=== PATIENT | male | born 1970 | race Caucasian/White ===

== ENCOUNTER 2016-12-09 23:16 | Inpatient (IN) | payer BC ==
[2016-12-09] MEDS ORDERED: nitroGLYCERIN DRIP* 250 ML IV SCH (23:45)
[2016-12-09] MEDS ORDERED: Heparin DRIP 25,000 UNITS(*) 25,000 UNITS/500 ML BAG IVPB SCH (23:45)
[2016-12-09] MEDS ORDERED: Morphine INJ* 2 MG/ML 1 ML SYRINGE IV PRN (23:51)
[2016-12-09] MEDS ORDERED: Acetaminophen TAB* 325 MG PO PRN (23:51)
[2016-12-09] MEDS ORDERED: Ondansetron INJ* 2 MG/ML VIAL IV PRN (23:51)
[2016-12-09] MEDS ORDERED: Melatonin (NF) 3 MG TAB PO PRN (23:51)
[2016-12-09 23:58] LABS: Hematocrit 43 % (42-52); Mean Corpuscular HGB Conc 35 g/dl (31-36); Mean Corpuscular Hemoglobin 33 pg (27-31); Mean Corpuscular Volume 94 fL (80-94); Mean Platelet Volume 8 um3 (7.4-10.4); Red Blood Count 4.55 10^6/ul (4.0-5.4); Red Cell Distribution Width 13 % (10.5-15); White Blood Count 9.3 10^3/ul (3.5-10.8)
--- NOTE | 2016-12-10 00:07 | HP ---
H&P (Free Text) History and Physical: Mr Longoria is a 46YO male presenting to ED w/ atypical chest pain who was admitted by Kristal Nogueira NP with an initial troponin of 0.11 who then decided to sign out AMA. He allowed a 2nd troponin to be drawn, but refused to wait for the result which returned at 0.19. Kristal Nogueira called and left a message for him to return to the ED immediately. He called his former ED nurse stating he got the message and would "think about it for an hour" and refused to remain on the phone to allow me to discuss his situation. He returns reporting no chest pain, N/V, diaphoresis, SOB, palpitations, or light-headedness. When informed that at this time we are proceeding as if this is a heart attack, he rather dismissively states, "I don't feel like I'm having one." ED re-evaluation is in progress. He will be admitted to ICU for ACS. He received aspirin & metoprolol already. He will be started on heparin GTT and low dose nitro GTT as his pressure is quite soft at 96/61. For complete H&P see Kristal Nogueira's dictation.
[2016-12-10 00:15] LABS: Albumin 3.9 g/dL (3.2-5.2); BUN/Creatinine Ratio 16.5 (8-20); Calcium 9.3 mg/dL (8.6-10.3); EGFR African American 114.8 (>60); EGFR Non-African American 89.3 (>60); Magnesium 1.7 mg/dL (1.9-2.7); Potassium 3.8 mmol/L (3.5-5.0); Total Bilirubin 0.4 mg/dL (0.2-1.0); Total Protein 6.9 g/dL (6.4-8.9)
[2016-12-10 00:19] LABS: Troponin I 0.61 ng/mL (<0.04)
[2016-12-10 00:50] LABS: TSH (Thyroid Stimulating Horm) 3.29 mcIU/mL (0.34-5.60)
[2016-12-10] MEDS ORDERED: Heparin VIAL(*) 5000 UNITS/ML VIAL (FIVE THOUSAND) IV SCH (01:00)
[2016-12-10] MEDS: NS 0.9% 1000 ML* 1,000 ML IV SCH ×2 (01:14→09:48)
--- NOTE | 2016-12-10 03:45 | HP ---
HOSPITAL MEDICINE HISTORY AND PHYSICAL: DATE OF ADMISSION: 12/09/16 PRIMARY CARE PHYSICIAN: Dr. Ash Uribe. ATTENDING PHYSICIAN: Dr. Seven Pagan *(dictation provided by Lala Nogueira NP) CHIEF COMPLAINT: Chest pain. HISTORY OF PRESENT ILLNESS: Mr. Longoria is a 46-year-old male with a past medical history of coronary artery disease with stent placement to the RCA in 2010, paroxysmal atrial fibrillation, and obstruction sleep apnea, on CPAP, who presents today to the hospital with concern for chest pain. Mr. Longoria states that he "broke his record" on the treadmill on Sunday. He was feeling a bit more short of breath than usual he thought afterwards. However, he went home, felt fine, has been feeling fine on and Sunday. On Sunday morning, in the a.m., at approximately 3:15, while sleeping, he was awoken with sharp pain in the left side of his chest radiating into his left arm. He took extra Xanax and a dose of carvedilol and was able to go back to sleep. He said he did well the day today and was able to go exercise on the treadmill with no problem and then today at 5 p.m., while sitting watching TV, he developed pain again in the left side of his chest radiating into the left arm. He has had no associated shortness of breath or nausea with this, but was quite concerned about the chest pain especially in the setting of his history of coronary artery disease and therefore came to the emergency room for evaluation. Mr. Longoria states that he has been taking sertraline and Wellbutrin for anxiety and depression symptoms. He just went off those on Sunday. He reports that he has had some increased ankle swelling over the past 2 weeks. He takes multiple supplements and felt perhaps this was related to the supplements and therefore quit taking his folate, vitamin E, CO-Q10, and vitamin D supplements. He felt like the swelling was better until this morning when he felt like his feet were slightly more swollen than usual. He thinks he has gained weight this week with the initial weight of 224, now at 231. In the emergency room, Mr. Longoria had a troponin, which was 0.11. His EKG shows an atrial fibrillation with heart rate of about 90. PAST MEDICAL HISTORY: 1. Paroxysmal atrial fibrillation. 2. Obstructive sleep apnea, on CPAP. 3. Coronary artery disease with stent to the right coronary artery, 2010. 4. Asthma, which is mild and intermittent. 5. History of perirectal abscesses, last intervention on those, May 2016. MEDICATIONS: 1. Tylenol p.r.n. 2. Aspirin 325 mg p.o. daily. 3. Carvedilol 25 mg p.o. b.i.d. 4. Hydrochlorothiazide 25 mg p.o. daily. 5. Nifedipine 30 mg p.o. daily. ALLERGIES: To AZITHROMYCIN, ERYTHROMYCIN, and LISINOPRIL. FAMILY HISTORY: The patient reports his father had a valvular disorder and had 8 stents, he is still alive. Mother has hepatitis C and she is also still alive. SOCIAL HISTORY: No report of tobacco or drug use. The patient states he drinks 3 to 4 alcoholic beverages every other day. His female friend, Mabel Heard, would be his health care proxy. REVIEW OF SYSTEMS: A 14-point review of systems was completed with Mr. Longoria and all those not mentioned above were negative. PHYSICAL EXAMINATION GENERAL: Mr. Longoria is sitting in the bed. He is in no acute distress. He is calm and cooperative with my examination. VITAL SIGNS: Temperature 97.8, heart rate 100, respiratory rate 16, O2 saturation 98% on room air, and blood pressure 145/103. LUNGS: Clear to auscultation bilaterally with no accessory muscle use and good aeration. HEART: S1, S2. No murmur, rub, or gallop, and regular. ABDOMEN: Soft and nontender with bowel sounds positive x4. EXTREMITIES: No cyanosis or edema. NEURO: He is alert, he is oriented x3. He moves all extremities equally. There is no facial asymmetry or focal weakness. Extraocular movements are intact. SKIN: Intact. DIAGNOSTIC STUDIES/LAB DATA: Sodium 135, potassium 3.7, chloride 97, serum bicarbonate 26, BUN 16, creatinine 0.83, glucose 198, and magnesium 1.7. Troponin 0.11. BNP 120. Lactic acid 1.9. WBC 10.4, hemoglobin 15.6, hematocrit 45, and platelet count 257. INR 0.99. Chest x-ray shows no acute process. ASSESSMENT AND PLAN: Mr. Longoria is a 46-year-old male with past medical history of coronary artery disease with stent placement, 2010, as well as obstructive sleep apnea, on CPAP, and paroxysmal atrial fibrillation, who presents today to the hospital with concern for chest pain at rest. Plans are for observation in the hospital for the followin. Chest pain: The patient has been able to exercise without any chest pain both on Sunday and today and in fact states that he has been able to "beat his own record." Despite this, he did have chest pain in the middle of the night and today at 5 p.m. while resting and his troponin is 0.11. Our plans will be to place him on observation for repeat troponins x2, telemetry monitoring, and further EKGs and treatment for chest pain as indicated. I wonder perhaps if his pain is related to anxiety as he did recently go off both his sertraline and Wellbutrin. The patient does endorse a significant history of anxiety. 2. Atrial fibrillation: This is paroxysmal. The patient is in atrial fibrillation, now he is rate controlled. He has a CHADS2-VASc score of 0 and no anticoagulation is indicated. We will continue his home carvedilol. 3. History of asthma: The patient is asymptomatic, but can continue albuterol p.r.n. as needed. 4. History of coronary artery disease, with stent placement: Continue carvedilol and nifedipine. 5. DVT prophylaxis: Heparin subcu. 6. Code status: Full code. TIME SPENT: Approximately 60 minutes was spent in the admission of this patient , more than half of the time was spent with the patient at the bedside reviewing the events leading up to this hospitalization, performing the physical examination, and reviewing the plan of care. LALA NOGUEIRA NP CC: Dr. Ash Uribe* [id number]/[facility] #: [id number] JEANCARLOS
[2016-12-10] MEDS ORDERED: Nitroglycerin TAB 0.4 MG* 0.4 MG TAB ONE (08:05)
[2016-12-10] MEDS: Docusate CAP* 100 MG PO SCH ×2 (09:00→21:01)
[2016-12-10] MEDS ORDERED: Aspirin TAB* 325 MG PO SCH (09:00)
[2016-12-10] MEDS: Pantoprazole IV* 40 MG IV SCH ×2 (09:00→12:07)
[2016-12-10] MEDS ORDERED: Midazolam* 1 MG/ML 5 ML VIAL (5 MG) ONE (10:02)
[2016-12-10] MEDS ORDERED: Heparin 2 UNITS/ML IVPREMIX* 2,000 ML IV ONE (10:02)
[2016-12-10] MEDS ORDERED: fentaNYL* 50 MCG/ML 2 ML VIAL (100 MCG VIAL) ONE ×2 (10:02→13:52)
[2016-12-10] MEDS ORDERED: Heparin(*) 1000 UNIT/ML 10 ML VIAL CATH LAB IV ONE (10:02)
[2016-12-10] MEDS ORDERED: VERAPAMIL 2.5 MG/ML 4 ML VIAL ONE (10:02)
[2016-12-10] MEDS ORDERED: Iohexol 350 (CONTRAST) 200 ML MDV IV ONE ×3 (10:03→14:30)
[2016-12-10] MEDS ORDERED: Lidocaine 1% INJ* 10 MG/ML 30 ML SDV ONE ×2 (10:03→12:38)
[2016-12-10] MEDS ORDERED: nitroGLYCERIN DRIP* 250 ML ONE ×2 (10:03→12:37)
[2016-12-10] MEDS ORDERED: Heparin 2 UNITS/ML IVPREMIX* 1,000 ML IV ONE (12:37)
[2016-12-10] MEDS ORDERED: Ticagrelor* 90 MG TAB PO ONE (13:51)
--- NOTE | 2016-12-10 14:12 | ED ---
HPI Chest Pain - HPI Summary HPI Summary: Patient had signed out AMA a few hours ago after a troponin resulted in .11 - patient made aware of result. Second troponin was drawn, and patient left AMA soon after. Dr Madera called patient to notify of results and he needed to come back to ED [facility]. And patient stated he would "think about it." Patient returned to ED 2 hours later, troponin was drawn and was at .6. Upon return, patient was willing to be admitted. For full note: see previous note by Kerrie Pugh PA-C - History of Current Complaint Chief Complaint: EDChestPainROMI Time Seen by Provider: 12/09/16 23:24 Hx Obtained From: Patient Onset/Duration: Started Days Ago - 2 Timing: Intermittent Initial Severity: Moderate Current Severity: Moderate Pain Intensity: 2 Pain Scale Used: 0-10 Numeric Chest Pain Location: Discrete at:, Mid Sternal Chest Pain Radiates: Yes Chest Pain Radiates To:: Shoulder, Arm Character: Burning, Dyspnea at Exertion, Dyspnea at Rest, Pressure/Squeezing, Tightness Aggravating Factor(s): Exertion Alleviating Factor(s): Nothing Associated Signs and Symptoms: Positive: Anxiety, Palpitations - Risk Factors Pulmonary Embolism Risk Factors: Negative TAD Risk Factors: Hypertension, Family Hx AMI/ACS Risk Factors: Nitroglycerine Use, Hypertension, Dyslipidemia - Additional Pertinent History Primary Care Physician: [id number] - Allergy/Home Medications Allergies/Adverse Reactions: Allergies Allergy/AdvReac Type Severity Reaction Status Date / Time Azithromycin Allergy Unknown Unknown Verified 12/10/16 00:03 Reaction Details Erythromycin Allergy Unknown Unknown Verified 12/10/16 00:03 Reaction Details Lisinopril Allergy Unknown Unknown Verified 12/10/16 00:03 Reaction Details Amlodipine [From Norvasc] Allergy Unknown Verified 12/10/16 00:03 Reaction Details Home Medications: Home Medications ALPRAZolam TAB* [Xanax TAB*] 0.5 mg PO BEDTIME PRN 12/10/16 [History Confirmed 12/10/16] Albuterol HFA INHALER* [Ventolin HFA Inhaler*] PRN 12/10/16 [History] Alprazolam [Xanax Xr] 1 mg PO DAILY 12/10/16 [History Confirmed 12/10/16] Bupropion XL* [Wellbutrin XL *] 150 mg PO DAILY 12/10/16 [History Confirmed 09/16] Nitroglycerin TAB 0.4 MG* 0.4 mg SL . NEEDED PRN 12/10/16 [History Confirmed 12/10/16] Sertraline* [Zoloft*] 150 mg PO DAILY 12/10/16 [History Confirmed 12/10/16] Sucralfate TAB* [Carafate*] 1 gm PO QID PRN 12/10/16 [History Confirmed 12/10/16 ] PMH/Surg Hx/FS Hx/Imm Hx Previously Healthy: Yes Cardiovascular History: Reports: Hx Angina, Hx Coronary Artery Disease, Hx Hypertension, Other Cardiovascular Problems/Disorders - STENT PLACED TO RCA Respiratory History: Reports: Hx Asthma History: Reports: Other Problems/Disorders - STAGE III CKD Sensory History: Reports: Hx Contacts or Glasses Opthamlomology History: Reports: Hx Contacts or Glasses Psychiatric History: Reports: Hx Anxiety - Surgical History Surgery Procedure, Year, and Place: CARDIAC STENT PLACEMENT 2010 - Immunization History Date of Tetanus Vaccine: utd Date of Influenza Vaccine: none Infectious Disease History: No Infectious Disease History: Denies: Hx of Known/Suspected MRSA, Traveled Outside the [place] in Last 30 Days - Family History Known Family History: Positive: Hypertension - Social History Occupation: Employed Full-time Lives: With Family Alcohol Use: Weekly Alcohol Amount: 2-3 glasses wine Hx Substance Use: No Substance Use Type: Reports: None Hx Tobacco Use: No Smoking Status (MU): Never Smoked Tobacco Review of Systems Positive: Fatigue, Skin Diaphoresis Eyes: Negative Positive: Palpitations, Chest Pain Positive: Shortness Of Breath Gastrointestinal: Negative Positive: no symptoms reported, see HPI Skin: Negative Neurological: Negative Positive: Anxious All Other Systems Reviewed And Are Negative: Yes Physical Exam Triage Information Reviewed: Yes Vital Signs On Initial Exam: Initial Vitals Temp Pulse Resp BP Pulse Ox 97.9 F 69 20 96/61 95 12/09/16 23:19 12/09/16 23:19 12/09/16 23:19 12/09/16 23:19 12/09/16 23:19 Vital Signs Reviewed: Yes Appearance: Positive: Well-Nourished, Ill-Appearing Skin: Positive: Warm, Diaphoretic Head/Face: Positive: Normal Head/Face Inspection Neck: Positive: Supple, No Lymphadenopathy Respiratory/Lung Sounds: Positive: Clear to Auscultation Cardiovascular: Positive: RRR - upon second arrival - patient back into RRR Musculoskeletal: Positive: Normal, Strength/ROM Intact Neurological: Positive: Alert, Oriented to Person Place, Time, Speech Normal Psychiatric: Positive: Anxious AVPU Assessment: Alert - [place] Coma Scale Best Eye Response: 4 - Spontaneous Best Motor Response: 6 - Obeys Commands Best Verbal Response: 5 - Oriented Coma Scale Total: 15 Diagnostics - Vital Signs Vital Signs Temp Pulse Resp BP Pulse Ox 12/10/16 00:02 19 12/10/16 00:00 20 12/09/16 23:38 67 20 92 12/09/16 23:36 112/85 12/09/16 23:19 97.9 F 69 20 96/61 95 - Laboratory Lab Results: Lab Results 12/09/16 12/09/16 12/09/16 Range/Units 23:46 23:46 23:46 WBC 9.3 (3.5-10.8) 10^3/ul RBC 4.55 (4.0-5.4) 10^6/ul Hgb 15.0 (14.0-18.0) g/dl Hct 43 (42-52) % MCV 94 (80-94) fL MCH 33 H (27-31) pg MCHC 35 (31-36) g/dl RDW 13 (10.5-15) % Plt Count 247 (150-450) 10^3/ul MPV 8 (7.4-10.4) um3 Neut % (Auto) 67.3 (38-83) % Lymph % (Auto) 22.2 L (25-47) % [place] % (Auto) 5.5 (1-9) % Eos % (Auto) 3.9 (0-6) % Baso % (Auto) 1.1 (0-2) % Absolute Neuts (auto) 6.3 (1.5-7.7) 10^3/ul Absolute Lymphs (auto) 2.1 (1.0-4.8) 10^3/ul Absolute Monos (auto) 0.5 (0-0.8) 10^3/ul Absolute Eos (auto) 0.4 (0-0.6) 10^3/ul Absolute Basos (auto) 0.1 (0-0.2) 10^3/ul Absolute Nucleated RBC 0.01 10^3/ul Nucleated RBC % 0.1 INR (Anticoag Therapy) 0.99 (0.89-1.11) APTT 33.3 (26.0-36.3) seconds Sodium 133 (133-145) mmol/L Potassium 3.8 (3.5-5.0) mmol/L Chloride 98 L (101-111) mmol/L Carbon Dioxide 25 (22-32) mmol/L Anion Gap 10 (2-11) mmol/L BUN 15 (6-24) mg/dL Creatinine 0.91 (0.67-1.17) mg/dL Est GFR ( Amer) 114.8 (>60) Est GFR (Non-Af Amer) 89.3 (>60) BUN/Creatinine Ratio 16.5 (8-20) Glucose 184 H (70-100) mg/dL Calcium 9.3 (8.6-10.3) mg/dL Magnesium 1.7 L (1.9-2.7) mg/dL Total Bilirubin 0.40 (0.2-1.0) mg/dL AST 25 (13-39) U/L ALT 24 (7-52) U/L Alkaline Phosphatase 69 (34-104) U/L Total Creatine Kinase 185 (10-223) U/L CK-MB (CK-2) 10.1 H (0.6-6.3) ng/mL Myoglobin 60.1 (17.4-105.7) ng/mL Troponin I 0.61 H* (<0.04) ng/mL B-Natriuretic Peptide ( - 100) pg/mL Total Protein 6.9 (6.4-8.9) g/dL Albumin 3.9 (3.2-5.2) g/dL Globulin 3.0 (2-4) g/dL Albumin/Globulin Ratio 1.3 (1-3) TSH 3.29 (0.34-5.60) mcIU/mL 12/09/16 Range/Units 23:46 WBC (3.5-10.8) 10^3/ul RBC (4.0-5.4) 10^6/ul Hgb (14.0-18.0) g/dl Hct (42-52) % MCV (80-94) fL MCH (27-31) pg MCHC (31-36) g/dl RDW (10.5-15) % Plt Count (150-450) 10^3/ul MPV (7.4-10.4) um3 Neut % (Auto) (38-83) % Lymph % (Auto) (25-47) % [place] % (Auto) (1-9) % Eos % (Auto) (0-6) % Baso % (Auto) (0-2) % Absolute Neuts (auto) (1.5-7.7) 10^3/ul Absolute Lymphs (auto) (1.0-4.8) 10^3/ul Absolute Monos (auto) (0-0.8) 10^3/ul Absolute Eos (auto) (0-0.6) 10^3/ul Absolute Basos (auto) (0-0.2) 10^3/ul Absolute Nucleated RBC 10^3/ul Nucleated RBC % INR (Anticoag Therapy) (0.89-1.11) APTT (26.0-36.3) seconds Sodium (133-145) mmol/L Potassium (3.5-5.0) mmol/L Chloride (101-111) mmol/L Carbon Dioxide (22-32) mmol/L Anion Gap (2-11) mmol/L BUN (6-24) mg/dL Creatinine (0.67-1.17) mg/dL Est GFR ( Amer) (>60) Est GFR (Non-Af Amer) (>60) BUN/Creatinine Ratio (8-20) Glucose (70-100) mg/dL Calcium (8.6-10.3) mg/dL Magnesium (1.9-2.7) mg/dL Total Bilirubin (0.2-1.0) mg/dL AST (13-39) U/L ALT (7-52) U/L Alkaline Phosphatase (34-104) U/L Total Creatine Kinase (10-223) U/L CK-MB (CK-2) (0.6-6.3) ng/mL Myoglobin (17.4-105.7) ng/mL Troponin I (<0.04) ng/mL B-Natriuretic Peptide 138 H ( - 100) pg/mL Total Protein (6.4-8.9) g/dL Albumin (3.2-5.2) g/dL Globulin (2-4) g/dL Albumin/Globulin Ratio (1-3) TSH (0.34-5.60) mcIU/mL Result Diagrams: 12/09/16 23:46 12/09/16 23:46 Lab Statement: Any lab studies that have been ordered have been reviewed, and results considered in the medical decision making process. Chest Pain Course/Dx - Course Course Of Treatment: Patient re-evlauted. Re-ordered labs. Discussed findings with Dr. Madera who was willing to accept patient to admit. no meds were given in ED d/t recent medication dispense prior to leaving. Currently pressures are soft. - Chest Pain Differential Diagnosis/HQI/PQRI: Acute AK, ACS, Angina, Chest Wall - Diagnoses Provider Diagnoses: ACS (acute coronary syndrome) Discharge - Discharge Plan Condition: Critical Disposition: ADMITTED TO [facility]
[2016-12-10] MEDS ORDERED: Nitroglycerin TAB 0.4 MG* 0.4 MG TAB SL PRN (14:58)
[2016-12-10] MEDS ORDERED: NS 0.9% 1000 ML* 1,000 ML IV SCH (15:00)
[2016-12-10 16:12] LABS: Troponin I 1.81 ng/mL (<0.04)
[2016-12-10] MEDS ORDERED: ALPRAZolam TAB* 0.5 MG PO PRN (16:33)
[2016-12-10] MEDS ORDERED: NIFEdipine ER TAB* 30 MG PO SCH (17:00)
--- NOTE | 2016-12-10 18:17 | CONS ---
INTERVENTIONAL CARDIOLOGY CONSULT: DATE OF CONSULT: 12/10/16 PRIMARY CARE PHYSICIAN: Dr. Karine Uribe in [place]. HAND POLISHER: Dr. Davidson at [facility]. HISTORY OF PRESENT ILLNESS: A 46-year-old male with remote coronary artery stenting, presenting to the hospital with non-ST elevation infarct. He had a distal right coronary artery 2.5 x 16 drug-eluting stent [place] [address] Reeder for angina and a positive stress test. He subsequently has had no angina , his blood pressure has been difficult to control and overtime he has arrived at his current regimen with higher than recommended doses of carvedilol as well as Procardia long acting even though he has coronary artery disease because it is effective. By history, he has intolerance of Lipitor with leg muscle aching , but he is willing to try it again. He has never been on Crestor. He has paroxysmal atrial fibrillation, treated with aspirin. He follows with Dr. Davidson, Cardiology at the [facility]. He presented with rest angina, which was somewhat atypical. Yesterday, he had resting left-sided somewhat atypical chest pain, he had no further problems. Then, yesterday in the evening at rest he again had the left-sided chest pain radiating into the left arm, he came to our ER, his first troponin was 0.11, a second troponin was drawn but he left AMA because he thought he was having an anxiety attack. When his second troponin came back higher, he was called and he returned. This morning he again had recurrence of his resting angina, responded fairly quickly to IV nitroglycerin at 10 mcg per minute. He has not had embolic symptoms, denies heart failure symptoms. PAST MEDICAL HISTORY: Obstructive sleep apnea, paroxysmal atrial fibrillation. His CHADS-VASc score is 2, he has been on aspirin only. Hypertension, obesity, diabetes type 2 with by history A1c of 6.3. PRE-HOSPITAL MEDICATIONS: 1. Carafate 1 g q.i.d. p.r.n. 2. Zoloft 150 p.o. daily. 3. Nitro 0.4 p.r.n. 4. Procardia XL 30 mg daily. 5. Hydrochlorothiazide 25 mg daily. 6. Carvedilol 50 mg b.i.d. 7. Wellbutrin 150 mg daily. 8. Aspirin 325 daily. 9. Xanax 1 mg daily p.r.n. 10. P.r.n. inhaler. 11. Xanax 0.5 at h.s. p.r.n. ALLERGIES: NORVASC because it caused atrial fibrillation 3 times per history, and ERYTHROMYCIN. FAMILY HISTORY: Positive for premature coronary artery disease. SOCIAL HISTORY: He is a nonsmoker. REVIEW OF SYSTEMS: General: No weight loss, he is active, he exercises. ASSEMBLER FINGER BUFFS: No history of TIA or CVA. There is a strong family history of intracranial aneurysm, but he has had a negative MRA. GI: No peptic ulcer disease or bleeding on aspirin. Circulatory: No claudication. : Negative. Remainder were all negative. PHYSICAL EXAM: General: When seen in the ICU on IV nitro, he was pain free. Vital Signs: His BP 104/80, heart rate in the 80s. Respiratory: His lungs were clear to percussion and auscultation. JVP was normal. Carotid upstrokes normal, no bruits. HEENT: Unremarkable. Cardiac Exam: Unremarkable, apex and RV not palpable, normal S1 and S2, he has irregularly irregular rhythm with variable S1, no gallop, no murmur, no rub. Abdomen: Soft, nontender, no bruit , I cannot feel the aorta or liver edge. Femoral pulses are 2+ as per radials and pedals. He has no cyanosis, clubbing, or edema. Skin: Warm and perfused. Psych: He is oriented and appropriate. LABORATORY DATA/DIAGNOSTIC STUDIES: Admission CBC unremarkable, BUN 15, creatinine 0.91, random blood sugar 184. His troponin initially was 0.19, then 0.61, 1.51, 1.81, as not yet peaked. BNP was 120 and 138. Lipids are pending. Chest x-ray by report no acute change. EKG on admission shows atrial fibrillation with ventricular rate of 96, somewhat poor R-wave progression with inferior T-wave inversion without any evolution of ST changes. IMPRESSION: 1. Non-ST elevation infarct. He has had previous right coronary artery stenting, he had a history of statin intolerance, but he is willing to try Lipitor again, potentially he could be discharged to home on Crestor as he has never had it. He takes Coenzyme Q and other supplements. He also believes some of his medication intolerance may be related to vitamin D deficiency, which is now treated. 2. Hypertension. By history, fairly well controlled on his current regimen, he tells me TIM inhibitors were ineffective in the past. 3. Paroxysmal atrial fibrillations with CHADS-VASc score of 2, he follows with Dr. Davidson who apparently has elected to treat him with aspirin alone. 4. Diabetes type 2, treated with diet. We will follow Accu-Cheks. 5. Obstructive sleep apnea, treated with CPAP. CC: Dr. Karine Uribe; Dr. Davidson* [id number]/[facility] #: [id number] [facility]ITALD[facility]ley
--- NOTE | 2016-12-10 18:29 | PN ---
Subjective Date of Service: 12/10/16 Interval History: Patient complained of chest pain this am. 4/10 in severity and feels like someone punching his chest. Radiates to his left arm. No SOB. No N/V or palps. Objective Active Medications: Acetaminophen (Tylenol Tab*) 650 mg PO Q6H PRN PRN Reason: FEVER/PAIN Alprazolam (Xanax Tab*) 0.5 mg PO BEDTIME PRN PRN Reason: ANXIETY Aspirin (Aspirin Low Dose Tab*) 81 mg PO DAILY [facility] Atorvastatin Calcium (Lipitor*) 80 mg PO 2100 ONE Stop: 12/10/16 21:01 Bupropion HCl (Wellbutrin Xl *) 150 mg PO DAILY [facility] PRN Reason: Protocol Docusate Sodium (Colace Cap*) 200 mg PO BID [facility] Last Admin: 12/10/16 09:00 Dose: Not Given Hydrochlorothiazide (Hydrodiuril Tab*) 25 mg PO DAILY [facility] Nitroglycerin/Dextrose (Nitroglycerin Drip*) 250 mls @ 1.2 mls/hr IV .(Initial Rate) [facility] PRN Reason: 2 MCG/MIN Stop: 12/10/16 21:00 Last Admin: 12/10/16 08:33 Dose: 1.2 mls/hr Sodium Chloride (Ns 0.9% 1000 Ml*) 1,000 mls @ 100 mls/hr IV .per rate [facility] Stop: 12/10/16 21:00 Last Admin: 12/10/16 16:59 Dose: 100 mls/hr Morphine Sulfate (Morphine Inj (Syringe)*) 2 mg IV Q4H PRN PRN Reason: PAIN - MILD Nifedipine (Procardia Xl Tab*) 30 mg PO DAILY [facility] Last Admin: 12/10/16 17:24 Dose: 30 mg Nitroglycerin (Nitroglycerin Tab 0.4 Mg*) 0.4 mg SL Q5M PRN PRN Reason: ANGINA Ondansetron HCl (Zofran Inj*) 4 mg IV Q6H PRN PRN Reason: NAUSEA Pantoprazole Sodium (Protonix Iv*) 40 mg IV DAILY [facility] Last Admin: 12/10/16 09:00 Dose: Not Given Sertraline HCl (Zoloft*) 150 mg PO DAILY [facility] Ticagrelor (Brilinta*) 90 mg PO BID [facility] Vital Signs 12/10/16 12/10/16 12/10/16 00:30 00:31 00:51 Temperature 98.7 F Pulse Rate 67 67 Respiratory 20 15 18 Rate Blood Pressure 109/64 86/71 (mmHg) O2 Sat by Pulse 94 96 Oximetry 12/10/16 12/10/16 12/10/16 00:55 01:00 01:30 Temperature Pulse Rate 66 66 Respiratory 15 18 Rate Blood Pressure 94/67 86/71 100/67 (mmHg) O2 Sat by Pulse 91 94 Oximetry 12/10/16 12/10/16 12/10/16 01:36 03:00 03:20 Temperature Pulse Rate 70 Respiratory 15 21 Rate Blood Pressure 110/57 (mmHg) O2 Sat by Pulse 94 93 Oximetry 12/10/16 12/10/16 12/10/16 03:30 04:00 04:31 Temperature 98.8 F Pulse Rate 72 68 128 Respiratory 16 18 21 Rate Blood Pressure 116/73 108/61 140/90 (mmHg) O2 Sat by Pulse 96 94 96 Oximetry 12/10/16 12/10/16 12/10/16 04:49 05:00 05:30 Temperature Pulse Rate 89 86 Respiratory 16 17 19 Rate Blood Pressure 118/77 106/69 (mmHg) O2 Sat by Pulse 96 93 Oximetry 12/10/16 12/10/16 12/10/16 06:00 06:01 06:30 Temperature Pulse Rate 111 115 Respiratory 18 20 Rate Blood Pressure 129/87 118/80 (mmHg) O2 Sat by Pulse 97 95 Oximetry 12/10/16 12/10/16 12/10/16 07:00 07:30 08:00 Temperature 98.1 F Pulse Rate 88 72 86 Respiratory 17 18 14 Rate Blood Pressure 123/85 128/83 (mmHg) O2 Sat by Pulse 91 93 93 Oximetry 12/10/16 12/10/16 12/10/16 08:07 08:10 08:12 Temperature Pulse Rate 46 65 76 Respiratory 14 16 15 Rate Blood Pressure 123/91 119/82 100/49 (mmHg) O2 Sat by Pulse 94 95 93 Oximetry 12/10/16 12/10/16 12/10/16 08:15 08:17 08:22 Temperature Pulse Rate 96 93 Respiratory 17 13 Rate Blood Pressure 102/71 92/65 109/68 (mmHg) O2 Sat by Pulse 92 93 Oximetry 12/10/16 12/10/16 12/10/16 08:25 08:27 08:30 Temperature Pulse Rate 51 79 85 Respiratory 13 15 18 Rate Blood Pressure 111/68 107/67 103/74 (mmHg) O2 Sat by Pulse 96 96 96 Oximetry 12/10/16 12/10/16 12/10/16 08:32 08:35 08:45 Temperature Pulse Rate 80 150 Respiratory 14 19 Rate Blood Pressure 106/80 109/79 118/52 (mmHg) O2 Sat by Pulse 94 97 Oximetry 12/10/16 12/10/16 12/10/16 09:00 09:15 09:20 Temperature Pulse Rate 77 89 83 Respiratory 16 18 16 Rate Blood Pressure 118/88 113/63 103/71 (mmHg) O2 Sat by Pulse 97 95 96 Oximetry 12/10/16 12/10/16 12/10/16 09:25 09:40 09:45 Temperature Pulse Rate 92 50 Respiratory 18 18 Rate Blood Pressure 106/71 118/72 110/65 (mmHg) O2 Sat by Pulse 95 92 Oximetry 12/10/16 12/10/16 12/10/16 09:55 10:00 10:17 Temperature Pulse Rate 89 85 89 Respiratory 18 19 18 Rate Blood Pressure 95/54 102/77 104/80 (mmHg) O2 Sat by Pulse 95 97 98 Oximetry 12/10/16 12/10/16 12/10/16 10:30 10:45 11:00 Temperature Pulse Rate 86 87 Respiratory 16 15 20 Rate Blood Pressure 105/70 122/83 (mmHg) O2 Sat by Pulse 97 98 Oximetry 12/10/16 12/10/16 12/10/16 11:18 11:26 12:00 Temperature 98.4 F Pulse Rate Respiratory 15 18 15 Rate Blood Pressure (mmHg) O2 Sat by Pulse Oximetry 12/10/16 12/10/16 12/10/16 12:05 12:15 12:30 Temperature Pulse Rate Respiratory 15 16 Rate Blood Pressure 115/75 105/71 103/71 (mmHg) O2 Sat by Pulse Oximetry 12/10/16 12/10/16 12/10/16 14:57 14:58 15:00 Temperature 98.2 F Pulse Rate Respiratory 14 14 Rate Blood Pressure (mmHg) O2 Sat by Pulse Oximetry 12/10/16 12/10/16 12/10/16 15:02 15:15 15:30 Temperature Pulse Rate 62 59 Respiratory 19 15 15 Rate Blood Pressure 117/73 119/87 111/80 (mmHg) O2 Sat by Pulse 95 98 Oximetry 12/10/16 12/10/16 12/10/16 15:45 16:00 16:15 Temperature Pulse Rate 51 55 Respiratory 12 15 Rate Blood Pressure 117/75 102/69 115/81 (mmHg) O2 Sat by Pulse 97 96 Oximetry 12/10/16 12/10/16 12/10/16 16:56 17:00 17:15 Temperature Pulse Rate 66 61 Respiratory 22 20 16 Rate Blood Pressure 171/90 134/73 144/77 (mmHg) O2 Sat by Pulse 97 97 Oximetry 12/10/16 12/10/16 12/10/16 17:30 17:55 18:00 Temperature Pulse Rate 64 64 Respiratory 17 19 Rate Blood Pressure 121/80 113/77 (mmHg) O2 Sat by Pulse 98 96 Oximetry Oxygen Devices in Use Now: None Appearance: Overweight gentleman lying in bed in NAD Eyes: No Scleral Icterus Ears/Nose/Mouth/Throat: Mucous Membranes Moist Neck: NL Appearance and Movements; NL JVP, No Thyroid Enlargement, Masses Respiratory: Clear to Auscultation Cardiovascular: - - S1S2 malathi irreg irreg rhythm Abdominal: NL Sounds; No Tenderness; No Distention, No Hepatosplenomegaly, - - Obese Lymphatic: No Cervical Adenopathy Extremities: No Edema Skin: No Rash or Ulcers Neurological: Alert and Oriented x 3 Result Diagrams: 12/09/16 23:46 12/09/16 23:46 Additional Lab and Data: Lab Results 12/09/16 12/09/16 12/09/16 Range/Units 23:46 23:46 23:46 WBC 9.3 (3.5-10.8) 10^3/ul RBC 4.55 (4.0-5.4) 10^6/ul Hgb 15.0 (14.0-18.0) g/dl Hct 43 (42-52) % MCV 94 (80-94) fL MCH 33 H (27-31) pg MCHC 35 (31-36) g/dl RDW 13 (10.5-15) % Plt Count 247 (150-450) 10^3/ul MPV 8 (7.4-10.4) um3 Neut % (Auto) 67.3 (38-83) % Lymph % (Auto) 22.2 L (25-47) % Gaston % (Auto) 5.5 (1-9) % Eos % (Auto) 3.9 (0-6) % Baso % (Auto) 1.1 (0-2) % Absolute Neuts (auto) 6.3 (1.5-7.7) 10^3/ul Absolute Lymphs (auto) 2.1 (1.0-4.8) 10^3/ul Absolute Monos (auto) 0.5 (0-0.8) 10^3/ul Absolute Eos (auto) 0.4 (0-0.6) 10^3/ul Absolute Basos (auto) 0.1 (0-0.2) 10^3/ul Absolute Nucleated RBC 0.01 10^3/ul Nucleated RBC % 0.1 INR (Anticoag Therapy) 0.99 (0.89-1.11) APTT 33.3 (26.0-36.3) seconds Sodium 133 (133-145) mmol/L Potassium 3.8 (3.5-5.0) mmol/L Chloride 98 L (101-111) mmol/L Carbon Dioxide 25 (22-32) mmol/L Anion Gap 10 (2-11) mmol/L BUN 15 (6-24) mg/dL Creatinine 0.91 (0.67-1.17) mg/dL Est GFR ( Amer) 114.8 (>60) Est GFR (Non-Af Amer) 89.3 (>60) BUN/Creatinine Ratio 16.5 (8-20) Glucose 184 H (70-100) mg/dL Calcium 9.3 (8.6-10.3) mg/dL Magnesium 1.7 L (1.9-2.7) mg/dL Total Bilirubin 0.40 (0.2-1.0) mg/dL AST 25 (13-39) U/L ALT 24 (7-52) U/L Alkaline Phosphatase 69 (34-104) U/L Total Creatine Kinase 185 (10-223) U/L CK-MB (CK-2) 10.1 H (0.6-6.3) ng/mL Myoglobin 60.1 (17.4-105.7) ng/mL Troponin I 0.61 H* (<0.04) ng/mL B-Natriuretic Peptide ( - 100) pg/mL Total Protein 6.9 (6.4-8.9) g/dL Albumin 3.9 (3.2-5.2) g/dL Globulin 3.0 (2-4) g/dL Albumin/Globulin Ratio 1.3 (1-3) TSH 3.29 (0.34-5.60) mcIU/mL 12/09/16 Range/Units 23:46 WBC (3.5-10.8) 10^3/ul RBC (4.0-5.4) 10^6/ul Hgb (14.0-18.0) g/dl Hct (42-52) % MCV (80-94) fL MCH (27-31) pg MCHC (31-36) g/dl RDW (10.5-15) % Plt Count (150-450) 10^3/ul MPV (7.4-10.4) um3 Neut % (Auto) (38-83) % Lymph % (Auto) (25-47) % Gaston % (Auto) (1-9) % Eos % (Auto) (0-6) % Baso % (Auto) (0-2) % Absolute Neuts (auto) (1.5-7.7) 10^3/ul Absolute Lymphs (auto) (1.0-4.8) 10^3/ul Absolute Monos (auto) (0-0.8) 10^3/ul Absolute Eos (auto) (0-0.6) 10^3/ul Absolute Basos (auto) (0-0.2) 10^3/ul Absolute Nucleated RBC 10^3/ul Nucleated RBC % INR (Anticoag Therapy) (0.89-1.11) APTT (26.0-36.3) seconds Sodium (133-145) mmol/L Potassium (3.5-5.0) mmol/L Chloride (101-111) mmol/L Carbon Dioxide (22-32) mmol/L Anion Gap (2-11) mmol/L BUN (6-24) mg/dL Creatinine (0.67-1.17) mg/dL Est GFR ( Amer) (>60) Est GFR (Non-Af Amer) (>60) BUN/Creatinine Ratio (8-20) Glucose (70-100) mg/dL Calcium (8.6-10.3) mg/dL Magnesium (1.9-2.7) mg/dL Total Bilirubin (0.2-1.0) mg/dL AST (13-39) U/L ALT (7-52) U/L Alkaline Phosphatase (34-104) U/L Total Creatine Kinase (10-223) U/L CK-MB (CK-2) (0.6-6.3) ng/mL Myoglobin (17.4-105.7) ng/mL Troponin I (<0.04) ng/mL B-Natriuretic Peptide 138 H ( - 100) pg/mL Total Protein (6.4-8.9) g/dL Albumin (3.2-5.2) g/dL Globulin (2-4) g/dL Albumin/Globulin Ratio (1-3) TSH (0.34-5.60) mcIU/mL Microbiology and Other Data: Microbiology 12/10/16 01:00 Nasal Screen MRSA (PCR)(FABRICE) - Final Nasal Mrsa Negative Assess/Plan/Problems-Billing Assessment: 46 year old gentleman who presented to [facility] [place] with CP and found to have elevated trops and likely NSTEMI. - Patient Problems (1) NSTEMI (non-ST elevated myocardial infarction) Current Visit: Yes Status: Acute Code(s): I21.4 - NON-ST ELEVATION (NSTEMI) MYOCARDIAL INFARCTION SNOMED Code(s): 947555687 Comment: Patient with elevated trops, chest pain and history of CAD. EKG unimpressive. On heparin drip, ntg drip, beta martin, ASA. Will contact interventional cardiology as patient likely needs cath. (2) Atrial fibrillation Current Visit: Yes Status: Acute Code(s): I48.91 - UNSPECIFIED ATRIAL FIBRILLATION SNOMED Code(s): 60120553 Comment: Chronic. Not on anticoagulation except ASA. CHADS2 score is 1. Rate is controlled. (3) Alcohol abuse Current Visit: Yes Status: Acute Code(s): F10.10 - ALCOHOL ABUSE, UNCOMPLICATED SNOMED Code(s): 10604529 Comment: Apparently we are not supposed to be aware of this as we were notified by close friend of their concern. Patient does not acknowledge this is an issue and does not want to discuss it with us. Will monitor for any evidence of withdrawal and place on WA protocol if necessary. (4) KEE (obstructive sleep apnea) Current Visit: Yes Status: Acute Code(s): G47.33 - OBSTRUCTIVE SLEEP APNEA ( ADULT) (PEDIATRIC) SNOMED Code(s): 56282593 Comment: On CPAP. He has brought in his own machine. (5) Depression Current Visit: Yes Status: Acute Code(s): F32.9 - MAJOR DEPRESSIVE DISORDER , SINGLE EPISODE, UNSPECIFIED SNOMED Code(s): 95242340 Comment: Stable. Continue current meds. (6) DVT prophylaxis Current Visit: Yes Status: Acute Code(s): XOG9386 - SNOMED Code(s): 215434397 Comment: Heparin sub q (7) Full code status Current Visit: Yes Status: Acute Code(s): Z78.9 - OTHER SPECIFIED HEALTH STATUS SNOMED Code(s): 132655240
[2016-12-10] MEDS ORDERED: Atorvastatin* 80 MG TAB PO ONE (21:00)
[2016-12-10] MEDS: Ticagrelor* 90 MG TAB PO SCH (21:01)
[2016-12-10 21:07] LABS: Hematocrit 40 % (42-52); Hemoglobin 13.8 g/dl (14.0-18.0); Mean Corpuscular HGB Conc 35 g/dl (31-36); Mean Corpuscular Hemoglobin 33 pg (27-31); Mean Corpuscular Volume 95 fL (80-94); Mean Platelet Volume 8 um3 (7.4-10.4); Red Blood Count 4.22 10^6/ul (4.0-5.4); Red Cell Distribution Width 13 % (10.5-15)
[2016-12-10 21:21] LABS: EGFR African American 116.3 (>60); EGFR Non-African American 90.4 (>60)
[2016-12-10 21:28] LABS: Troponin I 2.1 ng/mL (<0.04)
[2016-12-10] MEDS: Heparin VIAL(*) 5000 UNITS/ML VIAL (FIVE THOUSAND) SUBCUT SCH ×2 (21:48→21:50)
[2016-12-11 03:24] LABS: Hematocrit 41 % (42-52); Hemoglobin 14.1 g/dl (14.0-18.0); Mean Corpuscular HGB Conc 35 g/dl (31-36); Mean Corpuscular Hemoglobin 32 pg (27-31); Mean Corpuscular Volume 94 fL (80-94); Mean Platelet Volume 8 um3 (7.4-10.4); Red Blood Count 4.34 10^6/ul (4.0-5.4); Red Cell Distribution Width 13 % (10.5-15)
[2016-12-11 03:41] LABS: Calcium 9.2 mg/dL (8.6-10.3); EGFR African American 133.3 (>60); EGFR Non-African American 103.6 (>60); Potassium 3.7 mmol/L (3.5-5.0)
[2016-12-11 03:52] LABS: Troponin I 2.09 ng/mL (<0.04)
[2016-12-11] MEDS ORDERED: BuPROPion XL* 150 MG TAB.XL PO SCH (09:00)
[2016-12-11] MEDS ORDERED: Hydrochlorothiazide TAB* 25 MG PO SCH (09:00)
[2016-12-11] MEDS ORDERED: Sertraline* 50 MG TAB PO SCH (09:00)
[2016-12-11] MEDS ORDERED: Aspirin Low Dose CHEW TAB* 81 MG PO SCH (09:00)
--- NOTE | 2016-12-11 09:54 | ECHO ---
Patient: LEXUS THOMAS [facility] Rec#: [id number] : 1970 Date: 12/11/2016 Age: 46y Height: 172.72 cm / 68.0 in Weight: 107.5 kg / 236.9 lbs Sex: M BSA: 2.2 Room#: ICU-1 Admit Date#: 12/10/2016 Type: Inpatient Referring: Aniya Rao MD Reading: Sulaiman Feliciano MD Director Business Development: Hali Gant [facility] Director Business Development: Stefany Jeffers Transthoracic Echocardiogram Indication: S/P PCI BP: 125/82 HR: 117 Rhythm: Tachycardia Findings History: PCI 12/10/16, NSTEMI in 2010, PAF, CPAP for KEE, HTN, obesity, DM, cardiac family history. Technical Comments: The study is technically limited due to patient body habitus. Completed at 0920. Left Ventricle: The left ventricular chamber size is mildly dilated. Mild concentric left ventricular hypertrophy is observed. There is a focal wall motion abnormality present. There is mildly decreased left ventricular systolic function. The estimated ejection fraction is 40-45%. There is no consistent Doppler evidence of clinically significant diastolic dysfunction. The mid anterolateral, and apical lateral wall segments are hypokinetic (score 2). The mid anterior, and apical anterior wall segments are akinetic (score 3). Overall wallmotion score index is 2.50 Left Atrium: The left atrial chamber size is normal. Right Ventricle: The right ventricular cavity size is normal. The right ventricular global systolic function is mildly reduced. Right Atrium: The right atrial cavity size is normal. Aortic Valve: The aortic valve is trileaflet. There is trace to mild aortic regurgitation. There is no evidence of aortic stenosis. Mitral Valve: The mitral valve leaflets are mildly thickened. There is trace to mild mitral regurgitation. There is no evidence of mitral stenosis. Tricuspid Valve: The tricuspid valve leaflets are normal. There is trace tricuspid regurgitation. No pulmonary hypertension is noted. There is no tricuspid stenosis. Pulmonic Valve: The pulmonic valve appears normal. There is a trace pulmonic regurgitation. There is no pulmonic stenosis. Pericardium: There is no significant pericardial effusion. Aorta: There is moderate dilatation of the ascending aorta. There is no dilatation of the aortic arch. There is moderate dilatation of the aortic root. Pulmonary Artery: The main pulmonary artery appears normal. Venous: The inferior vena cava appears normal in size. There is a greater than 50% respiratory change in the inferior vena cava dimension. Conclusions There is mildly decreased left ventricular systolic function. The estimated ejection fraction is 40-45%. The mid anterolateral, and apical lateral wall segments are hypokinetic (score 2). The mid anterior, and apical anterior wall segments are akinetic (score 3). Mild concentric left ventricular hypertrophy is observed. There is trace to mild aortic regurgitation. There is trace to mild mitral regurgitation. There is trace tricuspid regurgitation. No pulmonary hypertension is noted. There is no significant pericardial effusion. Compared to study of 06/27/11, the LV dysfunction and wall motion abnormalites are new Measurements Name Value Normal Range RVIDd (AP) 2D 3 cm (0.9 - 2.6) RVDdMajor (2D) 3.5 cm (2.2 - 4.4) RAd ISD 4CH 5.8 cm (3.4 - 4.9) RA (A4C)W 3.7 cm (2.9 - 4.6) IVSd (2D) 1.2 cm (0.6 - 1) LVPWd (2D) 1.2 cm (0.6 - 1) LVIDd (2D) 5.6 cm (3.6 - 5.4) LVIDs (2D) 4.9 cm - LV FS (2D) 13 % (25 - 45) Aortic Annulus 3 cm (1.4 - 2.6) Ao root diameter (2D) 4.4 cm (2.1 - 3.5) Ascending Ao 4 cm (2.1 - 3.4) Aortic arch 2.8 cm (1.8 - 3.4) LA dimension (AP) 2D 4.1 cm (2.3 - 3.8) LAd ISD 4CH 5.1 cm (2.9 - 5.3) LA ISD 4CH W 3.9 cm (2.5 - 4.5) Name Value Normal Range LA ESV SP 4CH (A/L) 50 ml - LA ESV SP 2CH (A/L) 67 ml - LA ESV BP (A/L) 61 ml - LA ESV BP (A/L) index 27.79 ml/m2 - LA ESV SP 4CH (MOD) 49 ml - LA ESV SP 2CH (MOD) 65 ml - Name Value Normal Range MV E-wave Vmax 0.8 m/sec - MV deceleration time 227 msec - MV A-wave Vmax 0.7 m/sec - MV E:A ratio 1.1 ratio - LV septal e' Vmax 0.09 m/sec - LV lateral e' Vmax 0.07 m/sec - LV E:e' septal ratio 8.89 ratio - LV E:e' lateral ratio 11.43 ratio - Name Value Normal Range AV Vmax 1.2 m/sec - AV VTI 26 cm - AV peak gradient 5.7 mmHg - AV mean gradient 3.31 mmHg - LVOT Vmax 0.8 m/sec - LVOT VTI 17.3 cm - LVOT peak gradient 2.4 mmHg - LVOT mean gradient 1.34 mmHg - SILVIANO Vmax 0.43 m/sec - Name Value Normal Range TR Vmax 1.6 m/sec - TR peak gradient 10 mmHg - RAP 3 mmHg - RVSP 13 mmHg - IVC diameter 1.6 cm - Name Value Normal Range PV Vmax 0.7 m/sec - PV peak gradient 1.85 mmHg - Wallmotion BAS Not Seen BA Not Seen BAL Not Seen TODD Not Seen BI Not Seen BIS Not Seen MAS Not Seen MA Akinetic MAL Hypokinetic MIL Not Seen NV Not Seen MIS Not Seen Not Seen AA Akinetic AL Hypokinetic AI Not Seen APEX Hypokinetic
[2016-12-11] MEDS: Ticagrelor* 90 MG TAB PO SCH (09:57)
[2016-12-11] MEDS: Docusate CAP* 100 MG PO SCH (09:57)
[2016-12-11] MEDS: Pantoprazole IV* 40 MG IV SCH (09:58)
[2016-12-11] MEDS ORDERED: Carvedilol TAB* 25 MG PO SCH (12:00)
[2016-12-11 14:10] VITALS: BP 121/77
[2016-12-11] MEDS ORDERED: NIFEdipine ER TAB* 30 MG PO SCH (18:00)
[2016-12-11] MEDS: Heparin VIAL(*) 5000 UNITS/ML VIAL (FIVE THOUSAND) SUBCUT SCH (18:13)
--- NOTE | 2016-12-11 18:18 | PN ---
Subjective Date of Service: 12/11/16 Interval History: Seen and examined this AM Has no complaints No chest pain, slept well on CPAP. Has not been up and ambulating Objective Active Medications: Acetaminophen (Tylenol Tab*) 650 mg PO Q6H PRN PRN Reason: FEVER/PAIN Alprazolam (Xanax Tab*) 0.5 mg PO BEDTIME PRN PRN Reason: ANXIETY Aspirin (Aspirin Low Dose Tab*) 81 mg PO DAILY [facility] Last Admin: 12/11/16 09:57 Dose: 81 mg Bupropion HCl (Wellbutrin Xl *) 150 mg PO DAILY [facility] PRN Reason: Protocol Last Admin: 12/11/16 09:57 Dose: Not Given Carvedilol (Coreg Tab*) 50 mg PO BID [facility] Last Admin: 12/11/16 13:07 Dose: 50 mg Docusate Sodium (Colace Cap*) 200 mg PO BID [facility] Last Admin: 12/11/16 09:57 Dose: Not Given Heparin Sodium (Porcine) (Heparin Vial(*)) 5,000 units SUBCUT Q8HR [facility] Last Admin: 12/11/16 18:13 Dose: Not Given Hydrochlorothiazide (Hydrodiuril Tab*) 25 mg PO DAILY [facility] Last Admin: 12/11/16 09:57 Dose: 25 mg Morphine Sulfate (Morphine Inj (Syringe)*) 2 mg IV Q4H PRN PRN Reason: PAIN - MILD Nifedipine (Procardia Xl Tab*) 30 mg PO 1800 [facility] Nitroglycerin (Nitroglycerin Tab 0.4 Mg*) 0.4 mg SL Q5M PRN PRN Reason: ANGINA Ondansetron HCl (Zofran Inj*) 4 mg IV Q6H PRN PRN Reason: NAUSEA Pantoprazole Sodium (Protonix Iv*) 40 mg IV DAILY [facility] Last Admin: 12/11/16 09:58 Dose: 40 mg Sertraline HCl (Zoloft*) 150 mg PO DAILY [facility] Last Admin: 12/11/16 09:58 Dose: Not Given Ticagrelor (Brilinta*) 90 mg PO BID [facility] Last Admin: 12/11/16 09:57 Dose: 90 mg Vital Signs 12/10/16 12/10/16 12/10/16 18:15 18:30 18:45 Temperature Pulse Rate 71 72 Respiratory 16 17 Rate Blood Pressure 112/74 106/75 112/47 (mmHg) O2 Sat by Pulse 97 93 Oximetry 12/10/16 12/10/16 12/10/16 19:00 19:15 19:30 Temperature Pulse Rate 115 75 70 Respiratory 21 17 18 Rate Blood Pressure 108/71 114/72 (mmHg) O2 Sat by Pulse 97 96 96 Oximetry 12/10/16 12/10/16 12/10/16 19:45 20:00 20:15 Temperature 98.7 F Pulse Rate 62 69 68 Respiratory 17 19 21 Rate Blood Pressure 108/54 106/58 109/55 (mmHg) O2 Sat by Pulse 99 95 97 Oximetry 12/10/16 12/10/16 12/10/16 20:30 20:45 21:00 Temperature Pulse Rate 68 69 Respiratory 19 15 Rate Blood Pressure 105/57 114/80 131/82 (mmHg) O2 Sat by Pulse 97 97 Oximetry 12/10/16 12/10/16 12/10/16 22:00 23:00 23:56 Temperature Pulse Rate 70 Respiratory 15 15 Rate Blood Pressure (mmHg) O2 Sat by Pulse 99 Oximetry 12/11/16 12/11/16 12/11/16 00:00 01:00 01:11 Temperature 98.3 F Pulse Rate 69 72 70 Respiratory 15 15 Rate Blood Pressure 123/75 (mmHg) O2 Sat by Pulse 99 93 94 Oximetry 12/11/16 12/11/16 12/11/16 02:00 03:00 04:00 Temperature 98.2 F Pulse Rate 68 67 67 Respiratory 15 15 Rate Blood Pressure 131/80 131/81 125/75 (mmHg) O2 Sat by Pulse 94 93 94 Oximetry 12/11/16 12/11/16 12/11/16 04:34 05:00 06:00 Temperature Pulse Rate 65 67 Respiratory 18 20 18 Rate Blood Pressure 107/67 125/82 (mmHg) O2 Sat by Pulse 94 92 Oximetry 12/11/16 12/11/16 12/11/16 07:00 07:34 08:01 Temperature 99.4 F Pulse Rate 62 Respiratory 18 Rate Blood Pressure 120/81 (mmHg) O2 Sat by Pulse 95 Oximetry 12/11/16 12/11/16 12/11/16 08:54 09:00 11:13 Temperature Pulse Rate Respiratory 18 Rate Blood Pressure 116/79 124/73 (mmHg) O2 Sat by Pulse Oximetry 12/11/16 12/11/16 12/11/16 11:43 11:48 11:53 Temperature 98.6 F Pulse Rate Respiratory Rate Blood Pressure 141/101 (mmHg) O2 Sat by Pulse 95 Oximetry 12/11/16 12/11/16 12/11/16 11:57 12:35 13:40 Temperature Pulse Rate Respiratory 16 Rate Blood Pressure 139/85 128/83 (mmHg) O2 Sat by Pulse Oximetry 12/11/16 12/11/16 12/11/16 14:00 14:09 15:29 Temperature 98.8 F Pulse Rate Respiratory 16 Rate Blood Pressure 121/77 (mmHg) O2 Sat by Pulse Oximetry Oxygen Devices in Use Now: None Appearance: NAD Eyes: No Scleral Icterus, PERRLA Ears/Nose/Mouth/Throat: NL Teeth, Lips, Gums, Mucous Membranes Moist Neck: NL Appearance and Movements; NL JVP, Trachea Midline Respiratory: Symmetrical Chest Expansion and Respiratory Effort, Clear to Auscultation Cardiovascular: NL Sounds; No Murmurs; No JVD, RRR Abdominal: NL Sounds; No Tenderness; No Distention Lymphatic: No Cervical Adenopathy Extremities: No Edema, - - right radial artery under pressure, no hematoma Skin: No Rash or Ulcers Neurological: Alert and Oriented x 3 Result Diagrams: 12/11/16 03:00 12/11/16 03:00 Additional Lab and Data: Lab Results 12/09/16 12/09/16 12/09/16 Range/Units 23:46 23:46 23:46 WBC 9.3 (3.5-10.8) 10^3/ul RBC 4.55 (4.0-5.4) 10^6/ul Hgb 15.0 (14.0-18.0) g/dl Hct 43 (42-52) % MCV 94 (80-94) fL MCH 33 H (27-31) pg MCHC 35 (31-36) g/dl RDW 13 (10.5-15) % Plt Count 247 (150-450) 10^3/ul MPV 8 (7.4-10.4) um3 Neut % (Auto) 67.3 (38-83) % Lymph % (Auto) 22.2 L (25-47) % [place] % (Auto) 5.5 (1-9) % Eos % (Auto) 3.9 (0-6) % Baso % (Auto) 1.1 (0-2) % Absolute Neuts (auto) 6.3 (1.5-7.7) 10^3/ul Absolute Lymphs (auto) 2.1 (1.0-4.8) 10^3/ul Absolute Monos (auto) 0.5 (0-0.8) 10^3/ul Absolute Eos (auto) 0.4 (0-0.6) 10^3/ul Absolute Basos (auto) 0.1 (0-0.2) 10^3/ul Absolute Nucleated RBC 0.01 10^3/ul Nucleated RBC % 0.1 INR (Anticoag Therapy) 0.99 (0.89-1.11) APTT 33.3 (26.0-36.3) seconds Sodium 133 (133-145) mmol/L Potassium 3.8 (3.5-5.0) mmol/L Chloride 98 L (101-111) mmol/L Carbon Dioxide 25 (22-32) mmol/L Anion Gap 10 (2-11) mmol/L BUN 15 (6-24) mg/dL Creatinine 0.91 (0.67-1.17) mg/dL Est GFR ( Amer) 114.8 (>60) Est GFR (Non-Af Amer) 89.3 (>60) BUN/Creatinine Ratio 16.5 (8-20) Glucose 184 H (70-100) mg/dL Calcium 9.3 (8.6-10.3) mg/dL Magnesium 1.7 L (1.9-2.7) mg/dL Total Bilirubin 0.40 (0.2-1.0) mg/dL AST 25 (13-39) U/L ALT 24 (7-52) U/L Alkaline Phosphatase 69 (34-104) U/L Total Creatine Kinase 185 (10-223) U/L CK-MB (CK-2) 10.1 H (0.6-6.3) ng/mL Myoglobin 60.1 (17.4-105.7) ng/mL Troponin I 0.61 H* (<0.04) ng/mL B-Natriuretic Peptide ( - 100) pg/mL Total Protein 6.9 (6.4-8.9) g/dL Albumin 3.9 (3.2-5.2) g/dL Globulin 3.0 (2-4) g/dL Albumin/Globulin Ratio 1.3 (1-3) TSH 3.29 (0.34-5.60) mcIU/mL 12/09/16 Range/Units 23:46 WBC (3.5-10.8) 10^3/ul RBC (4.0-5.4) 10^6/ul Hgb (14.0-18.0) g/dl Hct (42-52) % MCV (80-94) fL MCH (27-31) pg MCHC (31-36) g/dl RDW (10.5-15) % Plt Count (150-450) 10^3/ul MPV (7.4-10.4) um3 Neut % (Auto) (38-83) % Lymph % (Auto) (25-47) % [place] % (Auto) (1-9) % Eos % (Auto) (0-6) % Baso % (Auto) (0-2) % Absolute Neuts (auto) (1.5-7.7) 10^3/ul Absolute Lymphs (auto) (1.0-4.8) 10^3/ul Absolute Monos (auto) (0-0.8) 10^3/ul Absolute Eos (auto) (0-0.6) 10^3/ul Absolute Basos (auto) (0-0.2) 10^3/ul Absolute Nucleated RBC 10^3/ul Nucleated RBC % INR (Anticoag Therapy) (0.89-1.11) APTT (26.0-36.3) seconds Sodium (133-145) mmol/L Potassium (3.5-5.0) mmol/L Chloride (101-111) mmol/L Carbon Dioxide (22-32) mmol/L Anion Gap (2-11) mmol/L BUN (6-24) mg/dL Creatinine (0.67-1.17) mg/dL Est GFR ( Amer) (>60) Est GFR (Non-Af Amer) (>60) BUN/Creatinine Ratio (8-20) Glucose (70-100) mg/dL Calcium (8.6-10.3) mg/dL Magnesium (1.9-2.7) mg/dL Total Bilirubin (0.2-1.0) mg/dL AST (13-39) U/L ALT (7-52) U/L Alkaline Phosphatase (34-104) U/L Total Creatine Kinase (10-223) U/L CK-MB (CK-2) (0.6-6.3) ng/mL Myoglobin (17.4-105.7) ng/mL Troponin I (<0.04) ng/mL B-Natriuretic Peptide 138 H ( - 100) pg/mL Total Protein (6.4-8.9) g/dL Albumin (3.2-5.2) g/dL Globulin (2-4) g/dL Albumin/Globulin Ratio (1-3) TSH (0.34-5.60) mcIU/mL Microbiology and Other Data: Microbiology 12/10/16 01:00 Nasal Screen MRSA (PCR)(FABRICE) - Final Nasal Mrsa Negative Assess/Plan/Problems-Billing Assessment: 46 year old gentleman who [place] [facility] [place] and found to have NSTEMI s/ p LHC with angio/stent with Dr. Rao 12/10/16 - Patient Problems (1) NSTEMI (non-ST elevated myocardial infarction) Comment: s/p LHC and stent placement c/w beta martin, ASA. ACEi ellergy start crestor (2) Atrial fibrillation Comment: Not on anticoagulation except ASA. CHADS2 score is 2. Discussed starting eliquis with pt which he would not be against however this would place him on triple AC with potential etoh abuse currently. I will not start AC at this time. Pt has been arranged to transfer care to Cardiology in [place] were his continued abstinence and safety for triple AC can be evaluated (3) Alcohol abuse Comment: Pt denies current etoh abuse. Reports he was drinking 5 glasses of wine and vodka nightly up until 3 weeks prior when he went to rehab and stopped. There are some conflicting reports from staff whether he has continued to drink. Has not exhibited any e/o withdrawal (4) Depression Current Visit: Yes Status: Acute Code(s): F32.9 - MAJOR DEPRESSIVE DISORDER , SINGLE EPISODE, UNSPECIFIED SNOMED Code(s): 10551956 Comment: Stable. Continue current meds. (5) KEE (obstructive sleep apnea) Comment: On CPAP. (6) DVT prophylaxis Comment: Heparin sub q
[2016-12-11] MEDS ORDERED: CMCS: Rosuvastatin (NF) 10 MG TAB PO SCH (21:00)
--- NOTE | 2016-12-12 12:22 | DS ---
LEAVING AGAINST MEDICAL ADVICE NOTE: DATE OF ADMISSION: 12/09/16 DATE OF LEAVING AGAINST MEDICAL ADVICE: 12/11/16 PRIMARY CARE PHYSICIAN: Dr. Ash Uribe. HISTORY OF PRESENT ILLNESS: This is a 46-year-old man presented to the hospital , had to be convinced to be admitted after presenting with chest pain and shortness of breath. He underwent radial catheterization with placement of stent. He was restarted on his home medication as well as started on Brilinta and aspirin. Of note, the patient was in atrial fibrillation, discussions were ongoing about starting Eliquis, which he was off. Decision had not been yet determined. Of note, there was suspicion of underlying alcoholism, which the patient denied. However, the evening of the , the patient became irate, demanded that he leave the hospital. This author responded to his room to discuss the risks of leaving; however, found him already dressed. When I began to discuss the risks of leaving, the patient was cursing, said he would not sign an against medical advice form. Without further notice, he stood up and left the unit. His capacity had been previously established by this author earlier in the day and had full capacity to make decisions. I strongly suspect the desire to continue drinking underlying the patient's desire to leave the hospital. He was in receipt of a Brilinta prescription; however, a formal medication reconciliation and other medications were not given to the patient as he departed prior to the completion of our discussion. Conversation was had in the presence of nursing, who also witnessed him leaving without the receipt of risks and also witnessed him leaving with his refusal to sign AMA form. CC: Dr. Ash Uribe* [id number]/[facility] #: [id number] [facility]
== END 2016-12-11 19:15 | disposition left against medical advice (07) | DRG 174 ==
LOC: ED 23:16 → ICU 23:49 → EEVIPCON 23:49 → UNDOADMIN 12-10 00:15 → ICU 12-10 00:15 → UNDODISIN 12-11 19:15
PROVIDERS: ADMIT Hospitalist; ATTEND Internal Medicine
PROC: 4A023N7 Measurement of Cardiac Sampling and Pressure, Left Heart, Percutaneous Approach (ICD-10-PCS; 2016-12-10)
PROC: B2111ZZ Fluoroscopy of Multiple Coronary Arteries using Low Osmolar Contrast (ICD-10-PCS; 2016-12-10)
PROC: 027034Z Dilation of Coronary Artery, One Artery with Drug-eluting Intraluminal Device, Percutaneous Approach (ICD-10-PCS; principal; 2016-12-10 10:30)
DX: I21.4 Non-ST elevation (NSTEMI) myocardial infarction (principal); N18.3 Chronic kidney disease, stage 3 (moderate); I12.9 Hypertensive chronic kidney disease with stage 1 through stage 4 chronic kidney disease, or unspecified chronic kidney disease; E11.9 Type 2 diabetes mellitus without complications; F10.20 Alcohol dependence, uncomplicated; Y90.9 Presence of alcohol in blood, level not specified; F41.9 Anxiety disorder, unspecified; I48.0 Paroxysmal atrial fibrillation; G47.33 Obstructive sleep apnea (adult) (pediatric); F32.9 Major depressive disorder, single episode, unspecified; J45.20 Mild intermittent asthma, uncomplicated; I25.119 Atherosclerotic heart disease of native coronary artery with unspecified angina pectoris; I48.2 Chronic atrial fibrillation; E66.9 Obesity, unspecified; Z68.36 Body mass index [BMI] 36.0-36.9, adult; Z88.8 Allergy status to other drugs, medicaments and biological substances; Z88.1 Allergy status to other antibiotic agents; Z95.5 Presence of coronary angioplasty implant and graft; Z82.49 Family history of ischemic heart disease and other diseases of the circulatory system; Z53.21 Procedure and treatment not carried out due to patient leaving prior to being seen by health care provider
CPT/HCPCS: 36415; 71010; 80048; 80053; 82550; 82553; 82565; 83605; 83735; 83874; 83880; 84443; 84484; 84520; 85025; 85610; 85730; 87641; 93005; 93306; 93458; 94760; 96374; 96375; 99284; A9270-GY; C1725; C1769; C1876; C1887; C9600-LD; J1644; J1650; J2001; J2250; J2270; J3010

== ENCOUNTER → 2016-12-09 | Emergency (ER) | payer BC ==
[~2016-12-09] MED LIST: Acetaminophen TAB* 325 MG PO ONE; Aspirin Low Dose CHEW TAB* 81 MG PO ONE; Aspirin TAB* 325 MG PO SCH; Carvedilol TAB* 25 MG PO SCH; Diltiazem DRIP* 100 ML IVPB ONE; Enoxaparin(*) 30 MG/0.3 ML SYR SUBCUT ONE; Heparin DRIP 25,000 UNITS(*) 25,000 UNITS/500 ML BAG IVPB SCH; Heparin VIAL(*) 5000 UNITS/ML VIAL (FIVE THOUSAND) IV SCH; Heparin VIAL(*) 5000 UNITS/ML VIAL (FIVE THOUSAND) SUBCUT SCH; Hydrochlorothiazide TAB* 25 MG PO SCH; Magnesium Sulfate 2 GM IV* 2 GM/50 ML BAG IVPB ONE; Metoprolol Tartrate TAB* 25 MG PO ONE; Morphine INJ* 2 MG/ML 1 ML CARPUJECT IV PRN; NIFEdipine ER TAB* 30 MG PO SCH; NS 0.9% 1000 ML* 1,000 ML IV ONE; Nitroglycerin 2% OINT* 1 GM PAK TOPICAL ONE; Nitroglycerin TAB 0.4 MG* 0.4 MG TAB SL PRN
[2016-12-09 19:10] LABS: Hematocrit 45 % (42-52); Hemoglobin 15.6 g/dl (14.0-18.0); Mean Corpuscular HGB Conc 35 g/dl (31-36); Mean Corpuscular Hemoglobin 32 pg (27-31); Mean Corpuscular Volume 94 fL (80-94); Mean Platelet Volume 8 um3 (7.4-10.4); Red Blood Count 4.83 10^6/ul (4.0-5.4); Red Cell Distribution Width 13 % (10.5-15); White Blood Count 10.4 10^3/ul (3.5-10.8)
[2016-12-09 19:23] LABS: Albumin 4.3 g/dL (3.2-5.2); BUN/Creatinine Ratio 19.3 (8-20); Calcium 9.7 mg/dL (8.6-10.3); EGFR African American 127.7 (>60); EGFR Non-African American 99.3 (>60); Globulin 3.3 g/dL (2-4); Magnesium 1.7 mg/dL (1.9-2.7); Potassium 3.7 mmol/L (3.5-5.0); Total Bilirubin 0.4 mg/dL (0.2-1.0); Total Protein 7.6 g/dL (6.4-8.9)
--- NOTE | 2016-12-09 19:30 | RAD ---
Indication: Chest pain, shortness of breath. Coronary artery disease with stent. History of asthma. Comparison: May 31, 2012 Technique: Upright AP 1854 hours Report: Accounting for superimposed soft tissues with obese body habitus and normal bronchovascular markings the lungs and pleural spaces are clear. Negative for pneumothorax. The heart, pulmonary vasculature, and mediastinal contours are unremarkable. IMPRESSION: No evidence for acute intrathoracic disease.
[2016-12-09 19:31] LABS: Troponin I 0.11 ng/mL (<0.04)
--- NOTE | 2016-12-09 20:33 | ED ---
Progress - Progress Note Progress Note: 46M, hx CAD with stents, presenting for exercise intolerance over the past week , 7 lbs weight gain and ankle edema this week, and chest pain that he had this afternoon and early this morning. Currently chest pain free, EKG nonactionable , mildly elev trop. On heparin. Admit to hospitalist, r/o CO Course/Dx - Diagnoses Provider Diagnoses: NSTEMI (non-ST elevated myocardial infarction)
[2016-12-09 21:22] VITALS: BP 155/78
--- NOTE | 2016-12-09 21:53 | ED ---
HPI Chest Pain - HPI Summary HPI Summary: Patient presents to ED with CC of chest pain and dyspnea on exertion. Patient notes to chest pain 2 days ago 1 hour after exertion on a treadmill. Then again today 1 hour after exertion on the elliptical. He notes to about 7lb weight gain this week as well, but denies past history of CHF. He states the pain is like a tightness in the chest which radiates to the back of the arm, but denies radiation to the face or jaw. He also notes to feeling "palpitations " and feels like his heart is skipping beats. PMHx includes past RCA stent placement and a-fib with at least 2 cardioversions at [facility] [place]. Patient has a history of anxiety and states this may be d/t his anxiety or his recent DC of zoloft and wellbutrin. Up until 2 days ago, by the direction of his psychiatrist, his 100mg zoloft and 100mg wellbutrin were both DC'd to be replaced with a new drug to which he has not started yet. This is the only medication change he has had in the past 6 months. Last stress test and echo both were over 2 years ago per patient. SOB has subsided since arrival, but pain in chest continues yet is intermittent lasting 15-20 minutes at a time. - History of Current Complaint Chief Complaint: EDChestPainROMI Time Seen by Provider: 12/09/16 18:44 Hx Obtained From: Patient Onset/Duration: Started Days Ago - 2 Timing: Intermittent Initial Severity: Moderate Current Severity: Moderate Pain Intensity: 8 Pain Scale Used: 0-10 Numeric Chest Pain Location: Mid Sternal Chest Pain Radiates To:: Arm Character: Skipped Beats, Tightness Aggravating Factor(s): Exertion Alleviating Factor(s): Nothing Associated Signs and Symptoms: Positive: Chest Pain, Anxiety, Shortness of Breath Related History: Obesity - Risk Factors Pulmonary Embolism Risk Factors: Negative TAD Risk Factors: Hypertension, Family Hx AMI/ACS Risk Factors: Family History, Hypertension, Dyslipidemia - Allergy/Home Medications Allergies/Adverse Reactions: Allergies Allergy/AdvReac Type Severity Reaction Status Date / Time Azithromycin Allergy Unknown Unknown Verified 12/10/16 00:03 Reaction Details Erythromycin Allergy Unknown Unknown Verified 12/10/16 00:03 Reaction Details Lisinopril Allergy Unknown Unknown Verified 12/10/16 00:03 Reaction Details Amlodipine [From [facility]] Allergy Unknown Verified 12/10/16 00:03 Reaction Details Home Medications: Home Medications Aspirin TAB* [Aspirin 325 MG TAB*] 325 mg PO DAILY 12/09/16 [History Confirmed 12/10/16] Hydrochlorothiazide [Microzide-] 25 mg PO DAILY 12/09/16 [History Confirmed 09/16] PMH/Surg Hx/FS Hx/Imm Hx Previously Healthy: Yes Cardiovascular History: Reports: Hx Angina, Hx Hypertension Respiratory History: Reports: Hx Asthma - Surgical History Surgery Procedure, Year, and Place: CARDIAC STENT PLACEMENT 2010 Infectious Disease History: No Infectious Disease History: Denies: Traveled Outside the [place] in Last 30 Days - Family History Known Family History: Positive: Hypertension - Social History Occupation: Employed Full-time Lives: With Family Alcohol Use: Weekly Substance Use Type: Reports: None Hx Tobacco Use: No Smoking Status (MU): Never Smoked Tobacco Do You Chew or Dip Tobacco: No Review of Systems Constitutional: Negative Eyes: Negative Positive: Palpitations, Chest Pain Positive: Shortness Of Breath - only with exertion Gastrointestinal: Negative Positive: no symptoms reported, see HPI Skin: Negative Neurological: Negative Positive: Anxious All Other Systems Reviewed And Are Negative: Yes Physical Exam Triage Information Reviewed: Yes Vital Signs On Initial Exam: Initial Vitals Temp Pulse Resp BP Pulse Ox 97.8 F 92 16 140/94 97 12/09/16 18:38 12/09/16 18:38 12/09/16 18:38 12/09/16 18:38 12/09/16 18:38 Vital Signs Reviewed: Yes Appearance: Positive: Well-Appearing, No Pain Distress, Well-Nourished Skin: Positive: Warm, Diaphoretic Head/Face: Positive: Normal Head/Face Inspection Eyes: Positive: EOMI, FATUMA, Conjunctiva Clear Neck: Positive: Supple, No Lymphadenopathy Respiratory/Lung Sounds: Positive: Clear to Auscultation, Breath Sounds Present Cardiovascular: Positive: Pulses are Symmetrical in both Upper and Lower Extremities, Other - a-fib, irregular rate and rhythym Musculoskeletal: Positive: Normal, Strength/ROM Intact Neurological: Positive: Normal, Sensory/Motor Intact Psychiatric: Positive: Normal, Anxious AVPU Assessment: Alert Diagnostics - Vital Signs Vital Signs Temp Pulse Resp BP Pulse Ox 12/09/16 21:00 61 21 155/78 96 12/09/16 20:45 18 12/09/16 20:30 96 119/89 98 12/09/16 20:08 96 16 135/95 98 12/09/16 20:00 86 18 98 12/09/16 19:30 87 15 145/103 99 12/09/16 19:00 96 18 127/100 97 12/09/16 18:50 96 97 12/09/16 18:48 135/93 12/09/16 18:38 97.8 F 92 16 140/94 97 - Laboratory Lab Results: Lab Results 12/09/16 12/09/16 12/09/16 Range/Units 18:55 18:55 18:55 WBC 10.4 (3.5-10.8) 10^3/ul RBC 4.83 (4.0-5.4) 10^6/ul Hgb 15.6 (14.0-18.0) g/dl Hct 45 (42-52) % MCV 94 (80-94) fL MCH 32 H (27-31) pg MCHC 35 (31-36) g/dl RDW 13 (10.5-15) % Plt Count 257 (150-450) 10^3/ul MPV 8 (7.4-10.4) um3 Neut % (Auto) 69.0 (38-83) % Lymph % (Auto) 19.9 L (25-47) % [place] % (Auto) 5.9 (1-9) % Eos % (Auto) 4.0 (0-6) % Baso % (Auto) 1.2 (0-2) % Absolute Neuts (auto) 7.2 (1.5-7.7) 10^3/ul Absolute Lymphs (auto) 2.1 (1.0-4.8) 10^3/ul Absolute Monos (auto) 0.6 (0-0.8) 10^3/ul Absolute Eos (auto) 0.4 (0-0.6) 10^3/ul Absolute Basos (auto) 0.1 (0-0.2) 10^3/ul Absolute Nucleated RBC 0.01 10^3/ul Nucleated RBC % 0 INR (Anticoag Therapy) 0.99 (0.89-1.11) APTT 31.7 (26.0-36.3) seconds Sodium 135 (133-145) mmol/L Potassium 3.7 (3.5-5.0) mmol/L Chloride 97 L (101-111) mmol/L Carbon Dioxide 26 (22-32) mmol/L Anion Gap 12 H (2-11) mmol/L BUN 16 (6-24) mg/dL Creatinine 0.83 (0.67-1.17) mg/dL Est GFR ( Amer) 127.7 (>60) Est GFR (Non-Af Amer) 99.3 (>60) BUN/Creatinine Ratio 19.3 (8-20) Glucose 198 H (70-100) mg/dL Lactic Acid (0.5-2.0) mmol/L Calcium 9.7 (8.6-10.3) mg/dL Magnesium 1.7 L (1.9-2.7) mg/dL Total Bilirubin 0.40 (0.2-1.0) mg/dL AST 21 (13-39) U/L ALT 26 (7-52) U/L Alkaline Phosphatase 75 (34-104) U/L Total Creatine Kinase 162 (10-223) U/L CK-MB (CK-2) 5.3 (0.6-6.3) ng/mL Myoglobin 41.6 (17.4-105.7) ng/mL Troponin I 0.11 H* (<0.04) ng/mL B-Natriuretic Peptide ( - 100) pg/mL Total Protein 7.6 (6.4-8.9) g/dL Albumin 4.3 (3.2-5.2) g/dL Globulin 3.3 (2-4) g/dL Albumin/Globulin Ratio 1.3 (1-3) 12/09/16 12/09/16 Range/Units 18:55 18:55 WBC (3.5-10.8) 10^3/ul RBC (4.0-5.4) 10^6/ul Hgb (14.0-18.0) g/dl Hct (42-52) % MCV (80-94) fL MCH (27-31) pg MCHC (31-36) g/dl RDW (10.5-15) % Plt Count (150-450) 10^3/ul MPV (7.4-10.4) um3 Neut % (Auto) (38-83) % Lymph % (Auto) (25-47) % [place] % (Auto) (1-9) % Eos % (Auto) (0-6) % Baso % (Auto) (0-2) % Absolute Neuts (auto) (1.5-7.7) 10^3/ul Absolute Lymphs (auto) (1.0-4.8) 10^3/ul Absolute Monos (auto) (0-0.8) 10^3/ul Absolute Eos (auto) (0-0.6) 10^3/ul Absolute Basos (auto) (0-0.2) 10^3/ul Absolute Nucleated RBC 10^3/ul Nucleated RBC % INR (Anticoag Therapy) (0.89-1.11) APTT (26.0-36.3) seconds Sodium (133-145) mmol/L Potassium (3.5-5.0) mmol/L Chloride (101-111) mmol/L Carbon Dioxide (22-32) mmol/L Anion Gap (2-11) mmol/L BUN (6-24) mg/dL Creatinine (0.67-1.17) mg/dL Est GFR ( Amer) (>60) Est GFR (Non-Af Amer) (>60) BUN/Creatinine Ratio (8-20) Glucose (70-100) mg/dL Lactic Acid 1.9 (0.5-2.0) mmol/L Calcium (8.6-10.3) mg/dL Magnesium (1.9-2.7) mg/dL Total Bilirubin (0.2-1.0) mg/dL AST (13-39) U/L ALT (7-52) U/L Alkaline Phosphatase (34-104) U/L Total Creatine Kinase (10-223) U/L CK-MB (CK-2) (0.6-6.3) ng/mL Myoglobin (17.4-105.7) ng/mL Troponin I (<0.04) ng/mL B-Natriuretic Peptide 120 H ( - 100) pg/mL Total Protein (6.4-8.9) g/dL Albumin (3.2-5.2) g/dL Globulin (2-4) g/dL Albumin/Globulin Ratio (1-3) Result Diagrams: 12/09/16 18:55 12/09/16 18:55 Lab Statement: Any lab studies that have been ordered have been reviewed, and results considered in the medical decision making process. Chest Pain Course/Dx - Course Course Of Treatment: Trop obtained at .11 - hospitalist made aware. EKG shows atrial fib which is not patients baseline. Patient denies aspirin or anticoagulant use at home. Aspirin 324mg given. Started on heparin drip per hospitalist with 25mg metoprolol. Hospitalist dr. douglas admitted patient. - Chest Pain Differential Diagnosis/HQI/PQRI: Acute PR, ACS, Angina - Diagnoses Provider Diagnoses: NSTEMI (non-ST elevated myocardial infarction) Discharge - Discharge Plan Condition: Critical Disposition: ADMITTED TO [facility]
--- NOTE | 2016-12-10 12:07 | DS ---
DISCHARGE SUMMARY: DATE OF ADMISSION: 12/09/16 DATE OF DISCHARGE AGAINST MEDICAL ADVICE: 12/09/16 SUPERVISING PHYSICIAN: Seven Pagan MD* (dictated by Lala Nogueira NP) HOSPITAL COURSE: Mr. Longoria was admitted to the hospital with plans for repeat troponins, EKGs and observation, was concerned for chest pain and elevated troponin of 0.11. The patient had not left the ED before he determined that he would like to leave AMA. I discussed with him at length that he should wait at least for a second troponin to be read. The second troponin had already been drawn, but the patient refused to even stay for the lab to give the report on that. I have counseled him at length that he should stay in the hospital for that, but he refuses and is leaving AMA today. Paperwork was filled out with him. He does understand the risk of leaving against medical advice. DISPOSITION: [place] [id number]/[facility] #: [id number] JEANCARLOS
== END | disposition short-term general hospital (02) ==
LOC: ED 18:33 → UNDOADMOB 20:29 → MEDTELE 20:29
DX: I21.4 Non-ST elevation (NSTEMI) myocardial infarction (principal); R07.9 Chest pain, unspecified; F41.9 Anxiety disorder, unspecified; R06.02 Shortness of breath; R00.2 Palpitations
CPT/HCPCS: 36415; 71010; 80053; 82550; 82553; 83605; 83735; 83874; 83880; 84484; 85025; 85610; 85730; 93005; 96374; 96375; 99284; A9270-GY; J1644; J1650; J2270; J3475

== ENCOUNTER 2016-12-13 09:31 | Inpatient (IN) | payer BC ==
[2016-12-13 10:04] LABS: Hematocrit 44 % (42-52); Hemoglobin 15.2 g/dl (14.0-18.0); Mean Corpuscular HGB Conc 34 g/dl (31-36); Mean Corpuscular Hemoglobin 32 pg (27-31); Mean Corpuscular Volume 94 fL (80-94); Mean Platelet Volume 8 um3 (7.4-10.4); Red Blood Count 4.73 10^6/ul (4.0-5.4); Red Cell Distribution Width 13 % (10.5-15); White Blood Count 8.9 10^3/ul (3.5-10.8)
[2016-12-13 10:19] LABS: ALT 35 U/L (7-52); AST 29 U/L (13-39); Albumin 4.1 g/dL (3.2-5.2); Alkaline Phosphatase 79 U/L (34-104); Anion Gap 11 mmol/L (2-11); Blood Urea Nitrogen 20 mg/dL (6-24); CO2 Carbon Dioxide 25 mmol/L (22-32); Calcium 9.8 mg/dL (8.6-10.3); Chloride 99 mmol/L (101-111); Creatine Kinase 205 U/L (10-223); EGFR African American 114.8 (>60); EGFR Non-African American 89.3 (>60); Globulin 3.2 g/dL (2-4); Glucose 169 mg/dL (70-100); Magnesium 1.7 mg/dL (1.9-2.7); Potassium 4.1 mmol/L (3.5-5.0); Sodium 135 mmol/L (133-145); Total Protein 7.3 g/dL (6.4-8.9)
[2016-12-13 10:36] LABS: Troponin I 0.66 ng/mL (<0.04)
[2016-12-13] MEDS ORDERED: Nitroglycerin TAB 0.3 MG* 0.3 MG TAB SL ONE (10:36)
--- NOTE | 2016-12-13 10:37 | ED ---
HPI Chest Pain - HPI Summary HPI Summary: Pt is a 46 yo WM with PMH HTN, paroxysmal a fib who presents to the ED through amb triage. Pt was evaluated in the ED on Sat after episode of CP. Pt was admitted for NSTEMI, had a stent to LAD and angioplasty to same. Pt states was discharged on Sunday on Berlinta. Pt states at 5:30am today he woke and felt " a fib back" and chest discomfort. Pt states felt squeezing to left shoulder. Pt reports felt SOB. Took ntg x 1 with improvement, not resolution. Pt denies diaphoresis. Pt states sx increased again so returned to ED. Pt did not take Berlinta. Pt did take his other medications - History of Current Complaint Chief Complaint: EDShortnessOfBreath Time Seen by Provider: 12/13/16 09:48 Hx Obtained From: Patient, Medical Records Onset/Duration: Started Hours Ago Timing: Intermittent Initial Severity: Moderate Current Severity: Moderate Pain Intensity: 3 Chest Pain Location: Discrete at: - left substernal Chest Pain Radiates: No Character: Pressure/Squeezing Aggravating Factor(s): Nothing Alleviating Factor(s): Nothing Associated Signs and Symptoms: Positive: Chest Pain. Negative: Diaphoresis, Nausea, Cough - Additional Pertinent History Primary Care Physician: [id number] - Allergy/Home Medications Allergies/Adverse Reactions: Allergies Allergy/AdvReac Type Severity Reaction Status Date / Time Azithromycin Allergy Unknown Unknown Verified 12/10/16 00:03 Reaction Details Erythromycin Allergy Unknown Unknown Verified 12/10/16 00:03 Reaction Details Lisinopril Allergy Unknown Unknown Verified 12/10/16 00:03 Reaction Details [facility] Allergy Unknown Verified 12/10/16 00:03 Reaction Details Home Medications: Home Medications Ticagrelor* [Brilinta*] 90 mg PO BID 12/13/16 [History Confirmed 12/13/16] PMH/Surg Hx/FS Hx/Imm Hx Previously Healthy: Yes Endocrine/Hematology History: Reports: Hx Anticoagulant Therapy Cardiovascular History: Reports: Hx Angina, Hx Coronary Artery Disease, Hx Hypertension, Other Cardiovascular Problems/Disorders - STENT PLACED TO RCA Respiratory History: Reports: Hx Asthma History: Reports: Other Problems/Disorders - STAGE III CKD Sensory History: Reports: Hx Contacts or Glasses Opthamlomology History: Reports: Hx Contacts or Glasses Psychiatric History: Reports: Hx Anxiety - Surgical History Surgery Procedure, Year, and Place: CARDIAC STENT PLACEMENT 2011 - Immunization History Date of Tetanus Vaccine: utd Date of Influenza Vaccine: none Infectious Disease History: No Infectious Disease History: Denies: Hx of Known/Suspected MRSA, Traveled Outside the [place] in Last 30 Days - Family History Known Family History: Positive: Hypertension - Social History Alcohol Use: Weekly Alcohol Amount: 2-3 glasses wine Hx Substance Use: No Substance Use Type: Reports: None Hx Tobacco Use: No Smoking Status (MU): Never Smoked Tobacco Review of Systems Constitutional: Negative Negative: Fever Eyes: Negative ENT: Negative Cardiovascular: Negative Positive: Chest Pain Positive: Shortness Of Breath Gastrointestinal: Negative Negative: Vomiting, Nausea Genitourinary: Negative Musculoskeletal: Negative Skin: Negative Neurological: Negative Negative: Weakness Psychological: Normal All Other Systems Reviewed And Are Negative: Yes Physical Exam Triage Information Reviewed: Yes Vital Signs On Initial Exam: Initial Vitals Temp Pulse Resp BP Pulse Ox 98.2 F 104 22 128/87 96 12/13/16 09:32 12/13/16 09:32 12/13/16 09:32 12/13/16 09:32 12/13/16 09:32 Vital Signs Reviewed: Yes Appearance: Positive: Well-Appearing, No Pain Distress, Well-Nourished Skin: Positive: Warm, Skin Color Reflects Adequate Perfusion, Dry Head/Face: Positive: Normal Head/Face Inspection Eyes: Positive: Normal ENT: Positive: Normal ENT inspection, TMs normal Neck: Positive: Supple, Nontender, No Lymphadenopathy Respiratory/Lung Sounds: Positive: Clear to Auscultation, Breath Sounds Present Cardiovascular: Positive: RRR, IRR. Negative: Murmur, Leg Edema Left, Leg Edema Right Abdomen Description: Positive: Nontender, No Organomegaly, Soft Bowel Sounds: Positive: Present Musculoskeletal: Positive: Normal, Strength/ROM Intact Neurological: Positive: Normal, Sensory/Motor Intact, Alert, Oriented to Person Place, Time Psychiatric: Positive: Normal AVPU Assessment: Alert - [place] Coma Scale Best Eye Response: 4 - Spontaneous Best Motor Response: 6 - Obeys Commands Best Verbal Response: 5 - Oriented Coma Scale Total: 15 Diagnostics - Vital Signs Vital Signs Temp Pulse Resp BP Pulse Ox 12/13/16 10:00 102 18 121/71 98 12/13/16 09:48 111 17 120/72 96 12/13/16 09:47 16 03/15/17 09:32 98.2 F 104 22 128/87 96 - Laboratory Lab Results: Lab Results 12/13/16 12/13/16 12/13/16 Range/Units 09:50 09:50 09:50 WBC 8.9 (3.5-10.8) 10^3/ul RBC 4.73 (4.0-5.4) 10^6/ul Hgb 15.2 (14.0-18.0) g/dl Hct 44 (42-52) % MCV 94 (80-94) fL MCH 32 H (27-31) pg MCHC 34 (31-36) g/dl RDW 13 (10.5-15) % Plt Count 217 (150-450) 10^3/ul MPV 8 (7.4-10.4) um3 Neut % (Auto) 69.3 (38-83) % Lymph % (Auto) 18.5 L (25-47) % [place] % (Auto) 7.2 (1-9) % Eos % (Auto) 4.2 (0-6) % Baso % (Auto) 0.8 (0-2) % Absolute Neuts (auto) 6.2 (1.5-7.7) 10^3/ul Absolute Lymphs (auto) 1.6 (1.0-4.8) 10^3/ul Absolute Monos (auto) 0.6 (0-0.8) 10^3/ul Absolute Eos (auto) 0.4 (0-0.6) 10^3/ul Absolute Basos (auto) 0.1 (0-0.2) 10^3/ul Absolute Nucleated RBC 0 10^3/ul Nucleated RBC % 0 Sodium 135 (133-145) mmol/L Potassium 4.1 (3.5-5.0) mmol/L Chloride 99 L (101-111) mmol/L Carbon Dioxide 25 (22-32) mmol/L Anion Gap 11 (2-11) mmol/L BUN 20 (6-24) mg/dL Creatinine 0.91 (0.67-1.17) mg/dL Est GFR ( Amer) 114.8 (>60) Est GFR (Non-Af Amer) 89.3 (>60) BUN/Creatinine Ratio 22.0 H (8-20) Glucose 169 H (70-100) mg/dL Calcium 9.8 (8.6-10.3) mg/dL Magnesium 1.7 L (1.9-2.7) mg/dL Total Bilirubin 0.70 (0.2-1.0) mg/dL AST 29 (13-39) U/L ALT 35 (7-52) U/L Alkaline Phosphatase 79 (34-104) U/L Total Creatine Kinase 205 (10-223) U/L CK-MB (CK-2) 4.9 (0.6-6.3) ng/mL Troponin I 0.66 H* (<0.04) ng/mL B-Natriuretic Peptide 78 ( - 100) pg/mL Total Protein 7.3 (6.4-8.9) g/dL Albumin 4.1 (3.2-5.2) g/dL Globulin 3.2 (2-4) g/dL Albumin/Globulin Ratio 1.3 (1-3) TSH Pending Result Diagrams: 12/13/16 09:50 12/13/16 09:50 Lab Statement: Any lab studies that have been ordered have been reviewed, and results considered in the medical decision making process. - Radiology No standard instances Xray Interpretation: No Acute Changes Radiology Interpretation Completed By: Radiologist - IMPRESSION: NO ACTIVE DISEASE. < Electronically signed by Prakash Barker MD in [place]> 12/13/16 1042 Dictated By : Prakash Barker MD Dictated Date/Time: 12/13/16 1042 Transcribed Date/Time: 12/13/16 1041 - EKG No standard instances Cardiac Rate: Other Rate - 96 EKG Rhythm: Atrial Fibrillation ST Segment: Normal Ectopy: None Re-Evaluation - Re-Evaluation First Eval Change: Improved - Pt states pain improved following ntg paste - will place paste trop elevated but lower than time of discharge - unclear if trending Will place paste Chest Pain Course/Dx - Course Assessment/Plan: Pt with recurrent episode of chest pain with SOB this am - pain improved following nitro at home, not resolved. EKG reveals a fib without acute changes. Will check labs,, CXR, EKG. Will give nitro sl, paste. anticipate will require admissioin - Diagnoses Provider Diagnoses: Chest pain, Elevated troponin - Provider Notifications Discussed Care Of Patient With: Dr. Stevens - accepting pt to hospitalist service- 1015 Instructed by Provider To: Admit As Inpatient Discharge - Discharge Plan Condition: Stable Disposition: ADMITTED TO [facility]
--- NOTE | 2016-12-13 10:45 | RAD ---
INDICATION: Short of breath COMPARISON: December 09, 2016 TECHNIQUE: An AP portable view obtained at 0955 hours is submitted. FINDINGS: Bones/Soft Tissues: There are no acute bony findings. Cardiomediastinal: The cardiomediastinal silhouette is normal. Lungs: There are no infiltrates. Pleura: There are no pleural effusions. Other: None IMPRESSION: NO ACTIVE DISEASE.
[2016-12-13] MEDS ORDERED: Nitroglycerin TAB 0.4 MG* 0.4 MG TAB ONE (10:47)
[2016-12-13 10:50] LABS: TSH (Thyroid Stimulating Horm) 6.33 mcIU/mL (0.34-5.60)
[2016-12-13] MEDS: Nitroglycerin TAB 0.4 MG* 0.4 MG TAB SL ONE ×2 (10:56→11:15)
[2016-12-13] MEDS ORDERED: Metoprolol Tartrate IV* 1 MG/ML 5 ML VIAL IV ONE (11:37)
[2016-12-13] MEDS ORDERED: Metoprolol Tartrate IV* 1 MG/ML 5 ML VIAL IV PRN (11:37)
[2016-12-13] MEDS ORDERED: Ondansetron INJ* 2 MG/ML VIAL IV PRN (11:37)
[2016-12-13] MEDS ORDERED: Acetaminophen TAB* 325 MG PO PRN (11:37)
[2016-12-13] MEDS ORDERED: Ticagrelor* 90 MG TAB PO ONE ×2 (11:37→11:46)
[2016-12-13] MEDS ORDERED: Dextrose 50% Syringe 50 ML* 25 GM/50 ML SYRINGE IV PUSH PRN (11:37)
[2016-12-13] MEDS ORDERED: Heparin DRIP 25,000 UNITS(*) 25,000 UNITS/500 ML BAG IVPB SCH (11:45)
[2016-12-13] MEDS ORDERED: Sucralfate TAB* 1 GM PO PRN (11:48)
[2016-12-13] MEDS ORDERED: ALPRAZolam TAB* 0.5 MG PO PRN (11:48)
[2016-12-13] MEDS ORDERED: Nitroglycerin 2% OINT* 1 GM PAK TOPICAL ONE (11:48)
[2016-12-13] MEDS ORDERED: Albuterol 2.5 MG/3 ML NEB.SOL* (0.083%) INH PRN (11:55)
[2016-12-13] MEDS ORDERED: Nitroglycerin 2% OINT* 1 GM PAK TOPICAL SCH (12:00)
[2016-12-13] MEDS ORDERED: Heparin VIAL(*) 5000 UNITS/ML VIAL (FIVE THOUSAND) IV SCH (12:00)
[2016-12-13] MEDS ORDERED: Aspirin Low Dose CHEW TAB* 81 MG PO ONE (12:01)
[2016-12-13] MEDS ORDERED: Aspirin Low Dose CHEW TAB* 81 MG ONE (12:03)
[2016-12-13] MEDS ORDERED: Magnesium Sulfate 2 GM IV* 2 GM/50 ML BAG IVPB ONE (12:03)
[2016-12-13 12:19] LABS: Alcohol < 10 mg/dL (<10)
--- NOTE | 2016-12-13 13:18 | HP ---
CC: Dr. Rao HISTORY AND PHYSICAL: DATE OF ADMISSION: 12/13/16 ADDENDUM: An addendum to history and physical dictated by Delvin Lara. PRIMARY CARE PHYSICIAN: Dr. Uribe in [place]. Mr. Longoria is a 46-year-old male with a history of remote coronary artery disease as well as most recently on 12/10/16 receiving a coronary stent during cardiac catheterization at [facility] for non-ST elevation PR. The patient left against medical advice on 12/11/16. He had not been taking his medications. He presents today complaining of chest pain and he was found in paroxysmal atrial fibrillation which is known to him. His troponin is mildly elevated. He is going to be placed on observation. Cardiology is going to be consulted. So far, he does not meet criteria for ST elevation PR. For further details of the patient's presentation and plan, please see history and physical dictated by Dlevin Lara on 12/13/16, with which I agree. [id number]/[facility] #: [id number] [facility]TD[facility]
[2016-12-13] MEDS: Insulin LISPRO* 1 UNITS UNIT SUBCUT SCH ×2 (13:46→17:58)
--- NOTE | 2016-12-13 13:51 | HP ---
ATTENDING PHYSICIAN ADDENDUM INCLUDED ON THIS REPORT HISTORY AND PHYSICAL: DATE OF ADMISSION: 12/13/16 PRIMARY CARE PROVIDER: Dr. Velez. ATTENDING PHYSICIAN WHILE IN THE HOSPITAL: Mary Stevens MD* (report dictated by Delvin Lara NP) CONSULTING GRANULATOR MACHINE OPERATOR: Dr. Johnson. HISTORY OF PRESENT ILLNESS: Mr. Longoria is a 46-year-old male patient who originally presented to our service on 12/09/16 with chest discomfort, signed out on the and came back later on the when he was called at home and was told that his troponin was going up. He ultimately stayed, underwent a cardiac catheterization with Dr. Rao. A stent was placed in the LAD. The patient signed out again AMA on the , received Brilinta prior to leaving around 1900 and unfortunately did not pickup driver his Brilinta until today and still has not taken it for about 36 hours. He has a history of coronary artery disease, paroxysmal atrial fibrillation, KEE, history of asthma, also PR, diabetes, hypertension, and hyperlipidemia, although he is not taking any diabetic medications. He comes back today. He says he has not had his Brilinta in 36 hours. He woke up about 5 o'clock this morning, had a similar discomfort as he had an on the when he initially presented and he also started having palpitations and fluttering in his chest. He felt short of breath, so he decided to come in, he was nonexertional. When he came into the ER it was noted that he was in atrial fibrillation with a rate of 120 beats a minute. He felt short of breath and was having some chest discomfort and his troponin was 0.66, albeit it was coming down from his previous heart catheterization. We were asked to evaluate for admission. He denies any vomiting, fevers, or chills. No abdominal discomfort. PAST MEDICAL HISTORY: Significant for: 1. Paroxysmal atrial fibrillation. 2. KEE. 3. CAD. 4. Asthma. 5. Perirectal abscesses. 6. PR. 7. Diabetes. 8. Hypertension. 9. Hyperlipidemia. PAST SURGICAL HISTORY: He has had cardiac catheterizations twice now, most recently on the with a stent to the LAD, waiting for the official report. HOME MEDICATIONS: According to the list that he provided us includes: 1. Brilinta 90 p.o. b.i.d., which he has not taken since being discharged. 2. Carafate 1 g p.o. 4 times a day as needed. 3. Nitro 0.4 mg sublingual q.5 minutes x3 p.r.n. chest pain. 4. Nifedipine 30 mg daily. 5. Hydrochlorothiazide 25 mg daily. 6. Carvedilol 50 mg p.o. b.i.d. 7. Aspirin 325 mg p.o. daily. 8. Xanax 1 mg p.o. daily. 9. Tylenol 1000 mg p.o. daily as needed. 10. Xanax 0.5 mg at bedtime as needed. ALLERGIES TO MEDICATIONS: Include AZITHROMYCIN, ERYTHROMYCIN, LIPITOR, and NORVASC. FAMILY HISTORY: His mother had history of liver disease and hepatitis C. His father had a CAD and valvular heart disease. SOCIAL HISTORY: He does not smoke. He does state that he has a history of drinking. He says he drinks to excess sometimes on a nightly basis and other times none. He says he has been clean though for the last month. He says he has never had DT's. It is unclear if he is still actively drinking. Surrogate decision maker is his brother, Jefry. REVIEW OF SYSTEMS: There is no documented fever. He denied having any significant weight change. There was no double vision, there is no ear discharge, there is no rhinorrhea, there is no sore throat, no thyroid enlargement. There was chest pain, there was shortness of breath with the chest pain. There was no nausea, no vomiting, no dysuria, no frequency, no loss of consciousness, no pruritus, and no skin ulcerations. Review of 14 systems completed, all others negative. PHYSICAL EXAMINATION GENERAL: At this time, Mr. Longoria is a 46-year-old male patient. He is morbidly obese, he is sitting in the ER stretcher. He does not appear to be in any acute distress. VITAL SIGNS: Blood pressure 112/77, pulse 107, respirations 14, O2 sat 95%, and temperature 98.2. HEENT: Head atraumatic and normocephalic. Eyes: EOMs intact. Sclerae anicteric. NECK: Supple. Throat: Oral mucosa appears to be moist. No oropharyngeal erythema. LUNGS: Clear to auscultation bilaterally. No wheezes, rales, or rhonchi. HEART: Sounds S1 and S2. Irregularly irregular rate and rhythm. No murmurs, rubs, or gallops. ABDOMEN: Soft, flat, and nontender. Bowel sounds are present. EXTREMITIES: Pulses are 2+ throughout. He is able to move all 4 extremities with 5/5 strength. NEUROLOGIC: The patient is awake, alert, and oriented x3. Tongue midline, devulcanizer tender are equal, no gross focal deficits. SKIN: Grossly intact. LABORATORY DATA: Today revealed WBC of 8.6, RBC of 4.73, hemoglobin of 15.2, hematocrit of 44, platelet count 217. Sodium is 135, potassium 4.1, chloride of 99, bicarb 25, BUN 20, creatinine 0.91, glucose 159, calcium 9.8, mag 1.7. Total bili 0.7, AST 29, ALT 35, alk phos 79. CK 205, CK-MB 4.9. Troponin was 0.66, the previous troponin 2 days ago was 2.09. His albumin was 4.1. TSH was 6.33. IMAGING: He had a chest x-ray obtained today, which showed no active disease. He had EKG's obtained today. Initially the EKG that we got showed atrial fibrillation with a rate of 106. He had no ST elevations or T-wave inversions. Repeat EKG because he did convert showed a normal sinus rhythm, rate of 62, no ST elevations or T-wave inversions were noted. Old medical records were reviewed. ASSESSMENT AND PLAN: Mr. Longoria is a 46-year-old male patient coming into the ER today with complaints of chest discomfort and shortness of breath, on evaluation found to be in atrial fibrillation with rapid ventricular response. Hospitalist service was asked to evaluate for admission. He will be admitted under inpatient status for: 1. Atrial fibrillation with rapid ventricular response. He is now converted. He was having chest discomfort with this. I think we will go ahead and continue the beta-martin. He is probably going to need something like Eliquis , but for the time being I am going to put him on heparin because his troponins are a little elevated. I want to make sure they are trending down still before I start Eliquis or something like that, it will continue with rate control and try to keep him on the rhythm. Dr. Johnson has been consulted. 2. Coronary artery disease with elevated troponins, possible non-ST elevation myocardial infarction. Again, his troponin now is 0.66. It is trending down, but he did have chest discomfort and there is concern as he was not taking his Brilinta for the last 36 hours. His EKG did not show a ST elevation myocardial infarction, which makes a thrombosed stent less likely, but I think at this point it is important to trend the troponins, make sure they do not continue to elevate and if they do, again Cardiology will be following to help us out with this. I am going to repeat his echo to make sure there has not been any changes. In addition to this, we will go ahead and put him on a heparin drip. I got him on statin, nitro, beta martin, aspirin, and I restarted his Brilinta for the time being and we will continue to follow. 3. Obstructive sleep apnea. I have ordered CPAP. 4. Asthma, p.r.n. albuterol. 5. History of diabetes. Again, I am checking an A1c. He is not on any meds for this, but I will order a sliding scale just in case. 6. Hypertension. Continue meds as prescribed. 7. Hyperlipidemia. I have added statin. 8. DVT prophylaxis. He will be placed on a heparin drip. 9. Code status, full code. 10. Fluids, electrolytes, and nutrition. He is n.p.o. TIME SPENT: On the admission 60 minutes, greater than half the time spent face- to- face with the patient obtaining my history and physical, other half of the time spent going over the plan of care with the patient and implementing the plan of care. I discussed the plan of care with my attending, Dr. Stevens, who is in agreement. DELVIN LARA NP DATE OF ADMISSION: 12/13/16 ADDENDUM: An addendum to history and physical dictated by Delvin Lara. PRIMARY CARE PHYSICIAN: Dr. Uribe in [place]. Mr. Longoria is a 46-year-old male with a history of remote coronary artery disease as well as most recently on 12/10/16 receiving a coronary stent during cardiac catheterization at [facility] for non-ST elevation PR. The patient left against medical advice on 12/11/16. He had not been taking his medications. He presents today complaining of chest pain and he was found in paroxysmal atrial fibrillation which is known to him. His troponin is mildly elevated. He is going to be placed on observation. Cardiology is going to be consulted. So far, he does not meet criteria for ST elevation PR. For further details of the patient's presentation and plan, please see history and physical dictated by Delvin Lara on 12/13/16, with which I agree. MARY STEVENS MD CC: CC: Dr. Velez; Dr. Johnson; Dr. Rao* [id number]/CPS #: [id number] #: [id number] MTDD
[2016-12-13 14:06] LABS: Troponin I 0.59 ng/mL (<0.04)
--- NOTE | 2016-12-13 15:29 | ECHO ---
Patient: LEXUS THOMAS [facility] Rec#: [id number] : 1970 Date: 12/13/2016 Age: 46y Height: 172 cm / 67.7 in Weight: 104 kg / 229.2 lbs Sex: M BSA: 2.16 Room#: [facility] Admit Date#: 12/13/2016 Type: Inpatient Referring: Delvin Lara NP Reading: Tracey Johnson MD Dispatcher Motor Vehicle: Moe Rosas RDCS Transthoracic Echocardiogram Indication: A.FIB CAD BP: 112/77 HR: 66 Rhythm: NSR Findings History: HTN,PAF,S/P PCI SOB Technical Comments: The study quality is fair. Left Ventricle: The left ventricular chamber size is normal. Mild concentric left ventricular hypertrophy is observed. There is a focal wall motion abnormality present.Base of the inferior wall appears akinetic on short axis and 2 chamber views. [place] suboptimally seen. Septum dyskinetic on short axis views. The estimated ejection fraction is 45-50%. Abnormal left ventricular diastolic filling is observed, consistent with impaired relaxation. Left Atrium: The left atrial chamber size is normal. Right Ventricle: The right ventricular cavity size is normal. The right ventricular global systolic function is low normal. Right Atrium: The right atrial cavity size is normal. Aortic Valve: The aortic valve is trileaflet. There is a trace of aortic regurgitation. There is no evidence of aortic stenosis. Mitral Valve: The mitral valve leaflets are mildly thickened. There is no evidence of mitral regurgitation. There is no evidence of mitral stenosis. Tricuspid Valve: The tricuspid valve appears normal in structure and function. There is trace tricuspid regurgitation. Pulmonic Valve: The pulmonic valve appears normal. There is no evidence of pulmonic regurgitation. There is no pulmonic stenosis. Pericardium: There is no pericardial effusion. Aorta: There is mild dilatation of the ascending aorta. There is no dilatation of the aortic arch. There is moderate dilatation of the aortic root. Pulmonary Artery: The main pulmonary artery appears normal. Venous: The inferior vena cava appears normal in size. There is a greater than 50% respiratory change in the inferior vena cava dimension. Conclusions Mild concentric left ventricular hypertrophy is observed. Global wall motion is normal although apex suboptimally seen. Base of the inferior wall appears akinetic and septum dysynchronous. The estimated ejection fraction is 45-50%. Abnormal left ventricular diastolic filling is observed, consistent with impaired relaxation. The right ventricular global systolic function is low normal. There is a trace of aortic regurgitation. There is mild dilatation of the ascending aorta: 3.6 cm. Compared with prior echo of 12/11/16, improvement in the lateral wall and anterior wall, inferior wall motion abnormality newly described. EF has improved mildly. Measurements Name Value Normal Range RVIDd (AP) 2D 2.6 cm (0.9 - 2.6) RVDdMajor (2D) 3.3 cm (2.2 - 4.4) RAd ISD 4CH 5.1 cm (3.4 - 4.9) RA (A4C)W 3.8 cm (2.9 - 4.6) IVSd (2D) 1.4 cm (0.6 - 1) LVPWd (2D) 0.9 cm (0.6 - 1) LVIDd (2D) 5.3 cm (3.6 - 5.4) LVIDs (2D) 3.9 cm - LV FS (2D) 27 % (25 - 45) Aortic Annulus 2.3 cm (1.4 - 2.6) Ao root diameter (2D) 4.4 cm (2.1 - 3.5) Ascending Ao 3.6 cm (2.1 - 3.4) Aortic arch 2.7 cm (1.8 - 3.4) LA dimension (AP) 2D 3.9 cm (2.3 - 3.8) LAd ISD 4CH 6.4 cm (2.9 - 5.3) LA ISD 4CH W 3.3 cm (2.5 - 4.5) Name Value Normal Range LA ESV SP 4CH (A/L) 37 ml - LA ESV SP 2CH (A/L) 48 ml - LA ESV BP (A/L) 46 ml - LA ESV BP (A/L) index 21.04 ml/m2 - LA ESV SP 4CH (MOD) 35 ml - LA ESV SP 2CH (MOD) 47 ml - Name Value Normal Range MV E-wave Vmax 0.46 m/sec - MV deceleration time 146 msec - MV A-wave Vmax 0.68 m/sec - MV E:A ratio 0.68 ratio - LV septal e' Vmax 0.04 m/sec - LV lateral e' Vmax 0.04 m/sec - LV E:e' septal ratio 11.5 ratio - LV E:e' lateral ratio 11.5 ratio - Name Value Normal Range LVOT diameter 2.3 cm - LVOT Vmax 0.7 m/sec - Name Value Normal Range IVC diameter 2.1 cm - Name Value Normal Range PV Vmax 0.8 m/sec -
--- NOTE | 2016-12-13 15:29 | CONS ---
CARDIOLOGY CONSULTATION: DATE OF CONSULT: 12/13/16 HOSPITALIST: Dr. Ash Uribe. [employer] CRM DEVELOPER: Dr. Stuart bangura [place]. REASON FOR CONSULT: Chest pain, elevated troponins, and atrial fibrillation. CHIEF COMPLAINT: Awakening with AFib and chest pain. HISTORY OF PRESENT ILLNESS: Mr. Longoria is a 46-year-old gentleman with a known atherosclerotic heart disease with stenting to the right coronary artery in 2010 and more recently on 12/10/16, he presented with a non Q-wave myocardial infarction with subsequent placement on 12/10/[address] Aniya Rao , full report not yet available, images viewed and stents placed to LAD and diagonal occlusions. (2.5 x 12 Synergy stent.) The patient was discharged on 12/11/16 against medical advice. He was given samples of Brilinta and then presented today because he states he awoke at 5 in the morning feeling like he was in atrial fibrillation and could not breathe. He tried to roll over, but things did not improve. He then developed mild left-sided chest pain that was different than the pain he had had over the weekend, much less severe and different in quality. The nurses found that the patient's Brilinta bottle was unopened with the protective tamper proof seal still in place and the patient in fact did not take the Brilinta after discharge. He denies any associated alcohol intake and states he was taking his other medications as prescribed to me. The nurses relate to me that when the patient left AMA earlier this week, he had been observed buying alcohol and it is their perception that alcoholism is the likely factor with his AMA history and medical compliance. The patient presented here with a rapid rate and spontaneously converted and by the time I saw him, he was completely free of pain or palpitations and feeling back to normal. PAST MEDICAL HISTORY: The patient has a past medical history of: 1. Coronary artery disease, status post stent to the right coronary artery in 2010 and stenting on 12/10/16. 2. He has obstructive sleep apnea with CPAP that he states he uses. 3. Hypertension. 4. Asthma. 5. Paroxysmal atrial fibrillation since at least 2011, possibly longer. 6. Perirectal abscess. 7. Morbid obesity. 8. Hyperglycemia. 9. Transient renal insufficiency. 10. Anxiety and depression, discontinued antianxiety medications just a few days prior to his presentation for his non Q-wave myocardial infarction. MEDICATIONS: Current inpatient medications include: 1. Tylenol p.r.n. 2. Albuterol inhaler. 3. Xanax p.r.n. 4. Aspirin 81 mg a day. 5. Lipitor 20 mg a day. 6. Coreg 25 mg b.i.d. and 50 mg b.i.d. 7. Unfractionated heparin initiated this admission. 8. Hydrochlorothiazide 25 mg a day. 9. Intravenous magnesium sulfate. 10. Morphine p.r.n. 11. Procardia XL 30 mg a day. 12. Nitroglycerin p.r.n. 13. Zofran p.r.n. 14. Carafate p.r.n. 15. Brilinta 90 mg b.i.d. ALLERGIES: Medication allergies and intolerance include: AZITHROMYCIN, LISINOPRIL, (renal insufficiency), ERYTHROMYCIN. NORVASC was associated with atrial fibrillation, but I do not believe there is any actual allergy. FAMILY HISTORY: Significant in that his father has a history of coronary artery disease and AFib, aortic stenosis. His mother has a history of hepatitis C. 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 No recent tobacco or recreational drug use. REVIEW OF SYSTEMS: See history of present illness regarding noncompliance with Brilinta, but he denies recent fevers, chills, sweats, change in bowel or bladder habits, orthopnea or PND. He states he has been using his CPAP. No recent coughing. No recent alcohol per patient. PHYSICAL EXAM: The patient is a middle-aged obese gentleman lying at 25 degrees in no acute distress. On arrival to the ED, blood pressure was 140/94, heart rate 106 beats a minute. Height and weight are not available at this time. Psychologically pleasant, cooperative. Neurologically awake, alert, and oriented to person, place, and time. Cranial nerves II through XII are grossly intact. Grossly normal sensory and motor function in the upper and lower extremities in bed, ambulation not locked, and formal neurological exam not done. Skin: Warm and dry. No evidence of cyanosis, oxygen on. HEENT: Pupils are equal and round. Mucous membranes are moist. Neck: Thick from obesity with no appreciable increased JVP, thyromegaly, or lymphadenopathy. Breath sounds distant throughout from obesity but equal in all lung ba and clear. No rales, rhonchi, or wheezing heard. Coronary: Also distant S1 and S2 , regular without murmurs or rubs. Abdomen: Overweight, active bowel sounds, soft. No epigastric discomfort and no hepatosplenomegaly appreciated. Lower extremities were free of any pitting edema. IMAGING: A 12-lead ECG on admission: Atrial fibrillation with a rapid ventricular rate of 106 beats per minute, QRS axis +30. Normal interventricular conduction times and normal ST's. ECG #2 done at 11:49 a.m. shows normal sinus rhythm 62 beats per minute, QRS axis +30 with normal AV and IV conduction times. Corrected QT interval of [address] segment. DIAGNOSTIC STUDIES/LAB DATA: White count 8.9, hemoglobin 15.2, hematocrit 44, platelets 217. No INR today. PTT 31.4. Sodium 135, potassium 4.1, chloride 99 , bicarb 25, BUN 20, creatinine 0.91, glucose 169. Magnesium 1.9. Troponin #1 today is 0.66 (decreased from 2.09 on 12/11/16). TSH of 6.33, BNP is 78, serum alcohol less than 10. Chest x-ray done today showed no active disease. IMPRESSION: In summary, Mr. Longoria is a 46-year-old gentleman with known atherosclerotic heart disease, postprocedure day #3 of stenting, has not been on Brilinta since he left the hospital 48 hours ago, presenting with atrial fibrillation he perceives he woke up of uncertain duration, possibly up to 48 hours and chest discomfort different from his chest discomfort he had prior to stenting. For the paroxysmal atrial fibrillation, he has been on sotalol in the past but it was discontinued by one of my colleagues for bradycardia and concern about bradycardic-induced dysrhythmias. The patient is at high risk for recurrent atrial fibrillation due to his obstructive sleep apnea and this does seem to be happening recurrently in the middle of the night. I agree with the magnesium replacement initiated. The fact that he is waking up with AFib using CPAP raises the possibility that he needs CPAP titration. It sounds like this has not been done for about 6 months. This will be an outpatient followup. I am recommending that we start Multaq 400 mg b.i.d. as it is safe and we need to consider his alcohol use, underlying atherosclerotic heart disease, and compliance issues in picking an antiarrhythmic even though it is weak. Apparently, in the past it has been decided not to use anticoagulants and I do not know if this is related to compliance, alcoholism, fall risk, bleeding risks , but if there are no contraindications I would consider initiation of a once a day NOAC if he will be compliant, perhaps Xarelto if covered by his insurance. For the patient's underlying atherosclerotic heart disease and chest pain, his EKG and troponins are reassuring. EKG showed no evidence of acute changes and the mild elevation in troponin is likely from his initial presentation over the weekend with an expected residual. I think I talked to him personally about the risk of stopping his antiplatelet agents and he assures me that he will continue the Brilinta. I specifically talked to him about discussing any issues he has regarding taking medications, their compliance and the importance of communication with us and he says he understands. The lipids in our system appear to be from 2013 and I would recommend updating a fasting lipid panel for full risk factor stratification. 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 CC: Dr. Ash rUibe; Dr. Davidson; Aniya Rao MD* [id number] #: [id number] MTDD
[2016-12-13] MEDS: Nitroglycerin 2% OINT* 1 GM PAK TOPICAL SCH ×2 (16:42→22:04)
[2016-12-13] MEDS ORDERED: Atorvastatin* 20 MG TAB PO SCH (17:00)
[2016-12-13] MEDS: Ticagrelor* 90 MG TAB PO SCH (20:37)
[2016-12-13] MEDS: Carvedilol TAB* 25 MG PO SCH (20:37)
[2016-12-13] MEDS: Dronedarone TAB* 400 MG PO SCH (20:38)
[2016-12-13] MEDS ORDERED: Carvedilol TAB* 25 MG PO SCH (21:00)
[2016-12-13] MEDS ORDERED: Apixaban* 5 MG TAB PO SCH (22:00)
[2016-12-13] MEDS ORDERED: Nitroglycerin TAB 0.4 MG* 0.4 MG TAB SL ONE (22:38)
[2016-12-14] MEDS: Insulin LISPRO* 1 UNITS UNIT SUBCUT SCH ×4 (00:36→17:18)
[2016-12-14] MEDS: Nitroglycerin 2% OINT* 1 GM PAK TOPICAL SCH (05:11)
[2016-12-14 05:24] LABS: Hematocrit 41 % (42-52); Hemoglobin 14.2 g/dl (14.0-18.0); Mean Corpuscular HGB Conc 34 g/dl (31-36); Mean Corpuscular Hemoglobin 32 pg (27-31); Mean Corpuscular Volume 94 fL (80-94); Mean Platelet Volume 8 um3 (7.4-10.4); Red Blood Count 4.41 10^6/ul (4.0-5.4); Red Cell Distribution Width 13 % (10.5-15); White Blood Count 9.2 10^3/ul (3.5-10.8)
[2016-12-14 05:35] LABS: BUN/Creatinine Ratio 22.1 (8-20); Calcium 9.3 mg/dL (8.6-10.3); EGFR African American 122.6 (>60); EGFR Non-African American 95.3 (>60); HDL Cholesterol 31.4 mg/dL; Potassium 3.8 mmol/L (3.5-5.0)
[2016-12-14] MEDS ORDERED: Atorvastatin* 20 MG TAB PO SCH ×2 (08:54→09:12)
[2016-12-14] MEDS ORDERED: NIFEdipine ER TAB* 30 MG PO SCH ×2 (09:00)
[2016-12-14] MEDS ORDERED: Aspirin TAB* 325 MG PO SCH (09:00)
[2016-12-14] MEDS ORDERED: Rivaroxaban TAB(*) 10 MG PO SCH (09:00)
[2016-12-14] MEDS ORDERED: Clopidogrel TAB* 300 MG PO ONE (09:17)
--- NOTE | 2016-12-14 09:19 | PN ---
Subjective Date of Service: 12/14/16 Interval History: Patient had 10 minutes of atrial fib last night with chest pain. Slept well after that. No other c/o. Objective Active Medications: Acetaminophen (Tylenol Tab*) 650 mg PO Q4H PRN PRN Reason: FEVER/PAIN Albuterol (Ventolin 2.5 Mg/3 Ml Neb.Sabi*) 2.5 mg INH Q2H PRN PRN Reason: SOB/WHEEZING Alprazolam (Xanax Tab*) 0.5 mg PO BEDTIME PRN PRN Reason: ANXIETY Aspirin (Aspirin Low Dose Tab*) 81 mg PO DAILY [facility] Carvedilol (Coreg Tab*) 50 mg PO BID [facility] Last Admin: 12/13/16 20:37 Dose: 50 mg Dextrose (D50w Syringe 50 Ml*) 12.5 gm IV PUSH .FOR FS < 60 - SS PRN PRN Reason: FS < 60 Dronedarone (Multaq Tab*) 400 mg PO BID [facility] Last Admin: 12/13/16 20:38 Dose: 400 mg Insulin Human Lispro (Humalog*) 0 units SUBCUT Q6HR [facility] PRN Reason: Protocol Last Admin: 12/14/16 06:47 Dose: 2 units Nitroglycerin (Nitroglycerin 2% Oint*) 0.5 inch TOPICAL 0500,1100,1700,2300 [facility] Last Admin: 12/14/16 05:11 Dose: 0.5 inch Ondansetron HCl (Zofran Inj*) 4 mg IV Q6H PRN PRN Reason: NAUSEA Rivaroxaban (Xarelto(*)) 20 mg PO DAILY [facility] Sucralfate (Carafate*) 1 gm PO QID PRN PRN Reason: gas Ticagrelor (Brilinta*) 90 mg PO BID [facility] Last Admin: 12/13/16 20:37 Dose: 90 mg Vital Signs 12/13/16 12/13/16 12/13/16 11:15 11:30 11:45 Temperature Pulse Rate 107 101 59 Respiratory 15 14 14 Rate Blood Pressure 122/77 112/77 109/78 (mmHg) O2 Sat by Pulse 98 95 98 Oximetry 12/13/16 12/13/16 12/13/16 11:48 12:00 12:03 Temperature 97.8 F 98.5 F Pulse Rate 60 61 64 Respiratory 16 14 17 Rate Blood Pressure 115/70 130/73 148/91 (mmHg) O2 Sat by Pulse 96 96 96 Oximetry 12/13/16 12/13/16 12/13/16 12:20 12:21 12:30 Temperature Pulse Rate 66 64 Respiratory 22 13 Rate Blood Pressure 102/73 148/91 (mmHg) O2 Sat by Pulse 94 96 Oximetry 12/13/16 12/13/16 12/13/16 12:45 13:00 13:03 Temperature 98.0 F Pulse Rate 65 68 68 Respiratory 18 17 13 Rate Blood Pressure 133/76 122/97 (mmHg) O2 Sat by Pulse 96 96 98 Oximetry 12/13/16 12/13/16 12/13/16 13:15 13:30 13:45 Temperature Pulse Rate 67 69 65 Respiratory 15 16 18 Rate Blood Pressure 121/102 120/68 113/70 (mmHg) O2 Sat by Pulse 97 94 97 Oximetry 12/13/16 12/13/16 12/13/16 14:00 14:15 14:30 Temperature Pulse Rate 65 68 67 Respiratory 16 19 14 Rate Blood Pressure 126/77 126/110 117/70 (mmHg) O2 Sat by Pulse 95 96 96 Oximetry 12/13/16 12/13/16 12/13/16 14:45 15:00 15:15 Temperature Pulse Rate 65 63 59 Respiratory 17 12 20 Rate Blood Pressure 123/82 112/90 128/77 (mmHg) O2 Sat by Pulse 97 98 98 Oximetry 12/13/16 12/13/16 12/13/16 15:30 15:45 16:00 Temperature 98.9 F Pulse Rate 64 74 62 Respiratory 13 18 15 Rate Blood Pressure 113/77 120/75 121/74 (mmHg) O2 Sat by Pulse 99 98 98 Oximetry 12/13/16 12/13/16 12/13/16 16:15 16:30 16:45 Temperature Pulse Rate 61 60 65 Respiratory 17 19 15 Rate Blood Pressure 116/76 128/77 122/80 (mmHg) O2 Sat by Pulse 98 99 98 Oximetry 12/13/16 12/13/16 12/13/16 17:00 17:15 17:30 Temperature Pulse Rate 67 64 61 Respiratory 17 14 17 Rate Blood Pressure 119/64 109/68 104/63 (mmHg) O2 Sat by Pulse 98 98 96 Oximetry 12/13/16 12/13/16 12/13/16 17:45 18:00 18:15 Temperature Pulse Rate 64 62 67 Respiratory 15 12 15 Rate Blood Pressure 114/64 102/78 114/60 (mmHg) O2 Sat by Pulse 96 98 98 Oximetry 12/13/16 12/13/16 12/13/16 18:30 18:45 19:00 Temperature Pulse Rate 69 80 79 Respiratory 16 24 17 Rate Blood Pressure 122/81 121/77 (mmHg) O2 Sat by Pulse 93 95 95 Oximetry 12/13/16 12/13/16 12/13/16 20:00 21:00 22:00 Temperature 98.8 F Pulse Rate 67 73 89 Respiratory 16 20 13 Rate Blood Pressure 110/58 120/72 118/71 (mmHg) O2 Sat by Pulse 98 98 98 Oximetry 12/13/16 12/13/16 12/14/16 23:00 23:55 00:00 Temperature 99.1 F Pulse Rate 90 Respiratory 20 17 Rate Blood Pressure 112/60 (mmHg) O2 Sat by Pulse 96 Oximetry 12/14/16 12/14/16 12/14/16 00:04 00:21 01:00 Temperature Pulse Rate 115 87 91 Respiratory 19 15 18 Rate Blood Pressure 119/79 133/56 (mmHg) O2 Sat by Pulse 96 97 95 Oximetry 12/14/16 12/14/16 12/14/16 02:00 03:00 04:00 Temperature 97.7 F Pulse Rate 83 82 59 Respiratory 18 16 16 Rate Blood Pressure 102/65 115/41 94/39 (mmHg) O2 Sat by Pulse 91 92 95 Oximetry 12/14/16 12/14/16 12/14/16 05:00 05:15 06:00 Temperature Pulse Rate 58 56 55 Respiratory 16 14 17 Rate Blood Pressure 94/47 117/70 113/71 (mmHg) O2 Sat by Pulse 94 95 91 Oximetry 12/14/16 12/14/16 12/14/16 07:00 07:47 07:57 Temperature 98.9 F Pulse Rate 58 Respiratory 16 10 Rate Blood Pressure 115/63 (mmHg) O2 Sat by Pulse 92 Oximetry 12/14/16 08:00 Temperature Pulse Rate 59 Respiratory 13 Rate Blood Pressure 108/69 (mmHg) O2 Sat by Pulse 95 Oximetry Oxygen Devices in Use Now: Nasal Cannula Appearance: Alert, partly up in ICU bed. In good spirits. Looks comfortable. Eyes: No Scleral Icterus Neck: NL Appearance and Movements; NL JVP, No Thyroid Enlargement, Masses Respiratory: Symmetrical Chest Expansion and Respiratory Effort, Clear to Auscultation, Clear to Percussion Cardiovascular: NL Sounds; No Murmurs; No JVD, RRR, No Edema, - Extremities: No Edema, No Clubbing, Cyanosis, - Skin: No Rash or Ulcers, No Nodules or Sclerosis, - - bran complexion Neurological: Alert and Oriented x 3, NL Sensation - No tremor. Result Diagrams: 12/14/16 05:10 12/14/16 05:10 Additional Lab and Data: Lab Results 12/13/16 12/13/16 12/13/16 Range/Units 09:50 09:50 09:50 WBC 8.9 (3.5-10.8) 10^3/ul RBC 4.73 (4.0-5.4) 10^6/ul Hgb 15.2 (14.0-18.0) g/dl Hct 44 (42-52) % MCV 94 (80-94) fL MCH 32 H (27-31) pg MCHC 34 (31-36) g/dl RDW 13 (10.5-15) % Plt Count 217 (150-450) 10^3/ul MPV 8 (7.4-10.4) um3 Neut % (Auto) 69.3 (38-83) % Lymph % (Auto) 18.5 L (25-47) % [place] % (Auto) 7.2 (1-9) % Eos % (Auto) 4.2 (0-6) % Baso % (Auto) 0.8 (0-2) % Absolute Neuts (auto) 6.2 (1.5-7.7) 10^3/ul Absolute Lymphs (auto) 1.6 (1.0-4.8) 10^3/ul Absolute Monos (auto) 0.6 (0-0.8) 10^3/ul Absolute Eos (auto) 0.4 (0-0.6) 10^3/ul Absolute Basos (auto) 0.1 (0-0.2) 10^3/ul Absolute Nucleated RBC 0 10^3/ul Nucleated RBC % 0 Sodium 135 (133-145) mmol/L Potassium 4.1 (3.5-5.0) mmol/L Chloride 99 L (101-111) mmol/L Carbon Dioxide 25 (22-32) mmol/L Anion Gap 11 (2-11) mmol/L BUN 20 (6-24) mg/dL Creatinine 0.91 (0.67-1.17) mg/dL Est GFR ( Amer) 114.8 (>60) Est GFR (Non-Af Amer) 89.3 (>60) BUN/Creatinine Ratio 22.0 H (8-20) Glucose 169 H (70-100) mg/dL Calcium 9.8 (8.6-10.3) mg/dL Magnesium 1.7 L (1.9-2.7) mg/dL Total Bilirubin 0.70 (0.2-1.0) mg/dL AST 29 (13-39) U/L ALT 35 (7-52) U/L Alkaline Phosphatase 79 (34-104) U/L Total Creatine Kinase 205 (10-223) U/L CK-MB (CK-2) 4.9 (0.6-6.3) ng/mL Troponin I 0.66 H* (<0.04) ng/mL B-Natriuretic Peptide 78 ( - 100) pg/mL Total Protein 7.3 (6.4-8.9) g/dL Albumin 4.1 (3.2-5.2) g/dL Globulin 3.2 (2-4) g/dL Albumin/Globulin Ratio 1.3 (1-3) TSH Pending Assess/Plan/Problems-Billing Assessment: - Patient Problems (1) Atrial fibrillation Current Visit: No Status: Acute Code(s): I48.91 - UNSPECIFIED ATRIAL FIBRILLATION SNOMED Code(s): 60733808 Comment: Continue dronedarone, carvedilol, start rivaroxaban. I told patient he needs a fup sleep lab eval due to nocturnal atrial fib. I told him he needs to moderate his drinking (down to 6-10 drinks a day). He has an appt with a therapist about this. (2) CAD (coronary artery disease) Current Visit: No Status: Acute Code(s): I25.10 - ATHSCL HEART DISEASE OF [place] CORONARY ARTERY W/O ANG PCTRS SNOMED Code(s): 73927337 Comment: Reccent stent LAD. He has had problems with statins in the past ( muscle cramping) but thinks they got better when he started taking large doses of vitamin D (4000 U per day). Vit D 25 level ordered. Contnue atorvastatin 20 mg daily, carvedilol, ASA, ticagrelor. (3) KEE (obstructive sleep apnea) Current Visit: No Status: Acute Code(s): G47.33 - OBSTRUCTIVE SLEEP APNEA ( ADULT) (PEDIATRIC) SNOMED Code(s): 99835646 Comment: Has his CPAP here, states he always uses it. Pt told he needs a p sleep lab eval soon after discharge. (4) Alcohol abuse Current Visit: No Status: Acute Code(s): F10.10 - ALCOHOL ABUSE, UNCOMPLICATED SNOMED Code(s): 39837522 Comment: Has not exhibited any e/o withdrawal. Patient states he is getting outpt tx, has an upcoming appt. (5) DVT prophylaxis Current Visit: No Status: Acute Code(s): UYU7947 - SNOMED Code(s): 877562587 Comment: Heparin sub q (6) NSTEMI (non-ST elevated myocardial infarction) Current Visit: No Status: Acute Code(s): I21.4 - NON-ST ELEVATION (NSTEMI) MYOCARDIAL INFARCTION SNOMED Code(s): 060548412 Comment: s/p LHC and stent placement c/w beta martin, ASA, statin, dual anti-plaete.t. Discussed with Dr. Garcia.
[2016-12-14] MEDS: Aspirin Low Dose CHEW TAB* 81 MG PO SCH (10:03)
[2016-12-14] MEDS: Carvedilol TAB* 25 MG PO SCH ×2 (10:04→20:24)
[2016-12-14] MEDS: CMC:Pantoprazole TAB (NF) 40 MG TAB PO SCH (10:04)
[2016-12-14] MEDS: Dronedarone TAB* 400 MG PO SCH ×2 (10:04→20:24)
[2016-12-14] MEDS: Ticagrelor* 90 MG TAB PO SCH (10:10)
--- NOTE | 2016-12-14 10:17 | PN ---
Subjective Date of Service: 12/14/16 Interval History: f/u Afib, recent CA/PCI Had short episode of rapid afib overnight No current CP, dyspnea or palpitations Medications Active Medications: Acetaminophen (Tylenol Tab*) 650 mg PO Q4H PRN PRN Reason: FEVER/PAIN Albuterol (Ventolin 2.5 Mg/3 Ml Neb.Sabi*) 2.5 mg INH Q2H PRN PRN Reason: SOB/WHEEZING Alprazolam (Xanax Tab*) 0.5 mg PO BEDTIME PRN PRN Reason: ANXIETY Aspirin (Aspirin Low Dose Tab*) 81 mg PO DAILY [facility] Last Admin: 12/14/16 10:03 Dose: 81 mg Atorvastatin Calcium (Lipitor*) 20 mg PO 1700 [facility] Carvedilol (Coreg Tab*) 50 mg PO BID [facility] Last Admin: 12/14/16 10:04 Dose: 50 mg Clopidogrel Bisulfate (Plavix Tab*) 75 mg PO DAILY [facility] Dextrose (D50w Syringe 50 Ml*) 12.5 gm IV PUSH .FOR FS < 60 - SS PRN PRN Reason: FS < 60 Dronedarone (Multaq Tab*) 400 mg PO BID [facility] Last Admin: 12/14/16 10:04 Dose: 400 mg Insulin Human Lispro (Humalog*) 0 units SUBCUT Q6HR [facility] PRN Reason: Protocol Last Admin: 12/14/16 06:47 Dose: 2 units Ondansetron HCl (Zofran Inj*) 4 mg IV Q6H PRN PRN Reason: NAUSEA Pantoprazole Sodium (Protonix Tab (Nf)) 40 mg PO DAILY [facility] Last Admin: 12/14/16 10:04 Dose: 40 mg Rivaroxaban (Xarelto(*)) 15 mg PO DAILY [facility] Sucralfate (Carafate*) 1 gm PO QID PRN PRN Reason: gas Objective Vital Signs: Temp Pulse Resp BP Pulse Ox 98.9 F 59 13 108/69 95 12/14/16 07:47 12/14/16 08:00 12/14/16 08:00 12/14/16 08:00 12/14/16 08:00 Oxygen Devices in Use Now: Nasal Cannula Appearance: nad Neck: NL Appearance and Movements; NL JVP Respiratory: Symmetrical Chest Expansion and Respiratory Effort, Clear to Auscultation Cardiovascular: NL Sounds; No Murmurs; No JVD, RRR, No Edema Abdominal: NL Sounds; No Tenderness; No Distention Extremities: No Edema Skin: No Rash or Ulcers Neurological: Alert and Oriented x 3 Laboratory Results: 12/14/16 05:10 12/14/16 05:10 APTT 31.4 seconds (26.0-36.3) 12/13/16 09:57 Total Bilirubin 0.70 mg/dL (0.2-1.0) 12/13/16 09:50 AST 29 U/L (13-39) 12/13/16 09:50 ALT 35 U/L (7-52) 12/13/16 09:50 Alkaline Phosphatase 79 U/L (34-104) 12/13/16 09:50 CK-MB (CK-2) 4.9 ng/mL (0.6-6.3) 12/13/16 09:50 B-Natriuretic Peptide 78 pg/mL (-100) 12/13/16 09:50 Total Protein 7.3 g/dL (6.4-8.9) 12/13/16 09:50 Albumin 4.1 g/dL (3.2-5.2) 12/13/16 09:50 Globulin 3.2 g/dL (2-4) 12/13/16 09:50 Albumin/Globulin Ratio 1.3 (1-3) 12/13/16 09:50 Triglycerides 163 mg/dL 12/14/16 05:10 Cholesterol 160 mg/dL 12/14/16 05:10 LDL Cholesterol 96 mg/dL 12/14/16 05:10 HDL Cholesterol 31.4 mg/dL 12/14/16 05:10 TSH 6.33 mcIU/mL (0.34-5.60) H 12/13/16 09:50 lab 12/13/2016 mg 1.8 12/13/16 12/13/16 12:50 15:55 Troponin I 0.59 H* 0.60 H* Assessment/Plan Mr. Longoria is a 46-year-old man with a history of alcoholism, obesity, KEE on CPAP, HTN, DM (Hgba1c 6.5) paroxysmal AFib, atherosclerotic heart disease with stenting to the right coronary artery in 2010 and more recently on 12/10/16, he presented with a NTEMI PCI/RYNE to LAD/diagonal 12/10/[address] Aniya Rao. Patient left AMA 12/11/2016. Presented yesterday with symptomatic rapid atrial fibrillation CHADs2-vasc score at least 3 which spontaneously converted to SR. Started on multaq and electrolytes being replaced. Had another episode of shorter duration atrial fibrillation overnight. - We discussed for sometime the issue of having both atrial fibrillation and recent CA/PCI and the relative higher risk of CVA/recurrent CA and bleeding risk in this situation with various anti-coagulant/anti-platelet regimens. - Based on [place] AF-PCI study, I think an optimal risk/benefit ratio would be 15 mg of xarelto, 75 mg of plavix (majority used this anti-platelet in the study ) and for the time being aspirin 81 mg PO daily duration to be determined. At patients request I discussed this regimen with Dr. Johnson who is in agreement. I also discussed this with Dr. Reeder from interventional cardiology who recommended with next dose of brillinta instead give 300 mg of PO plavix and then 75 mg daily. Furthermore, bleeding risk can be minimized with alcohol cessation and also adding a intermodal dispatcher PPI while on triple therapy which he is agreeable to. He has a follow up with Dr. Rao on 12/18/2016 and the duration of aspirin use can be addressed at that time. - Continue multaq 400 mg PO BID - Continue statin - Continue home coreg dosing - Ok to transfer to telemetry - Check AM BMP and Mg (ordered) - Discussed with Dr. Martin Thank you for allowing me to participate in the cardiovascular care of this patient. Please do not hesitate to contact me with questions or concerns
[2016-12-15] MEDS: Insulin LISPRO* 1 UNITS UNIT SUBCUT SCH ×2 (00:06→07:25)
--- NOTE | 2016-12-15 02:50 | CATH ---
STENT REPORT: DATE OF PROCEDURE: 12/10/16 - ROOM #[id number] PRIMARY CARE PHYSICIAN: Yas Sauer. ZIPPER IRONER: Dr. Garcia. PROCEDURES: Right radial artery access, bilateral selective coronary cineangiography, stent placement LAD 2.5 x 12, Synergy drug-eluting stent, scoring balloon angioplasty, side branch of diagonal, 2.5 x 6 mm. HISTORY: A 46-year-old male with prior distal right coronary artery stenting, 2.5 x 16 mm in 2010, now with non-ST elevation infarct. Comorbidities include paroxysmal atrial fibrillation, morbid obesity, and diabetes. PROCEDURE ACCESS: Right radial artery sheath 6F Slender. MEDICATIONS: 1. Subcu lidocaine. 2. IV Versed. 3. IV fentanyl. 4. IV nitroglycerin infusion continued. 5. Nitroglycerin 300 mcg. 6. Verapamil 3 mg IA. 7. Heparin 6000 units IV, 3000 units IV. 8. Brilinta 180 mg p.o. loading dose. 9. IC nitroglycerin 150, 200 mcg. DIAGNOSTIC CATHETERS: 5F TIG4, guiding catheter 6F VL3.5 upsized to 6F VL4. HEMODYNAMICS: Initial BP 116/76, LV 99/21-14, no aortic valve gradient on pullback. After diagnostic angiography, the LAD intervention was performed using dual BMW wires. The LAD was stented jailing the diagonal wire with placement of a 2.5 x 12 Synergy drug-eluting stent, deployed 14 atmospheres at 30 seconds. The diagonal wire was then withdrawn, and reintroduced into the diagonal through the side of the stent. There was initially KELTON 2 flow. The 2.5 x 8 mm balloon would not advance through the stent struts, the guiding system prolapsed. After the reengagement flow in the diagonal was KELTON 3 and repeat intervention on the diagonal ostium was not performed. The more distal diagonal was then accessed with a BMW wire, and a 2.5 x 6 mm AngioSculpt balloon was inserted, gradually inflated up to 8 atmospheres for 180 seconds. After intracoronary nitro, repeat images were obtained. ANGIOGRAPHY: RCA: The RCA is large, dominant, with scattered luminal irregularity without significant stenosis, the PDA is large followed by several posterolaterals. Proximal to the previously placed distal right coronary stent, the RCA continuation has a fairly short 50% to 60% stenosis, which was not treated. It is located proximal to two fairly significant distribution posterolateral branches. Left Main: The left main is relatively short, there is no stenosis. LAD: The LAD is moderate, has a large first diagonal which is bifurcated, the more superior branch has an ostial 90% stenosis. The LAD then continues, after the second septal, it has a 90% stenosis, the LAD reconstitutes at the origin of the second diagonal which does not appear to be involved by the stenosis. Circumflex: The circumflex is moderate, nondominant, with a small first marginal, into the small posterolateral, the circumflex has no significant stenosis. After stent placement LAD with dual wires, flow is KELTON 3 in the LAD and diagonal, there is no residual stenosis. After scoring balloon atherectomy at the origin of the side branch of the first diagonal, there was approximately 20% residual stenosis. CONCLUSION: 1. Two-vessel disease with likely insignificant distal right coronary artery, moderate stenosis, and culprit mid LAD stenosis as well as diagonal one side branch stenosis. Excellent angiographic result with drug-eluting placement, mid LAD, jailing the second diagonal, and scoring balloon atherectomy of the side branch of the first diagonal. 2. Elevated LVEDP, otherwise normal left-sided hemodynamics. CC: Dr. Karine Uribe; Dr. Garcia* [id number]/[facility] #: [id number] [facility]
[2016-12-15 06:29] LABS: Hematocrit 39 % (42-52); Hemoglobin 13.6 g/dl (14.0-18.0); Mean Corpuscular HGB Conc 35 g/dl (31-36); Mean Corpuscular Hemoglobin 33 pg (27-31); Mean Corpuscular Volume 94 fL (80-94); Mean Platelet Volume 8 um3 (7.4-10.4); Red Blood Count 4.17 10^6/ul (4.0-5.4); Red Cell Distribution Width 14 % (10.5-15); White Blood Count 8.3 10^3/ul (3.5-10.8)
[2016-12-15 06:39] LABS: BUN/Creatinine Ratio 19.3 (8-20); Calcium 8.8 mg/dL (8.6-10.3); EGFR African American 119.4 (>60); EGFR Non-African American 92.8 (>60); Potassium 3.9 mmol/L (3.5-5.0)
[2016-12-15 07:51] VITALS: BP 123/71
[2016-12-15] MEDS ORDERED: Clopidogrel TAB* 75 MG PO SCH (09:00)
[2016-12-15] MEDS ORDERED: Rivaroxaban TAB(*) 15 MG PO SCH (09:00)
[2016-12-15] MEDS: Carvedilol TAB* 25 MG PO SCH (09:13)
[2016-12-15] MEDS: CMC:Pantoprazole TAB (NF) 40 MG TAB PO SCH (09:13)
[2016-12-15] MEDS: Dronedarone TAB* 400 MG PO SCH (09:13)
[2016-12-15] MEDS: Aspirin Low Dose CHEW TAB* 81 MG PO SCH (09:13)
--- NOTE | 2016-12-15 09:49 | DCNOTE ---
Subjective Date of Service: 12/15/16 Interval History: No c/o, anxious to go home, states he has a family emergency. Objective Active Medications: Acetaminophen (Tylenol Tab*) 650 mg PO Q4H PRN PRN Reason: FEVER/PAIN Albuterol (Ventolin 2.5 Mg/3 Ml Neb.Sabi*) 2.5 mg INH Q2H PRN PRN Reason: SOB/WHEEZING Alprazolam (Xanax Tab*) 0.5 mg PO BEDTIME PRN PRN Reason: ANXIETY Aspirin (Aspirin Low Dose Tab*) 81 mg PO DAILY [facility] Last Admin: 12/15/16 09:13 Dose: 81 mg Atorvastatin Calcium (Lipitor*) 20 mg PO 1700 [facility] Last Admin: 12/14/16 16:25 Dose: 20 mg Carvedilol (Coreg Tab*) 50 mg PO BID [facility] Last Admin: 12/15/16 09:13 Dose: 50 mg Clopidogrel Bisulfate (Plavix Tab*) 75 mg PO DAILY [facility] Last Admin: 12/15/16 09:13 Dose: 75 mg Dextrose (D50w Syringe 50 Ml*) 12.5 gm IV PUSH .FOR FS < 60 - SS PRN PRN Reason: FS < 60 Dronedarone (Multaq Tab*) 400 mg PO BID [facility] Last Admin: 12/15/16 09:13 Dose: 400 mg Insulin Human Lispro (Humalog*) 0 units SUBCUT Q6HR [facility] PRN Reason: Protocol Last Admin: 12/15/16 07:25 Dose: 3 units Ondansetron HCl (Zofran Inj*) 4 mg IV Q6H PRN PRN Reason: NAUSEA Pantoprazole Sodium (Protonix Tab (Nf)) 40 mg PO DAILY [facility] Last Admin: 12/15/16 09:13 Dose: 40 mg Rivaroxaban (Xarelto(*)) 15 mg PO DAILY [facility] Last Admin: 12/15/16 09:13 Dose: 15 mg Sucralfate (Carafate*) 1 gm PO QID PRN PRN Reason: gas Vital Signs 12/14/16 12/14/16 12/14/16 10:00 11:00 11:15 Temperature Pulse Rate 71 69 71 Respiratory 14 18 14 Rate Blood Pressure 116/67 116/66 (mmHg) O2 Sat by Pulse 94 95 97 Oximetry 12/14/16 12/14/16 12/14/16 11:42 12:11 12:17 Temperature 97.7 F 97.7 F Pulse Rate 70 70 Respiratory 19 16 16 Rate Blood Pressure 127/75 127/57 (mmHg) O2 Sat by Pulse 97 97 Oximetry 12/14/16 12/14/16 12/14/16 12:18 15:25 17:21 Temperature 98.2 F 98.3 F Pulse Rate 67 71 Respiratory 16 14 Rate Blood Pressure 115/70 133/78 (mmHg) O2 Sat by Pulse 95 98 Oximetry 12/14/16 12/14/16 12/14/16 19:22 20:00 21:32 Temperature 98.1 F Pulse Rate 73 73 Respiratory 16 14 Rate Blood Pressure 127/76 (mmHg) O2 Sat by Pulse 96 96 Oximetry 12/14/16 12/15/16 12/15/16 23:18 04:32 07:47 Temperature 99.0 F 97.4 F 97.7 F Pulse Rate 66 56 61 Respiratory 16 16 Rate Blood Pressure 116/68 113/66 123/71 (mmHg) O2 Sat by Pulse 97 95 98 Oximetry 12/15/16 08:00 Temperature Pulse Rate Respiratory 18 Rate Blood Pressure (mmHg) O2 Sat by Pulse Oximetry Oxygen Devices in Use Now: None Appearance: Alert, standing by his bed in street clothes with a winter coat on, his bags all packed. Looks comfortable. Eyes: No Scleral Icterus Extremities: No Edema, No Clubbing, Cyanosis, - Skin: No Rash or Ulcers, No Nodules or Sclerosis, - Neurological: Alert and Oriented x 3, NL Sensation, NL Gait Result Diagrams: 12/15/16 05:23 12/15/16 05:23 Additional Lab and Data: Lab Results 12/13/16 12/13/16 12/13/16 Range/Units 09:50 09:50 09:50 WBC 8.9 (3.5-10.8) 10^3/ul RBC 4.73 (4.0-5.4) 10^6/ul Hgb 15.2 (14.0-18.0) g/dl Hct 44 (42-52) % MCV 94 (80-94) fL MCH 32 H (27-31) pg MCHC 34 (31-36) g/dl RDW 13 (10.5-15) % Plt Count 217 (150-450) 10^3/ul MPV 8 (7.4-10.4) um3 Neut % (Auto) 69.3 (38-83) % Lymph % (Auto) 18.5 L (25-47) % [place] % (Auto) 7.2 (1-9) % Eos % (Auto) 4.2 (0-6) % Baso % (Auto) 0.8 (0-2) % Absolute Neuts (auto) 6.2 (1.5-7.7) 10^3/ul Absolute Lymphs (auto) 1.6 (1.0-4.8) 10^3/ul Absolute Monos (auto) 0.6 (0-0.8) 10^3/ul Absolute Eos (auto) 0.4 (0-0.6) 10^3/ul Absolute Basos (auto) 0.1 (0-0.2) 10^3/ul Absolute Nucleated RBC 0 10^3/ul Nucleated RBC % 0 Sodium 135 (133-145) mmol/L Potassium 4.1 (3.5-5.0) mmol/L Chloride 99 L (101-111) mmol/L Carbon Dioxide 25 (22-32) mmol/L Anion Gap 11 (2-11) mmol/L BUN 20 (6-24) mg/dL Creatinine 0.91 (0.67-1.17) mg/dL Est GFR ( Amer) 114.8 (>60) Est GFR (Non-Af Amer) 89.3 (>60) BUN/Creatinine Ratio 22.0 H (8-20) Glucose 169 H (70-100) mg/dL Calcium 9.8 (8.6-10.3) mg/dL Magnesium 1.7 L (1.9-2.7) mg/dL Total Bilirubin 0.70 (0.2-1.0) mg/dL AST 29 (13-39) U/L ALT 35 (7-52) U/L Alkaline Phosphatase 79 (34-104) U/L Total Creatine Kinase 205 (10-223) U/L CK-MB (CK-2) 4.9 (0.6-6.3) ng/mL Troponin I 0.66 H* (<0.04) ng/mL B-Natriuretic Peptide 78 ( - 100) pg/mL Total Protein 7.3 (6.4-8.9) g/dL Albumin 4.1 (3.2-5.2) g/dL Globulin 3.2 (2-4) g/dL Albumin/Globulin Ratio 1.3 (1-3) TSH Pending Assess/Plan/Problems-Billing Assessment: - Patient Problems (1) Atrial fibrillation Current Visit: No Status: Acute Code(s): I48.91 - UNSPECIFIED ATRIAL FIBRILLATION SNOMED Code(s): 32887711 Comment: Continue dronedarone, clopidogrel, carvedilol, rivaroxaban (15 mg dose recommended by Dr. Garcia). I told patient he needs a fup sleep lab eval due to nocturnal atrial fib. I told him he needs to moderate his drinking ( down to 6-10 drinks a day). He has an appt with a therapist about this. (2) CAD (coronary artery disease) Current Visit: No Status: Acute Code(s): I25.10 - ATHSCL HEART DISEASE OF [place] CORONARY ARTERY W/O ANG PCTRS SNOMED Code(s): 56909486 Comment: Reccent stent LAD. He has had problems with statins in the past ( muscle cramping) but thinks they got better when he started taking large doses of vitamin D (4000 U per day). Vit D 25 level 62.3 on 12/13/16. Contnue atorvastatin 20 mg daily, carvedilol, ASA, ticagrelor. Pt instructed to take no more than 1000 U vitamin D daily. (3) KEE (obstructive sleep apnea) Current Visit: No Status: Acute Code(s): G47.33 - OBSTRUCTIVE SLEEP APNEA ( ADULT) (PEDIATRIC) SNOMED Code(s): 40123159 Comment: Has his CPAP here, states he always uses it. Pt told he needs a fup sleep lab eval soon after discharge. (4) Alcohol abuse Current Visit: No Status: Acute Code(s): F10.10 - ALCOHOL ABUSE, UNCOMPLICATED SNOMED Code(s): 51058230 Comment: Has not exhibited any e/o withdrawal. Patient states he is getting outpt tx, has an upcoming appt. (5) DVT prophylaxis Current Visit: No Status: Acute Code(s): XOU8198 - SNOMED Code(s): 781749687 Comment: Heparin sub q (6) NSTEMI (non-ST elevated myocardial infarction) Current Visit: No Status: Acute Code(s): I21.4 - NON-ST ELEVATION (NSTEMI) MYOCARDIAL INFARCTION SNOMED Code(s): 196223408 Comment: s/p LHC and stent placement c/w beta martin, ASA, statin, dual anti-plaete.t. Discussed with Dr. Garcia. Status and Disposition: Discharge now. Fup Dr. Rao 12/18/16.
--- NOTE | 2016-12-15 09:49 | PN ---
Subjective Date of Service: 12/15/16 Interval History: f/u Afib, recent [place]/PCI Had short episodes of rate controlled Afib overnight and sinus bradycardia while sleeping to high 30's asymptomatic, was wearing cpap No CP, dyspnea or palpitations Medications Active Medications: Acetaminophen (Tylenol Tab*) 650 mg PO Q4H PRN PRN Reason: FEVER/PAIN Albuterol (Ventolin 2.5 Mg/3 Ml Neb.Sabi*) 2.5 mg INH Q2H PRN PRN Reason: SOB/WHEEZING Alprazolam (Xanax Tab*) 0.5 mg PO BEDTIME PRN PRN Reason: ANXIETY Aspirin (Aspirin Low Dose Tab*) 81 mg PO DAILY [facility] Last Admin: 12/15/16 09:13 Dose: 81 mg Atorvastatin Calcium (Lipitor*) 20 mg PO 1700 [facility] Last Admin: 12/14/16 16:25 Dose: 20 mg Carvedilol (Coreg Tab*) 50 mg PO BID [facility] Last Admin: 12/15/16 09:13 Dose: 50 mg Clopidogrel Bisulfate (Plavix Tab*) 75 mg PO DAILY [facility] Last Admin: 12/15/16 09:13 Dose: 75 mg Dextrose (D50w Syringe 50 Ml*) 12.5 gm IV PUSH .FOR FS < 60 - SS PRN PRN Reason: FS < 60 Dronedarone (Multaq Tab*) 400 mg PO BID [facility] Last Admin: 12/15/16 09:13 Dose: 400 mg Insulin Human Lispro (Humalog*) 0 units SUBCUT Q6HR [facility] PRN Reason: Protocol Last Admin: 12/15/16 07:25 Dose: 3 units Ondansetron HCl (Zofran Inj*) 4 mg IV Q6H PRN PRN Reason: NAUSEA Pantoprazole Sodium (Protonix Tab (Nf)) 40 mg PO DAILY [facility] Last Admin: 12/15/16 09:13 Dose: 40 mg Rivaroxaban (Xarelto(*)) 15 mg PO DAILY [facility] Last Admin: 12/15/16 09:13 Dose: 15 mg Sucralfate (Carafate*) 1 gm PO QID PRN PRN Reason: gas Objective Vital Signs: Temp Pulse Resp BP Pulse Ox 97.7 F 61 18 123/71 98 12/15/16 07:47 12/15/16 07:47 12/15/16 08:00 12/15/16 07:47 12/15/16 07:47 Oxygen Devices in Use Now: Nasal Cannula Appearance: nad Neck: NL Appearance and Movements; NL JVP Respiratory: Symmetrical Chest Expansion and Respiratory Effort, Clear to Auscultation Cardiovascular: NL Sounds; No Murmurs; No JVD, RRR, No Edema Abdominal: NL Sounds; No Tenderness; No Distention Extremities: No Edema Skin: No Rash or Ulcers Neurological: Alert and Oriented x 3 Laboratory Results: 12/15/16 05:23 12/15/16 05:23 APTT 31.4 seconds (26.0-36.3) 12/13/16 09:57 Total Bilirubin 0.70 mg/dL (0.2-1.0) 12/13/16 09:50 AST 29 U/L (13-39) 12/13/16 09:50 ALT 35 U/L (7-52) 12/13/16 09:50 Alkaline Phosphatase 79 U/L (34-104) 12/13/16 09:50 CK-MB (CK-2) 4.9 ng/mL (0.6-6.3) 12/13/16 09:50 B-Natriuretic Peptide 78 pg/mL (-100) 12/13/16 09:50 Total Protein 7.3 g/dL (6.4-8.9) 12/13/16 09:50 Albumin 4.1 g/dL (3.2-5.2) 12/13/16 09:50 Globulin 3.2 g/dL (2-4) 12/13/16 09:50 Albumin/Globulin Ratio 1.3 (1-3) 12/13/16 09:50 Triglycerides 163 mg/dL 12/14/16 05:10 Cholesterol 160 mg/dL 12/14/16 05:10 LDL Cholesterol 96 mg/dL 12/14/16 05:10 HDL Cholesterol 31.4 mg/dL 12/14/16 05:10 TSH 6.33 mcIU/mL (0.34-5.60) H 12/13/16 09:50 12/13/16 12/13/16 12:50 15:55 Troponin I 0.59 H* 0.60 H* EKG Data: 12/14/2016: sinus bradycardia, rate 58 bpm, poor r wave progression otherwise normal ekg Assessment/Plan Mr. Longoria is a 46-year-old man with a history of alcoholism, obesity, KEE on CPAP, HTN, DM (Hgba1c 6.5) paroxysmal AFib, atherosclerotic heart disease with stenting to the right coronary artery in 2010 and more recently on 12/10/16, he presented with a NTEMI PCI/RYNE to LAD/diagonal 12/10/[address] Rao. Patient left AMA 12/11/2016. Presented with symptomatic rapid atrial fibrillation CHADs2 -vasc score at least 3 which spontaneously converted to SR has been rate controlled and minimal burden while home coreg restarted and multaq started . - Continue aspirin 81 mg PO daily, plavix 75 mg PO daily and xarelto 15 mg PO daily, and protonix 40 mg PO daily (see yesterdays progress note) - Advised strict alcohol cessation - Continue multaq 400 mg PO BID - Continue statin - Continue home coreg dosing - Keep K 4 or > and Mg 2 or > Thank you for allowing me to participate in the cardiovascular care of this patient. Please do not hesitate to contact me with questions or concerns
--- NOTE | 2016-12-16 00:26 | DS ---
CC: Dr. Rao; Dr. Ash Uribe DISCHARGE SUMMARY: DATE OF ADMISSION: 12/13/16 DATE OF DISCHARGE: 12/15/16 HOSPITAL COURSE: This 46-year-old man presented after waking up at 5 o'clock in the morning with ch est discomfort, palpitations, and shortness of breath. In the emergency room, he was found to have atrial fibrillation with a rate of 120 per minute. His troponin was 0.66 probably from his recent m yocardial infarction. The patient was admitted to intensive care unit. He was felt not to have reinfarction as his tropon in levels were pretty flat and he did undergo a cardiac catheterization on 12/14/16. He had a drug- eluting stent in the LAD. He had a balloon atherectomy of a side branch of the first diagonal. He converted to sinus rhythm. He had a number of medication injections including starting a statin, starting dronedarone, and change in some of his other medications. FINAL DIAGNOSES: 1. Atrial fibrillation. 2. Coronary artery disease. 3. Obstructive sleep apnea. 4. Alcohol abuse. 5. Recent non-STEMI. DISCHARGE MEDICATIONS: 1. Aspirin 81 mg daily. 2. Atorvastatin 20 mg daily at 5 p.m. 3. Clopidogrel 75 mg daily. 4. Dronedarone 400 mg twice a day. 5. Pantoprazole 40 mg daily. 6. Rivaroxaban 15 mg daily. Reduced dose due to dual-antiplatelet therapy. 7. Carvedilol 50 mg b.i .d. 8. Sucralfate 1 g q.i.d. p.r.n. 9. Nitroglycerin 0.4 mg sublingual p.r.n. FOLLOWUP: The patient is to see Dr. Rao on 12/18/16. [id number]/[facility] #: [id number]
== END 2016-12-15 10:07 | disposition home or self-care (01) | DRG 190 ==
LOC: ED 09:31 → ICU 11:04 → MEDTELE 12-14 09:21
PROVIDERS: ADMIT Internal Medicine; ATTEND Internal Medicine
DX: I21.4 Non-ST elevation (NSTEMI) myocardial infarction (principal); N18.3 Chronic kidney disease, stage 3 (moderate); E66.01 Morbid (severe) obesity due to excess calories; E11.9 Type 2 diabetes mellitus without complications; I48.0 Paroxysmal atrial fibrillation; I25.10 Atherosclerotic heart disease of native coronary artery without angina pectoris; G47.33 Obstructive sleep apnea (adult) (pediatric); F10.10 Alcohol abuse, uncomplicated; J45.909 Unspecified asthma, uncomplicated; E78.5 Hyperlipidemia, unspecified; Z79.82 Long term (current) use of aspirin; Z88.1 Allergy status to other antibiotic agents; Z99.89 Dependence on other enabling machines and devices; Z98.61 Coronary angioplasty status; Z68.36 Body mass index [BMI] 36.0-36.9, adult
CPT/HCPCS: 36415; 71010; 80048; 80053; 80061; 80320; 82306; 82550; 82553; 82947; 83036; 83735; 83880; 84443; 84484; 85025; 85730; 93005; 93306; 94760; A9270-GY; G0480

== ENCOUNTER 2016-12-26 12:38 | Observation (INO) | payer BC ==
[2016-12-26] MEDS ORDERED: Nitroglycerin TAB 0.4 MG* 0.4 MG TAB SL ONE (13:35)
[2016-12-26] MEDS: NS 0.9% 1000 ML* 1,000 ML IV SCH ×2 (13:43→20:51)
[2016-12-26 13:52] LABS: Hematocrit 44 % (42-52); Hemoglobin 15.2 g/dl (14.0-18.0); Mean Corpuscular HGB Conc 34 g/dl (31-36); Mean Corpuscular Hemoglobin 32 pg (27-31); Mean Corpuscular Volume 93 fL (80-94); Mean Platelet Volume 8 um3 (7.4-10.4); Red Blood Count 4.77 10^6/ul (4.0-5.4); Red Cell Distribution Width 13 % (10.5-15); White Blood Count 7.9 10^3/ul (3.5-10.8)
--- NOTE | 2016-12-26 13:58 | RAD ---
Indication: Chest pain. Stent placed in RCA December 17, 2016. Bilateral hand numbness. Comparison: December 13, 2016 Technique: Upright AP 1335 hours Report: Clear lungs and pleural spaces. Negative for pneumothorax. Upper normal heart size. Unremarkable central pulmonary vasculature and mediastinal contours. IMPRESSION: No evidence for acute intrathoracic disease.
[2016-12-26] MEDS ORDERED: Aspirin Low Dose CHEW TAB* 81 MG PO ONE (14:05)
[2016-12-26] MEDS ORDERED: Aspirin EC Low Dose* 81 MG TAB.EC ONE (14:06)
[2016-12-26 14:09] LABS: Albumin 4.2 g/dL (3.2-5.2); BUN/Creatinine Ratio 15.7 (8-20); C Reactive Protein 10.58 mg/L (< 5.00); Calcium 9.5 mg/dL (8.6-10.3); EGFR African American 117.8 (>60); EGFR Non-African American 91.6 (>60); Magnesium 1.4 mg/dL (1.9-2.7); Potassium 3.3 mmol/L (3.5-5.0); Total Bilirubin 0.7 mg/dL (0.2-1.0); Total Protein 7.2 g/dL (6.4-8.9)
[2016-12-26 14:11] LABS: Troponin I 0.01 ng/mL (<0.04)
[2016-12-26 14:15] LABS: TSH (Thyroid Stimulating Horm) 1.61 mcIU/mL (0.34-5.60)
[2016-12-26] MEDS ORDERED: Magnesium Sulfate 2 GM IV* 2 GM/50 ML BAG IVPB ONE (14:48)
--- NOTE | 2016-12-26 15:23 | ED ---
Prosper Mendoza Adam, scribed for Prakash Pillai MD on 12/26/16 at 1323 . HPI Chest Pain - HPI Summary HPI Summary: Pt is a 46 year old male presenting with CP. He states that the pain set on at 10:30 this morning. Compared to the [place] pain 2 weeks ago this was a 5/10 but the character of the pain was very similar to that of the [place]. The pain has been constant since then although it has lessened to a 3-4/10. It radiates to the back of both shoulders. Exertion aggravates the pain. He denies taking any NTG. Pt felt well-rested and normal when he woke up at 08:30. mid sternal, still present same thing last couple days intermittently has A Fib, this morning HR was 130 then 70 then 105 He also c/o numbness in both hands associated with the CP. some SOB at rest in recent weeks. ankle swelling chronic, pain in left knee chronic no nausea or diaphoresis or abd pain Pt had a stent placed on 12/17/16 (9 days ago). - History of Current Complaint Chief Complaint: EDChestPainROMI Time Seen by Provider: 12/26/16 13:08 Hx Obtained From: Patient Onset/Duration: Started Hours Ago, Atraumatic, Still Present Timing: Constant Initial Severity: Moderate Current Severity: Mild Pain Intensity: 5 Pain Scale Used: 0-10 Numeric Chest Pain Location: Mid Sternal Chest Pain Radiates: Yes Chest Pain Radiates To:: Shoulder - Back of shoulders Aggravating Factor(s): Exertion Alleviating Factor(s): Nothing - No NTG taken Associated Signs and Symptoms: Positive: Numbness - Both hands, Shortness of Breath, Edema - Additional Pertinent History Primary Care Physician: [id number] - Allergy/Home Medications Allergies/Adverse Reactions: Allergies Allergy/AdvReac Type Severity Reaction Status Date / Time Azithromycin Allergy Unknown Unknown Verified 12/10/16 00:03 Reaction Details Erythromycin Allergy Unknown Unknown Verified 12/10/16 00:03 Reaction Details Lisinopril Allergy Unknown Unknown Verified 12/10/16 00:03 Reaction Details Amlodipine [From [facility]] Allergy Unknown Verified 12/10/16 00:03 Reaction Details Home Medications: Home Medications ALPRAZolam TAB* [Xanax TAB*] 0.5 mg PO BEDTIME PRN 12/26/16 [History Confirmed 12/26/16] Alprazolam XR (NF) [Xanax XR (NF)] 1 mg PO DAILY MDD 1 mg 12/26/16 [History Confirmed 12/26/16] Hydrochlorothiazide TAB* [Hydrodiuril TAB*] 25 mg PO DAILY 12/26/16 [History Confirmed 12/26/16] Magnesium [Essential Magnesium] 250 mg PO DAILY 12/26/16 [History Confirmed ] Nifedipine [Nifedical Xl] 30 mg PO DAILY 12/26/16 [History Confirmed 12/26/16] Nitroglycerin TAB 0.4 MG* 0.4 mg SL Q5M PRN 12/26/16 [History Confirmed 12/26/16 ] Vortioxetine (NF) [Trintellix (NF)] 20 mg PO DAILY 12/26/16 [History Confirmed 12/26/16] PMH/Surg Hx/FS Hx/Imm Hx Endocrine/Hematology History: Reports: Hx Anticoagulant Therapy Cardiovascular History: Reports: Hx Angina, Hx Coronary Artery Disease, Hx Hypertension, Other Cardiovascular Problems/Disorders - STENT PLACED TO RCA Respiratory History: Reports: Hx Asthma History: Reports: Other Problems/Disorders - STAGE III CKD Sensory History: Reports: Hx Contacts or Glasses Opthamlomology History: Reports: Hx Contacts or Glasses Psychiatric History: Reports: Hx Anxiety - Surgical History Surgery Procedure, Year, and Place: CARDIAC STENT PLACEMENT 2010 and November 2016 - Immunization History Date of Tetanus Vaccine: utd Date of Influenza Vaccine: none Infectious Disease History: No Infectious Disease History: Denies: Hx Clostridium Difficile, Hx of Known/Suspected MRSA, Traveled Outside the [place] in Last 30 Days - Family History Known Family History: Positive: Hypertension - Social History Occupation: Employed Full-time Lives: With Family - Father Alcohol Use: Occasionally Alcohol Amount: 2-3 glasses wine Hx Substance Use: No Substance Use Type: Reports: None Hx Tobacco Use: No Smoking Status (MU): Never Smoked Tobacco Review of Systems Negative: Fever, Skin Diaphoresis Positive: Chest Pain Positive: Shortness Of Breath Negative: Abdominal Pain, Nausea Positive: Arthralgia - Left knee, Edema Positive: Numbness - Both hands All Other Systems Reviewed And Are Negative: Yes Physical Exam Triage Information Reviewed: Yes Vital Signs On Initial Exam: Initial Vitals Temp Pulse Resp BP Pulse Ox 98.6 F 82 16 135/86 100 12/26/16 12:43 12/26/16 12:43 12/26/16 12:43 12/26/16 12:43 12/26/16 12:43 Vital Signs Reviewed: Yes Appearance: Positive: Well-Appearing, No Pain Distress Skin: Positive: Other - Bruising in the epigastrium Head/Face: Positive: Normal Head/Face Inspection Eyes: Positive: EOMI, FATUMA ENT: Positive: Normal ENT inspection Neck: Positive: Supple, Nontender Respiratory/Lung Sounds: Positive: Clear to Auscultation, Breath Sounds Present Cardiovascular: Positive: RRR Abdomen Description: Positive: Nontender, Soft Bowel Sounds: Positive: Present Musculoskeletal: Positive: Normal, Strength/ROM Intact Neurological: Positive: Normal, Sensory/Motor Intact, Alert, Oriented to Person Place, Time Psychiatric: Positive: Affect/Mood Appropriate Diagnostics - Vital Signs Vital Signs Temp Pulse Resp BP Pulse Ox 12/26/16 13:00 147/86 12/26/16 12:55 17 12/26/16 12:54 134/74 12/26/16 12:43 98.6 F 82 16 135/86 100 - Laboratory Lab Results: Lab Results 12/26/16 12/26/16 12/26/16 Range/Units 13:15 13:15 13:15 WBC 7.9 (3.5-10.8) 10^3/ul RBC 4.77 (4.0-5.4) 10^6/ul Hgb 15.2 (14.0-18.0) g/dl Hct 44 (42-52) % MCV 93 (80-94) fL MCH 32 H (27-31) pg MCHC 34 (31-36) g/dl RDW 13 (10.5-15) % Plt Count 237 (150-450) 10^3/ul MPV 8 (7.4-10.4) um3 Neut % (Auto) 74.5 (38-83) % Lymph % (Auto) 18.3 L (25-47) % Chilton % (Auto) 4.0 (1-9) % Eos % (Auto) 2.6 (0-6) % Baso % (Auto) 0.6 (0-2) % Absolute Neuts (auto) 5.9 (1.5-7.7) 10^3/ul Absolute Lymphs (auto) 1.4 (1.0-4.8) 10^3/ul Absolute Monos (auto) 0.3 (0-0.8) 10^3/ul Absolute Eos (auto) 0.2 (0-0.6) 10^3/ul Absolute Basos (auto) 0 (0-0.2) 10^3/ul Absolute Nucleated RBC 0 10^3/ul Nucleated RBC % 0.1 INR (Anticoag Therapy) 1.29 H (0.89-1.11) APTT 33.7 (26.0-36.3) seconds D-Dimer, Quantitative < 200 (Less Than 230) ng/mL Sodium 136 (133-145) mmol/L Potassium 3.3 L (3.5-5.0) mmol/L Chloride 97 L (101-111) mmol/L Carbon Dioxide 28 (22-32) mmol/L Anion Gap 11 (2-11) mmol/L BUN 14 (6-24) mg/dL Creatinine 0.89 (0.67-1.17) mg/dL Est GFR ( Amer) 117.8 (>60) Est GFR (Non-Af Amer) 91.6 (>60) BUN/Creatinine Ratio 15.7 (8-20) Glucose 185 H (70-100) mg/dL Lactic Acid (0.5-2.0) mmol/L Calcium 9.5 (8.6-10.3) mg/dL Magnesium 1.4 L (1.9-2.7) mg/dL Total Bilirubin 0.70 (0.2-1.0) mg/dL AST 32 (13-39) U/L ALT 37 (7-52) U/L Alkaline Phosphatase 77 (34-104) U/L Total Creatine Kinase 234 H (10-223) U/L CK-MB (CK-2) 5.4 (0.6-6.3) ng/mL Troponin I 0.01 (<0.04) ng/mL C-Reactive Protein 10.58 H (< 5.00) mg/L B-Natriuretic Peptide ( - 100) pg/mL Total Protein 7.2 (6.4-8.9) g/dL Albumin 4.2 (3.2-5.2) g/dL Globulin 3.0 (2-4) g/dL Albumin/Globulin Ratio 1.4 (1-3) Lipase 29 (11.0-82.0) U/L TSH 1.61 (0.34-5.60) mcIU/mL 12/26/16 12/26/16 Range/Units 13:15 13:15 WBC (3.5-10.8) 10^3/ul RBC (4.0-5.4) 10^6/ul Hgb (14.0-18.0) g/dl Hct (42-52) % MCV (80-94) fL MCH (27-31) pg MCHC (31-36) g/dl RDW (10.5-15) % Plt Count (150-450) 10^3/ul MPV (7.4-10.4) um3 Neut % (Auto) (38-83) % Lymph % (Auto) (25-47) % Chilton % (Auto) (1-9) % Eos % (Auto) (0-6) % Baso % (Auto) (0-2) % Absolute Neuts (auto) (1.5-7.7) 10^3/ul Absolute Lymphs (auto) (1.0-4.8) 10^3/ul Absolute Monos (auto) (0-0.8) 10^3/ul Absolute Eos (auto) (0-0.6) 10^3/ul Absolute Basos (auto) (0-0.2) 10^3/ul Absolute Nucleated RBC 10^3/ul Nucleated RBC % INR (Anticoag Therapy) (0.89-1.11) APTT (26.0-36.3) seconds D-Dimer, Quantitative (Less Than 230) ng/mL Sodium (133-145) mmol/L Potassium (3.5-5.0) mmol/L Chloride (101-111) mmol/L Carbon Dioxide (22-32) mmol/L Anion Gap (2-11) mmol/L BUN (6-24) mg/dL Creatinine (0.67-1.17) mg/dL Est GFR ( Amer) (>60) Est GFR (Non-Af Amer) (>60) BUN/Creatinine Ratio (8-20) Glucose (70-100) mg/dL Lactic Acid 2.8 H* (0.5-2.0) mmol/L Calcium (8.6-10.3) mg/dL Magnesium (1.9-2.7) mg/dL Total Bilirubin (0.2-1.0) mg/dL AST (13-39) U/L ALT (7-52) U/L Alkaline Phosphatase (34-104) U/L Total Creatine Kinase (10-223) U/L CK-MB (CK-2) (0.6-6.3) ng/mL Troponin I (<0.04) ng/mL C-Reactive Protein (< 5.00) mg/L B-Natriuretic Peptide 78 ( - 100) pg/mL Total Protein (6.4-8.9) g/dL Albumin (3.2-5.2) g/dL Globulin (2-4) g/dL Albumin/Globulin Ratio (1-3) Lipase (11.0-82.0) U/L TSH (0.34-5.60) mcIU/mL Result Diagrams: 12/26/16 13:15 12/26/16 13:15 Lab Statement: Any lab studies that have been ordered have been reviewed, and results considered in the medical decision making process. - Radiology CXR Radiology Interpretation Completed By: Radiologist - IMPRESSION: NO EVIDENCE FOR ACUTE INTRATHORACIC DISEASE. - EKG 12:50 Cardiac Rate: NL - 82 BPM - Additional Comments Diagnostic Additional Comments: Lactic Acid - 2.8 Troponin I - 0.01 Chest Pain Course/Dx - Course Assessment/Plan: DISCUSSED WITH DR PRICE. ADMIT HOSPITALIST STABLE. - Diagnoses Provider Diagnoses: Chest pain Discharge - Discharge Plan Condition: Stable Disposition: ADMITTED TO [facility] Referrals: Ash Uribe MD [Primary Care Provider] - The documentation as recorded by the Prosper painter Adam accurately reflects the service I personally performed and the decisions made by me, Prakash Pillai MD.
[2016-12-26] MEDS ORDERED: Nitroglycerin TAB 0.4 MG* 0.4 MG TAB SL PRN (15:34)
[2016-12-26] MEDS ORDERED: Morphine INJ* 2 MG/ML 1 ML SYRINGE IV PRN (15:43)
[2016-12-26] MEDS ORDERED: Acetaminophen TAB* 325 MG PO PRN (15:58)
[2016-12-26] MEDS ORDERED: LORazepam TAB(*) 1 MG PO SCH (16:00)
[2016-12-26 16:21] LABS: Urine Bilirubin Negative (Negative); Urine Glucose Negative (Negative); Urine Nitrite Negative (Negative)
[2016-12-26] MEDS: Atorvastatin* 20 MG TAB PO SCH (16:40)
[2016-12-26] MEDS: NIFEdipine ER TAB* 30 MG PO SCH (17:15)
[2016-12-26] MEDS: PTO: Vortioxetine (NF) 20 MG TAB (FORMERLY Brintellix) PO SCH (17:15)
[2016-12-26] MEDS: Clopidogrel TAB* 75 MG PO SCH (17:15)
[2016-12-26] MEDS: ALPRAZOLAM 1 MG PO SCH (17:15)
[2016-12-26] MEDS: Thiamine TAB* 100 MG TAB PO SCH (17:16)
[2016-12-26] MEDS: Hydrochlorothiazide TAB* 25 MG PO SCH (17:16)
[2016-12-26] MEDS: Multivitamins/Minerals TAB PO SCH (17:16)
[2016-12-26] MEDS: Aspirin Low Dose CHEW TAB* 81 MG PO SCH (17:16)
[2016-12-26] MEDS: Folic Acid TAB* 1 MG PO SCH (17:16)
--- NOTE | 2016-12-26 17:16 | HP ---
HISTORY AND PHYSICAL: DATE OF ADMISSION: 12/26/16 TIME OF EVALUATION: 3:15 p.m. PRIMARY CARE PROVIDER: Dr. Ash Uribe. LASER/ELECTRO OPTICS TECHNICIAN: Dr. Rao. CHIEF COMPLAINT: Chest pain. HISTORY OF PRESENT ILLNESS: Mr. Longoria is a 46-year-old male with a past medical history of coronary artery disease, status post stent, most recent one 2 weeks ago; paroxysmal atrial fibrillation; obstructive sleep apnea, on CPAP; asthma; alcohol abuse that presents to the emergency room with complaints of chest pain. His history goes back to December 09 when he presented to the emergency room with complaints of chest pain. At that time, the patient was found to have an elevated troponin of 0.11 and he left against medical advice. He returned to the emergency room on December 10 and he had a cardiac cath that showed 2-vessel disease with likely a significant distal right coronary artery moderate stenosis and the culprit lesion was in the mid LAD as well as diagonal one side branch stenosis. A drug- eluting stent was placed to the LAD with jailing the second diagonal and scoring balloon atherectomy of the side branch of the first diagonal. The patient once again left against medical advice on December 11. He returned to the emergency room on December 13 with complaints of chest discomfort. At that time, he was found to be in atrial fibrillation with rapid ventricular response. He was discharged home on December 15 on double antiplatelet therapy plus low-dose rivaroxaban to follow up with Dr. Rao as an outpatient. The patient states that since discharge he has had frequent episodes of chest pain. On the day he left the hospital, he had to use the snowblower to clean his driveway and then another day he had to fix his furnace, go to the roof to remove snow and he has had episodes of chest pain since then. He states that the pain is similar to the pain he had when he had his PR and it is relieved by nitroglycerin. Sometimes it is associated with some diaphoresis and shortness of breath. Today, he experienced another episode of retrosternal chest pain 5/10 in intensity, no radiation, associated with mild shortness of breath what prompted his visit to the emergency room. PAST MEDICAL HISTORY: 1. Coronary artery disease, status post stent to the RCA in 2010 and to the LAD as described above. 2. Paroxysmal atrial fibrillation. 3. Obstructive sleep apnea, on CPAP. 4. Asthma. 5. History of perirectal abscesses. 6. Alcohol abuse. FAMILY HISTORY: His father has coronary disease and reportedly 8 stents. His mother has hepatitis C. SOCIAL HISTORY: The patient states that he drinks 375 mL of vodka 5 days a week , last drink was yesterday. He states that he has been to alcohol rehab in the past. He denies tobacco or drug use. Surrogate decision maker is his significant other, Mabel Heard. REVIEW OF SYSTEMS: A 14-point review of systems was performed and all the pertinent negative and positive findings are in the HPI. PHYSICAL EXAMINATION GENERAL: The patient is a pleasant male sitting up in the ED stretcher in no acute distress. VITAL SIGNS: Temperature 98.6, heart rate is 81, respiratory rate is 20, oxygen saturation 100% on room air, blood pressure is 136/87. CHEST: Breath sounds present bilaterally and no added sounds. CVS: Normal S1, S2. Regular rate and rhythm. ABDOMEN: Obese. Soft. Bowel sounds are present. EXTREMITIES: No edema. NEUROLOGIC: He is awake, alert, and oriented x3. Able to move all 4 extremities. LABORATORY AND IMAGING DATA: The patient had a CBC that showed a WBC of 7.9, hemoglobin 15.2, hematocrit of 44, platelets of 237, 74% neutrophils. INR is 1.2. D-dimer less than 200. Chemistry showed a sodium of 136, potassium of 3.3 , chloride of 97, bicarb of 28, BUN of 14, creatinine of 0.89, glucose of 185, lactic acid of 2.8, calcium 9.5, magnesium 1.4. LFTs are normal. CPK is 234, but CK-MB is 5.4 and troponin is 0.01. EKG done on December 26 at 12:50, showed sinus rhythm at 82 beats per minute with no significant ST-T changes and this actually looks improved from his prior EKG from December 14 where he had flat T waves in lead 3. Chest x-ray showed no evidence for acute intrathoracic disease. ASSESSMENT AND PLAN: Mr. Longoria is a 46-year-old male with a past medical history of coronary artery disease; paroxysmal atrial fibrillation; obstructive sleep apnea, on CPAP; asthma; status post recent stent who presented to the emergency room with complaints of chest pain. 1. Chest pain, rule out acute coronary syndrome: Although his pattern of exertion- related chest pain is concerning, he describes at least 2 weeks of intermittent chest pain with no new EKG changes and negative troponin. The patient will be admitted to telemetry floor as observation and we are going to check serial troponins. If acute coronary syndrome is ruled out, we may pursue an exercise stress test in the morning, but if he has enzyme elevation, we will consult Dr. Rao. At this point, we are going to continue medical management with aspirin, atorvastatin, Coreg, clopidogrel. 2. Paroxysmal atrial fibrillation: The patient is in sinus rhythm at this point and we are going to continue Coreg and rivaroxaban. 3. Alcohol abuse: The patient states that he continues to drink. He states that he does not experience withdrawal when he stops drinking. He will be placed on a WAM protocol. 4. Depression/anxiety: Continue vortioxetine and alprazolam. 5. DVT prophylaxis: The patient has a score of 2 on a DVT Prophylaxis Risk Assessment Guide and he is already anticoagulated with rivaroxaban. TIME SPENT: Approximately 45 minutes were spent in patient interview, medical records review, physical examination to complete the admission, more than half this time was spent [id number] with the patient and coordination of care. CC: Dr. Ash Uribe; Dr. Rao* [id number]/[facility] #: [id number] [facility]
[2016-12-26] MEDS: CMCS Pantoprazole TAB (NF) 40 MG TAB PO SCH (17:25)
[2016-12-26] MEDS: Rivaroxaban TAB(*) 15 MG PO SCH (17:25)
[2016-12-26] MEDS: Carvedilol TAB* 25 MG PO SCH (17:52)
[2016-12-26] MEDS ORDERED: Carvedilol TAB* 25 MG PO SCH (18:00)
[2016-12-26] MEDS: ALPRAZolam TAB* 0.5 MG PO PRN (23:17)
[2016-12-27] MEDS: NS 0.9% 1000 ML* 1,000 ML IV SCH (03:52)
[2016-12-27] MEDS: Thiamine TAB* 100 MG TAB PO SCH (09:43)
[2016-12-27] MEDS: PTO: Vortioxetine (NF) 20 MG TAB (FORMERLY Brintellix) PO SCH (09:43)
[2016-12-27] MEDS: CMCS Pantoprazole TAB (NF) 40 MG TAB PO SCH (09:44)
[2016-12-27] MEDS: Rivaroxaban TAB(*) 15 MG PO SCH (09:44)
[2016-12-27] MEDS: Aspirin Low Dose CHEW TAB* 81 MG PO SCH (09:45)
[2016-12-27] MEDS: NIFEdipine ER TAB* 30 MG PO SCH (09:45)
[2016-12-27] MEDS: Hydrochlorothiazide TAB* 25 MG PO SCH (09:45)
[2016-12-27] MEDS: Multivitamins/Minerals TAB PO SCH (09:45)
[2016-12-27] MEDS: Folic Acid TAB* 1 MG PO SCH (09:45)
[2016-12-27] MEDS: Clopidogrel TAB* 75 MG PO SCH (09:46)
[2016-12-27] MEDS: Carvedilol TAB* 25 MG PO SCH ×2 (09:46→21:58)
[2016-12-27] MEDS: ALPRAZOLAM 1 MG PO SCH (09:53)
[2016-12-27 11:15] LABS: BUN/Creatinine Ratio 17.8 (8-20); Calcium 8.3 mg/dL (8.6-10.3); EGFR African American 148.1 (>60); EGFR Non-African American 115.2 (>60); Magnesium 1.8 mg/dL (1.9-2.7); Potassium 3.6 mmol/L (3.5-5.0)
[2016-12-27] MEDS ORDERED: Regadenoson* 0.4 MG/5 ML SYRINGE ONE (12:21)
[2016-12-27] MEDS ORDERED: Magnesium Sulfate 2 GM IV* 2 GM/50 ML BAG IVPB ONE (12:46)
[2016-12-27] MEDS ORDERED: Potassium Chlor TAB* 20 MEQ TAB.ER PO ONE (12:47)
--- NOTE | 2016-12-27 13:31 | PN ---
Subjective Date of Service: 12/27/16 Interval History: Patient reports he had two episodes of CP in the middle of the night that woke him up out of his sleep but states he didn't tell the nurses because "I was on oxygen and thought I was ok". Reports both lasted about 15 minute, mid-sternum, slightly to the right radiating to his back. Describes a squeezing sensation. Denies accompanied SOB, Nausea or diaphoresis. He reports he has been having CP frequently at home and usually at 1030 am then sporadically frequently when he is exerting himself. No further CP since. Denies palpitations Denies reflux symptoms. No abdominal pain. No recent illness, cough, fever or chills. Objective Active Medications: Acetaminophen (Tylenol Tab*) 650 mg PO Q4H PRN PRN Reason: PAIN Alprazolam (Xanax Tab*) 0.5 mg PO BEDTIME PRN PRN Reason: SLEEP Last Admin: 12/26/16 23:17 Dose: 0.5 mg Alprazolam (Xanax Xr (Nf)) 1 mg PO DAILY [facility] Last Admin: 12/27/16 09:53 Dose: Not Given Aspirin (Aspirin Low Dose Tab*) 81 mg PO DAILY [facility] Last Admin: 12/27/16 09:45 Dose: 81 mg Atorvastatin Calcium (Lipitor*) 20 mg PO 1700 [facility] Last Admin: 12/26/16 16:40 Dose: 20 mg Carvedilol (Coreg Tab*) 50 mg PO BID [facility] Last Admin: 12/27/16 09:46 Dose: 50 mg Clopidogrel Bisulfate (Plavix Tab*) 75 mg PO DAILY [facility] Last Admin: 12/27/16 09:46 Dose: 75 mg Folic Acid (Folvite Tab*) 1 mg PO DAILY [facility] Last Admin: 12/27/16 09:45 Dose: 1 mg Hydrochlorothiazide (Hydrodiuril Tab*) 25 mg PO DAILY [facility] Last Admin: 12/27/16 09:45 Dose: 25 mg Magnesium Sulfate (Magnesium Sulfate 2 Gm Iv*) 2 gm in 50 mls @ 50 mls/hr IVPB ONCE ONE Stop: 12/27/16 13:45 Lorazepam (Ativan Tab(*)) 0 mg PO .PER WAM SCORE [facility] PRN Reason: Protocol Morphine Sulfate (Morphine Inj (Syringe)*) 2 mg IV Q4H PRN PRN Reason: SEVERE PAIN Multivitamins/Minerals (Theragran/Minerals Tab*) 1 tab PO DAILY [facility] Last Admin: 12/27/16 09:45 Dose: 1 tab Nifedipine (Procardia Xl Tab*) 30 mg PO DAILY [facility] Last Admin: 12/27/16 09:45 Dose: 30 mg Nitroglycerin (Nitroglycerin Tab 0.4 Mg*) 0.4 mg SL Q5M PRN PRN Reason: PAIN - CHEST Pantoprazole Sodium (Protonix Tab (Nf)) 40 mg PO DAILY [facility] Last Admin: 12/27/16 09:44 Dose: 40 mg Rivaroxaban (Xarelto(*)) 15 mg PO DAILY [facility] Last Admin: 12/27/16 09:44 Dose: 15 mg Thiamine HCl (Vitamin B-1 Tab*) 100 mg PO DAILY [facility] Last Admin: 12/27/16 09:43 Dose: 100 mg Vortioxetine (Trintellix (Nf)) 20 mg PO DAILY [facility] Last Admin: 12/27/16 09:43 Dose: 20 mg Vital Signs 12/26/16 12/26/16 12/26/16 15:00 15:30 15:36 Temperature 97.7 F Pulse Rate 84 Respiratory 20 11 20 Rate Blood Pressure 136/87 143/81 136/91 (mmHg) O2 Sat by Pulse 96 Oximetry 12/26/16 12/26/16 12/26/16 17:58 18:16 19:00 Temperature 98.7 F Pulse Rate 81 77 Respiratory 18 18 Rate Blood Pressure 128/71 131/80 (mmHg) O2 Sat by Pulse 96 Oximetry 12/26/16 12/26/16 12/26/16 19:54 20:00 21:00 Temperature 98.3 F Pulse Rate 78 Respiratory 18 18 16 Rate Blood Pressure 122/79 (mmHg) O2 Sat by Pulse 99 Oximetry 12/26/16 12/26/16 12/26/16 23:00 23:11 23:17 Temperature 97.7 F Pulse Rate 77 Respiratory 16 20 16 Rate Blood Pressure 124/83 (mmHg) O2 Sat by Pulse 97 Oximetry 12/27/16 12/27/16 12/27/16 01:10 03:09 05:05 Temperature 97.6 F 97.2 F 97.6 F Pulse Rate 67 64 62 Respiratory 16 20 16 Rate Blood Pressure 121/61 117/67 109/68 (mmHg) O2 Sat by Pulse 94 93 95 Oximetry 12/27/16 12/27/16 07:45 09:46 Temperature 97.7 F 97.8 F Pulse Rate 63 70 Respiratory 16 14 Rate Blood Pressure 122/78 124/82 (mmHg) O2 Sat by Pulse 100 99 Oximetry Oxygen Devices in Use Now: None Appearance: Obese male sitting up in bed in NAD. A+O x3 Eyes: No Scleral Icterus, PERRLA Ears/Nose/Mouth/Throat: NL Teeth, Lips, Gums, Mucous Membranes Moist Neck: NL Appearance and Movements; NL JVP Respiratory: Symmetrical Chest Expansion and Respiratory Effort, Clear to Auscultation Cardiovascular: NL Sounds; No Murmurs; No JVD, RRR, No Edema Abdominal: NL Sounds; No Tenderness; No Distention, - - obese Extremities: No Edema, No Clubbing, Cyanosis Skin: No Rash or Ulcers, No Nodules or Sclerosis Neurological: Alert and Oriented x 3, NL Sensation, NL Gait, NL Muscle Strength and Tone Lines/Tubes/Other Access: Clean, Dry and Intact Peripheral IV Nutrition: Taking PO's Result Diagrams: 12/26/16 13:15 12/27/16 10:36 Additional Lab and Data: Lab Results 12/26/16 12/26/16 12/26/16 Range/Units 13:15 13:15 13:15 WBC 7.9 (3.5-10.8) 10^3/ul RBC 4.77 (4.0-5.4) 10^6/ul Hgb 15.2 (14.0-18.0) g/dl Hct 44 (42-52) % MCV 93 (80-94) fL MCH 32 H (27-31) pg MCHC 34 (31-36) g/dl RDW 13 (10.5-15) % Plt Count 237 (150-450) 10^3/ul MPV 8 (7.4-10.4) um3 Neut % (Auto) 74.5 (38-83) % Lymph % (Auto) 18.3 L (25-47) % Nobles % (Auto) 4.0 (1-9) % Eos % (Auto) 2.6 (0-6) % Baso % (Auto) 0.6 (0-2) % Absolute Neuts (auto) 5.9 (1.5-7.7) 10^3/ul Absolute Lymphs (auto) 1.4 (1.0-4.8) 10^3/ul Absolute Monos (auto) 0.3 (0-0.8) 10^3/ul Absolute Eos (auto) 0.2 (0-0.6) 10^3/ul Absolute Basos (auto) 0 (0-0.2) 10^3/ul Absolute Nucleated RBC 0 10^3/ul Nucleated RBC % 0.1 INR (Anticoag Therapy) 1.29 H (0.89-1.11) APTT 33.7 (26.0-36.3) seconds D-Dimer, Quantitative < 200 (Less Than 230) ng/mL Sodium 136 (133-145) mmol/L Potassium 3.3 L (3.5-5.0) mmol/L Chloride 97 L (101-111) mmol/L Carbon Dioxide 28 (22-32) mmol/L Anion Gap 11 (2-11) mmol/L BUN 14 (6-24) mg/dL Creatinine 0.89 (0.67-1.17) mg/dL Est GFR ( Amer) 117.8 (>60) Est GFR (Non-Af Amer) 91.6 (>60) BUN/Creatinine Ratio 15.7 (8-20) Glucose 185 H (70-100) mg/dL Lactic Acid (0.5-2.0) mmol/L Calcium 9.5 (8.6-10.3) mg/dL Magnesium 1.4 L (1.9-2.7) mg/dL Total Bilirubin 0.70 (0.2-1.0) mg/dL AST 32 (13-39) U/L ALT 37 (7-52) U/L Alkaline Phosphatase 77 (34-104) U/L Total Creatine Kinase 234 H (10-223) U/L CK-MB (CK-2) 5.4 (0.6-6.3) ng/mL Troponin I 0.01 (<0.04) ng/mL C-Reactive Protein 10.58 H (< 5.00) mg/L B-Natriuretic Peptide ( - 100) pg/mL Total Protein 7.2 (6.4-8.9) g/dL Albumin 4.2 (3.2-5.2) g/dL Globulin 3.0 (2-4) g/dL Albumin/Globulin Ratio 1.4 (1-3) Lipase 29 (11.0-82.0) U/L TSH 1.61 (0.34-5.60) mcIU/mL 12/26/16 12/26/16 Range/Units 13:15 13:15 WBC (3.5-10.8) 10^3/ul RBC (4.0-5.4) 10^6/ul Hgb (14.0-18.0) g/dl Hct (42-52) % MCV (80-94) fL MCH (27-31) pg MCHC (31-36) g/dl RDW (10.5-15) % Plt Count (150-450) 10^3/ul MPV (7.4-10.4) um3 Neut % (Auto) (38-83) % Lymph % (Auto) (25-47) % Nobles % (Auto) (1-9) % Eos % (Auto) (0-6) % Baso % (Auto) (0-2) % Absolute Neuts (auto) (1.5-7.7) 10^3/ul Absolute Lymphs (auto) (1.0-4.8) 10^3/ul Absolute Monos (auto) (0-0.8) 10^3/ul Absolute Eos (auto) (0-0.6) 10^3/ul Absolute Basos (auto) (0-0.2) 10^3/ul Absolute Nucleated RBC 10^3/ul Nucleated RBC % INR (Anticoag Therapy) (0.89-1.11) APTT (26.0-36.3) seconds D-Dimer, Quantitative (Less Than 230) ng/mL Sodium (133-145) mmol/L Potassium (3.5-5.0) mmol/L Chloride (101-111) mmol/L Carbon Dioxide (22-32) mmol/L Anion Gap (2-11) mmol/L BUN (6-24) mg/dL Creatinine (0.67-1.17) mg/dL Est GFR ( Amer) (>60) Est GFR (Non-Af Amer) (>60) BUN/Creatinine Ratio (8-20) Glucose (70-100) mg/dL Lactic Acid 2.8 H* (0.5-2.0) mmol/L Calcium (8.6-10.3) mg/dL Magnesium (1.9-2.7) mg/dL Total Bilirubin (0.2-1.0) mg/dL AST (13-39) U/L ALT (7-52) U/L Alkaline Phosphatase (34-104) U/L Total Creatine Kinase (10-223) U/L CK-MB (CK-2) (0.6-6.3) ng/mL Troponin I (<0.04) ng/mL C-Reactive Protein (< 5.00) mg/L B-Natriuretic Peptide 78 ( - 100) pg/mL Total Protein (6.4-8.9) g/dL Albumin (3.2-5.2) g/dL Globulin (2-4) g/dL Albumin/Globulin Ratio (1-3) Lipase (11.0-82.0) U/L TSH (0.34-5.60) mcIU/mL Assess/Plan/Problems-Billing Assessment: 46 yo male with a PMH of CAD with hx of stent to RCA and recent stent placement after NTEMI 2 weeks ago, paroxysmal afib non-compliant with prescribed medication, KEE on cpap, asthma, ETOH abuse who presented on 12/26 with c/o Chest Pain - Patient Problems (1) Chest pain Comment: - Flat troponins, no EKG changes. Exercise stress was nondiagnostic, Dr. Reeder recommended nuclear - will have second resting portion tomorrow. - NPO after midnight (2) CAD (coronary artery disease) Comment: Hx of stent to RCA and recent stent to the LAD 12/10 with NSTEMI. Reports problems with statins in the past (muscle cramping) but thinks they got better when he started taking large doses of vitamin D (4000 U per day). Vit D 25 level 62.3 on 12/13/16. Continue atorvastatin 20 mg daily, carvedilol, ASA, plavix. Pt instructed to take no more than 1000 U vitamin D daily. (3) Atrial fibrillation Comment: I suspect he has paroxsymal afib as his 2nd EKG shows afib, has not been taking multaq due to cost Continue clopidogrel, carvedilol, rivaroxaban (15 mg dose recommended by Dr. Garcia as he is on dual anti-platlet). Patient is supposed to be on Multaq but has not been taking it due to cost - will ask for a social work consult to see if there are any services for the pt to afford this medication. (4) Alcohol abuse Comment: Has not exhibited any e/o withdrawal. Patient states he is getting outpt tx continue WAM protocol continue thiamine, folic, MV (5) Electrolyte abnormality Comment: - replace magnesium and potassium - recheck in am (6) HTN (hypertension) Comment: - controlled. continue home medications (7) Depression Comment: Stable. Continue current meds. (8) KEE (obstructive sleep apnea) Comment: Has his own CPAP here, reports compliance. Pt told he needs a fup sleep lab eval soon after discharge. (9) DVT prophylaxis Comment: butch (10) Full code status Status and Disposition: OBV. Plan for cardiac resting stress test tomorrow. Home at discharge
[2016-12-27] MEDS: Atorvastatin* 20 MG TAB PO SCH (16:39)
[2016-12-27] MEDS: ALPRAZolam TAB* 0.5 MG PO PRN (21:58)
[2016-12-28 05:23] LABS: Hematocrit 39 % (42-52); Hemoglobin 13.3 g/dl (14.0-18.0); Mean Corpuscular HGB Conc 34 g/dl (31-36); Mean Corpuscular Hemoglobin 32 pg (27-31); Mean Corpuscular Volume 93 fL (80-94); Mean Platelet Volume 8 um3 (7.4-10.4); Red Blood Count 4.16 10^6/ul (4.0-5.4); Red Cell Distribution Width 13 % (10.5-15); White Blood Count 7.2 10^3/ul (3.5-10.8)
[2016-12-28 05:35] LABS: BUN/Creatinine Ratio 16.5 (8-20); Calcium 8.4 mg/dL (8.6-10.3); EGFR African American 135.2 (>60); EGFR Non-African American 105.1 (>60); Magnesium 2.1 mg/dL (1.9-2.7); Potassium 3.5 mmol/L (3.5-5.0)
--- NOTE | 2016-12-28 08:16 | RAD ---
Edited for charges. INDICATION: Chest pain COMPARISON: None TECHNIQUE: Pharmacologic stress images were acquired following the intravenous injection of 25.8 millicuries of technetium 99m tetrofosmin. Rest images were acquired following the intravenous administration of 25.9 millicuries of technetium 99m tetrofosmin. FINDINGS: There are no shows defects of the stress-induced or fixed nature. The cardiac chamber size is mildly enlarged. There is mild diffuse hypokinesis.. The ejection fraction borderline depressed measuring 53% with stress and 50% with rest. IMPRESSION: ENLARGED CHAMBER SIZE WITH MILD DIFFUSE HYPOKINESIS AND BORDERLINE DEPRESSED EJECTION FRACTION. ASSESSMENT: LOW-RISK Based on imaging criteria from ACC/AHA 2002 Guideline Update for the Management of Patients With Chronic Stable Angina Table 23. Noninvasive Risk Stratification. MTDD
[2016-12-28] MEDS: ALPRAZOLAM 1 MG PO SCH (08:49)
[2016-12-28] MEDS: Folic Acid TAB* 1 MG PO SCH (08:59)
[2016-12-28] MEDS: Aspirin Low Dose CHEW TAB* 81 MG PO SCH (08:59)
[2016-12-28] MEDS: Multivitamins/Minerals TAB PO SCH (08:59)
[2016-12-28] MEDS: CMCS Pantoprazole TAB (NF) 40 MG TAB PO SCH (08:59)
[2016-12-28] MEDS: Thiamine TAB* 100 MG TAB PO SCH (08:59)
[2016-12-28] MEDS: Hydrochlorothiazide TAB* 25 MG PO SCH (09:00)
[2016-12-28] MEDS: NIFEdipine ER TAB* 30 MG PO SCH (09:00)
[2016-12-28] MEDS: Carvedilol TAB* 25 MG PO SCH (09:00)
[2016-12-28] MEDS: Clopidogrel TAB* 75 MG PO SCH (09:01)
[2016-12-28] MEDS: Rivaroxaban TAB(*) 15 MG PO SCH (09:01)
[2016-12-28] MEDS: PTO: Vortioxetine (NF) 20 MG TAB (FORMERLY Brintellix) PO SCH (09:02)
[2016-12-28 11:11] VITALS: BP 147/92
--- NOTE | 2016-12-28 11:33 | PN ---
Subjective Date of Service: 12/28/16 Interval History: Patient seen and examined at bedside. He is sitting up in bed, in NAD. He denies chest pain, SOB, abd pain, n/v. He reports that he has not been taking his Multaq due to cost constraints. We discussed that his PAF may be contributing to his chest discomfort and that the dronedarone may be helpful. Patient met with SW and has applied for reduced co-pay in order to afford this medication. He would like to try the Multaq first before starting an additional medication, such as Imdur. Family History: Unchanged from Admission Social History: Unchanged from Admission Past Medical History: Unchanged from Admission Objective Active Medications: Acetaminophen (Tylenol Tab*) 650 mg PO Q4H PRN PRN Reason: PAIN Alprazolam (Xanax Tab*) 0.5 mg PO BEDTIME PRN PRN Reason: SLEEP Last Admin: 12/27/16 21:58 Dose: 0.5 mg Alprazolam (Xanax Xr (Nf)) 1 mg PO DAILY [facility] Last Admin: 12/28/16 08:49 Dose: Not Given Aspirin (Aspirin Low Dose Tab*) 81 mg PO DAILY [facility] Last Admin: 12/28/16 08:59 Dose: 81 mg Atorvastatin Calcium (Lipitor*) 20 mg PO 1700 [facility] Last Admin: 12/27/16 16:39 Dose: 20 mg Carvedilol (Coreg Tab*) 50 mg PO BID [facility] Last Admin: 12/28/16 09:00 Dose: 50 mg Clopidogrel Bisulfate (Plavix Tab*) 75 mg PO DAILY [facility] Last Admin: 12/28/16 09:01 Dose: 75 mg Folic Acid (Folvite Tab*) 1 mg PO DAILY [facility] Last Admin: 12/28/16 08:59 Dose: 1 mg Hydrochlorothiazide (Hydrodiuril Tab*) 25 mg PO DAILY [facility] Last Admin: 12/28/16 09:00 Dose: 25 mg Lorazepam (Ativan Tab(*)) 0 mg PO .PER WAM SCORE [facility] PRN Reason: Protocol Last Admin: 12/27/16 17:52 Dose: 2 mg Morphine Sulfate (Morphine Inj (Syringe)*) 2 mg IV Q4H PRN PRN Reason: SEVERE PAIN Multivitamins/Minerals (Theragran/Minerals Tab*) 1 tab PO DAILY [facility] Last Admin: 12/28/16 08:59 Dose: 1 tab Nifedipine (Procardia Xl Tab*) 30 mg PO DAILY [facility] Last Admin: 12/28/16 09:00 Dose: 30 mg Nitroglycerin (Nitroglycerin Tab 0.4 Mg*) 0.4 mg SL Q5M PRN PRN Reason: PAIN - CHEST Pantoprazole Sodium (Protonix Tab (Nf)) 40 mg PO DAILY [facility] Last Admin: 12/28/16 08:59 Dose: 40 mg Rivaroxaban (Xarelto(*)) 15 mg PO DAILY [facility] Last Admin: 12/28/16 09:01 Dose: 15 mg Thiamine HCl (Vitamin B-1 Tab*) 100 mg PO DAILY [facility] Last Admin: 12/28/16 08:59 Dose: 100 mg Vortioxetine (Trintellix (Nf)) 20 mg PO DAILY [facility] Last Admin: 12/28/16 09:02 Dose: 20 mg Vital Signs 12/27/16 12/27/16 12/27/16 14:27 15:30 16:53 Temperature 98.1 F 97.8 F 97.9 F Pulse Rate 72 71 78 Respiratory 16 20 18 Rate Blood Pressure 136/85 153/89 154/89 (mmHg) O2 Sat by Pulse 100 97 97 Oximetry 12/27/16 12/27/16 12/27/16 17:52 19:15 19:52 Temperature 97.4 F Pulse Rate 77 Respiratory 16 16 16 Rate Blood Pressure 112/72 (mmHg) O2 Sat by Pulse 94 Oximetry 12/27/16 12/27/16 12/27/16 21:03 21:58 23:09 Temperature 98.1 F 98.0 F Pulse Rate 82 72 Respiratory 18 18 16 Rate Blood Pressure 139/87 115/69 (mmHg) O2 Sat by Pulse 99 99 Oximetry 12/27/16 12/28/16 12/28/16 23:58 01:20 03:15 Temperature 97.5 F 97.5 F Pulse Rate 64 Respiratory 16 16 16 Rate Blood Pressure 126/70 116/81 (mmHg) O2 Sat by Pulse 97 96 Oximetry 12/28/16 12/28/16 12/28/16 05:10 06:40 07:34 Temperature 97.7 F 97.5 F Pulse Rate 57 57 Respiratory 16 15 16 Rate Blood Pressure 114/81 124/71 (mmHg) O2 Sat by Pulse 97 98 Oximetry 12/28/16 12/28/16 09:10 11:00 Temperature 97.7 F 97.9 F Pulse Rate 65 68 Respiratory 18 18 Rate Blood Pressure 137/85 147/92 (mmHg) O2 Sat by Pulse 97 99 Oximetry Oxygen Devices in Use Now: None Appearance: Male patient, sitting up in bed, in NAD Eyes: PERRLA Ears/Nose/Mouth/Throat: Clear Oropharnyx, Mucous Membranes Moist Neck: NL Appearance and Movements; NL JVP Respiratory: Symmetrical Chest Expansion and Respiratory Effort, Clear to Auscultation Cardiovascular: NL Sounds; No Murmurs; No JVD, RRR Abdominal: NL Sounds; No Tenderness; No Distention Extremities: No Edema Skin: No Rash or Ulcers Neurological: Alert and Oriented x 3, NL Gait, NL Muscle Strength and Tone Lines/Tubes/Other Access: Clean, Dry and Intact Peripheral IV Nutrition: Taking PO's Result Diagrams: 12/28/16 05:14 12/28/16 05:14 Additional Lab and Data: Lab Results 12/26/16 12/26/16 12/26/16 Range/Units 13:15 13:15 13:15 WBC 7.9 (3.5-10.8) 10^3/ul RBC 4.77 (4.0-5.4) 10^6/ul Hgb 15.2 (14.0-18.0) g/dl Hct 44 (42-52) % MCV 93 (80-94) fL MCH 32 H (27-31) pg MCHC 34 (31-36) g/dl RDW 13 (10.5-15) % Plt Count 237 (150-450) 10^3/ul MPV 8 (7.4-10.4) um3 Neut % (Auto) 74.5 (38-83) % Lymph % (Auto) 18.3 L (25-47) % Real % (Auto) 4.0 (1-9) % Eos % (Auto) 2.6 (0-6) % Baso % (Auto) 0.6 (0-2) % Absolute Neuts (auto) 5.9 (1.5-7.7) 10^3/ul Absolute Lymphs (auto) 1.4 (1.0-4.8) 10^3/ul Absolute Monos (auto) 0.3 (0-0.8) 10^3/ul Absolute Eos (auto) 0.2 (0-0.6) 10^3/ul Absolute Basos (auto) 0 (0-0.2) 10^3/ul Absolute Nucleated RBC 0 10^3/ul Nucleated RBC % 0.1 INR (Anticoag Therapy) 1.29 H (0.89-1.11) APTT 33.7 (26.0-36.3) seconds D-Dimer, Quantitative < 200 (Less Than 230) ng/mL Sodium 136 (133-145) mmol/L Potassium 3.3 L (3.5-5.0) mmol/L Chloride 97 L (101-111) mmol/L Carbon Dioxide 28 (22-32) mmol/L Anion Gap 11 (2-11) mmol/L BUN 14 (6-24) mg/dL Creatinine 0.89 (0.67-1.17) mg/dL Est GFR ( Amer) 117.8 (>60) Est GFR (Non-Af Amer) 91.6 (>60) BUN/Creatinine Ratio 15.7 (8-20) Glucose 185 H (70-100) mg/dL Lactic Acid (0.5-2.0) mmol/L Calcium 9.5 (8.6-10.3) mg/dL Magnesium 1.4 L (1.9-2.7) mg/dL Total Bilirubin 0.70 (0.2-1.0) mg/dL AST 32 (13-39) U/L ALT 37 (7-52) U/L Alkaline Phosphatase 77 (34-104) U/L Total Creatine Kinase 234 H (10-223) U/L CK-MB (CK-2) 5.4 (0.6-6.3) ng/mL Troponin I 0.01 (<0.04) ng/mL C-Reactive Protein 10.58 H (< 5.00) mg/L B-Natriuretic Peptide ( - 100) pg/mL Total Protein 7.2 (6.4-8.9) g/dL Albumin 4.2 (3.2-5.2) g/dL Globulin 3.0 (2-4) g/dL Albumin/Globulin Ratio 1.4 (1-3) Lipase 29 (11.0-82.0) U/L TSH 1.61 (0.34-5.60) mcIU/mL 12/26/16 12/26/16 Range/Units 13:15 13:15 WBC (3.5-10.8) 10^3/ul RBC (4.0-5.4) 10^6/ul Hgb (14.0-18.0) g/dl Hct (42-52) % MCV (80-94) fL MCH (27-31) pg MCHC (31-36) g/dl RDW (10.5-15) % Plt Count (150-450) 10^3/ul MPV (7.4-10.4) um3 Neut % (Auto) (38-83) % Lymph % (Auto) (25-47) % Real % (Auto) (1-9) % Eos % (Auto) (0-6) % Baso % (Auto) (0-2) % Absolute Neuts (auto) (1.5-7.7) 10^3/ul Absolute Lymphs (auto) (1.0-4.8) 10^3/ul Absolute Monos (auto) (0-0.8) 10^3/ul Absolute Eos (auto) (0-0.6) 10^3/ul Absolute Basos (auto) (0-0.2) 10^3/ul Absolute Nucleated RBC 10^3/ul Nucleated RBC % INR (Anticoag Therapy) (0.89-1.11) APTT (26.0-36.3) seconds D-Dimer, Quantitative (Less Than 230) ng/mL Sodium (133-145) mmol/L Potassium (3.5-5.0) mmol/L Chloride (101-111) mmol/L Carbon Dioxide (22-32) mmol/L Anion Gap (2-11) mmol/L BUN (6-24) mg/dL Creatinine (0.67-1.17) mg/dL Est GFR ( Amer) (>60) Est GFR (Non-Af Amer) (>60) BUN/Creatinine Ratio (8-20) Glucose (70-100) mg/dL Lactic Acid 2.8 H* (0.5-2.0) mmol/L Calcium (8.6-10.3) mg/dL Magnesium (1.9-2.7) mg/dL Total Bilirubin (0.2-1.0) mg/dL AST (13-39) U/L ALT (7-52) U/L Alkaline Phosphatase (34-104) U/L Total Creatine Kinase (10-223) U/L CK-MB (CK-2) (0.6-6.3) ng/mL Troponin I (<0.04) ng/mL C-Reactive Protein (< 5.00) mg/L B-Natriuretic Peptide 78 ( - 100) pg/mL Total Protein (6.4-8.9) g/dL Albumin (3.2-5.2) g/dL Globulin (2-4) g/dL Albumin/Globulin Ratio (1-3) Lipase (11.0-82.0) U/L TSH (0.34-5.60) mcIU/mL Assess/Plan/Problems-Billing Assessment: 46 yo male with a PMH of CAD with hx of stent to RCA and recent stent placement after NTEMI 2 weeks ago, paroxysmal afib non-compliant with prescribed medication, KEE on cpap, asthma, ETOH abuse who presented on 12/26 with c/o Chest Pain - Patient Problems (1) Chest pain Code(s): R07.9 - CHEST PAIN, UNSPECIFIED Comment: Flat troponins, no EKG changes. Exercise stress was nondiagnostic, nuclear portion shows no defects of the stress induced or fixed nature, mild diffuse hypokinesis, and enlarged chamber size with EF 53% with stress and 50% at rest. Discussed medication adherence and control of afib. Outpatient f/u with PCP and cardiology scheduled. (2) CAD (coronary artery disease) Code(s): I25.10 - ATHSCL HEART DISEASE OF [place] CORONARY ARTERY W/O ANG PCTRS Comment: Hx of stent to RCA and recent stent to the LAD 12/10 with NSTEMI. Reports problems with statins in the past (muscle cramping) but thinks they got better when he started taking large doses of vitamin D (4000 U per day). Vit D 25 level 62.3 on 12/13/16. Continue atorvastatin 20 mg daily, carvedilol, ASA, clopidogrel. Pt instructed to take no more than 1000 U vitamin D daily. (3) Atrial fibrillation Code(s): I48.91 - UNSPECIFIED ATRIAL FIBRILLATION Comment: Suspect paroxsymal afib as his 2nd EKG shows afib, has not been taking dronedarone due to cost. New Rx sent for drondedarone, appreciate SW assistance. Continue clopidogrel, carvedilol, rivaroxaban (15 mg dose recommended by Dr. Garcia as he is on dual anti-platelet). (4) Alcohol abuse Code(s): F10.10 - ALCOHOL ABUSE, UNCOMPLICATED Comment: Has not exhibited any evidence of withdrawal. Patient has plan for [facility] admission within the next week. (5) Electrolyte abnormality Code(s): E87.8 - OTH DISORDERS OF ELECTROLYTE AND FLUID BALANCE, NEC Comment: Improved. Continue daily Mg+ and K+ replacements. (6) HTN (hypertension) Code(s): I10 - ESSENTIAL (PRIMARY) HYPERTENSION Comment: Controlled. Continue home medications. (7) Depression Code(s): F32.9 - MAJOR DEPRESSIVE DISORDER, SINGLE EPISODE, UNSPECIFIED Comment: Stable. Continue vortioxetine. (8) KEE (obstructive sleep apnea) Code(s): G47.33 - OBSTRUCTIVE SLEEP APNEA (ADULT) (PEDIATRIC) Comment: Has his own CPAP here, reports compliance. Will need follow-up sleep lab evaluation after discharge; patient made aware. (9) DVT prophylaxis Code(s): [id number] - Comment: [place]in (10) Full code status Code(s): Z78.9 - OTHER SPECIFIED HEALTH STATUS Status and Disposition: OBV. D/c to home.
--- NOTE | 2016-12-29 02:34 | DS ---
MEDICINE DISCHARGE SUMMARY: DATE OF ADMISSION: 12/26/16 DATE OF DISCHARGE: 12/28/16 PRIMARY CARE PHYSICIAN: Yaquelin Tuttle NP; Dr. Ash Uribe. CARDIOLOGY: Dr. Braydon Garcia. PROVIDER: René Oakley NP ATTENDING PHYSICIAN: Dr. Mary Stevens *(as dictated by René Oakley NP). PRIMARY DISCHARGE DIAGNOSES: 1. Chest pain. 2. Paroxysmal atrial fibrillation. 3. Coronary artery disease. SECONDARY DISCHARGE DIAGNOSES: 1. Obstructive sleep apnea, on CPAP. 2. Asthma. 3. History of perirectal abscesses. 4. History of alcohol abuse. MEDICATIONS AT DISCHARGE: 1. Magnesium 250 mg daily. 2. Hydrochlorothiazide 25 mg daily. 3. Aspirin 81 mg daily. 4. Brintellix 20 mg daily. 5. Xanax XR 1 mg daily. 6. Alprazolam 0.5 mg at bedtime p.r.n. 7. Nifedipine 30 mg daily. 8. Nitroglycerin 0.4 mg sublingual q.5 minutes p.r.n. 9. Coreg 50 mg b.i.d. 10. Xarelto 15 mg daily. 11. Plavix 75 mg daily. 12. Pantoprazole 40 mg daily. 13. Atorvastatin 20 mg daily. 14. Potassium chloride 20 mEq daily. This is a new medication. 15. Dronedarone 400 mg b.i.d. This was previously prescribed, but the patient never picked up the prescription. It has been resent to the pharmacy. HOSPITAL COURSE OF STAY: For full details, please refer to the H and P provided by Dr. Mancini. In summary, Mr. Longoria is a 46-year-old gentleman with a past medical history as previously stated who presented to the emergency room with complaints of chest pain. Of note, he was recently here on 12/09/16 with complaints of chest pain, was found to have elevated trop of 0.11. He then left against medical advice. He returned to the emergency room on the following day on 12/10/16, had a cardiac catheterization that showed 2-vessel disease, most likely a significant distal right coronary artery, moderate stenosis and the culprit lesion was in the mid LAD as well as diagonal one side branch stenosis. He did have a drug-eluting stent placed to the LAD and scoring balloon atherectomy of the side branch of the first diagonal. He then again left against medical advice on 12/11/16. He returned to the emergency room on 12/13/16 with complaints of chest discomfort. At that time, he was found to be in AFib with RVR and was discharged home on 12/15/16 with double antiplatelet therapy plus low dose Xarelto with the plan to follow up with Dr. Rao. Since then, the patient has had intermittent chest pain with activity which is relieved by nitroglycerin. The patient was admitted with concern for acute coronary syndrome, although it has been over the past 2 weeks. No new EKG changes were noted and his troponins were negative. The patient did undergo stress testing. An exercise stress test was inconclusive, but did not show any ischemic changes. It was recommended by the it security architect that he undergo nuclear stress testing, which he did in a 2-day study. His nuclear stress test showed no defects of the stress induced or fixed nature, mildly enlarged cardiac chamber size and mild diffuse hypokinesis, is estimated as low risk. The patient has notably been in and out of atrial fibrillation while admitted. He is being managed with Coreg and Xarelto. He was also started on dronedarone , but he states that he has not had this filled due to cost concerns. We did have our social service manager speak with the patient. The patient did go online and found a web site to help reduce his co-pay cost. He did request a second prescription for the dronedarone (stating the first was never received), which I did send to the pharmacy. Given the patient's negative stress test and negative troponins here in the hospital, I did discuss the possibility of starting him on Imdur. However, since the patient is in and out of AFib, I am not sure if this is possibly contributing to his chest pain presentation of symptoms, and the patient does state that he does sometimes feel himself going in and out of AFib. He would like to try the dronedarone and see if that makes a difference. If not, we discussed following up with his PCP and Dr. Garcia and the possibility of starting something like isosorbide in the future. Additionally, the patient was advised to continue using his CPAP which he does state he is compliant with. He is due for an outpatient sleep followup. In regards to his history of alcohol abuse, the patient states that he is seeking help for this. He did not score significantly on the WAM protocol or need breakthrough lorazepam while here in the hospital. He does state that he has a plan to be admitted to [facility] within the next week or so. At the time of discharge, the patient is alerted and oriented in a stable condition. He denies any chest pain, shortness of breath, nausea, vomiting, diaphoresis. He is in sinus rhythm. He should start the Multaq and should follow up with Cardiology and PCP. I have also started him on potassium replacement as his potassium is on the lower side and ideally should be kept above 4 given his history of paroxysmal atrial fibrillation. CONCERNS AT DISCHARGE: Mr. Longoria is going to be discharged to home on with a plan to follow up with his PCP and Dr. Garcia. DIET: Heart healthy diet. ACTIVITY: As tolerated. CONDITION: Stable. DISPOSITION: To home. TIME SPENT: Time spent on this discharge was approximately 40 minutes. Again, this is only a brief summary of the patient's hospital course of stay. For full details, please refer to the full medical record. If you have any further questions or need further assistance, please feel free to contact to me at [phone]. RENÉ OAKLEY NP CC: Yaquelin Tuttle NP; Dr. Braydon Garcia* [id number]/[facility] #: [id number] MTDD
== END 2016-12-28 12:55 | disposition home or self-care (01) ==
LOC: ED 12:38 → MEDTELE 14:51
PROVIDERS: ADMIT Internal Medicine; ATTEND Internal Medicine
DX: R07.9 Chest pain, unspecified (principal); I48.0 Paroxysmal atrial fibrillation; Z79.01 Long term (current) use of anticoagulants; F10.10 Alcohol abuse, uncomplicated; F32.9 Major depressive disorder, single episode, unspecified; F41.9 Anxiety disorder, unspecified; I25.119 Atherosclerotic heart disease of native coronary artery with unspecified angina pectoris; I10 Essential (primary) hypertension; E87.8 Other disorders of electrolyte and fluid balance, not elsewhere classified; R06.02 Shortness of breath; G47.33 Obstructive sleep apnea (adult) (pediatric); J45.909 Unspecified asthma, uncomplicated; Z79.82 Long term (current) use of aspirin; Z79.899 Other long term (current) drug therapy; Z88.1 Allergy status to other antibiotic agents; Z88.8 Allergy status to other drugs, medicaments and biological substances; Z95.5 Presence of coronary angioplasty implant and graft
CPT/HCPCS: 36415; 71010; 78452; 80048; 80053; 81003; 82550; 82553; 83605; 83690; 83735; 83880; 84443; 84484; 85025; 85379; 85610; 85730; 86140; 93005; 93017; 96361; 96365; 96366; 99283; A9270-GY; A9502; G0378; J2785

== ENCOUNTER 2017-05-25 12:03 | Emergency (ER) | payer BC, OTHER ==
[2017-05-25 13:08] VITALS: BP 138/87
--- NOTE | 2017-05-25 13:51 | UC ---
Lower Extremity/Ankle HPI - HPI Summary HPI Summary: This is a 47 yo male with h/o afib, HTN, DM, asthma who presented with c/o L knee pain and swelling that started acutely last night. Patient was kneeling on the hard floor when he heard a "pop" and had immediate anterior pain. No instability. He notes swelling in the anterior region. He has had some pain walking on it. No fevers or other acute illness. <Lewis Diaz - Last Filed: 05/25/17 13:52> <Nanette Montes De Oca - Last Filed: 05/25/17 20:42> - History of Current Complaint Chief Complaint: UCLowerExtremity Stated Complaint: KNEE INJURY - Allergies/Home Medications Allergies/Adverse Reactions: Allergies Allergy/AdvReac Type Severity Reaction Status Date / Time Azithromycin Allergy Unknown Unknown Verified 05/25/17 13:08 Reaction Details Erythromycin Allergy Unknown Unknown Verified 05/25/17 13:08 Reaction Details Lisinopril Allergy Unknown Unknown Verified 05/25/17 13:08 Reaction Details Amlodipine [From [facility]] Allergy Unknown Verified 05/25/17 13:08 Reaction Details PMH/Surg Hx/FS Hx/Imm Hx Endocrine History: Diabetes Cardiovascular History: Hypertension, Atrial Fibrillation Respiratory History: Asthma Other History Of: Anticoagulant Therapy - Surgical History Surgical History: Yes Surgery Procedure, Year, and Place: CARDIAC STENT PLACEMENT 2010 and November 2016 - Family History Known Family History: Positive: Hypertension - Social History Alcohol Use: Occasionally Alcohol Amount: 375ml vodka per night Substance Use Type: None Smoking Status (MU): Never Smoked Tobacco - Immunization History Most Recent Influenza Vaccination: NEVER Most Recent Tetanus Shot: 2013 Most Recent Pneumonia Vaccination: NEVER <Lewis Diaz - Last Filed: 05/25/17 13:52> Review of Systems Constitutional: Negative Skin: Negative Eyes: Negative ENT: Negative Respiratory: Negative Cardiovascular: Negative Gastrointestinal: Negative Genitourinary: Negative Motor: Negative Neurovascular: Negative Musculoskeletal: Arthralgia, Decreased ROM Neurological: Negative Psychological: Negative All Other Systems Reviewed And Are Negative: Yes <Lewis Diaz - Last Filed: 05/25/17 13:52> Physical Exam Triage Information Reviewed: Yes Appearance: Well-Appearing Vital Signs: Initial Vital Signs Temp 98.3 F 05/25/17 13:04 Pulse 68 05/25/17 13:04 Resp 16 05/25/17 13:04 BP 138/87 05/25/17 13:04 Pulse Ox 98 05/25/17 13:04 Vital Signs Reviewed: Yes ENT Exam: Normal Neck exam: Normal Respiratory: Positive: Chest non-tender. Negative: Crackles, Rhonchi, Wheezing Cardiovascular: Positive: RRR, No Murmur Abdominal Exam: Normal Musculoskeletal: Positive: Strength Intact, ROM Intact, Other: - TTP with mild edema over the anterior knee, remainder of knee is non-TTP Neurological: Positive: Alert Psychological: Positive: Normal Response To Family Skin Exam: Normal <Lewis Diaz - Last Filed: 05/25/17 13:52> Vital Signs: Initial Vital Signs Temp 98.3 F 05/25/17 13:04 Pulse 68 05/25/17 13:04 Resp 16 05/25/17 13:04 BP 138/87 05/25/17 13:04 Pulse Ox 98 05/25/17 13:04 <Nanette Montes De Oca - Last Filed: 05/25/17 20:42> Lower Extremity Course/Dx - Course Course Of Treatment: This is a 47 yo male that sustained an acute L knee injury last night. Exam and history consistent with prepatellar bursitis. Recommend compression, ice and elevation. NSAIDs avoided due to use of Xarelto and Plavix - Differential Dx/Diagnosis Differential Diagnosis/HQI/PQRI: Arthritis, Contusion, Dislocation, Fracture ( Closed), Sprain, Strain Provider Diagnoses: 1. Prepatellar bursitis <Lewis Diaz - Last Filed: 05/25/17 13:52> Discharge <Lewis Diaz - Last Filed: 05/25/17 13:52> <Nanette Montes De Oca - Last Filed: 05/25/17 20:42> - Discharge Plan Condition: Stable Disposition: HOME Prescriptions: Hydrocodone-Acetaminophen [Lorcet 5-325 mg] 1 tab PO Q6H PRN #20 tab MDD 4 tabs PRN Reason: Pain Patient Education Materials: Knee Bursitis (ED) Forms: *Work Release Referrals: Isa Shaikh MD [Primary Care Provider] - Additional Instructions: Activity: As tolerated Instructions: 1. Please use TIM wrap to provide compression to the area 2. Use vicodin as needed for severe pain 3. Apply ice frequently 4. Elevate frequently Attestation Statement User Type: Provider - I was available for consult. This patient was seen by the JACQUIE. The patient was not presented to, seen by, or examined by me. -Alexandre <Nanette Montes De Oca - Last Filed: 05/25/17 20:42>
== END 2017-05-25 13:56 | disposition home or self-care (01) ==
LOC: UCEAST 12:03
DX: M70.42 Prepatellar bursitis, left knee (principal); Y93.9 Activity, unspecified; I48.91 Unspecified atrial fibrillation; I10 Essential (primary) hypertension; E11.9 Type 2 diabetes mellitus without complications; J45.909 Unspecified asthma, uncomplicated; Z88.1 Allergy status to other antibiotic agents; Z88.8 Allergy status to other drugs, medicaments and biological substances
CPT/HCPCS: 99212; G0463

== ENCOUNTER 2017-08-30 22:24 | Emergency (ER) | payer OTHER ==
--- NOTE | 2017-08-31 01:16 | ED ---
Mari Mendoza Edward, scribed for Gustavo Charles MD on 08/30/17 at 2348 . Psychiatric Complaint - HPI Summary HPI Summary: 47yo M with hx of alcoholism transported by PD on after an incident in a cab just prior to arrival. He states he was in rehab for the last 3 days in [place] and that he got out yesterday and immediately began drinking vodka again. 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 PD transported him here stating he threatened to throw himself out of the car. He states he is not suicidal or homicidal and has a plan with [facility] and 5 in 1s for detox/rehab. He has been to several rehab stays. He recently had cardiac stents but denies CP, SOB, etc. He was brought in on in lieu of being violated in his probation for drunk/disorderly conduct. - History Of Current Complaint Chief Complaint: EDMentalHealth Hx Obtained From: Patient, Other: - PD Aggravating Factor(s): Alcohol Use - Allergies/Home Medications Allergies/Adverse Reactions: Allergies Allergy/AdvReac Type Severity Reaction Status Date / Time Azithromycin Allergy Unknown Unknown Verified 08/30/17 22:33 Reaction Details Erythromycin Allergy Unknown Unknown Verified 08/30/17 22:33 Reaction Details Lisinopril Allergy Unknown Unknown Verified 08/30/17 22:33 Reaction Details Amlodipine [From [facility]] Allergy Unknown Verified 08/30/17 22:33 Reaction Details PMH/Surg Hx/FS Hx/Imm Hx Previously Healthy: No Endocrine/Hematology History: Reports: Hx Anticoagulant Therapy, Hx Diabetes - diet controlled Cardiovascular History: Reports: Hx Angina, Hx Coronary Artery Disease, Hx Hypertension, Other Cardiovascular Problems/Disorders - STENT PLACED TO RCA Respiratory History: Reports: Hx Asthma History: Reports: Other Problems/Disorders - STAGE III CKD Sensory History: Reports: Hx Contacts or Glasses Denies: Hx Hearing Aid Opthamlomology History: Reports: Hx Contacts or Glasses Psychiatric History: Reports: Hx Anxiety, Hx Depression - Currently on Zoloft - Surgical History Surgery Procedure, Year, and Place: CARDIAC STENT PLACEMENT 2010 and November 2016 - Immunization History Date of Tetanus Vaccine: utd Date of Influenza Vaccine: none Infectious Disease History: No Infectious Disease History: Denies: Hx Clostridium Difficile, Hx of Known/Suspected MRSA, Traveled Outside the [place] in Last 30 Days - Family History Known Family History: Positive: Hypertension - Social History Alcohol Use: Daily Alcohol Amount: 1/2 L per day Hx Substance Use: Yes - alcohol only Substance Use Type: Reports: None Substance Use Comment - Amount & Last Used: 08/06/17 Hx Tobacco Use: No Smoking Status (MU): Never Smoked Tobacco Review of Systems Constitutional: Negative Eyes: Negative Negative: Chest Pain Negative: Shortness Of Breath Negative: Abdominal Pain Genitourinary: Negative Musculoskeletal: Negative Positive: Rash Neurological: Negative Positive: Other - intoxicated All Other Systems Reviewed And Are Negative: Yes Physical Exam Triage Information Reviewed: Yes Vital Signs On Initial Exam: Initial Vitals Temp Pulse Resp BP Pulse Ox 97.5 F 85 16 132/82 94 08/30/17 22:28 08/30/17 22:28 08/30/17 22:28 08/30/17 22:28 08/30/17 22:28 Vital Signs Reviewed: Yes Appearance: Positive: No Pain Distress. Negative: Signs of Trauma Skin: Positive: Warm, Skin Color Reflects Adequate Perfusion, Other - excoriated areas on both forearms. Redness to the face Head/Face: Positive: Normal Head/Face Inspection Eyes: Positive: EOMI, FATUMA ENT: Positive: Normal ENT inspection Neck: Positive: Supple, Nontender Respiratory/Lung Sounds: Positive: Clear to Auscultation, Breath Sounds Present Cardiovascular: Positive: RRR, Pulses are Symmetrical in both Upper and Lower Extremities Abdomen Description: Positive: Nontender, Soft Bowel Sounds: Positive: Present Musculoskeletal: Positive: Normal, Strength/ROM Intact Neurological: Positive: Normal, Sensory/Motor Intact, Alert, Oriented to Person Place, Time, Other - slurring of speech. Negative: Speech Normal - [place] Coma Scale Coma Scale Total: 15 Diagnostics - Vital Signs Vital Signs Temp Pulse Resp BP Pulse Ox 08/30/17 22:28 97.5 F 85 16 132/82 94 - Laboratory Lab Statement: Any lab studies that have been ordered have been reviewed, and results considered in the medical decision making process. Re-Evaluation - Re-Evaluation First Eval Change: Improved - pt demonstrates functional capacity as evidenced by clear speech and steady gait. He shows good logic and remorse. He has no SI/HI. He is checking in with [facility] in am for rehab/detox. Course/Dx - Course Course Of Treatment: Pt with ETOH related incident. No real SI/HI. Contracts for safety. Bottle of vodka confiscated. Sobered here with clear speech/steady gait. D/C with safe ride. released. - Differential Dx/Clinical Impression Differential Diagnosis/HQI/PQRI: Positive: Alcohol Intoxication Provider Diagnosis: Alcohol intoxication in active alcoholic, Substance induced mood disorder - Physician Notifications Discussed Care Of Patient With: Mental health conference concierge - states can be released from per physician discretion. Discharge - Discharge Plan Condition: Improved Disposition: HOME Patient Education Materials: Abuse of Alcohol (ED) Referrals: Isa Shaikh MD [Primary Care Provider] - Additional Instructions: Call [facility] in the morning and work with Sara regarding detox/rehab. DO NOT DRINK alcohol. Return with withdrawl symptoms, worse, new symptoms or other concerns. The documentation as recorded by the Mari painter Edward accurately reflects the service I personally performed and the decisions made by , Gustavo Charles MD.
[2017-08-31 01:36] VITALS: BP 111/76
== END 2017-08-31 01:36 | disposition home or self-care (01) ==
LOC: ED 22:24
DX: F10.129 Alcohol abuse with intoxication, unspecified (principal); F39 Unspecified mood [affective] disorder; R21 Rash and other nonspecific skin eruption
CPT/HCPCS: 93005; 99284

== ENCOUNTER 2017-09-04 16:46 | Inpatient (IN) | payer OTHER ==
[2017-09-04] MEDS ORDERED: LORazepam INJ* 2 MG/ML 1 ML VIAL IV PUSH ONE ×2 (17:04→18:29)
[2017-09-04 17:27] LABS: Hematocrit 38 % (42-52); Mean Corpuscular HGB Conc 34 g/dl (31-36); Mean Corpuscular Hemoglobin 31 pg (27-31); Mean Corpuscular Volume 91 fL (80-94); Mean Platelet Volume 7 um3 (7.4-10.4); Red Blood Count 4.19 10^6/ul (4.0-5.4); Red Cell Distribution Width 14 % (10.5-15); White Blood Count 7.1 10^3/ul (3.5-10.8)
[2017-09-04 17:47] LABS: ALT 36 U/L (7-52); AST 44 U/L (13-39); Albumin 3.8 g/dL (3.2-5.2); Alkaline Phosphatase 77 U/L (34-104); Anion Gap 11 mmol/L (2-11); BUN/Creatinine Ratio 13.6 (8-20); Blood Urea Nitrogen 11 mg/dL (6-24); CO2 Carbon Dioxide 26 mmol/L (22-32); Calcium 8.3 mg/dL (8.6-10.3); Chloride 103 mmol/L (101-111); EGFR African American 130.8 (>60); EGFR Non-African American 101.7 (>60); Globulin 2.9 g/dL (2-4); Glucose 171 mg/dL (70-100); Potassium 3.4 mmol/L (3.5-5.0); Sodium 140 mmol/L (133-145); Total Protein 6.7 g/dL (6.4-8.9)
[2017-09-04 18:11] LABS: Acetaminophen < 15 mcg/mL; Alcohol 187 mg/dL (<10); Salicylate < 2.50 mg/dL (<30)
[2017-09-04 18:26] LABS: TSH (Thyroid Stimulating Horm) 1.95 mcIU/mL (0.34-5.60)
[2017-09-04 20:40] LABS: Urine Bacteria Absent (Absent); Urine Bilirubin Negative (Negative); Urine Glucose Negative (Negative); Urine Nitrite Negative (Negative)
[2017-09-04] MEDS ORDERED: Melatonin (NF) 3 MG TAB PO PRN (20:42)
[2017-09-04] MEDS ORDERED: Acetaminophen TAB* 325 MG PO PRN ×2 (20:42→21:28)
[2017-09-04 20:53] LABS: Benzodiazepine Urine Screen Presumptive Positive (None Detect)
[2017-09-04] MEDS ORDERED: Ondansetron INJ* 2 MG/ML VIAL IV PRN (20:53)
[2017-09-04] MEDS ORDERED: Thiamine IV* 100 MG/ML 2 ML VIAL IM ONE (21:28)
[2017-09-04 22:10] LABS: Magnesium 1.6 mg/dL (1.9-2.7)
[2017-09-04] MEDS: NS 0.9% 1000 ML* 1,000 ML IV SCH (22:37)
[2017-09-04] MEDS: Docusate CAP* 100 MG PO SCH (22:41)
--- NOTE | 2017-09-04 22:48 | ED ---
Abi Mendoza Nilda, scribed for Mansoor Amador MD on 09/04/17 at 1741 . Substance Abuse/Use - HPI Summary HPI Summary: This patient is a 47 year old M presenting to [facility] with withdrawal symptoms requesting for alcohol detox. Pts last drink was today at noon. Pt states he usually drinks about 0.5L of vodka per day. The patient rates the pain 0/10 in severity. Patient reports that he feels like hes in A-fib. Patient denies SI. PMHx A-fib and CAD. - History Of Current Complaint Chief Complaint: EDDetoxRequest Stated Complaint: DETOX Time Seen by Provider: 09/04/17 16:56 Hx Obtained From: Patient Onset/Duration of Drug/ETOH Abuse: Weeks Timing Of Abuse: Daily Severity Currently: Moderate Associated Signs And Symptoms: Other: - a-fib; denies SI. Related Hx: Drug/Alcohol Last Used @ - noon today - Allergies/Home Medications Allergies/Adverse Reactions: Allergies Allergy/AdvReac Type Severity Reaction Status Date / Time Azithromycin Allergy Unknown Unknown Verified 09/04/17 20:37 Reaction Details Erythromycin Allergy Unknown Unknown Verified 09/04/17 20:37 Reaction Details Lisinopril Allergy Unknown Unknown Verified 09/04/17 20:37 Reaction Details Amlodipine [From [facility]] Allergy Unknown Verified 09/04/17 20:37 Reaction Details PMH/Surg Hx/FS Hx/Imm Hx Endocrine/Hematology History: Reports: Hx Anticoagulant Therapy, Hx Diabetes - diet controlled Cardiovascular History: Reports: Hx Angina, Hx Coronary Artery Disease, Hx Hypertension, Other Cardiovascular Problems/Disorders - STENT PLACED TO RCA Respiratory History: Reports: Hx Asthma History: Reports: Other Problems/Disorders - STAGE III CKD Sensory History: Reports: Hx Contacts or Glasses Denies: Hx Hearing Aid Opthamlomology History: Reports: Hx Contacts or Glasses Psychiatric History: Reports: Hx Anxiety, Hx Depression - Currently on Zoloft - Surgical History Surgery Procedure, Year, and Place: CARDIAC STENT PLACEMENT 2010 and November 2016 - Immunization History Date of Tetanus Vaccine: utd Date of Influenza Vaccine: none Infectious Disease History: No Infectious Disease History: Denies: Hx Clostridium Difficile, Hx of Known/Suspected MRSA, Traveled Outside the [place] in Last 30 Days - Family History Known Family History: Positive: Hypertension - Social History Alcohol Use: Daily Alcohol Amount: 1/2 L per day Hx Substance Use: Yes - alcohol only Substance Use Type: Reports: None Substance Use Comment - Amount & Last Used: 08/06/17 Hx Tobacco Use: No Smoking Status (MU): Never Smoked Tobacco Review of Systems Negative: Fever, Chills Negative: Erythema Negative: Sore Throat Positive: Other - "feels like in A-fib". Negative: Chest Pain Negative: Shortness Of Breath, Cough Negative: Abdominal Pain, Vomiting, Nausea Negative: dysuria, hematuria Negative: Myalgia, Edema Negative: Rash Neurological: Other - withdrawal symptoms from ETOH abuse; negative dizziness Psychological: Other - negative SI All Other Systems Reviewed And Are Negative: Yes Physical Exam - Summary Physical Exam Summary: Constitutional: Well-developed, Well-nourished, Alert. (-) Distressed Skin: Flushed, diaphoretic HENT: Normocephalic; Atraumatic Eyes: Conjunctiva normal Neck: Musculoskeletal ROM normal neck. (-) JVD, (-) Stridor, (-) Tracheal deviation Cardio: tachycardic, Heart sounds normal; Intact distal pulses; The pedal pulses are 2+ and symmetric. Radial pulses are 2+ and symmetric. (-) Murmur Pulmonary/Chest wall: Effort normal. (-) Respiratory distress, (-) Wheezes, (-) Rales Abd: Soft, (-) Tenderness, (-) Distension, (-) Guarding, (-) Rebound Musculoskeletal: (-) Edema, tremulous Lymph: (-) Cervical adenopathy Neuro: Alert, Oriented x3 Psych: Mood and affect Normal Triage Information Reviewed: Yes Vital Signs On Initial Exam: Initial Vitals Temp Pulse Resp BP Pulse Ox 96.7 F 149 18 149/131 97 09/04/17 16:47 09/04/17 16:47 09/04/17 16:47 09/04/17 16:47 09/04/17 16:47 Vital Signs Reviewed: Yes Diagnostics - Vital Signs Vital Signs Temp Pulse Resp BP Pulse Ox 09/04/17 16:47 96.7 F 149 18 149/131 97 - Laboratory Result Diagrams: 09/04/17 17:21 09/04/17 17:21 Lab Statement: Any lab studies that have been ordered have been reviewed, and results considered in the medical decision making process. - EKG 1834 Cardiac Rate: Tachycardia EKG Rhythm: Sinus Tachycardia - 146 bpm EKG Interpretation: no STEMI Course/Dx - Course Assessment/Plan: This patient is a 47 year old M presenting to [facility] requesting for alcohol detox. Pts last drink was today at noon. Pt states he usually drinks about 0.5L of vodka per day. The patient rates the pain 0/10 in severity. Patient reports that he feels like hes in A-fib. Patient denies SI. PMHx A-fib and CAD. Concerns for significant alcohol withdrawal. 45mins CCT. EKG reveals sinus tachy, 146 bpm, no STEMI. [1848] Dr. Guillaume agrees to admit pt. Pt is stable and will be admitted with Dx of acute alcohol withdrawal and alcohol dependence. Pt understands and is agreeable with this plan. - Diagnoses Provider Diagnoses: Alcohol dependence, Alcohol withdrawal - Critical Care Time Critical Care Time: 30-74 min - 45 mins Discharge - Discharge Plan Condition: Stable Disposition: ADMITTED TO [facility] Referrals: Isa Shaikh MD [Primary Care Provider] - The documentation as recorded by the Abi painter Nilda accurately reflects the service I personally performed and the decisions made by , Mansoor Amador MD.
[2017-09-04] MEDS ORDERED: Diltiazem DRIP* 100 MG/100 ML ADDV.BAG IVPB ONE (23:14)
[2017-09-04] MEDS: LORazepam INJ* 2 MG/ML 1 ML VIAL IM SCH (23:51)
[2017-09-05] MEDS: NS 0.9% 1000 ML* 1,000 ML IV SCH (00:02)
[2017-09-05] MEDS ORDERED: Diltiazem DRIP* 100 MG/100 ML ADDV.BAG IVPB SCH (01:00)
--- NOTE | 2017-09-05 01:58 | HP ---
H&P (Free Text) History and Physical: PCP: Francisca Shaikh MD Date/Time: 09/04/20172039 CC: alcohol detox HPI: Mr Longoria is a 47YO male HX alcoholism, AFIB/AFLUT presenting reporting he has decided to stop drinking and requests assistance with detox. He typically drinks 500cc vodka daily and last drank today around noon. Current blood alcohol level is ~180. He denies feeling tremulous, anxious, and hallucinations. While he is informed we do not do inpatient detox at [facility], during his ED evaluation he was found to be in AFLUT 2:1 block with a rate in the 140s. He denies any complaints including chest pain, SOB, palpitations, N/V , light-headedness, sweats, F/C, changes in bowel/bladder or other issues. He is informed that he needs to be observed overnight to achieve rate control and agrees. He has been in contact with [facility] and reports they will have a bed available when he is discharged. PMedHx CAD/STEMI x2/stent to RCA 2010, LAD 11/2016 pAFIB/AFLUT asthma KEE on CPAP alcoholism, active Ambulatory Orders Clopidogrel TAB* [Plavix TAB*] 75 mg PO DAILY #30 tab 12/15/16 Pantoprazole TAB (NF) [Protonix TAB (NF)] 40 mg PO DAILY #30 tab 12/15/16 Rivaroxaban TAB(*) [Xarelto 15 mg(*)] 15 mg PO DAILY #30 tab 12/15/16 ALPRAZolam TAB* [Xanax TAB*] 0.5 mg PO DAILY PRN 12/26/16 Dronedarone TAB* [Multaq TAB*] 400 mg PO BID #180 tab 12/28/16 Atorvastatin* [Lipitor 20 MG*] 20 mg PO BEDTIME 08/06/17 Disulfiram TAB* [Antabuse 250 MG TAB*] 250 mg PO DAILY 08/06/17 Sertraline* [Zoloft*] 200 mg PO DAILY 08/06/17 Triamterene/HCTZ 37.5-25 MG* [Dyazide CAP*] 1 cap PO DAILY 08/06/17 Thiamine TAB* [Vitamin B-1 TAB 100 MG*] 100 mg PO DAILY #100 tab 08/07/17 NIFEdipine ER TAB* [Procardia Xl TAB*] 60 mg PO DAILY #30 tab.xl 08/08/17 Allergies Azithromycin Allergy (Unknown, Verified 09/04/17 20:37) Unknown Reaction Details Erythromycin Allergy (Unknown, Verified 09/04/17 20:37) Unknown Reaction Details Lisinopril Allergy (Unknown, Verified 09/04/17 20:37) Unknown Reaction Details Amlodipine [From [facility]] Allergy (Verified 09/04/17 20:37) Unknown Reaction Details SocHx: no tobacco, 500cc vodka daily, denies recreational drugs; lives with his mother; 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; full code status FamHx: Father: CAD; Mother: hepatitis C ROS: as above, otherwise reviewed and all were negative vitals: Vital Signs Temp 35.9 C 09/04/17 16:47 Pulse 107 09/04/17 21:30 Resp 18 09/05/17 01:07 BP 96/60 09/04/17 21:30 Pulse Ox 92 09/04/17 21:30 Intake & Output 09/04/17 09/04/17 09/05/17 11:59 23:59 11:59 Intake Total 999 Balance 999 Weight 96.615 kg Intake: IV Fluids 999 Constitutional: NAD, normally developed, obese white male HEENM: atraumatic; sclera/conjunctiva: non-icteric/clear; hearing: clinically intact; oropharynx: clear, mucosa moist Neck: soft tissue: non-tender; thyroid: normal Pulmonary: clear to auscultation bilaterally, good aeration, no accessory muscle use CV: RR/RR, normal S1S2, no carotid bruit, no jugular venous distention, 2+ B DP/ PT, no edema Abdominal: soft, non-distended, non-tender, no rebound/guarding/rigidity, normoactive bowel sounds, no hepatosplenomegaly or masses, no costovertebral angle tenderness Musculoskeletal: general: grossly intact; gait: stable Integumental: bran complexion; otherwise normal appearance and texture of exposed skin Psychiatric orientation: AA&O to PPS affect: calm mood: cooperative eye contact: fair content: reliable responses: timely insight: good to fair Testing: Lab Results 09/04/17 09/04/17 09/04/17 Range/Units 17:21 17:21 20:30 WBC 7.1 (3.5-10.8) 10^3/ul RBC 4.19 (4.0-5.4) 10^6/ul Hgb 13.0 L (14.0-18.0) g/dl Hct 38 L (42-52) % MCV 91 (80-94) fL MCH 31 (27-31) pg MCHC 34 (31-36) g/dl RDW 14 (10.5-15) % Plt Count 167 (150-450) 10^3/ul MPV 7 L (7.4-10.4) um3 Neut % (Auto) 80.7 (38-83) % Lymph % (Auto) 12.8 L (25-47) % [place] % (Auto) 5.1 (1-9) % Eos % (Auto) 0.8 (0-6) % Baso % (Auto) 0.6 (0-2) % Absolute Neuts (auto) 5.7 (1.5-7.7) 10^3/ul Absolute Lymphs (auto) 0.9 L (1.0-4.8) 10^3/ul Absolute Monos (auto) 0.4 (0-0.8) 10^3/ul Absolute Eos (auto) 0.1 (0-0.6) 10^3/ul Absolute Basos (auto) 0 (0-0.2) 10^3/ul Absolute Nucleated RBC 0 10^3/ul Nucleated RBC % 0 Sodium 140 (133-145) mmol/L Potassium 3.4 L (3.5-5.0) mmol/L Chloride 103 (101-111) mmol/L Carbon Dioxide 26 (22-32) mmol/L Anion Gap 11 (2-11) mmol/L BUN 11 (6-24) mg/dL Creatinine 0.81 (0.67-1.17) mg/dL Est GFR ( Amer) 130.8 (>60) Est GFR (Non-Af Amer) 101.7 (>60) BUN/Creatinine Ratio 13.6 (8-20) Glucose 171 H (70-100) mg/dL Calcium 8.3 L (8.6-10.3) mg/dL Magnesium 1.6 L (1.9-2.7) mg/dL Total Bilirubin 0.50 (0.2-1.0) mg/dL AST 44 H (13-39) U/L ALT 36 (7-52) U/L Alkaline Phosphatase 77 (34-104) U/L Total Protein 6.7 (6.4-8.9) g/dL Albumin 3.8 (3.2-5.2) g/dL Globulin 2.9 (2-4) g/dL Albumin/Globulin Ratio 1.3 (1-3) TSH 1.95 (0.34-5.60) mcIU/mL Urine Color Urine Appearance Urine pH (5-9) Ur Specific [place] (1.010-1.030) Urine Protein (Negative) Urine Ketones (Negative) Urine Blood (Negative) Urine Nitrate (Negative) Urine Bilirubin (Negative) Urine Urobilinogen (Negative) Ur Leukocyte Esterase (Negative) Urine WBC (Auto) (Absent) Urine RBC (Auto) (Absent) Urine Bacteria (Absent) Hyaline Casts (Absent) Urine Glucose (Negative) Salicylates < 2.50 (<30) mg/dL Urine Opiates Screen None detected (None Detect) Acetaminophen < 15 mcg/mL Ur Barbiturates Screen None detected (None Detect) Ur Phencyclidine Scrn None detected (None Detect) Ur Amphetamines Screen None detected (None Detect) U Benzodiazepines Scrn Presumptive positive H (None Detect) Urine Cocaine Screen None detected (None Detect) U Cannabinoids Screen None detected (None Detect) Serum Alcohol 187 H (<10) mg/dL 09/04/17 Range/Units 20:30 WBC (3.5-10.8) 10^3/ul RBC (4.0-5.4) 10^6/ul Hgb (14.0-18.0) g/dl Hct (42-52) % MCV (80-94) fL MCH (27-31) pg MCHC (31-36) g/dl RDW (10.5-15) % Plt Count (150-450) 10^3/ul MPV (7.4-10.4) um3 Neut % (Auto) (38-83) % Lymph % (Auto) (25-47) % [place] % (Auto) (1-9) % Eos % (Auto) (0-6) % Baso % (Auto) (0-2) % Absolute Neuts (auto) (1.5-7.7) 10^3/ul Absolute Lymphs (auto) (1.0-4.8) 10^3/ul Absolute Monos (auto) (0-0.8) 10^3/ul Absolute Eos (auto) (0-0.6) 10^3/ul Absolute Basos (auto) (0-0.2) 10^3/ul Absolute Nucleated RBC 10^3/ul Nucleated RBC % Sodium (133-145) mmol/L Potassium (3.5-5.0) mmol/L Chloride (101-111) mmol/L Carbon Dioxide (22-32) mmol/L Anion Gap (2-11) mmol/L BUN (6-24) mg/dL Creatinine (0.67-1.17) mg/dL Est GFR ( Amer) (>60) Est GFR (Non-Af Amer) (>60) BUN/Creatinine Ratio (8-20) Glucose (70-100) mg/dL Calcium (8.6-10.3) mg/dL Magnesium (1.9-2.7) mg/dL Total Bilirubin (0.2-1.0) mg/dL AST (13-39) U/L ALT (7-52) U/L Alkaline Phosphatase (34-104) U/L Total Protein (6.4-8.9) g/dL Albumin (3.2-5.2) g/dL Globulin (2-4) g/dL Albumin/Globulin Ratio (1-3) TSH (0.34-5.60) mcIU/mL Urine Color Yellow Urine Appearance Clear Urine pH 6.0 (5-9) Ur Specific [place] 1.012 (1.010-1.030) Urine Protein Negative (Negative) Urine Ketones Negative (Negative) Urine Blood 1+ H (Negative) Urine Nitrate Negative (Negative) Urine Bilirubin Negative (Negative) Urine Urobilinogen Negative (Negative) Ur Leukocyte Esterase Negative (Negative) Urine WBC (Auto) Absent (Absent) Urine RBC (Auto) Trace(0-2/hpf) (Absent) Urine Bacteria Absent (Absent) Hyaline Casts Present H (Absent) Urine Glucose Negative (Negative) Salicylates (<30) mg/dL Urine Opiates Screen (None Detect) Acetaminophen mcg/mL Ur Barbiturates Screen (None Detect) Ur Phencyclidine Scrn (None Detect) Ur Amphetamines Screen (None Detect) U Benzodiazepines Scrn (None Detect) Urine Cocaine Screen (None Detect) U Cannabinoids Screen (None Detect) Serum Alcohol (<10) mg/dL ECG, personally reviewed: AFLUT 2:1 block, rate 146 Impression: 47M presenting with request for alcohol detox found to be in AFLUT/ RVR DIAGNOSIS & PLAN Primary AFLUT/RVR : continue rivaroxaban, dronedarone : diltiazem GTT for rate control : supplemental oxygen : supportive care alcoholism, active : WAM protocol Secondary CAD/STEMI x2/stent to RCA 2010, LAD 11/2016 : continue clopidogrel asthma : albuterol nebs PRN HTN : continue triamterene/HCTZ & nifedipine ER HLD : continue atorvastatin KEE : continue CPAP GERD : omeprazole depression : continue sertraline Admission Rational: observation for AFLUT/RVR DVTp: rivaroxaban Code Status: full HCP: mother
[2017-09-05] MEDS: LORazepam INJ* 2 MG/ML 1 ML VIAL IM SCH (06:04)
[2017-09-05] MEDS: CMCS: Pantoprazole TAB (NF) 40 MG TAB PO SCH (06:05)
[2017-09-05 06:15] LABS: EGFR African American 147.5 (>60); EGFR Non-African American 114.7 (>60)
[2017-09-05] MEDS ORDERED: Potassium Chlor TAB* 20 MEQ TAB.ER PO ONE (07:59)
[2017-09-05] MEDS ORDERED: Magnesium Sulfate IV* 3 GM in NS 0.9% 100 ML* 100 ML IVPB ONE (07:59)
[2017-09-05 08:05] LABS: Add on Test ED Complete
[2017-09-05 08:15] LABS: Magnesium 1.4 mg/dL (1.9-2.7)
[2017-09-05] MEDS: Docusate CAP* 100 MG PO SCH ×2 (08:35→21:34)
[2017-09-05] MEDS: Multivitamins/Minerals TAB PO SCH (08:35)
[2017-09-05] MEDS: Sertraline* 100 MG TAB PO SCH (08:35)
[2017-09-05] MEDS: Triamterene/HCTZ 37.5-25 MG* CAP PO SCH (08:35)
[2017-09-05] MEDS: Folic Acid TAB* 1 MG PO SCH (08:35)
[2017-09-05] MEDS: Dronedarone TAB* 400 MG PO SCH ×2 (08:35→21:34)
[2017-09-05] MEDS: Clopidogrel TAB* 75 MG PO SCH (08:35)
[2017-09-05] MEDS: Thiamine TAB* 100 MG TAB PO SCH (08:36)
[2017-09-05] MEDS: Rivaroxaban TAB(*) 15 MG PO SCH (08:52)
[2017-09-05] MEDS: NIFEdipine ER TAB* 60 MG PO SCH (08:52)
[2017-09-05] MEDS ORDERED: Magnesium Sulfate 1 GM IV* 1 GM/100 ML BAG IV ONE (09:00)
[2017-09-05] MEDS ORDERED: Magnesium Sulfate 2 GM IV* 2 GM/50 ML BAG IV ONE (09:00)
--- NOTE | 2017-09-05 11:30 | PN ---
Subjective Date of Service: 09/05/17 Interval History: Pt converted to NSR this AM. Overall asymptomatic. Stated that when he gets in A.flutter he dose carotid massage and that usually "gets him out of it". Denies CP Denies hallucinations, c/o feeling tremulous Objective Active Medications: Acetaminophen (Tylenol Tab*) 650 mg PO Q4H PRN PRN Reason: PAIN Atorvastatin Calcium (Lipitor*) 20 mg PO BEDTIME [facility] Clopidogrel Bisulfate (Plavix Tab*) 75 mg PO DAILY [facility] Last Admin: 09/05/17 08:35 Dose: 75 mg Diltiazem HCl (Cardizem Tab*) 60 mg PO Q6HR [facility] Docusate Sodium (Colace Cap*) 200 mg PO BID [facility] Last Admin: 09/05/17 08:35 Dose: 200 mg Dronedarone (Multaq Tab*) 400 mg PO BID [facility] Last Admin: 09/05/17 08:35 Dose: 400 mg Folic Acid (Folvite Tab*) 1 mg PO DAILY [facility] Last Admin: 09/05/17 08:35 Dose: 1 mg Sodium Chloride (Ns 0.9% 1000 Ml*) 1,000 mls @ 0 mls/hr IV WIDE OPEN [facility] PRN Reason: Wide Open Stop: 09/05/17 20:46 Last Admin: 09/05/17 00:02 Dose: 999 mls/hr Lorazepam (Ativan Tab(*)) 0 - 6 mg PO .PER [facility] PROTOCOL [facility] PRN Reason: Protocol Melatonin (Melatonin (Nf)) 3 mg PO BEDTIME PRN; Protocol PRN Reason: Sleep Multivitamins/Minerals (Theragran/Minerals Tab*) 1 tab PO DAILY [facility] Last Admin: 09/05/17 08:35 Dose: 1 tab Nifedipine (Procardia Xl Tab*) 60 mg PO DAILY [facility] Last Admin: 09/05/17 08:52 Dose: 60 mg Ondansetron HCl (Zofran Inj*) 4 mg IV Q6H PRN PRN Reason: NAUSEA Pantoprazole Sodium (Protonix Tab (Nf)) 40 mg PO DAILY@0600 [facility] Last Admin: 09/05/17 06:05 Dose: 40 mg Rivaroxaban (Xarelto(*)) 15 mg PO DAILY [facility] Last Admin: 09/05/17 08:52 Dose: 15 mg Sertraline HCl (Zoloft*) 200 mg PO DAILY [facility] Last Admin: 09/05/17 08:35 Dose: 200 mg Thiamine HCl (Vitamin B-1 Tab*) 100 mg PO DAILY [facility] Last Admin: 09/05/17 08:36 Dose: 100 mg Triamterene/HCTZ (Dyazide Cap*) 1 cap PO DAILY [facility] Last Admin: 09/05/17 08:35 Dose: 1 cap Vital Signs - 8 hr 09/05/17 09/05/17 09/05/17 04:14 06:04 07:19 Temperature 98.5 F Pulse Rate 60 Respiratory 18 16 Rate Blood Pressure (mmHg) O2 Sat by Pulse 96 98 Oximetry 09/05/17 09/05/17 08:15 09:15 Temperature 98.1 F Pulse Rate 195 Respiratory 18 20 Rate Blood Pressure 114/87 (mmHg) O2 Sat by Pulse 96 Oximetry Oxygen Devices in Use Now: None Appearance: 47 yo M in nAD, aAOx3 Eyes: No Scleral Icterus, PERRLA Ears/Nose/Mouth/Throat: NL Teeth, Lips, Gums, Mucous Membranes Moist Neck: NL Appearance and Movements; NL JVP, Trachea Midline Respiratory: Symmetrical Chest Expansion and Respiratory Effort, Clear to Auscultation Cardiovascular: NL Sounds; No Murmurs; No JVD, RRR Abdominal: NL Sounds; No Tenderness; No Distention, No Hepatosplenomegaly Lymphatic: No Cervical Adenopathy Extremities: No Edema, No Clubbing, Cyanosis Skin: No Nodules or Sclerosis, - - LE's excoriations covered with eschar Neurological: Alert and Oriented x 3, NL Muscle Strength and Tone, - - mild tremor noted in UE's Result Diagrams: 09/04/17 17:21 09/05/17 05:27 Assess/Plan/Problems-Billing Assessment: 47 yo M with h/o ETOH abuse, CAD(stent in LAD 11/2016), a. fib/ flutter presents requesting "detox" and was noted to be in A. fib with RVR - Patient Problems (1) Atrial flutter Comment: Transient, related to acute alcohol and hypomagnesemia. Continue rivaroxaban. Could have alcohol/tachycardia related cardiomyopathy , Echo pending cont cardizem with hold parametrs in addition to Multaq Fup Dr. Garcia as outpatient (2) Electrolyte abnormality Comment: IV Mg and KCl ordered Continue daily Mg+ and K+ replacements. (3) CAD (coronary artery disease) Comment: Hx of stent to RCA and recent stent to the LAD 12/15 with NSTEMI. cont lipitor and Plavix. Due to h/o ETOH use and need to be anitcoagulated with Xarelto , Dr. Garcia recommended in the past Xarelto 15 mg daily and Plavix 75 mg daily in consideration of risk vs benefit of tx of CAD and A. flutter vs bleeding risk. (4) Alcohol abuse Comment: cont WAM protocol, tremors still noted SW to discuss rehab. Pt wants inpatient [facility] (5) HTN (hypertension) Comment: cont nifedipine to 60 mg daily and Dyazide (6) Depression Comment: Stable. cont zoloft (7) DVT prophylaxis Comment: Xarelto Status and Disposition: still with significant hypomagnesemia requires inpatient tx.
[2017-09-05] MEDS: KCL 10 MEQ/50 ML IVPREMIX* 10 MEQ/50 ML BAG IV SCH ×2 (11:38→12:33)
[2017-09-05] MEDS: LORazepam TAB(*) 1 MG PO SCH ×5 (11:44→23:41)
[2017-09-05] MEDS: Diltiazem TAB* 60 MG PO SCH ×3 (12:33→23:41)
--- NOTE | 2017-09-05 14:19 | ECHO ---
Patient: LEXUS THOMAS [facility] [place] Rec#: [id number] : 1970 Date: 09/05/2017 Age: 47y Height: 172.72 cm / 68.0 in Weight: 95.25 kg / 209.9 lbs Sex: M BSA: 2.09 Room#: 442 Admit Date#: 09/04/2017 Type: Inpatient Referring: Mary Stevens MD Reading: Becca Briscoe MD Freelance Director: Hali Matamoros,RDCS,RDMS CC: Braydon Garcia DO CC: Isa Shaikh MD Transthoracic Echocardiogram Indication: Aflutter BP: 114/87 HR: 86 Rhythm: NSR with PVCs Findings History: ETOH, AFIB/FLUTTER, CAD, STEMI, PCI, asthma Technical Comments: The study quality is fair. Left Ventricle: The left ventricular chamber size is normal. Mild concentric left ventricular hypertrophy is observed. Basal interventricular septum shows moderate thickening. The estimated ejection fraction is 45-50%. paradoxical septal wall motion and severe hypokinesis-akinesis of the inferior wall. There is no consistent Doppler evidence of clinically significant diastolic dysfunction. Left Atrium: The left atrium is slightly dilated. Right Ventricle: The right ventricular chamber size and systolic function are within normal limits. Right Atrium: The right atrium is mildly dilated. Aortic Valve: The aortic valve is trileaflet. There is no evidence of aortic valve thickening. Systolic excursion of the aortic valve is normal. There is mild aortic regurgitation. There is no evidence of aortic stenosis. Mitral Valve: The mitral valve leaflets appear normal. There is a trace of mitral regurgitation. There is no evidence of mitral stenosis. Tricuspid Valve: The tricuspid valve leaflets are normal. There is trace tricuspid regurgitation. Unable to estimate the right ventricular systolic pressure. Pulmonic Valve: There is no evidence of pulmonic valve thickening. There is a trace pulmonic regurgitation. Pericardium: There is no significant pericardial effusion. Aorta: There is mild dilatation of the ascending aorta. There is no dilatation of the aortic arch. There is mild dilatation of the aortic root. Pulmonary Artery: The main pulmonary artery appears normal. Venous: The inferior vena cava is dilated. There is a greater than 50% respiratory change in the inferior vena cava dimension. Summary: There are no significant changes when compared to the previous study done on 12/13/2016, no overt sig changes. AI is now mild instead of trace then. Conclusions Mild concentric left ventricular hypertrophy is observed. Basal interventricular septum shows moderate thickening. The estimated ejection fraction is 45-50%. paradoxical septal wall motion and severe hypokinesis-akinesis of the inferior wall. The left atrium is slightly dilated. The right atrium is mildly dilated. There is mild aortic regurgitation. There is a trace of mitral regurgitation. There is trace tricuspid regurgitation. There is mild dilatation of the ascending aorta. There is mild dilatation of the aortic root. Measurements Name Value Normal Range RVIDd (AP) 2D 3.4 cm (0.9 - 2.6) RVDdMajor (2D) 3 cm (2.2 - 4.4) RAd ISD 4CH 6 cm (3.4 - 4.9) RA (A4C)W 4.3 cm (2.9 - 4.6) IVSd (2D) 1.4 cm (0.6 - 1) LVPWd (2D) 1.2 cm (0.6 - 1) LVIDd (2D) 5.2 cm (3.6 - 5.4) LVIDs (2D) 3.6 cm - LV FS (2D) 32 % (25 - 45) Aortic Annulus 2.5 cm (1.4 - 2.6) Ao root diameter (2D) 3.8 cm (2.1 - 3.5) Ascending Ao 3.9 cm (2.1 - 3.4) Aortic arch 3.1 cm (1.8 - 3.4) LA dimension (AP) 2D 4.8 cm (2.3 - 3.8) LAd ISD 4CH 6.5 cm (2.9 - 5.3) LA ISD 4CH W 4.9 cm (2.5 - 4.5) Name Value Normal Range LA ESV SP 4CH (A/L) 67.48 ml - LA ESV SP 2CH (A/L) 68.38 ml - LA ESV BP (A/L) 70.25 ml - LA ESV BP (A/L) index 34 ml/m2 - LA ESV SP 4CH (MOD) 63.29 ml - LA ESV SP 2CH (MOD) 61.83 ml - Name Value Normal Range MV E-wave Vmax 0.7 m/sec - MV deceleration time 151 msec - MV A-wave Vmax 0.5 m/sec - MV E:A ratio 1.4 ratio - P. vein S-wave Vmax 0.5 m/sec - P. vein D-wave Vmax 0.6 m/sec - P. vein S:D Vmax ratio 1 ratio - P. vein A-wave duration 148 msec - Name Value Normal Range AV Vmax 1.4 m/sec - AV VTI 27.3 cm - AV peak gradient 8 mmHg - AV mean gradient 4.1 mmHg - LVOT Vmax 0.8 m/sec - LVOT VTI 18.9 cm - LVOT peak gradient 2.8 mmHg - LVOT mean gradient 1.9 mmHg - SILVIANO Vmax 0.9 m/sec - Name Value Normal Range RAP 8 mmHg - IVC diameter 2.4 cm - Name Value Normal Range PV Vmax 0.6 m/sec - PV peak gradient 1.4 mmHg -
[2017-09-05] MEDS: Atorvastatin* 20 MG TAB PO SCH (21:33)
[2017-09-06] MEDS: LORazepam TAB(*) 1 MG PO SCH ×6 (01:49→11:46)
[2017-09-06] MEDS: CMCS: Pantoprazole TAB (NF) 40 MG TAB PO SCH (05:35)
[2017-09-06] MEDS: Diltiazem TAB* 60 MG PO SCH ×3 (05:36→17:10)
[2017-09-06 05:57] LABS: BUN/Creatinine Ratio 10.8 (8-20); Calcium 9.2 mg/dL (8.6-10.3); EGFR African American 145.2 (>60); EGFR Non-African American 112.9 (>60); Potassium 3.2 mmol/L (3.5-5.0)
[2017-09-06] MEDS ORDERED: Potassium Chlor TAB* 20 MEQ TAB.ER PO ONE (07:26)
[2017-09-06] MEDS: Clopidogrel TAB* 75 MG PO SCH (08:12)
[2017-09-06] MEDS: Folic Acid TAB* 1 MG PO SCH (08:13)
[2017-09-06] MEDS: LORazepam TAB(*) 0.5 MG PO SCH ×2 (08:13→16:26)
[2017-09-06] MEDS: Dronedarone TAB* 400 MG PO SCH ×2 (08:13→21:29)
[2017-09-06] MEDS: Triamterene/HCTZ 37.5-25 MG* CAP PO SCH (08:13)
[2017-09-06] MEDS: Sertraline* 100 MG TAB PO SCH (08:13)
[2017-09-06] MEDS: Multivitamins/Minerals TAB PO SCH (08:13)
[2017-09-06] MEDS: Docusate CAP* 100 MG PO SCH ×2 (08:13→21:29)
[2017-09-06] MEDS: Thiamine TAB* 100 MG TAB PO SCH (08:14)
[2017-09-06] MEDS: NIFEdipine ER TAB* 60 MG PO SCH (09:29)
[2017-09-06] MEDS: Rivaroxaban TAB(*) 15 MG PO SCH (09:29)
[2017-09-06] MEDS ORDERED: Haloperidol INJ IV/IM* 5 MG/ML AMP IM ONE (12:21)
--- NOTE | 2017-09-06 13:41 | PN ---
Subjective Date of Service: 09/06/17 Interval History: pt was mildly confused at night, this AM very tremulous and requested to go home. Had a long discussion with pt, explained that he is acutely withdrawing and that his symptoms may get worse if he goes home. Pt agreed to stay. He will likely be able to go inpatient rehab tomorrow. Objective Active Medications: Acetaminophen (Tylenol Tab*) 650 mg PO Q4H PRN PRN Reason: PAIN Atorvastatin Calcium (Lipitor*) 20 mg PO BEDTIME [facility] Last Admin: 09/05/17 21:33 Dose: 20 mg Clopidogrel Bisulfate (Plavix Tab*) 75 mg PO DAILY [facility] Last Admin: 09/06/17 08:12 Dose: 75 mg Diltiazem HCl (Cardizem Tab*) 60 mg PO Q6HR [facility] Last Admin: 09/06/17 11:46 Dose: 60 mg Docusate Sodium (Colace Cap*) 200 mg PO BID [facility] Last Admin: 09/06/17 08:13 Dose: 200 mg Dronedarone (Multaq Tab*) 400 mg PO BID [facility] Last Admin: 09/06/17 08:13 Dose: 400 mg Folic Acid (Folvite Tab*) 1 mg PO DAILY [facility] Last Admin: 09/06/17 08:13 Dose: 1 mg Lorazepam (Ativan Tab(*)) 0 - 6 mg PO .PER [facility] PROTOCOL [facility] PRN Reason: Protocol Last Admin: 09/06/17 11:46 Dose: 3 mg Lorazepam (Ativan Tab(*)) 0.5 mg PO Q8H [facility] Last Admin: 09/06/17 08:13 Dose: 0.5 mg Melatonin (Melatonin (Nf)) 3 mg PO BEDTIME PRN; Protocol PRN Reason: Sleep Multivitamins/Minerals (Theragran/Minerals Tab*) 1 tab PO DAILY [facility] Last Admin: 09/06/17 08:13 Dose: 1 tab Nifedipine (Procardia Xl Tab*) 60 mg PO DAILY [facility] Last Admin: 09/06/17 09:29 Dose: 60 mg Ondansetron HCl (Zofran Inj*) 4 mg IV Q6H PRN PRN Reason: NAUSEA Pantoprazole Sodium (Protonix Tab (Nf)) 40 mg PO DAILY@0600 [facility] Last Admin: 09/06/17 05:35 Dose: 40 mg Rivaroxaban (Xarelto(*)) 15 mg PO DAILY [facility] Last Admin: 09/06/17 09:29 Dose: 15 mg Sertraline HCl (Zoloft*) 200 mg PO DAILY [facility] Last Admin: 09/06/17 08:13 Dose: 200 mg Thiamine HCl (Vitamin B-1 Tab*) 100 mg PO DAILY [facility] Last Admin: 09/06/17 08:14 Dose: 100 mg Triamterene/HCTZ (Dyazide Cap*) 1 cap PO DAILY [facility] Last Admin: 09/06/17 08:13 Dose: 1 cap Vital Signs - 8 hr 09/06/17 09/06/17 09/06/17 08:03 08:13 10:07 Temperature 98.8 F 97.6 F Pulse Rate 72 94 Respiratory 18 18 16 Rate Blood Pressure 132/72 117/74 (mmHg) O2 Sat by Pulse 92 97 Oximetry 09/06/17 09/06/17 09/06/17 10:08 10:11 10:54 Temperature Pulse Rate Respiratory 16 16 16 Rate Blood Pressure (mmHg) O2 Sat by Pulse Oximetry 09/06/17 09/06/17 09/06/17 10:55 11:26 11:46 Temperature 98.4 F Pulse Rate 104 Respiratory 16 20 16 Rate Blood Pressure 137/86 (mmHg) O2 Sat by Pulse 99 Oximetry Oxygen Devices in Use Now: None Appearance: 47 yo M in NAD, fidgety and tremolous, AAOx3 Eyes: No Scleral Icterus, PERRLA Ears/Nose/Mouth/Throat: NL Teeth, Lips, Gums, Mucous Membranes Moist Neck: NL Appearance and Movements; NL JVP, Trachea Midline Respiratory: Symmetrical Chest Expansion and Respiratory Effort, Clear to Auscultation Cardiovascular: NL Sounds; No Murmurs; No JVD, RRR Abdominal: NL Sounds; No Tenderness; No Distention Lymphatic: No Cervical Adenopathy Extremities: No Edema, No Clubbing, Cyanosis Skin: No Rash or Ulcers, No Nodules or Sclerosis Neurological: Alert and Oriented x 3, NL Muscle Strength and Tone, - - b/l UE's tremors worse today Result Diagrams: 09/04/17 17:21 09/06/17 05:15 Assess/Plan/Problems-Billing Assessment: 47 yo M with h/o ETOH abuse, CAD(stent in LAD 11/2016), a. fib/ flutter presents requesting "detox" and was noted to be in A. fib with RVR - Patient Problems (1) Atrial flutter Comment: Transient, related to acute alcohol and hypomagnesemia. Resolved. Continue rivaroxaban. Echo shows EF 45% Cont cardizem with hold parametrs in addition to Multaq Fup Dr. Garcia as outpatient (2) Electrolyte abnormality Comment: KCl ordered Mg repleted Continue daily BMP's (3) CAD (coronary artery disease) Comment: Hx of stent to RCA and recent stent to the LAD 12/15 with NSTEMI. cont lipitor and Plavix. Due to h/o ETOH use and need to be anticoagulated with Xarelto , Dr. Garcia recommended in the past Xarelto 15 mg daily and Plavix 75 mg daily in consideration of risk vs benefit of tx of CAD and A. flutter vs bleeding risk. (4) Alcohol abuse Comment: cont WAM protocol, tremors still cont. Will start low dose OMAR order of Ativan in addition to WAM [facility] (5) HTN (hypertension) Comment: cont nifedipine to 60 mg daily and Dyazide (6) Depression Comment: Stable. cont zoloft (7) DVT prophylaxis Comment: Xarelto Status and Disposition: inpatient tx.of alcohol withdrawal
[2017-09-06] MEDS: Atorvastatin* 20 MG TAB PO SCH (21:29)
[2017-09-07] MEDS: LORazepam TAB(*) 0.5 MG PO SCH ×2 (00:29→07:44)
[2017-09-07] MEDS: CMCS: Pantoprazole TAB (NF) 40 MG TAB PO SCH (05:35)
[2017-09-07 07:04] LABS: BUN/Creatinine Ratio 13.5 (8-20); Calcium 9.9 mg/dL (8.6-10.3); EGFR African American 107.5 (>60); EGFR Non-African American 83.6 (>60); Potassium 3.8 mmol/L (3.5-5.0)
[2017-09-07 07:36] VITALS: BP 155/79
[2017-09-07] MEDS: Sertraline* 100 MG TAB PO SCH (07:44)
[2017-09-07] MEDS: Folic Acid TAB* 1 MG PO SCH (07:44)
[2017-09-07] MEDS: NIFEdipine ER TAB* 60 MG PO SCH (07:44)
[2017-09-07] MEDS: Dronedarone TAB* 400 MG PO SCH (07:44)
[2017-09-07] MEDS: Triamterene/HCTZ 37.5-25 MG* CAP PO SCH (07:44)
[2017-09-07] MEDS: Multivitamins/Minerals TAB PO SCH (07:44)
[2017-09-07] MEDS: Docusate CAP* 100 MG PO SCH (07:45)
[2017-09-07] MEDS: Rivaroxaban TAB(*) 15 MG PO SCH (07:45)
[2017-09-07] MEDS: Clopidogrel TAB* 75 MG PO SCH (07:45)
[2017-09-07] MEDS: Thiamine TAB* 100 MG TAB PO SCH (07:45)
[2017-09-07 07:57] LABS: Magnesium 2.2 mg/dL (1.9-2.7)
[2017-09-07] MEDS ORDERED: Diltiazem CD CAP* 240 MG PO SCH (09:00)
--- NOTE | 2017-09-07 13:30 | DS ---
CC: Dr. Shakih; Dr. Garcia * DISCHARGE SUMMARY: DATE OF ADMISSION: 09/05/17 DATE OF DISCHARGE: 09/07/17 PRIMARY CARE PROVIDER: Dr. Shaikh. DISCHARGE DIAGNOSES: 1. Atrial fibrillation with rapid ventricular response due to hypokalemia and hypomagnesemia in patient with history of atrial fibrillation. 2. History of possible ischemic cardiomyopathy with EF of 45% to 50%. 3. Alcohol withdrawal. SECONDARY DIAGNOSES: 1. History of coronary artery disease and two stents, most recent one into LAD in November 2016. 2. History of paroxysmal atrial flutter/fib. 3. History of asthma. 4. History of obstructive sleep apnea. 5. Alcoholism, ongoing. MEDICATIONS AT DISCHARGE: Include: 1. Lipitor 20 mg at bedtime. 2. Plavix 75 mg daily. 3. Cardizem CD 240 mg daily. 4. Antabuse 250 mg daily. 5. Multaq 400 mg b.i.d. 6. Lorazepam 0.5 mg p.o. every 12 hours for a total of 2 days, then stop. 7. Nifedipine ER 60 mg daily. 8. Protonix 40 mg daily. 9. Xarelto 15 mg daily. 10. Zoloft 200 mg daily. 11. Thiamine 100 mg daily. 12. Triamterene/hydrochlorothiazide 37.5/25 mg 1 tablet daily. Please note that the patient was placed on Cardizem during his hospital stay in addition to the nifedipine. During that time, the patient's heart rate was well controlled and he never became bradycardic and his systolic pressures had been in the 140s to 150s. It is likely that once the patient is past his withdrawal, he will be able to be tapered off the Cardizem and continue on the nifedipine and Multaq. HOSPITALIZATION COURSE: Rashaun Longoria is a 47-year-old male with history of alcoholism who presented to the hospital with request for "detox." The patient was noted to be in atrial flutter with rapid ventricular response and was admitted to the telemetry floor. The patient also was noted to be hypokalemic and hypomagnesemic, which was replaced during his hospital stay. Within 24 hours of his hospital stay on Cardizem drip, he converted to sinus rhythm. He continued to withdrawal through and during his hospital stay, he was evaluated by a social scientist, who noted for the patient to be agreeable to go to inpatient rehab at [facility]. By the time of discharge, the patient still had mild tremors and due to that he was placed on a finishing taper dose of Ativan 0.5 mg every 12 hours for a total of 2 days. To keep the patient in sinus rhythm, he was continued with Cardizem CD in addition to another calcium martin, nifedipine. It is likely that once the patient is through his withdrawal, he may be able to be taken off his Cardizem and continue on nifedipine and Multaq. His electrolytes were replaced. At the time of discharge, the patient appeared not to need any further replacement. I suspect that his electrolyte abnormality was due to alcoholism. Please also note that the patient's alcohol level at admission was 187. The patient has history of significant coronary artery disease and he complained of no chest pain during his hospital stay. A transthoracic echocardiogram showed known EF of 45% to 50% with inferior wall hypokinesis, which is comparable with prior. Please note that the patient is chronically on Xarelto 15 mg daily and Plavix 75 mg daily. That was chosen weighing the risk and benefit ratio in this patient with history of alcoholism to prevent cardioembolic stroke and treat this patient with history of coronary artery disease and recent stenting and also considering higher risk of bleeding in this patient with history of alcohol abuse. At discharge, the patient is recommended to follow up with Dr. Garcia from Cardiology as previously scheduled. The patient is also recommended to follow up with Dr. Shaikh in 4 to 7 days. The patient is being discharged to [facility] for alcohol rehab. PHYSICAL EXAMINATION AT THE TIME OF DISCHARGE: Vital Signs: Blood pressure of 155/79, heart rate of 73 and regular, respiratory rate 19, oxygen saturation 96 % on room air, temperature 98.4. General: This is a very pleasant 47-year-old male, who is in no acute distress. Alert, awake, and oriented x3. HEENT: Head atraumatic, normocephalic. Eyes: Pupils are equal, round, and reactive to light and accommodation. Oropharynx clear. Mucosa moist. Neck: Supple. No JVD. No bruits bilaterally. Cardiovascular: Regular rate and rhythm. No murmur. Respiratory: Clear to auscultation bilaterally. Abdomen: Soft, nontender. Bowel sounds are present in all 4 quadrants. Extremities: There is no edema. Pulses +2 bilaterally. There is no clubbing or cyanosis. Skin: Mildly flushed. The patient has an abrasion on his left cheek that is healing by the time of discharge. He also has scattered eschar covered excoriations in bilateral lower extremities. Neuro Evaluation: Speech clear. Cranial nerves II through XII grossly intact. Motor strength is 5/5 bilaterally. The patient has mild tremors in bilateral upper extremities. Please note that this is a short summary of the patient's hospital stay. Please refer to further medical records for details. TIME SPENT: Approximately 45 minutes was spent in preparation and patient's discharge. [id number]/[facility] #: [id number] JEANCARLOS
== END 2017-09-07 09:30 | DRG 201 ==
LOC: ED 16:46 → MEDTELE 20:40 → OBSVTOIN 09-05 09:00 → MEDTELE 09-06 07:12
PROVIDERS: ADMIT Hospitalist; ATTEND Internal Medicine
DX: I48.0 Paroxysmal atrial fibrillation (principal); F10.239 Alcohol dependence with withdrawal, unspecified; E83.42 Hypomagnesemia; I11.9 Hypertensive heart disease without heart failure; E87.6 Hypokalemia; I25.5 Ischemic cardiomyopathy; I25.10 Atherosclerotic heart disease of native coronary artery without angina pectoris; Y90.6 Blood alcohol level of 120-199 mg/100 ml; J45.909 Unspecified asthma, uncomplicated; E78.5 Hyperlipidemia, unspecified; G47.33 Obstructive sleep apnea (adult) (pediatric); K21.9 Gastro-esophageal reflux disease without esophagitis; F32.9 Major depressive disorder, single episode, unspecified; I25.2 Old myocardial infarction; Z95.5 Presence of coronary angioplasty implant and graft; Z79.899 Other long term (current) drug therapy; Z79.01 Long term (current) use of anticoagulants; Z82.49 Family history of ischemic heart disease and other diseases of the circulatory system; Z88.1 Allergy status to other antibiotic agents; Z88.8 Allergy status to other drugs, medicaments and biological substances
CPT/HCPCS: 36415; 80048; 80053; 80307; 80320; 80329; 81003; 81015; 83735; 84443; 84484; 85025; 93005; 93306; A9270-GY; G0480; J1630; J2060; J3411; J3475; J3480

== ENCOUNTER 2018-03-29 12:40 | Emergency (ER) | payer OTHER ==
[2018-03-29 12:52] VITALS: BP 121/85
--- NOTE | 2018-03-29 14:10 | UC ---
Heather Mendoza Gabriel, scribed for Prakash Pillai MD on 03/29/18 at 1317 . Skin Complaint HPI - HPI Summary HPI Summary: This patient is a 48 year old M presenting to [facility] with a chief complaint of an abrasion with purulent drainage on LUE. Pt was seen for this rash 10 days ago and was given 50mg prednisone that he just finished 3 days ago. The patient rates the pain 2/10 in severity. Patient reports rash on his bilateral UE and LE. Patient denies skin exposure to poison christie. - History of Current Complaint Chief Complaint: UCRash Time Seen by Provider: 03/29/18 13:10 Stated Complaint: RECHECK OF RASH Hx Obtained From: Patient Onset/Duration: Lasting Weeks, Still Present Skin Exposure Onset/Duration: Weeks Ago Timing: Constant Onset Severity: Mild Current Severity: Mild Pain Intensity: 2 Pain Scale Used: 0-10 Numeric Location: Diffuse Character: Redness Associated Signs & Symptoms: Positive: Negative - fever - Allergy/Home Medications Allergies/Adverse Reactions: Allergies Allergy/AdvReac Type Severity Reaction Status Date / Time amlodipine Allergy Mild Palpitation Verified 03/29/18 12:53 s azithromycin Allergy Mild Shakes Verified 03/29/18 12:53 erythromycin base Allergy Mild Shakes Verified 03/29/18 12:53 lisinopril Allergy Mild Palpitation Verified 03/29/18 12:53 s Review of Systems Constitutional: Negative - fever Skin: Rash All Other Systems Reviewed And Are Negative: Yes PMH/Surg Hx/FS Hx/Imm Hx Endocrine History: Diabetes Cardiovascular History: Cardiac Disease, Hypertension Other History Of: Anticoagulant Therapy - Surgical History Surgical History: Yes Surgery Procedure, Year, and Place: CARDIAC STENT PLACEMENT 2010 and November 2016 , and January 2017. - Family History Known Family History: Positive: Hypertension - Social History Alcohol Use: None Alcohol Amount: 1/2 L per day Substance Use Type: None Substance Use Comment - Amount & Last Used: 09/04/17 Smoking Status (MU): Never Smoked Tobacco - Immunization History Most Recent Influenza Vaccination: NEVER Most Recent Tetanus Shot: 2013 Most Recent Pneumonia Vaccination: NEVER Physical Exam - Summary Physical Exam Summary: General: well-appearing, no pain distress Skin: Erythema on the forearms with small areas with scabs where he has been scratching one area has minimal drainage Head: normal Eyes: EOMI, FATUMA ENT: normal Neck: supple, nontender Respiratory: CTA, breath sounds present Cardiovascular: RRR Abdomen: soft, nontender Bowel: present Musculoskeletal: normal, strength/ROM intact Neurological: sensory/motor intact, A&O x3 Psychological: affect/mood appropriate Triage Information Reviewed: Yes Vital Signs: Initial Vital Signs Temp 98 F 03/29/18 12:49 Pulse 67 03/29/18 12:49 Resp 16 03/29/18 12:49 BP 121/85 03/29/18 12:49 Pulse Ox 100 03/29/18 12:49 Vital Signs Reviewed: Yes Course/Dx - Course Course Of Treatment: PATIENT REPORTS IMPROVEMENT WITH STEROIDS THEREFORE, WILL RX PREDNISONE TAPER. HE ALSO REPORTS IN THE PAST THIS SAME RASH HAS IMPROVED WITH KEFLEX AND HE HAD SOME YELLOW DRAINAGE FROM HIS RIGHT FOREARM TODAY (NONE ON EXAM IN CLINIC). F/U SCHEDULED WITH DERM IN LATE MARCH. RETURN IF WORSE. - Diagnoses Provider Diagnoses: RASH Discharge - Sign-Out/Discharge Documenting (check all that apply): Discharge/Admit/Transfer - Discharge Plan Condition: Stable Disposition: HOME Prescriptions: Cephalexin CAP* [Keflex CAP*] 500 mg PO QID #40 cap predniSONE TAB* [Deltasone 10 MG TAB*] 10 mg PO SEE INSTRUCTIONS #30 tab Patient Education Materials: Acute Rash (ED) Referrals: Isa Shaikh MD [Primary Care Provider] - Additional Instructions: FOLLOW UP WITH YOUR PRIMARY CARE DOCTOR AND DERMATOLOGY SCHEDULED. GET RECHECKED FOR ANY WORSENING OF YOUR CONDITION OR QUESTIONS OR CONCERNS. - Billing Disposition and Condition Condition: STABLE Disposition: Home The documentation as recorded by the Heather painter Gabriel accurately reflects the service I personally performed and the decisions made by me, Prakash Pillai MD.
== END 2018-03-29 13:30 | disposition home or self-care (01) ==
LOC: UCEAST 12:40
DX: R21 Rash and other nonspecific skin eruption (principal); Z88.1 Allergy status to other antibiotic agents; Z88.8 Allergy status to other drugs, medicaments and biological substances; E11.9 Type 2 diabetes mellitus without complications; I10 Essential (primary) hypertension; Z98.61 Coronary angioplasty status
CPT/HCPCS: 99212; G0463

== ENCOUNTER 2018-05-09 12:43 | Emergency (ER) | payer OTHER ==
[2018-05-09 12:53] VITALS: BP 120/74
--- NOTE | 2018-05-09 13:03 | UC ---
Skin Complaint HPI - HPI Summary HPI Summary: 48 y/o male presents to the urgent care c/o bees sting to right hand - History of Current Complaint Chief Complaint: UCSkin Time Seen by Provider: 05/09/18 13:01 Stated Complaint: BEE STING Hx Obtained From: Patient Onset/Duration: Sudden Onset, Lasting Hours - 1 hrs ago Skin Exposure Onset/Duration: Hours Ago - 1 hr ago Timing: Constant Onset Severity: Mild Current Severity: Mild Pain Intensity: 6 Pain Scale Used: 0-10 Numeric Location: Hand (Right) - RT 4th finger bee sting Character: Pruritus, Hives, Redness, Painful Aggravating Factor(s): Touch Alleviating Factor(s): Nothing Associated Signs & Symptoms: Positive: Numbness, Rash, Tenderness. Negative: Negative, Fever, Chills, Drainage Related History: Possible Reaction to: Insect - bee sting - Allergy/Home Medications Allergies/Adverse Reactions: Allergies Allergy/AdvReac Type Severity Reaction Status Date / Time amlodipine Allergy Mild Palpitation Verified 03/29/18 12:53 s azithromycin Allergy Mild Shakes Verified 03/29/18 12:53 erythromycin base Allergy Mild Shakes Verified 03/29/18 12:53 lisinopril Allergy Mild Palpitation Verified 03/29/18 12:53 s Review of Systems Constitutional: Negative Skin: Rash - swelling and redness over the base of Rt 4th finger s/p bee sting Eyes: Negative ENT: Negative Respiratory: Negative Cardiovascular: Negative Gastrointestinal: Negative Genitourinary: Negative Motor: Negative Neurovascular: Negative Musculoskeletal: Decreased ROM - RT 4th finger, Other: - RT 4th finger pain s/p bee sting Neurological: Negative Psychological: Negative Is Patient Immunocompromised?: No All Other Systems Reviewed And Are Negative: Yes PMH/Surg Hx/FS Hx/Imm Hx Previously Healthy: Yes Endocrine History: Diabetes Other Endocrine History: Bursitis Cardiovascular History: Hypertension, Myocardial Infarction Other History Of: Anticoagulant Therapy - Surgical History Surgical History: Yes Surgery Procedure, Year, and Place: CARDIAC STENT PLACEMENT 2010 and November 2016 , and January 2017. - Family History Known Family History: Positive: Cardiac Disease, Hypertension, Diabetes - Social History Occupation: Employed Full-time Lives: With Family Alcohol Use: None Alcohol Amount: 1/2 L per day Substance Use Type: None Substance Use Comment - Amount & Last Used: 09/04/17 Smoking Status (MU): Never Smoked Tobacco - Immunization History Most Recent Influenza Vaccination: NEVER Most Recent Tetanus Shot: 2013 Most Recent Pneumonia Vaccination: NEVER Physical Exam - Summary Physical Exam Summary: Vital Signs Reviewed: Yes General: well developed, well nourished obese male sitting in the examining table w/o any apparent distress. Eyes: Positive: Conjunctiva Clear - PERRLA, EOMI ENT: Positive: Normal ENT inspection, Hearing grossly normal, Pharynx normal, TMs normal Neck: Positive: Supple, Nontender, No Lymphadenopathy Respiratory: Positive: Chest nontender, Lungs clear, Normal breath sounds Cardiovascular: Positive: RRR, No Murmur, Pulses Normal Abdomen Description: Positive: Nontender, No Organomegaly, Soft. Negative: CVA Tenderness (R), CVA Tenderness (L) Bowel Sounds: Positive: Present Musculoskeletal: Positive: Strength Intact, ROM Intact, No Edema Neurological Exam: Normal Psychological Exam: Normal Skin: Positive: rashes - dorsal side of proximal RT 4th phalanx w/ erythematous patch , swelling warm to touch, swelling and tender to palpation w / a bee sting in the medial aspect of phalanx. Triage Information Reviewed: Yes Vital Signs: Initial Vital Signs Temp 98 F 05/09/18 12:50 Pulse 57 05/09/18 12:50 Resp 17 05/09/18 12:50 BP 120/74 05/09/18 12:50 Pulse Ox 100 05/09/18 12:50 Course/Dx - Differential Diagnoses - Skin Complaint Differential Diagnoses: Anaphylaxis, Contact Dermatitis, Electrolyte Abnormality , Local Allergic Reaction, MRSA, Tick Born Illness, Urticaria, Other - insect bite, bee sting - Diagnoses Provider Diagnoses: 1- RT 4th phalanx bee sting Discharge - Discharge Plan Condition: Stable Disposition: HOME Prescriptions: predniSONE TAB* [Deltasone 20 MG TAB*] 20 mg PO DAILY #8 tab Patient Education Materials: Insect Bite or Sting (ED) Referrals: Isa Shaikh MD [Primary Care Provider] - 3 Days Additional Instructions: 1-Please Start taking Prednisone PO taper dose starting tomorrow. first loading dose given today at the clinic. 2- Please take hydroxyzine PO you have at home to alleviate itchiness. Apply cold compresses. Avoid exposure to the sun. 3- Continue taking Doxycycline PO as directed by your Manager Latin which will prevent you from developing cellulites 4-If symptoms do not improve or worsen please f/u with your PCP or Manager Latin in 2-3 days for further evaluation and treatment. 5- If symptoms worsen and you develop SOB or difficulty breathing please go immediately to the ER for further management. - Billing Disposition and Condition Condition: STABLE Disposition: Home
[2018-05-09] MEDS ORDERED: predniSONE TAB* 20 MG PO ONE (13:17)
== END 2018-05-09 13:39 | disposition home or self-care (01) ==
LOC: UCEAST 12:43
DX: Y92.9 Unspecified place or not applicable (principal); T63.441A Toxic effect of venom of bees, accidental (unintentional), initial encounter; Z88.8 Allergy status to other drugs, medicaments and biological substances; Z88.1 Allergy status to other antibiotic agents; E11.9 Type 2 diabetes mellitus without complications; I10 Essential (primary) hypertension
CPT/HCPCS: 99212; G0463; J7512

== ENCOUNTER 2018-05-13 21:58 | Emergency (ER) | payer OTHER ==
[2018-05-13] MEDS ORDERED: predniSONE TAB* 20 MG PO ONE (22:04)
--- NOTE | 2018-05-13 22:08 | UC ---
Skin Complaint HPI - HPI Summary HPI Summary: Pt is a 48 y/o male presenting to s/p a bee sting tonight while changing light bulb. He notes numbness of LUE but denies dyspnea. He is concened about cellulititis due to previous hx of the same. This is scribe Eloise Ruelas documenting for attending Dr. Prakash Pillai.I , Dr. Prakash Pillai personally performed the services described in this documentation as scribed in my presence and it is both accurate and complete. - History of Current Complaint Time Seen by Provider: 05/13/18 21:58 Stated Complaint: BEE STING Hx Obtained From: Patient Onset/Duration: Sudden Onset, Still Present Skin Exposure Onset/Duration: Hours Ago Location: Discrete - L axillary region Associated Signs & Symptoms: Positive: Numbness. Negative: Difficulty Breathing - Allergy/Home Medications Allergies/Adverse Reactions: Allergies Allergy/AdvReac Type Severity Reaction Status Date / Time amlodipine Allergy Mild Palpitation Verified 05/13/18 22:10 s azithromycin Allergy Mild Shakes Verified 05/13/18 22:10 erythromycin base Allergy Mild Shakes Verified 05/13/18 22:10 lisinopril Allergy Mild Palpitation Verified 05/13/18 22:10 s Review of Systems Constitutional: Negative - Fever Respiratory: Negative - Dyspnea Neurological: Numbness - Of the L axillary region All Other Systems Reviewed And Are Negative: Yes PMH/Surg Hx/FS Hx/Imm Hx Previously Healthy: No Endocrine History: Diabetes Cardiovascular History: Cardiac Disease - CAD Other History Of: Anticoagulant Therapy - Surgical History Surgical History: Yes Surgery Procedure, Year, and Place: CARDIAC STENT PLACEMENT 2010 and November 2016 , and January 2017. - Family History Known Family History: Positive: Cardiac Disease, Hypertension, Diabetes - Social History Occupation: Employed Full-time Lives: Alone Alcohol Use: None Alcohol Amount: 1/2 L per day Substance Use Type: None Substance Use Comment - Amount & Last Used: 09/04/17 Smoking Status (MU): Never Smoked Tobacco - Immunization History Most Recent Influenza Vaccination: NEVER Most Recent Tetanus Shot: 2014 Most Recent Pneumonia Vaccination: NEVER Physical Exam - Summary Physical Exam Summary: General: well-appearing, no pain distress Skin: L axillary has erythema of about 4cm in diameter ;some palpitations present , dry Head: normal Eyes: EOMI, FATUMA ENT: normal Neck: supple, nontender Respiratory: CTA, breath sounds present Cardiovascular: RRR Abdomen: soft, nontender Bowel: present Musculoskeletal: normal, strength/ROM intact Neurological: sensory/motor intact, A&O x3 Psychological: affect/mood appropriate Triage Information Reviewed: Yes Vital Signs Reviewed: Yes Course/Dx - Course Course Of Treatment: NO EVIDENCE OF GENERALIZED REACTION AT THIS TIME. PATIENT REPORTS PREDNISONE HELPS KEEP BEE STING FROM GETTING WORSE. - Diagnoses Provider Diagnoses: BEE STING Discharge - Sign-Out/Discharge Documenting (check all that apply): Patient Departure - Discharge Plan Condition: Stable Disposition: HOME Prescriptions: predniSONE TAB* [Deltasone 20 MG TAB*] 40 mg PO DAILY #8 tab Patient Education Materials: Insect Bite or Sting (ED) Referrals: Anuj Stevens MD [Primary Care Provider] - Additional Instructions: FOLLOW UP WITH YOUR DOCTOR IF NOT COMPLETELY IMPROVED. GET RECHECKED FOR ANY WORSENING OF YOUR CONDITION OR QUESTIONS OR CONCERNS. - Billing Disposition and Condition Condition: STABLE Disposition: Home
[2018-05-13 22:09] VITALS: BP 130/79
== END 2018-05-13 22:17 | disposition home or self-care (01) ==
LOC: UCEAST 21:58
DX: T63.441A Toxic effect of venom of bees, accidental (unintentional), initial encounter (principal); R20.0 Anesthesia of skin; Y92.9 Unspecified place or not applicable; Z95.5 Presence of coronary angioplasty implant and graft; Z88.1 Allergy status to other antibiotic agents; Z91.018 Allergy to other foods; Z82.49 Family history of ischemic heart disease and other diseases of the circulatory system; Z83.3 Family history of diabetes mellitus
CPT/HCPCS: 99212; G0463; J7512

== ENCOUNTER 2018-05-28 18:54 | Emergency (ER) | payer OTHER ==
[2018-05-28 19:27] VITALS: BP 120/78
--- NOTE | 2018-05-28 19:48 | UC ---
Respiratory Complaint HPI - HPI Summary HPI Summary: 48 yo male presents with sinus pain/pressure/congestion, post nasal drip, and productive cough for the last 5 days. He tells me that his symptoms started with sinus congestion and progressed into his "chest". He also has a sinus headache. Has not been taking anything OTC. Denies fever, chills, SOB, chest pain, n/v. - History of Current Complaint Chief Complaint: UCGeneralIllness Stated Complaint: CHEST CONGESTION Time Seen by Provider: 05/28/18 19:48 Hx Obtained From: Patient Onset/Duration: Gradual Onset Severity Initially: Mild Severity Currently: Moderate Pain Intensity: 6 Pain Scale Used: 0-10 Numeric Character: Cough: Productive - Allergies/Home Medications Allergies/Adverse Reactions: Allergies Allergy/AdvReac Type Severity Reaction Status Date / Time amlodipine Allergy Mild Palpitation Verified 05/13/18 22:10 s azithromycin Allergy Mild Shakes Verified 05/13/18 22:10 erythromycin base Allergy Mild Shakes Verified 05/13/18 22:10 lisinopril Allergy Mild Palpitation Verified 05/13/18 22:10 s metoprolol [From Lopressor] Allergy Palpitation Verified 05/28/18 19:28 s Home Medications: Home Medications Aspirin [Aspirin EC] 325 mg PO 05/28/18 [History] Carvedilol TAB* [Coreg TAB*] 25 mg PO BID 05/28/18 [History Confirmed 05/28/18] PMH/Surg Hx/FS Hx/Imm Hx Endocrine History: Dyslipidemia Cardiovascular History: Cardiac Disease, Hypertension, Atrial Fibrillation Psychological History: Bipolar Disorder Other History Of: Anticoagulant Therapy - Surgical History Surgical History: Yes Surgery Procedure, Year, and Place: CARDIAC STENT PLACEMENT 2010 and November 2016 , and January 2017. - Family History Known Family History: Positive: Cardiac Disease, Hypertension, Diabetes - Social History Lives: With Family Alcohol Amount: 1/2 L per day Substance Use Type: None Substance Use Comment - Amount & Last Used: 09/04/17 Smoking Status (MU): Never Smoked Tobacco - Immunization History Most Recent Influenza Vaccination: NEVER Most Recent Tetanus Shot: 2013 Most Recent Pneumonia Vaccination: NEVER Review of Systems Constitutional: Negative Skin: Negative Eyes: Negative ENT: Nasal Discharge, Sinus Congestion, Sinus Pain/Tenderness Respiratory: Cough Cardiovascular: Negative Gastrointestinal: Negative Neurovascular: Negative Neurological: Negative Psychological: Negative All Other Systems Reviewed And Are Negative: Yes Physical Exam - Summary Physical Exam Summary: GENERAL: NAD. WDWN. No pain distress. SKIN: No rashes, sores, lesions, or open wounds. HEENT: Head: AT/NC Eyes: EOM intact. Conjunctiva clear without inflammation or discharge. Ears: Hearing grossly normal. TMs intact, no bulging, erythema, or edema. Nose: Nasal mucosa mildly swollen and erythematous with clear discharge. TTP maxillary and frontal sinus. Throat: Posterior oropharynx without exudates, erythema, or tonsillar enlargement. Uvula midline. NECK: Supple. Nontender. No lymphadenopathy. CHEST: CTAB. No r/r/w. No accessory muscle use. Breathing comfortably and in no distress. CV: Pulses intact. NEURO: Alert. CN II-XII grossly intact. PSYCH: Age appropriate behavior. Triage Information Reviewed: Yes Vital Signs: Initial Vital Signs Temp 98.4 F 05/28/18 19:19 Pulse 68 05/28/18 19:19 Resp 16 05/28/18 19:19 BP 120/78 05/28/18 19:19 Pulse Ox 98 05/28/18 19:19 Vital Signs Reviewed: Yes Diagnostic Evaluation - Laboratory O2 Sat by Pulse Oximetry: 98 Respiratory Course/Dx - Course Course Of Treatment: Sinusitis. - Differential Dx/Diagnosis Provider Diagnoses: Sinusitis Discharge - Sign-Out/Discharge Documenting (check all that apply): Patient Departure All imaging exams completed and their final reports reviewed: No Studies - Discharge Plan Condition: Stable Disposition: HOME Prescriptions: Amoxicillin PO (*) [Amoxicillin 500 MG CAP*] 500 mg PO Q12H #14 cap Patient Education Materials: Sinusitis (ED) Referrals: Anuj Stevens MD [Primary Care Provider] - Additional Instructions: If you develop a fever, shortness of breath, chest pain, new or worsening symptoms - please call your PCP or go to the ED. - Billing Disposition and Condition Condition: STABLE Disposition: Home - Attestation Statements Provider Attestation: Per institutional requirements, I have reviewed the chart, however, I was not consulted specifically or made aware of this patient by the midlevel provider. I did not personally evaluate, interact with , or disposition this patient.
== END 2018-05-28 20:05 | disposition home or self-care (01) ==
LOC: UCEAST 18:54
DX: J32.9 Chronic sinusitis, unspecified (principal); I10 Essential (primary) hypertension; Z88.1 Allergy status to other antibiotic agents; Z88.8 Allergy status to other drugs, medicaments and biological substances; Z79.82 Long term (current) use of aspirin; Z79.899 Other long term (current) drug therapy
CPT/HCPCS: 99212; G0463

== ENCOUNTER 2018-06-05 11:22 | Emergency (ER) | payer OTHER ==
[2018-06-05 11:29] VITALS: BP 115/74
[2018-06-05] MEDS ORDERED: Albuterol/Ipratropium NEB.SOL* Albuterol 2.5 MG/Ipratropium 0.5 MG 3 ML INH ONE (11:40)
[2018-06-05] MEDS ORDERED: methylPREDNISolone 125 MG* 2 ML VIAL IM ONE (11:40)
--- NOTE | 2018-06-05 11:46 | ED ---
Respiratory - HPI Summary HPI Summary: 48-year-old male presents with cough and shortness of breath for the past 3 days. He has a history of asthma. He is currently on amoxicillin for sinus infection. He states that he used his inhaler 7 times today. he admits to occasionally chest tightness when he coughs. He denies any pain or increased swelling in legs. Denies any palpitations. Denies any fevers. No nausea and vomiting. No abdominal pain. - History of Current Complaint Chief Complaint: UCRespiratory Stated Complaint: ASTHMA COMPLAINT, CHEST DISCOMFORT Time Seen by Provider: 06/05/18 11:34 Pain Intensity: 5 - Allergy/Home Medications Allergies/Adverse Reactions: Allergies Allergy/AdvReac Type Severity Reaction Status Date / Time amlodipine Allergy Mild Palpitation Verified 05/13/18 22:10 s azithromycin Allergy Mild Shakes Verified 05/13/18 22:10 erythromycin base Allergy Mild Shakes Verified 05/13/18 22:10 lisinopril Allergy Mild Palpitation Verified 05/13/18 22:10 s metoprolol [From Lopressor] Allergy Palpitation Verified 05/28/18 19:28 s Home Medications: Home Medications DOXYcycline CAP(*) [DOXYcycline 100MG CAP(*)] 50 mg PO DAILY 06/05/18 [History Confirmed 06/05/18] PMH/Surg Hx/FS Hx/Imm Hx Endocrine/Hematology History: Reports: Hx Anticoagulant Therapy, Hx Diabetes - diet controlled Cardiovascular History: Reports: Hx Angina, Hx Coronary Artery Disease, Hx Hypertension, Other Cardiovascular Problems/Disorders - STENT PLACED TO RCA Respiratory History: Reports: Hx Asthma History: Reports: Other Problems/Disorders - STAGE III CKD Sensory History: Reports: Hx Contacts or Glasses Denies: Hx Hearing Aid Opthamlomology History: Reports: Hx Contacts or Glasses Psychiatric History: Reports: Hx Anxiety, Hx Depression - Currently on Zoloft - Surgical History Surgery Procedure, Year, and Place: CARDIAC STENT PLACEMENT 2010 and November 2016 , and January 2017. - Immunization History Date of Tetanus Vaccine: utd Date of Influenza Vaccine: none Infectious Disease History: No Infectious Disease History: Denies: Hx Clostridium Difficile, Hx of Known/Suspected MRSA, Traveled Outside the [place] in Last 30 Days - Family History Known Family History: Positive: Cardiac Disease, Hypertension, Diabetes - Social History Alcohol Use: None Alcohol Amount: 1/2 L per day Hx Substance Use: Yes - alcohol only Substance Use Type: Reports: None Substance Use Comment - Amount & Last Used: 09/04/17 Hx Tobacco Use: No Smoking Status (MU): Never Smoked Tobacco Review of Systems Negative: Fever Positive: Chest Pain - tightness when cough Positive: Shortness Of Breath, Cough Negative: Abdominal Pain All Other Systems Reviewed And Are Negative: Yes Physical Exam Triage Information Reviewed: Yes Vital Signs On Initial Exam: Initial Vitals Temp Pulse Resp BP Pulse Ox 98 F 62 16 115/74 98 06/05/18 11:25 06/05/18 11:25 06/05/18 11:25 06/05/18 11:25 06/05/18 11:25 Vital Signs Reviewed: Yes Appearance: Positive: Well-Appearing Skin: Positive: Warm, Dry Head/Face: Positive: Normal Head/Face Inspection Eyes: Positive: Normal, EOMI, FATUMA, Conjunctiva Clear ENT: Positive: Pharynx normal, Nasal congestion Neck: Positive: Supple, Nontender, No Lymphadenopathy Respiratory/Lung Sounds: Positive: Clear to Auscultation, Decreased Breath Sounds Cardiovascular: Positive: Normal, RRR Abdomen Description: Positive: Nontender, Soft Bowel Sounds: Positive: Present Musculoskeletal: Positive: Normal Neurological: Positive: Normal Psychiatric: Positive: Normal Diagnostics - Vital Signs Vital Signs Temp Pulse Resp BP Pulse Ox 06/05/18 11:25 98 F 62 16 115/74 98 - Laboratory Lab Statement: Any lab studies that have been ordered have been reviewed, and results considered in the medical decision making process. Re-Evaluation - Re-Evaluation First Eval Re-Evaluation Time: 12:43 Change: Improved Comment: feeling better after neb. lungs CTA Disposition - Course Course Of Treatment: 48-year-old male presents with cough and shortness of breath for the past 3 days. He has a history of asthma. He is currently on amoxicillin for sinus infection. He states that he used his inhaler 7 times today. he admits to occasionally chest tightness when he coughs. He denies any pain or increased swelling in legs. Denies any palpitations. Denies any fevers. No nausea and vomiting. No abdominal pain. On exam lungs clear to auscultation with decreased breath sounds. Gave DuoNeb and steroid and lungs CTA after. chest x-ray shows NAD. Will prescribe tessalon and steroid. Patient understands agrees with plan. - Differential Dx - Cardiopulmonary Differential Diagnoses - Cardiopulmonary: Asthma, Bronchitis, Lower Resp Infection - Diagnoses Provider Diagnoses: Asthma Discharge - Sign-Out/Discharge Documenting (check all that apply): Patient Departure All imaging exams completed and their final reports reviewed: Yes - Discharge Plan Condition: Good Disposition: HOME Prescriptions: Benzonatate CAP* [Tessalon 100 MG CAP*] 100 mg PO TID PRN #21 cap PRN Reason: Cough predniSONE TAB* [Deltasone TAB*] 50 mg PO DAILY #4 tab Patient Education Materials: Acute Bronchitis (ED) Forms: *Gen. Provider Communication Referrals: Anuj Stevens MD [Primary Care Provider] - Additional Instructions: use tessalon three times a day for cough Use inhaler up to two puffs every 4-6 hours for cough Take steroid once a day starting tomorrow Use saline in the nose for nasal congestion Take Tylenol for pain every 6 hours Return to ED if develop any new or worsening symptoms - Billing Disposition and Condition Condition: GOOD Disposition: Home - Attestation Statements Provider Attestation: I was available for consult. This patient was seen by the JACQUIE. The patient was not presented to, seen by, or examined by me. -Alexandre
--- NOTE | 2018-06-05 12:13 | RAD ---
HISTORY: cough COMPARISONS: August 06, 2017 VIEWS: 4: Frontal dual-energy and lateral views of the chest. FINDINGS: CARDIOMEDIASTINAL SILHOUETTE: The cardiomediastinal silhouette is normal. MONISHA: The monisha are normal. PLEURA: The costophrenic angles are sharp. No pleural abnormalities are noted. LUNG PARENCHYMA: The lungs are clear. ABDOMEN: The upper abdomen is clear. There is no subphrenic gas. BONES AND SOFT TISSUES: No bone or soft tissue abnormalities are noted. OTHER: None. IMPRESSION: NO ACTIVE CARDIOPULMONARY DISEASE.
== END 2018-06-05 12:43 | disposition home or self-care (01) ==
LOC: UCEAST 11:22
DX: J45.909 Unspecified asthma, uncomplicated (principal); F41.9 Anxiety disorder, unspecified; F32.9 Major depressive disorder, single episode, unspecified; Z79.01 Long term (current) use of anticoagulants; Z95.5 Presence of coronary angioplasty implant and graft; Z82.49 Family history of ischemic heart disease and other diseases of the circulatory system; Z83.3 Family history of diabetes mellitus; Z88.1 Allergy status to other antibiotic agents; Z88.8 Allergy status to other drugs, medicaments and biological substances
CPT/HCPCS: 71046; 99212; A9270-GY; G0463; J2930

== ENCOUNTER 2018-07-22 11:06 | Emergency (ER) | payer OTHER ==
[2018-07-22 11:45] VITALS: BP 141/76
--- NOTE | 2018-07-22 11:57 | UC ---
Skin Complaint HPI - HPI Summary HPI Summary: This patient is a 48 year old M presenting to [facility] c/o an adverse reaction to a Vivitrol shot that he received 6 days ago. He states he had a large amount of swelling, redness, and pain. He states it has resolved slightly but he is concerned because he has some weakness down the right leg. The patient rates the pain 7/10 in severity. He has been receiving these shots once a month for the last six at [facility]. He also c/o a subjective fever last night that resolved. - History of Current Complaint Chief Complaint: UCSkin Time Seen by Provider: 07/22/18 11:40 Stated Complaint: PAIN AT INJECTION SITE Hx Obtained From: Patient Onset/Duration: Still Present Skin Exposure Onset/Duration: Days Ago - 6 Timing: Constant Onset Severity: Moderate Current Severity: Mild Pain Intensity: 7 Pain Scale Used: 0-10 Numeric Location: Other - right buttocks Character: Redness, Painful Associated Signs & Symptoms: Positive: Fever - Allergy/Home Medications Allergies/Adverse Reactions: Allergies Allergy/AdvReac Type Severity Reaction Status Date / Time amlodipine Allergy Mild Palpitation Verified 07/22/18 11:46 s azithromycin Allergy Mild Shakes Verified 07/22/18 11:46 erythromycin base Allergy Mild Shakes Verified 07/22/18 11:46 lisinopril Allergy Mild Palpitation Verified 07/22/18 11:46 s metoprolol [From Lopressor] Allergy Palpitation Verified 07/22/18 11:46 s Home Medications: Home Medications Naltrexone INJ [Vivitrol INJ] 380 mg IM MONTHLY 07/22/18 [History Confirmed ] Review of Systems Constitutional: Fever Skin: Other - large amount of swelling, redness, and pain Neurological: Weakness All Other Systems Reviewed And Are Negative: Yes PMH/Surg Hx/FS Hx/Imm Hx Endocrine History: Diabetes Cardiovascular History: Cardiac Disease, Hypertension Neurological History: Other Other Neurological History: TBI Other History Of: Anticoagulant Therapy - Surgical History Surgical History: Yes Surgery Procedure, Year, and Place: CARDIAC STENT PLACEMENT 2010 and November 2016 , and January 2017. - Family History Known Family History: Positive: Cardiac Disease, Hypertension, Diabetes - Social History Alcohol Use: None Alcohol Amount: none since 10/2017 Substance Use Type: None Substance Use Comment - Amount & Last Used: 09/04/17 Smoking Status (MU): Never Smoked Tobacco - Immunization History Most Recent Influenza Vaccination: NEVER Most Recent Tetanus Shot: 2014 Most Recent Pneumonia Vaccination: NEVER Physical Exam - Summary Physical Exam Summary: VITAL SIGNS: Reviewed. GENERAL: Patient is a well-developed and nourished male who is lying comfortable in the stretcher. Patient is not in any acute respiratory distress. HEAD AND FACE: Normocephalic EYES: PERRLA, EOMI x 2. EARS: Hearing grossly intact. MOUTH: Oropharynx within normal limits. NECK: Supple, trachea is midline, no adenopathy, no JVD, no carotid bruit. CHEST: Symmetric, no tenderness at palpation LUNGS: Clear to auscultation bilaterally. No wheezing or crackles. CVS: Regular rate and rhythm, S1 and S2 present, no murmurs or gallops appreciated. ABDOMEN: Soft, non-tender. Bowel sounds are normal. No abdominal abnormal pulsations. EXTREMITIES: Full ROM in all major joints, no edema, no cyanosis or clubbing. NEURO: Alert and oriented x 3. No acute neurological deficits. Speech is normal and follows commands. SKIN: Dry and warm Triage Information Reviewed: Yes Vital Signs: Initial Vital Signs Temp 98.4 F 07/22/18 11:38 Pulse 55 07/22/18 11:38 Resp 16 07/22/18 11:38 BP 141/76 07/22/18 11:38 Pulse Ox 95 07/22/18 11:38 Vital Signs Reviewed: Yes Course/Dx - Course Course Of Treatment: BP noted and advised to f/u with PCP. Patient is a 48-year -old male who presents to the urgent care with a chief complaint of having pain in the injection site in the right gluteus. The patient has no signs of infection. There is no erythema, there is no swelling, there is no abscess formation. There is mild tenderness around the right gluteus, but the patient is able to ambulate without any pain. Since the patient is feeling better and is no signs of infection the patient will be discharged home with follow-up with his primary care physician. Patient is hemodynamically stable alert and oriented 3. - Diagnoses Provider Diagnoses: Musculoskeletal pain. HTN Discharge - Sign-Out/Discharge Documenting (check all that apply): Patient Departure All imaging exams completed and their final reports reviewed: No Studies - Discharge Plan Condition: Stable Disposition: HOME Patient Education Materials: Musculoskeletal Pain (ED) Referrals: Anuj Stevens MD [Primary Care Provider] - Additional Instructions: Take Acetaminophen or ibuprofen Increase your fluid intake Return to the UC or go to the emergency department if symptoms worsen Follow-up with primary care physician in next 2-3 days - Billing Disposition and Condition Condition: STABLE Disposition: Home - Attestation Statements Document Initiated by Scribe: Yes Documenting Scribe: Santi Romero Provider For Whom Scribe is Documenting (Include Credential): Gabino Plaza MD Scribe Attestation: Santi Mendoza, scribed for Gabino Plaza MD on 07/22/18 at 1159. Scribe Documentation Reviewed: Yes Provider Attestation: The documentation as recorded by the Santi painter accurately reflects the service I personally performed and the decisions made by Gabino bonilla MD
== END 2018-07-22 12:00 | disposition home or self-care (01) ==
LOC: UCEAST 11:06
DX: M79.10 Myalgia, unspecified site (principal); I10 Essential (primary) hypertension; E11.9 Type 2 diabetes mellitus without complications; R50.9 Fever, unspecified; R53.1 Weakness; Z88.8 Allergy status to other drugs, medicaments and biological substances; Z88.1 Allergy status to other antibiotic agents; Z79.899 Other long term (current) drug therapy; Z95.5 Presence of coronary angioplasty implant and graft
CPT/HCPCS: 99211; G0463

== ENCOUNTER 2018-08-29 21:20 | Emergency (ER) | payer OTHER ==
[2018-08-29 21:30] VITALS: BP 132/81
--- NOTE | 2018-08-29 22:18 | UC ---
Knee Pain HPI - HPI Summary HPI Summary: 48-year-old male comes in with a chief complaint of right knee pain. Patient woke with pain and swelling. Is primarily anterior aspect right knee. Chills feels well otherwise. Pain is worse with palpation or movement of the knee. No known injury. - History of Current Complaint Chief Complaint: UCLowerExtremity Stated Complaint: KNEE INJURY Time Seen by Provider: 08/29/18 22:06 Pain Intensity: 8 - Allergies/Home Medications Allergies/Adverse Reactions: Allergies Allergy/AdvReac Type Severity Reaction Status Date / Time amlodipine Allergy Mild Palpitation Verified 08/29/18 21:30 s azithromycin Allergy Mild Shakes Verified 08/29/18 21:30 erythromycin base Allergy Mild Shakes Verified 08/29/18 21:30 lisinopril Allergy Mild Palpitation Verified 08/29/18 21:30 s metoprolol [From Lopressor] Allergy Palpitation Verified 08/29/18 21:30 s Home Medications: Home Medications Allopurinol TAB* [Zyloprim 100 MG TAB*] 100 mg PO BID 08/29/18 [History Confirmed 08/29/18] PMH/Surg Hx/FS Hx/Imm Hx Cardiovascular History: Cardiac Disease, Hypertension Other History Of: Anticoagulant Therapy - Surgical History Surgical History: Yes Surgery Procedure, Year, and Place: CARDIAC STENT PLACEMENT 2010 and November 2016 , and January 2017. - Family History Known Family History: Positive: Cardiac Disease, Hypertension, Diabetes - Social History Alcohol Use: None Alcohol Amount: none since 10/2017 Substance Use Type: None Substance Use Comment - Amount & Last Used: 09/04/17 Smoking Status (MU): Never Smoked Tobacco - Immunization History Most Recent Influenza Vaccination: NEVER Most Recent Tetanus Shot: 2014 Most Recent Pneumonia Vaccination: NEVER Review of Systems All Other Systems Reviewed And Are Negative: Yes Constitutional: Positive: Negative Skin: Positive: Other - REDNESS RT ANTERIOR KNEE Eyes: Positive: Negative ENT: Positive: Negative Respiratory: Positive: Negative Cardiovascular: Positive: Negative Gastrointestinal: Positive: Negative Motor: Positive: Decreased ROM - SEE HPI Neurovascular: Positive: Negative Musculoskeletal: Positive: Other: - SEE HPI Neurological: Positive: Negative Psychological: Positive: Negative Is Patient Immunocompromised?: No Physical Exam Triage Information Reviewed: Yes Appearance: Well-Appearing, Well-Nourished, Pain Distress - MILD Vital Signs: Initial Vital Signs Temp 98.6 F 08/29/18 21:25 Pulse 70 08/29/18 21:25 Resp 16 08/29/18 21:25 BP 132/81 08/29/18 21:25 Pulse Ox 97 08/29/18 21:25 Vital Signs Reviewed: Yes Eye Exam: Normal Eyes: Positive: Conjunctiva Clear Neck exam: Normal Neck: Positive: Supple Respiratory: Positive: No respiratory distress Musculoskeletal: Positive: Other: - The right knee has swelling over the patella and erythema. The erythema is blanching. Tender to palpation of this area. No obvious skin break. Is not tender over the anterior tibia. Knee range of motion is decreased secondary to pain. Serial lateral aspects of the knee are normal temperature they are not hot they're not erythematous. Erythema and heat are limited to over the patella. Neurological Exam: Normal Neurological: Positive: Alert, Muscle Tone Normal Psychological Exam: Normal Psychological: Positive: Age Appropriate Behavior Skin: Positive: Other - ERYTHEMA ANTERIOR RT KNEE Knee Pain Course/Dx - Course Course Of Treatment: I discussed the x-ray reports with the patient. I do not see any fractures. The plan now is to treat for patellar bursitis with Keflex ibuprofen ice and rest and follow-up with orthopedics. Emergency department if anything gets worse. - Differential Dx/Diagnosis Provider Diagnosis: Knee pain, right, Prepatellar bursitis of right knee Discharge - Sign-Out/Discharge Documenting (check all that apply): Patient Departure All imaging exams completed and their final reports reviewed: No - Discharge Plan Condition: Stable Disposition: HOME Prescriptions: Cephalexin CAP* [Keflex CAP*] 500 mg PO QID #38 cap HYDROcodone/ACETAMIN 5-325 MG* [[place] 5-325 TAB*] 1 tab PO Q4H PRN #10 tab MDD 6 PRN Reason: Pain Patient Education Materials: Knee Bursitis (ED), Knee Pain (ED) Referrals: Anuj Stevens MD [Primary Care Provider] - Caden López MD [Medical Doctor] - Additional Instructions: FOLLOW UP WITH ORTHOPEDICS. GET RECHECKED FOR ANY WORSENING OF YOUR CONDITION; PAIN, FEVER, YOU FEEL ILL, SPREAD OF THE REDNESS OR QUESTIONS OR CONCERNS. - Billing Disposition and Condition Condition: STABLE Disposition: Home
[2018-08-29] MEDS ORDERED: HYDROcodone/ACETAMIN 5-325 MG* 1 TAB PO ONE (22:25)
[2018-08-29] MEDS ORDERED: Cephalexin CAP* 500 MG PO ONE ×2 (22:25→22:26)
--- NOTE | 2018-08-30 08:13 | UC ---
- Progress Note Progress Note: Patient Name: LEXUS THOMAS Medical Record#: [id number] Ordering Physician: Prakash Pillai MD Acct.#: [id number] : 1970 Age: 48 Sex: M Location: [facility] Exam Date: 08/29/182128 ADM Status: DEP ER Order Information: KNEE RIGHT 4+ VWS Accession Number: [id number] CPT: 40989 HISTORY: PAIN, right knee pain COMPARISONS: November 27, 2012 VIEWS: 4 , Frontal, lateral, axial, and oblique views of the right knee FINDINGS: BONE DENSITY: Normal. BONES: There is no displaced fracture. Again noted is an unfused tibial apophysis. JOINTS: There is no arthropathy. There is no suprapatellar joint effusion or lipohemarthrosis. ALIGNMENT: There is no dislocation. SOFT TISSUES: Unremarkable. OTHER FINDINGS: None. IMPRESSION: NO ACUTE OSSEOUS INJURY. IF SYMPTOMS PERSIST, RECOMMEND REPEAT IMAGING. R0 Preliminary Imaging Read R0 <Electronically signed by Ajit Zamudio MD in OV> 08/30/18748 Dictated By: Ajit Zamudio MD Dictated Date/Time: 08/30/18748 Transcribed Date/Time: 08/30/18747 Copy to: CC:Anuj Stevens MD PC; Prakash Pillai MD Imaging - [facility] Imaging - [facility] [address] [address] This report is only to be considered final once signed by the Provider(s) as displayed in the "<Electronically Signed by >" field (s). Absence of a signature indicates the report is in a draft status and still needs to be finalized. In the event this document was created by someone other than the signing Provider, the individual initiating the document will be listed in the "Entered by:" or "Dictated by:" ba. 1 of 2 Course/Dx - Diagnoses Provider Diagnoses: Knee pain, right, Prepatellar bursitis of right knee Discharge - Sign-Out/Discharge Documenting (check all that apply): Post-Discharge Follow Up All imaging exams completed and their final reports reviewed: Yes - Discharge Plan Condition: Stable Disposition: HOME Prescriptions: Cephalexin CAP* [Keflex CAP*] 500 mg PO QID #38 cap HYDROcodone/ACETAMIN 5-325 MG* [[place] 5-325 TAB*] 1 tab PO Q4H PRN #10 tab MDD 6 PRN Reason: Pain Patient Education Materials: Knee Bursitis (ED), Knee Pain (ED) Forms: *Work Release Referrals: Caden López MD [Medical Doctor] - Anuj Stevens MD [Primary Care Provider] - Additional Instructions: FOLLOW UP WITH ORTHOPEDICS. GET RECHECKED FOR ANY WORSENING OF YOUR CONDITION; PAIN, FEVER, YOU FEEL ILL, SPREAD OF THE REDNESS OR QUESTIONS OR CONCERNS. - Billing Disposition and Condition Condition: STABLE Disposition: Home
== END 2018-08-29 22:39 | disposition home or self-care (01) ==
LOC: UCEAST 21:20
DX: M25.561 Pain in right knee (principal); M70.41 Prepatellar bursitis, right knee; I11.9 Hypertensive heart disease without heart failure; Z95.5 Presence of coronary angioplasty implant and graft; Z79.01 Long term (current) use of anticoagulants; Z82.49 Family history of ischemic heart disease and other diseases of the circulatory system; Z83.3 Family history of diabetes mellitus; Z88.1 Allergy status to other antibiotic agents; Z88.8 Allergy status to other drugs, medicaments and biological substances
CPT/HCPCS: 99213; A9270-GY; G0463

== ENCOUNTER 2018-08-31 06:09 | Observation (INO) | payer OTHER ==
[2018-08-31 07:02] LABS: ABS Basophils 0 10^3/ul (0-0.2); ABS Eosinophils 0.4 10^3/ul (0-0.6); ABS Lymphocytes 1.3 10^3/ul (1.0-4.8); ABS Monocytes 0.6 10^3/ul (0-0.8); ABS Neutrophils 5.8 10^3/ul (1.5-7.7); ABS Nucleated RBC 0 10^3/ul; Eosinophil % 4.7 %; Hematocrit 40 % (42-52); Hemoglobin 13.9 g/dl (14.0-18.0); Lymphocyte % 16.4 %; Mean Corpuscular HGB Conc 34 g/dl (31-36); Mean Corpuscular Hemoglobin 29 pg (27-31); Mean Corpuscular Volume 83 fL (80-94); Mean Platelet Volume 7.8 fL (7.4-10.4); Nucleated Red Blood Cells % 0.2; Platelet Count 192 10^3/ul (150-450); Red Blood Count 4.84 10^6/ul (4.00-5.40); Red Cell Distribution Width 15 % (10.5-15); White Blood Count 8.2 10^3/ul (3.5-10.8)
[2018-08-31 07:18] LABS: EGFR Non-African American 83.3 (>60); Uric Acid 5.7 mg/dL (4.4-7.6)
[2018-08-31] MEDS ORDERED: Bupivacaine 0.5%* 50 ML VIAL INJ ONE (08:00)
--- NOTE | 2018-08-31 08:00 | ED ---
Lower Extremity - HPI Summary HPI Summary: Patient presents with right knee pain started Sunday. He reports he woke up with his pain - atraumatic (denies activity day before as well such as kneeling , squatting, etc). [facility] and [facility] diagnosed with prepatellar bursitis. Prescribed ibuprofen, [place] and Keflex and told to follow-up if symptoms worsen. He feels the redness has expanded, pain worse and so he came in today. He's had chills for the past 2 days although he had reported chills at this time of visit at the [facility] as well. Denies fever, headache, chest pain, shortness of breath, abdominal pain, vomiting, diarrhea. He reports when the pain gets bad he does experience some nausea. He has taken medications as directed and reports no relief with any of them. He has a history of gout but this primarily happens in his hands, has never had it happened his knee before. Takes allopurinol. History of alcohol abuse - has not had a drink since October 2017 per patient. He also denies any history of septic arthritis. H/o ISABEL during a bout of influenza - otherwise, no renal issues. Also reports h/o cellulitis and dermatitis "alot recently" - no known h/ o staph, MRSA. Nasal swab here neg for MRSA in the past. Denies taking immunosupressants/immunomodulators. Does have a. fib and takes xarelto. - History of Current Complaint Chief Complaint: EDExtremityLower Stated Complaint: R KNEE PAIN Time Seen by Provider: 08/31/18 06:36 Hx Obtained From: Patient Pain Intensity: 7 - Allergies/Home Medications Allergies/Adverse Reactions: Allergies Allergy/AdvReac Type Severity Reaction Status Date / Time amlodipine Allergy Mild Palpitation Verified 08/29/18 21:30 s azithromycin Allergy Mild Shakes Verified 08/29/18 21:30 erythromycin base Allergy Mild Shakes Verified 08/29/18 21:30 lisinopril Allergy Mild Palpitation Verified 08/29/18 21:30 s metoprolol [From Lopressor] Allergy Palpitation Verified 08/29/18 21:30 s PMH/Surg Hx/FS Hx/Imm Hx Previously Healthy: Yes Endocrine/Hematology History: Reports: Hx Anticoagulant Therapy - xarelto for a. fib, Hx Diabetes - diet controlled Cardiovascular History: Reports: Hx Angina, Hx Coronary Artery Disease, Hx Hypertension, Other Cardiovascular Problems/Disorders - STENT PLACED TO RCA Respiratory History: Reports: Hx Asthma, Other Respiratory Problems/Disorders - recurrent dermatitis of unknown origin History: Reports: Other Problems/Disorders - STAGE III CKD Musculoskeletal History: Reports: Hx Gout - hands - takes allopurinol Sensory History: Reports: Hx Contacts or Glasses Denies: Hx Hearing Aid Opthamlomology History: Reports: Hx Contacts or Glasses Psychiatric History: Reports: Hx Anxiety, Hx Depression - Currently on Zoloft - Surgical History Surgery Procedure, Year, and Place: CARDIAC STENT PLACEMENT 2010 and November 2016 , and January 2017. 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 Negative: Fever, Fatigue Eyes: Negative Cardiovascular: Negative Respiratory: Negative Positive: Nausea - from pain. Negative: Abdominal Pain, Vomiting, Diarrhea Positive: no symptoms reported Positive: Arthralgia, Decreased ROM, Edema Skin: Other - redness over anterior knee Neurological: Negative Psychological: Normal All Other Systems Reviewed And Are Negative: Yes Physical Exam Triage Information Reviewed: Yes Vital Signs On Initial Exam: Initial Vitals Temp Pulse Resp BP Pulse Ox 98.2 F 60 18 129/67 97 08/31/18 06:11 08/31/18 06:11 08/31/18 06:11 08/31/18 06:11 08/31/18 06:11 Vital Signs Reviewed: Yes Appearance: Positive: Well-Appearing, No Pain Distress - at rest, Well-Nourished , Pain Distress - pain w/ trying to move Rt knee Skin: Positive: Warm, Skin Color Reflects Adequate Perfusion, Dry - erythema, edema, and warmth over Rt knee - pain w/ flexion, TTP; other areas of skin w/ various stages superficial wounds (ie. scabbing on Rt dorsal UE, folliculitis on Lt torso, etc) - no signs of plaques or pattern of skin irregularity Head/Face: Positive: Normal Head/Face Inspection Eyes: Positive: Normal, EOMI ENT: Positive: Hearing grossly normal Respiratory/Lung Sounds: Positive: Breath Sounds Present Cardiovascular: Positive: Pulses are Symmetrical in both Upper and Lower Extremities. Negative: Leg Edema Left, Leg Edema Right Musculoskeletal: Positive: Pain @ - Rt knee flexion limited d/t pain - no streaking; anterior knee edematous Neurological: Positive: Normal, Sensory/Motor Intact, Alert, Oriented to Person Place, Time, CN Intact II-III Psychiatric: Positive: Normal Diagnostics - Vital Signs Vital Signs Temp Pulse Resp BP Pulse Ox 08/31/18 07:00 56 95 08/31/18 06:57 59 119/79 93 08/31/18 06:29 57 96 08/31/18 06:28 58 123/75 96 08/31/18 06:11 98.2 F 60 18 129/67 97 - Laboratory Lab Results: Lab Results 08/31/18 08/31/18 08/31/18 Range/Units 06:49 06:49 06:49 WBC 8.2 (3.5-10.8) 10^3/ul RBC 4.84 (4.00-5.40) 10^6/ul Hgb 13.9 L (14.0-18.0) g/dl Hct 40 L (42-52) % MCV 83 (80-94) fL MCH 29 (27-31) pg MCHC 34 (31-36) g/dl RDW 15 (10.5-15) % Plt Count 192 (150-450) 10^3/ul MPV 7.8 (7.4-10.4) fL Neut % (Auto) 71.2 % Lymph % (Auto) 16.4 % [place] % (Auto) 7.2 % Eos % (Auto) 4.7 % Baso % (Auto) 0.5 % Absolute Neuts (auto) 5.8 (1.5-7.7) 10^3/ul Absolute Lymphs (auto) 1.3 (1.0-4.8) 10^3/ul Absolute Monos (auto) 0.6 (0-0.8) 10^3/ul Absolute Eos (auto) 0.4 (0-0.6) 10^3/ul Absolute Basos (auto) 0 (0-0.2) 10^3/ul Absolute Nucleated RBC 0 10^3/ul Nucleated RBC % 0.2 Sodium 140 (135-145) mmol/L Potassium 4.1 (3.5-5.0) mmol/L Chloride 107 (101-111) mmol/L Carbon Dioxide 26 (22-32) mmol/L Anion Gap 7 (2-11) mmol/L BUN 18 (6-24) mg/dL Creatinine 0.96 (0.67-1.17) mg/dL Est GFR ( Amer) 100.7 (>60) Est GFR (Non-Af Amer) 83.3 (>60) BUN/Creatinine Ratio 18.8 (8-20) Glucose 204 H (70-100) mg/dL Lactic Acid 1.7 (0.5-2.0) mmol/L Uric Acid 5.7 (4.4-7.6) mg/dL Calcium 8.8 (8.6-10.3) mg/dL Total Bilirubin 0.30 (0.2-1.0) mg/dL AST 19 (13-39) U/L ALT 19 (7-52) U/L Alkaline Phosphatase 76 (34-104) U/L C-Reactive Protein 11.01 H (<8.01) mg/L Total Protein 6.1 L (6.4-8.9) g/dL Albumin 3.8 (3.2-5.2) g/dL Globulin 2.3 (2-4) g/dL Albumin/Globulin Ratio 1.7 (1-3) Result Diagrams: 08/31/18 06:49 08/31/18 06:49 Lab Statement: Any lab studies that have been ordered have been reviewed, and results considered in the medical decision making process. Lower Extremity Course/Dx - Course Course Of Treatment: Pt here w/ worsening Rt knee pain, redness, swelling - has been on 2 days of keflex but pain is inhibiting ROM and function. Diff dx: septic joint vs. cellulitis vs. gout. Discussed w/ Dr. Plaza who feels aspiration is risky as he could have worsening cellulitis. Labs: CRP 11, uric acid and WBC's normal, ESR. Blood cx's pending. Started anbx to cover strep, staph, MRSA. Discussed w/ Dr. Rivers who agrees to admit. Pt in stable condition at time of transition of care. - Diagnoses Provider Diagnoses: Infection of right knee Discharge - Sign-Out/Discharge Documenting (check all that apply): Patient Departure - Discharge Plan Condition: Stable Disposition: ADMITTED TO [facility] - Billing Disposition and Condition Condition: STABLE Disposition: Admitted to [facility]
[2018-08-31] MEDS ORDERED: Lidocaine 2% PF * 5 ML VIAL ONE (08:16)
[2018-08-31] MEDS ORDERED: Lidocaine 1%* 5 ML VIAL INJ ONE (08:16)
[2018-08-31] MEDS ORDERED: Piperacillin/Tazobac ADVAN(*) 3.375 GM in NS 0.9% 100 ML* 100 ML IVPB ONE (08:28)
[2018-08-31] MEDS ORDERED: Vancomycin(*) 1,500 MG in NS 0.9% 250 ML* 250 ML IVPB ONE (08:28)
[2018-08-31] MEDS ORDERED: NS 0.9% 1000 ML* 1,000 ML IV ONE (08:28)
[2018-08-31] MEDS ORDERED: Morphine VIAL* 4 MG/ML VIAL (1 ml vial) IV ONE (08:29)
[2018-08-31] MEDS ORDERED: Ondansetron INJ* 2 MG/ML VIAL IV ONE (08:29)
[2018-08-31] MEDS ORDERED: Al Hydrox/Mg Hydrox/Simet LIQ* 30 ML UDC PO PRN (08:47)
[2018-08-31] MEDS ORDERED: Morphine VIAL* 4 MG/ML VIAL (1 ml vial) IV PRN (09:05)
[2018-08-31] MEDS ORDERED: HYDROmorphone INJ* 1 MG/ML CARPUJECT SYRINGE IV SLOW PU ONE (10:52)
[2018-08-31] MEDS ORDERED: HYDROmorphone INJ1* 1 MG/ML SYRINGE IV SLOW PU ONE (11:00)
[2018-08-31] MEDS: Allopurinol TAB* 100 MG PO SCH ×2 (11:13→20:36)
[2018-08-31] MEDS: Dronedarone TAB* 400 MG PO SCH ×2 (11:13→20:36)
[2018-08-31] MEDS: Carvedilol TAB* 25 MG PO SCH ×2 (11:13→20:35)
--- NOTE | 2018-08-31 11:59 | PN ---
Progress Note - Progress Note Date of Service: 08/31/18 Note: Pt seen and examined. Formal consult dictated. 48 yo M with significant pain in knee for 3 days. Recommended aspirating knee. NPO for possible positive findings. If positive will plan for arthroscopic I and D of right knee.
--- NOTE | 2018-08-31 13:39 | PN ---
Progress Note - Progress Note Date of Service: 08/31/18 Note: Gram stain negative. Will follow cultures. Pt is allowed to eat. Will follow.
[2018-08-31] MEDS ORDERED: Rivaroxaban TAB(*) 15 MG PO SCH (17:00)
--- NOTE | 2018-08-31 20:23 | HP ---
CC: Dr. Stevens.* HISTORY AND PHYSICAL: DATE OF ADMISSION: 08/31/18 TIME OF ADMISSION: 9:00 a.m. CHIEF COMPLAINT: Right knee pain. HISTORY OF PRESENT ILLNESS: This is a 48-year-old man with history of coronary artery disease and paroxysmal atrial fibrillation who presented to the emergency department with worsening right knee pain. The pain started on . When he woke up, the first symptom was pain, then a few hours later, he noticed redness. On evening, he went to [facility] and was given Keflex and [place]. He was taking the Keflex and then last night he could not get comfortable, he could not sleep all night, the pain got worse and so he came to the emergency department. He cannot recall any trauma to the knee. He thinks he may have knelt on the hardwood floor but has no falls and did no physical labor for work. He does not use any IV drugs. He has never had any orthopedic surgeries and has no hardware. He has felt feverish but has not checked his temperature. The pain is 7/10 and he complains of decreased ability to move the knee so that it takes him 20 minutes to get in and out of the car each time. PAST MEDICAL HISTORY: 1. Coronary artery disease with stents. 2. Obstructive sleep apnea, on CPAP. 3. Paroxysmal AFib, on anticoagulation. 4. 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 5. History of alcoholism. He has been sober since October 2017. 6. Asthma. PAST SURGICAL HISTORY: He had an abscess on his buttock that was drained. 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 He does not smoke cigarettes and he uses no illicit drugs. His emergency contact is his mom Mireya her phone number is [phone]. REVIEW OF SYSTEMS: As per the HPI, remainder of the 14-point review of systems is negative. He has otherwise been healthy recently. PHYSICAL EXAMINATION GENERAL: Alert, well-appearing young man in no distress. VITAL SIGNS: Temperature is 98.2, heart rate 57, pulse ox 95% on room air, blood pressure 115/81. HEENT: He has facial plethora. His oral mucosa is moist. He has no palatal or mucosal lesions, petechiae or ulcers. NECK: No JVP. No adenopathy. LUNGS: His lungs are clear bilaterally. CHEST: He is in a regular rate and rhythm. I hear no murmurs. ABDOMEN: His abdomen is obese, soft, nontender, nondistended. EXTREMITIES: He has a faint patch of erythema over the patella and he can only flex the knee both actively and passively a few degrees. His distal pulses are 2+ and strength is 5/5 throughout. DIAGNOSTIC STUDIES/LAB DATA: White blood cells 8.2, hemoglobin 30.9, platelets 192, ESR pending. Sodium 140, potassium 4.1, chloride 107, glucose 204, creatinine 0.96, CRP 11.01. ASSESSMENT AND PLAN: This is a 48-year-old man with history of coronary artery disease, obstructive sleep apnea and atrial fibrillation who presents to the emergency department with worsening right knee pain and is found to have cellulitis. 1. Right knee cellulitis. Blood cultures have been sent and are pending. He has received vancomycin and Zosyn in the emergency department. I am continuing vancomycin as I think gram-positive coverage is most important and I have a low suspicion for gram-negative infection. I am going to consult orthopedic surgery as ruling out a septic joint is prudent given his decreased range of motion. He also has a history of gout but says he has never had it in his knee. I think it is possible that he had a gout flare and that is what has become infected, so it may be also helpful to send the fluid for crystals and treat this as a gout flare. 2. History of alcohol abuse. He has been sober since October 2017. 3. DVT prophylaxis: He is on therapeutic anticoagulation. 4. Diet: Unrestricted. 5. Hyperglycemia. I am adding on an A1c, as this appears to be a new problem for him. [id number]/[facility] #: [id number] [facility]
[2018-08-31] MEDS: Vancomycin(*) 1,500 MG in NS 0.9% 250 ML* 250 ML IVPB SCH (20:37)
[2018-08-31] MEDS ORDERED: lamoTRIgine TAB(*) 100 MG PO SCH (21:00)
[2018-08-31] MEDS: Acetaminophen TAB* 325 MG PO PRN (23:21)
[2018-09-01] MEDS: Carvedilol TAB* 25 MG PO SCH (08:28)
[2018-09-01] MEDS: Allopurinol TAB* 100 MG PO SCH (08:28)
[2018-09-01] MEDS: Dronedarone TAB* 400 MG PO SCH (08:28)
[2018-09-01] MEDS: Acetaminophen TAB* 325 MG PO PRN (08:29)
[2018-09-01 08:47] LABS: ABS Basophils 0 10^3/ul (0-0.2); ABS Eosinophils 0.4 10^3/ul (0-0.6); ABS Lymphocytes 1.1 10^3/ul (1.0-4.8); ABS Monocytes 0.5 10^3/ul (0-0.8); ABS Neutrophils 5.8 10^3/ul (1.5-7.7); ABS Nucleated RBC 0 10^3/ul; Eosinophil % 4.6 %; Hematocrit 45 % (42-52); Hemoglobin 15.3 g/dl (14.0-18.0); Lymphocyte % 14.4 %; Mean Corpuscular HGB Conc 34 g/dl (31-36); Mean Corpuscular Hemoglobin 28 pg (27-31); Mean Corpuscular Volume 83 fL (80-94); Mean Platelet Volume 7.3 fL (7.4-10.4); Nucleated Red Blood Cells % 0; Platelet Count 200 10^3/ul (150-450); Red Blood Count 5.44 10^6/ul (4.00-5.40); Red Cell Distribution Width 15 % (10.5-15); White Blood Count 7.7 10^3/ul (3.5-10.8)
--- NOTE | 2018-09-01 08:54 | PN ---
Progress Note - Progress Note Date of Service: 09/01/18 SOAP: Subjective: Pt seen and examined. Continues to have pain. Negative aspiration. Denies fevers or chills currently. Still cannot weight bear Objective: Temp Pulse Resp BP Pulse Ox 98.2 F 55 16 139/79 100 09/01/18 08:16 09/01/18 08:16 09/01/18 08:16 09/01/18 08:16 09/01/18 08:16 NAD. R knee with cellulitis anterolaterally. Limited ROM 0-30 degrees which is slight improvement. calf soft, nontender. SILT grossly distally. brisk cap refill. Laboratory Results - last 24 hr 08/31/18 08/31/18 08/31/18 06:49 06:49 11:01 WBC RBC Hgb Hct MCV MCH MCHC RDW Plt Count MPV Neut % (Auto) Lymph % (Auto) [place] % (Auto) Eos % (Auto) Baso % (Auto) Absolute Neuts (auto) Absolute Lymphs (auto) Absolute Monos (auto) Absolute Eos (auto) Absolute Basos (auto) Absolute Nucleated RBC Nucleated RBC % ESR 15 H Hemoglobin A1c 6.4 H Fluid Source Synovial fluid Fluid Volume 0.5 Fluid Color Red Fluid Appearance Bloody Fluid WBC Fluid RBC Not Reportable Fluid Tot Cell Count 100 Fluid Neutrophils 83 Fluid Lymphocytes 16 Fluid Monocytes 1 Fluid Crystals 08/31/18 09/01/18 11:01 08:34 WBC 7.7 RBC 5.44 H Hgb 15.3 Hct 45 MCV 83 MCH 28 MCHC 34 RDW 15 Plt Count 200 MPV 7.3 L Neut % (Auto) 74.5 Lymph % (Auto) 14.4 [place] % (Auto) 5.9 Eos % (Auto) 4.6 Baso % (Auto) 0.6 Absolute Neuts (auto) 5.8 Absolute Lymphs (auto) 1.1 Absolute Monos (auto) 0.5 Absolute Eos (auto) 0.4 Absolute Basos (auto) 0 Absolute Nucleated RBC 0 Nucleated RBC % 0 ESR Hemoglobin A1c Fluid Source Fluid Volume Fluid Color Fluid Appearance Fluid WBC Fluid RBC Fluid Tot Cell Count Fluid Neutrophils Fluid Lymphocytes Fluid Monocytes Fluid Crystals None seen Microbiology 08/31/18 11:01 Gram Stain - Final Joint Fluid(Synovial) - Knee Right Microbiology 08/31/18 11:01 Joint Fluid(Synovial) - Knee Right Gram Stain - Final Assessment: 48 yo M with acute right knee pain. Plan: aspiration negative gram stain. pt still in pain. will recommend MRI due to significant pain, limited ROM, inability to weight bear. will cont to follow
[2018-09-01] MEDS ORDERED: Sertraline* 100 MG TAB PO SCH (09:00)
[2018-09-01 09:02] LABS: EGFR Non-African American 87.4 (>60)
[2018-09-01] MEDS: Vancomycin(*) 1,500 MG in NS 0.9% 250 ML* 250 ML IVPB SCH (09:26)
[2018-09-01 11:39] VITALS: BP 110/64
--- NOTE | 2018-09-01 17:04 | CONS ---
CONSULTATION REPORT: DATE OF CONSULT: 08/31/18 ATTENDING PHYSICIAN: Jamal Mayes MD. CHIEF COMPLAINT: Right knee pain. HISTORY OF PRESENT ILLNESS: Briefly, Mr. Longoria is a 48-year-old male with no significant history of knee issues that presents with right knee pain. It started on Sunday or . He had a lo t of pain and then he started noticing redness. [facility] and [facility] Keflex and [place]. He could not sleep, he kept having pain, he was unable to weight bear, he was brought to the E R. 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 He denies any numbness or tingling. No calf pain. No shortness of breath. He states t hat he felt like he had some low-grade fevers, but they were not checked. 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 PAST SURGICAL HISTORY: He has had stents placement as well as history of several abscesses on his bu tt and his rectum that were drained. 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 He does not smoke cigarettes or use i llicit drugs. Emergency contact is his mother. He is right- hand dominant. He walks without any as sistive devices. REVIEW OF SYSTEMS: A 14-point review of systems reviewed with the patient, significant only for the above complaint. Otherwise, remainder of the systems is negative. PHYSICAL EXAM: He is in no acute distress. He is well developed, well nourished. He is alert and or iented x3. He has pleasant mood and normal affect. Good balance and coordination in his extremities . Temperature 98.4, pulse of 54, respiratory rate 18, O2 saturation 96 on room air, blood pressure 1 51/89. He is in no acute distress. EOMI. Chest: Clear to auscultation. Heart is regular rate and rhythm. Abdomen is soft, nontender. Examination of the right knee demonstrates skin is intact. He d oes have superficial cellulitis more anterolaterally. He has an effusion that is present as well. I t appears to be intraarticular. He has limited range of motion from 10 to about 25 degrees. Stable to varus and valgus stress. Calf soft, nontender. Sensate to light touch from the first dorsal websp jody, medial, lateral, dorsal, and plantar foot. 2+ PT pulse. He is able to dorsiflex and plantarfle x his ankle. Flexors in the toes. DIAGNOSTIC STUDIES/LAB DATA: X-rays were reviewed, they are normal appearing films, demonstrate no f ractures or dislocation. Labs: White count of 8.2, hematocrit of 40, ESR of 15, platelet 192. Sodium of 140, potassium 4.1, chloride 107, carbon dioxide 26, BUN 18, creatinine 0.96, glucose 204, hemoglobin A1c is 6.4. ASSESSMENT AND PLAN: He has increasing knee pain as well as effusion, it does not appear to be prepa tellar. He does have . He has mildly elevated markers. I am concerned because of his lack of motion and his significant knee pain with weightbearing, so I will tap his knee. He is in agreement with his plan. Under sterile conditions, the medial aspect of the knee was tapped as this was only p lace without surrounding cellulitis, only about 2 cc of clear fluid came back. I walked this down to the lab. We will follow and keep him NPO until labs are determined although Gram stain reports nega tive. It does not infectious me, but I will watch it very closely. ADDENDUM: The fluid was run. White blood cell count was not able to be reported as there was not en ough sample. Gram stain was negative and crystals were negative. We will continue to follow to him in-house. [id number]/[facility] #: [id number]
--- NOTE | 2018-09-02 03:15 | DS ---
CC: Dr. Stevens; Dr. Mayes * DISCHARGE SUMMARY: DATE OF ADMISSION: 08/31/18 DATE OF DISCHARGE: 09/01/18 PRINCIPAL DISCHARGE DIAGNOSES: 1. Left knee monoarticular arthritis. 2. Right knee cellulitis. SECONDARY DISCHARGE DIAGNOSES: 1. Coronary artery disease with stents. 2. Obstructive sleep apnea, on CPAP. 3. Paroxysmal atrial fibrillation, on anticoagulation. 4. Ischemic versus EtOH-induced cardiomyopathy. 5. History of alcoholism with sobriety since October 2017. 6. Asthma. PHYSICAL EXAM: At discharge, temperature 98.4, heart rate 56, respiratory rate 16, pulse ox 97% on room air, blood pressure 110/64. General: Alert, well- appearing man, in no distress. He is walking the hallways and his gait is normal. HEENT: Pupils equal, round, and reactive to light. Oral mucosa is moist. Neck: No JVP, no adenopathy. Chest: Regular rate and rhythm. No murmurs. Lungs are clear bilaterally. Abdomen is obese, soft, nontender, and nondistended. Extremities: He was able to flex the left knee to 90 degrees. The erythema over his right knee has receded from the line I davis yesterday. His knee is not warm like it was yesterday and his strength is 5/5 throughout. HOSPITAL COURSE BY PROBLEM: 1. Right knee cellulitis. He was treated with IV vancomycin and improved quickly. His knee was aspirated by Dr. Mayes on 08/31 and the lab reported insufficient fluid for WBCs but the total cell count was only 100 and 83 neutrophils and 16 lymphocytes. He responded quickly to doxycycline. An MRI was considered on 09/01; however, he continued to improve and was able to ambulate in the hallway and then his knee with good range of motion, so the MRI is deferred until he sees Dr. Mayes this week, at which point that can be reconsidered if he is still having pain. I am discharging him on doxycycline for 8 more days for a total of a 10-day course. The fluid was also negative for crystals. 2. Monarticular arthritis. I suspect this was related to the cellulitis and swelling; however, it is also possible that it was a primary monarticular arthritis first. At the time of discharge, a urine GC and Chlamydia is pending as well as the Lyme PCR. I have discussed this with Dr. Mayes and asked that she follow it up in clinic this week and she agrees. 3. Coronary artery disease. He was having no chest pain and was continued on his home dose of Coreg. 4. AFib. He was in a regular rhythm here and was continued on Xarelto. DISCHARGE MEDICATIONS: 1. Xarelto 50 mg daily. 2. Multaq 400 mg b.i.d. 3. Sertraline 200 mg daily. 4. Lamotrigine 100 mg q.h.s. 5. Coreg 50 mg b.i.d. 6. Allopurinol 100 mg b.i.d. 7. [place] 1 tab q.4 hours p.r.n. pain. 8. Doxycycline 100 mg b.i.d. for 8 more days. Mr. Longoria is to follow up with Dr. Stevens and Dr. Mayes this week. He is to return to the emergency department should his pain and swelling worsen or he has decreased range of motion of his knee. [id number]/[facility] #: [id number] [facility]
[2018-09-02] MEDS ORDERED: Vancomycin Trough Check NOTE FOLLOW UP ONE (09:30)
[2018-09-03 22:55] LABS: B garinii/B afzelii PCR Negative (Negative)
== END 2018-09-01 13:00 | disposition home or self-care (01) ==
LOC: ED 06:09 → MEDTELE 08:47
PROVIDERS: ADMIT Internal Medicine; ATTEND Internal Medicine
DX: M17.12 Unilateral primary osteoarthritis, left knee (principal); L03.115 Cellulitis of right lower limb; I25.10 Atherosclerotic heart disease of native coronary artery without angina pectoris; Z95.5 Presence of coronary angioplasty implant and graft; G47.33 Obstructive sleep apnea (adult) (pediatric); I48.0 Paroxysmal atrial fibrillation; Z79.01 Long term (current) use of anticoagulants; I25.5 Ischemic cardiomyopathy; F10.21 Alcohol dependence, in remission; J45.909 Unspecified asthma, uncomplicated; I10 Essential (primary) hypertension; Z88.8 Allergy status to other drugs, medicaments and biological substances
CPT/HCPCS: 36415; 80048; 80053; 83036; 83605; 84550; 85025; 85652; 86140; 87040; 87070; 87205; 87476; 87491; 87591; 87798; 89051; 89060; 96365; 96366; 96375; 96376; 99284; A9270-GY; G0378; J1170; J2270; J2405; J2543; J3370

== ENCOUNTER 2018-10-24 09:21 | Emergency (ER) | payer OTHER ==
--- NOTE | 2018-10-24 09:58 | ED ---
Complex/Multi-Sys Presentation - HPI Summary HPI Summary: Pt presents w/ concerns for increased ammonia level on recent labs and sx possibly correlating. Has been taking lactulose as directed. Reports 2 weeks he started having episodes of blackouts, dizziness and vivid dreams which were sx he had w/ increased ammonia level in the past. These sx have been intermittent. He also reports associated sx anxiety and SOB that come and go. He was treating his anxiety with hydroxyzine about 1 month ago but stopped d/t false positive drug test (kept getting positive for codeine). Switched to buspar through PCP about 1 week ago - no relief w/ anxiety but doesn't feel worse. Reports he takes this PRN which for him has been 4 x week. Additionally, he reports last night he had dark urine. Associated sx of some dysuria and left side discomfort - feels swollen on the side and discomfort is colicky. Also noticed a pea sized swelling in his Lt testicle that has since resolved - nonpainful. Urine color more clear after drinking water this morning. Other med hx significant for: *DM - diet controlled but admits he's been eating a lot of sugar lately. *[place] w/ stents - denies CP at this time *hepatic encephalopathy - 1 year ago - History Of Current Complaint Chief Complaint: EDWeakness Time Seen by Provider: 10/24/18 09:25 Hx Obtained From: Patient - Allergies/Home Medications Allergies/Adverse Reactions: Allergies Allergy/AdvReac Type Severity Reaction Status Date / Time amlodipine Allergy Mild Palpitation Verified 10/24/18 09:29 s azithromycin Allergy Mild Shakes Verified 10/24/18 09:29 erythromycin base Allergy Mild Shakes Verified 10/24/18 09:29 lisinopril Allergy Mild Palpitation Verified 10/24/18 09:29 s metoprolol [From Lopressor] Allergy Palpitation Verified 10/24/18 09:29 s PMH/Surg Hx/FS Hx/Imm Hx Previously Healthy: Yes Endocrine/Hematology History: Reports: Hx Anticoagulant Therapy - xarelto for a. fib, Hx Diabetes - diet controlled Cardiovascular History: Reports: Hx Angina, Hx Coronary Artery Disease, Hx Hypertension, Other Cardiovascular Problems/Disorders - STENT PLACED TO RCA Respiratory History: Reports: Hx Asthma, Other Respiratory Problems/Disorders - recurrent dermatitis of unknown origin GI History: Reports: Other GI Disorders - hepatic encephalopathy dx'd 10/24/2017 History: Reports: Other Problems/Disorders - STAGE III CKD Musculoskeletal History: Reports: Hx Gout - hands - takes allopurinol Sensory History: Reports: Hx Contacts or Glasses Denies: Hx Hearing Aid Opthamlomology History: Reports: Hx Contacts or Glasses Psychiatric History: Reports: Hx Anxiety, Hx Depression - Currently on Zoloft, buspar and in counseling, Hx Substance Abuse - h/o ETOH abuse - in remission - Surgical History Surgery Procedure, Year, and Place: CARDIAC STENT PLACEMENT 2010 and November 2016 , and January 2017. - Immunization History Date of Tetanus Vaccine: utd Date of Influenza Vaccine: none Infectious Disease History: No Infectious Disease History: Denies: Hx Clostridium Difficile, Hx of Known/Suspected MRSA, Traveled Outside the [place] in Last 30 Days - Family History Known Family History: Positive: Cardiac Disease, Hypertension, Diabetes - Social History Lives: With Family - takes care of mom Alcohol Use: None Alcohol Amount: H/o ETOH abuse - none since 10/2017 Hx Substance Use: No Substance Use Type: Reports: None Substance Use Comment - Amount & Last Used: 09/04/17 Hx Tobacco Use: No Smoking Status (MU): Never Smoked Tobacco Review of Systems Positive: Chills - yesterday, Fatigue. Negative: Fever Eyes: Negative ENT: Negative Cardiovascular: Negative Positive: Shortness Of Breath. Negative: Cough Negative: Abdominal Pain, Vomiting, Nausea Positive: see HPI Musculoskeletal: Negative Skin: Negative Positive: Headache. Negative: Weakness, Paresthesia, Numbness, Syncope, Slurred Speech Positive: Depressed - with anxiety - has days where he feels hopeless but denies SI - follows w/ counselor - hopeful this is helping All Other Systems Reviewed And Are Negative: Yes Physical Exam Triage Information Reviewed: Yes Vital Signs On Initial Exam: Initial Vitals Temp Pulse Resp BP Pulse Ox 98.7 F 57 17 153/93 95 10/24/18 09:22 10/24/18 09:22 10/24/18 09:22 10/24/18 09:22 10/24/18 09:22 Vital Signs Reviewed: Yes Appearance: Positive: No Pain Distress - apepars mildly fatigued but appears to be good hsitorian, Obese Skin: Positive: Warm, Skin Color Reflects Adequate Perfusion, Dry - no purpura over ab/flanks Head/Face: Positive: Normal Head/Face Inspection Eyes: Positive: Normal, EOMI, FATUMA, Conjunctiva Clear - anicteric sclera ENT: Positive: Hearing grossly normal, Pharynx normal - mucosa moist Neck: Positive: Supple, Nontender Respiratory/Lung Sounds: Positive: Clear to Auscultation, Breath Sounds Present. Negative: Rales, Rhonchi, Wheezes Cardiovascular: Positive: Normal, RRR, S1, S2. Negative: Murmur, Rub, Leg Edema Left, Leg Edema Right Abdomen Description: Positive: No Organomegaly, Soft, Other: - Lt side pain - mild TTP - no rebounding; no ascites. Negative: CVA Tenderness (R), CVA Tenderness (L), Distended, Peritoneal Signs Bowel Sounds: Positive: Present Male Genital Exam: Positive: Other - deferred - pt reports sx resolved Musculoskeletal: Positive: Normal, Strength/ROM Intact Neurological: Positive: Normal, Sensory/Motor Intact, Alert, Oriented to Person Place, Time, CN Intact II-III, Other - no myoclonus Psychiatric: Positive: Normal - denies SI/HI - [place] Coma Scale Best Eye Response: 4 - Spontaneous Best Motor Response: 6 - Obeys Commands Best Verbal Response: 5 - Oriented Coma Scale Total: 15 Diagnostics - Vital Signs Vital Signs Temp Pulse Resp BP Pulse Ox 10/24/18 09:22 98.7 F 57 17 153/93 95 - Laboratory Result Diagrams: 10/24/18 10:25 10/24/18 10:25 Lab Statement: Any lab studies that have been ordered have been reviewed, and results considered in the medical decision making process. Complex Multi-Symp Course/Dx Course Of Treatment: CXR: no acute cardiopulm dz. CT ab/pelvis: no acute or subacute findings of concern. U/A: normal/neg. Labs: Ammonia level continues to increase - 79 today up from 56 on 10/16 - with normal LFT's. He does not appear to have acute hepatic encephalopathy nor acute causes such as GI bleed, renal dysfunction, shock, heavy physical exertion, and denies drug and ETOH use. He is of sound mind and reports sx are intermittent. He agrees to increase his lactulose level and have close f/u w/ PCP within the week to recheck labs and sx. He is aware if he's worse, he needs to return to ED. Re: mood, he is hopeful his counselor is helping him and denies SI today. Aware that if he feels worse re: mood, he needs to contact his counselor -if SI/HI, return to ED. - Diagnoses Provider Diagnoses: Increased ammonia level Discharge - Sign-Out/Discharge Documenting (check all that apply): Patient Departure - Discharge Plan Condition: Stable Disposition: HOME Referrals: Anuj Stevens MD [Primary Care Provider] - Additional Instructions: Your ammonia level appears to be elevated today despite taking 10gm of lactulose 2 x day. Will try an increase in lactulose of 20 grams 2 x day and close follow-up with your PCP. Follow-up Sunday for repeat labs - call today to schedule an appointment. If you feel worse in the meantime, return to the ED. - Billing Disposition and Condition Condition: STABLE Disposition: Home
[2018-10-24 10:45] LABS: ABS Basophils 0 10^3/ul (0-0.2); ABS Eosinophils 0.2 10^3/ul (0-0.6); ABS Monocytes 0.5 10^3/ul (0-0.8); ABS Neutrophils 5.2 10^3/ul (1.5-7.7); ABS Nucleated RBC 0 10^3/ul; Eosinophil % 2.3 %; Hematocrit 44 % (42-52); Hemoglobin 14.8 g/dl (14.0-18.0); Lymphocyte % 14.9 %; Mean Corpuscular HGB Conc 34 g/dl (31-36); Mean Corpuscular Hemoglobin 28 pg (27-31); Mean Corpuscular Volume 83 fL (80-94); Mean Platelet Volume 7.8 fL (7.4-10.4); Nucleated Red Blood Cells % 0; Platelet Count 178 10^3/ul (150-450); Red Blood Count 5.21 10^6/ul (4.00-5.40); Red Cell Distribution Width 15 % (10.5-15); White Blood Count 6.9 10^3/ul (3.5-10.8)
[2018-10-24 10:58] LABS: Activated Partial Thrombo Time 31.9 seconds (26.0-36.3); INR 1.05 (0.77-1.02)
[2018-10-24 11:01] LABS: BNP 50 pg/mL (<=100)
[2018-10-24 11:13] LABS: ALT 20 U/L (7-52); AST 20 U/L (13-39); Albumin 3.9 g/dL (3.2-5.2); Albumin/Globulin Ratio 1.5 (1-3); Alkaline Phosphatase 72 U/L (34-104); Anion Gap 6 mmol/L (2-11); BUN/Creatinine Ratio 20.7 (8-20); Blood Urea Nitrogen 19 mg/dL (6-24); C Reactive Protein 3.96 mg/L (<8.01); CO2 Carbon Dioxide 27 mmol/L (22-32); Chloride 106 mmol/L (101-111); EGFR African American 105.8 (>60); EGFR Non-African American 87.4 (>60); Globulin 2.6 g/dL (2-4); Glucose 152 mg/dL (70-100); Magnesium 2.2 mg/dL (1.9-2.7); Potassium 4.3 mmol/L (3.5-5.0); Sodium 139 mmol/L (135-145); Total Protein 6.5 g/dL (6.4-8.9)
[2018-10-24 11:15] LABS: Alcohol < 10 mg/dL (<10)
[2018-10-24 11:22] LABS: TSH (Thyroid Stimulating Horm) 1.92 mcIU/mL (0.34-5.60)
[2018-10-24 11:54] LABS: Urine Appearance Clear; Urine Bilirubin Negative (Negative); Urine Blood Negative (Negative); Urine Color Yellow; Urine Glucose Negative (Negative); Urine Ketones Negative (Negative); Urine Nitrite Negative (Negative); Urine Protein Negative (Negative); Urine Specific Gravity 1.021 (1.010-1.030); Urine Urobilinogen Negative (Negative)
[2018-10-24 14:32] VITALS: BP 159/108
== END 2018-10-24 14:15 | disposition home or self-care (01) ==
LOC: ED 09:21
DX: E72.20 Disorder of urea cycle metabolism, unspecified (principal); Z79.01 Long term (current) use of anticoagulants; I25.10 Atherosclerotic heart disease of native coronary artery without angina pectoris; J45.909 Unspecified asthma, uncomplicated; I12.9 Hypertensive chronic kidney disease with stage 1 through stage 4 chronic kidney disease, or unspecified chronic kidney disease; E11.22 Type 2 diabetes mellitus with diabetic chronic kidney disease; N18.3 Chronic kidney disease, stage 3 (moderate); F32.9 Major depressive disorder, single episode, unspecified
CPT/HCPCS: 36415; 71046; 74176; 80053; 80320; 81003; 82140; 83605; 83735; 83880; 84443; 84484; 85025; 85610; 85730; 86140; 93005; 99282; G0480

== ENCOUNTER 2018-10-29 13:48 | Emergency (ER) | payer OTHER ==
--- NOTE | 2018-10-29 16:07 | ED ---
Palpitations / Dysrhythmia - HPI Summary HPI Summary: Patient is a 48-year-old male presenting to the ED from the senior care with elevated ammonia levels. He states he has been feeling symptomatic. He endorses bilateral anterior thigh numbness intermittently, weakness, intermittent headaches and feelings of palpitations. He states he gets these symptoms when he has high ammonia levels. He endorses dizziness and has a history of anxiety as well. He recently increased his lactulose levels to 20 mg twice daily up from 10 mg twice daily. He states he feels his lactulose ammonia levels are still high. He denies any fevers, sweats, chills. He denies any cold or flulike symptoms otherwise. - History of Current Complaint Chief Complaint: EDDysrhythmPalp Time Seen by Provider: 10/29/18 14:23 Hx Obtained From: Patient Onset/Duration: Gradual Onset Timing: Constant Severity Initially: Moderate Severity Currently: Moderate Associated Signs & Symptoms: Negative - Risk Factors Cardiac: Negative Pulmonary Embolism: Negative Atrial Fibrillation: Negative - Allergy/Home Medications Allergies/Adverse Reactions: Allergies Allergy/AdvReac Type Severity Reaction Status Date / Time amlodipine Allergy Mild Palpitation Verified 10/29/18 13:55 s azithromycin Allergy Mild Shakes Verified 10/29/18 13:55 erythromycin base Allergy Mild Shakes Verified 10/29/18 13:55 lisinopril Allergy Mild Palpitation Verified 10/29/18 13:55 s metoprolol [From Lopressor] Allergy Palpitation Verified 10/29/18 13:55 s PMH/Surg Hx/FS Hx/Imm Hx Previously Healthy: Yes Endocrine/Hematology History: Reports: Hx Anticoagulant Therapy - xarelto for a. fib, Hx Diabetes - diet controlled Cardiovascular History: Reports: Hx Angina, Hx Coronary Artery Disease, Hx Hypertension, Other Cardiovascular Problems/Disorders - STENT PLACED TO RCA Respiratory History: Reports: Hx Asthma, Other Respiratory Problems/Disorders - recurrent dermatitis of unknown origin GI History: Reports: Other GI Disorders - hepatic encephalopathy dx'd 10/24/2017 History: Reports: Other Problems/Disorders - STAGE III CKD Musculoskeletal History: Reports: Hx Gout - hands - takes allopurinol Sensory History: Reports: Hx Contacts or Glasses Denies: Hx Hearing Aid Opthamlomology History: Reports: Hx Contacts or Glasses Psychiatric History: Reports: Hx Anxiety, Hx Depression - Currently on Zoloft, buspar and in counseling, Hx Substance Abuse - h/o ETOH abuse - in remission - Surgical History Surgery Procedure, Year, and Place: CARDIAC STENT PLACEMENT 2010 and November 2016 , and January 2017. - Immunization History Date of Tetanus Vaccine: utd Date of Influenza Vaccine: none Hx Pertussis Vaccination: No Immunizations Up to Date: Yes Infectious Disease History: No Infectious Disease History: Denies: Hx Clostridium Difficile, Hx of Known/Suspected MRSA, Traveled Outside the [place] in Last 30 Days - Family History Known Family History: Positive: Cardiac Disease, Hypertension, Diabetes - Social History Occupation: Unemployed Lives: Alone Alcohol Use: None Alcohol Amount: H/o ETOH abuse - none since 10/2017 Hx Substance Use: No Substance Use Type: Reports: None Substance Use Comment - Amount & Last Used: 09/04/17 Hx Tobacco Use: No Smoking Status (MU): Never Smoked Tobacco Review of Systems Constitutional: Negative Negative: Fever, Chills, Fatigue, Skin Diaphoresis Positive: Palpitations. Negative: Chest Pain Negative: Shortness Of Breath, Cough Genitourinary: Negative Positive: no symptoms reported, see HPI Positive: Other - bilateral tingling to the anterior thighs, weakness Skin: Negative Positive: Headache, Weakness All Other Systems Reviewed And Are Negative: Yes Physical Exam Triage Information Reviewed: Yes Vital Signs On Initial Exam: Initial Vitals Temp Pulse Resp BP Pulse Ox 98.1 F 53 16 152/105 96 10/29/18 13:50 10/29/18 13:50 10/29/18 13:50 10/29/18 13:50 10/29/18 13:50 Vital Signs Reviewed: Yes Appearance: Positive: Well-Appearing, Well-Nourished Skin: Positive: Skin Color Reflects Adequate Perfusion Head/Face: Positive: Normal Head/Face Inspection Eyes: Positive: FATUMA Neck: Positive: No Lymphadenopathy Respiratory/Lung Sounds: Positive: Clear to Auscultation, Breath Sounds Present Cardiovascular: Positive: RRR, Pulses are Symmetrical in both Upper and Lower Extremities Musculoskeletal: Positive: Normal, Strength/ROM Intact Neurological: Positive: Speech Normal Psychiatric: Positive: Affect/Mood Appropriate Diagnostics - Vital Signs Vital Signs Temp Pulse Resp BP Pulse Ox 10/29/18 15:25 56 13 139/86 95 10/29/18 15:00 55 17 93 10/29/18 14:56 55 16 143/88 94 10/29/18 14:00 55 95 10/29/18 13:54 54 158/93 95 10/29/18 13:50 98.1 F 53 16 152/105 96 - Laboratory Result Diagrams: 10/29/18 15:49 Lab Statement: Any lab studies that have been ordered have been reviewed, and results considered in the medical decision making process. Course/Dx - Course Course Of Treatment: During the course of treatment, the patient's evaluated for symptoms possibly related to high ammonia levels. History of hepatic encephalopathy. He states Dr. Grullon had ordered him special liver tests to check his liver function to assess for hepatic encephalopathy or other acute causes including renal function. Called Dr. Grullon at 3:15p who states he had ordered liver function tests only. Recently had a CT abdomen and pelvis with no acute findings. UA have been normal in the past. He denies any SI, HI. Denies any drug or EtOH use. Lactulose is 56, down from previous 76. Patient is stable and completely asymptomatic at this time. He will follow up with his PCP. Nothing else found on lab work today. Physical physical exam normal. On discharge, patient states he wants to kill himself. He states he has so many medical problems and no one is giving him answers. He states he is going to "off myself" the moment he gets discharge. At this time he needs a MHU. - Diagnoses Provider Diagnoses: Suicidal ideation, Weakness Discharge - Sign-Out/Discharge Documenting (check all that apply): Sign-Out Patient Signing out patient TO: Reynaldo Salguero - Discharge Plan Condition: Stable Disposition: HOME Referrals: Anuj Stevens MD [Primary Care Provider] - - Billing Disposition and Condition Condition: STABLE Disposition: Home
[2018-10-29 16:21] LABS: Albumin 4.3 g/dL (3.2-5.2); Albumin/Globulin Ratio 1.7 (1-3); BUN/Creatinine Ratio 12.9 (8-20); Calcium 9.3 mg/dL (8.6-10.3); EGFR African American 104.5 (>60); EGFR Non-African American 86.4 (>60); Globulin 2.5 g/dL (2-4); Indirect Bilirubin 0.5 mg/dL (0.3-1.0); Potassium 4.3 mmol/L (3.5-5.0); Total Bilirubin 0.6 mg/dL (0.2-1.0); Total Protein 6.8 g/dL (6.4-8.9)
--- NOTE | 2018-10-29 17:33 | PN ---
Progress Note - Progress Note Date of Service: 10/29/18 Note: Patient from [facility] complaining SI. Discussed patient with Sgt. Roca of [facility] who stated they had separate mental health unit and would provide patient with one-on-one observation until he can be evaluated by mental health in the morning. Discussed this option with mental health station gateman here at [facility] who is aware of this program at [facility] and approved the plan.
[2018-10-29 17:46] VITALS: BP 125/81
== END 2018-10-29 17:45 ==
LOC: ED 13:48
DX: R00.2 Palpitations (principal); R45.851 Suicidal ideations; R53.1 Weakness; Z79.01 Long term (current) use of anticoagulants; R51 Headache
CPT/HCPCS: 36415; 80053; 82140; 82248; 84484; 93005; 99282

== ENCOUNTER 2018-11-15 17:07 | Emergency (ER) | payer SELFPAY ==
--- OUTSIDE RECORDS SUMMARY | 2018-11-15 17:35 | XMS REPORT | Continuity of Care Document ---
:1970 External Reference #:[id number] Author Name Milagro Sorto Care Team Providers Name Role Phone Anuj Stevens MD Care Team Information Manager Clinic Unavailable Anuj Stevens MD Primary Care Physician Unavailable Payers Type Date Identification Numbers Payment Provider Subscriber Policy Number: [id number] Jayy Longoria Group Number: [id number] [address] PayID: [id number] [place] [address] Effective: 2017 Policy Number: [id number] Medicaid Rashaun Longoria Expires: 2018 Group Name: 1 1 [address] PayID: [id number] [place] [address] Advance Directives Description No Information Available Problems Date Description Provider Status Onset: 12/18/2016 Acute subendocardial infarction Aniya Rao MD, [facility] , Active [facility] Family History Description No Information Available Social History Type Date Description Comments Sex Unknown 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 Tobacco Use Start: Unknown Never Smoked Cigarettes Smoking Status Reviewed: 05/13/18 Never Smoked Cigarettes ETOH Use Denies alcohol use Tobacco Use Start: Unknown Patient has never smoked Recreational Drug Use Denies Drug Use Exercise Type/Frequency Exercises regularly Allergies, Adverse Reactions, Alerts Date Description Reaction Status Severity Comments 12/18/2016 Azithromycin Active 12/18/2016 Erythromycin Active 12/18/2016 Lisinopril Active 12/18/2016 Amlodipine Active Medications Medication Date Status Form Strength Qnty SIG Indications Ordering Provider Atorvastatin Calcium 05/13 Active Tablets 40mg 90tab 1 by E78.5 Braydon S. /2018 s mouth Garcia, every DO [facility] day Aspirin Adult Low 05/13 Active Tablets 81mg 100ta 1 by I25.2 Braydon SMarycruz Dose /2018 DR hale mouth Garcia, every DO [facility] day Magnesium Oxide 11/27 Active Tablets 400mg 90tab 1 by E83.42 Braydon Rodriguez chalino mouth Jose, every DO [facility] day Xarelto 12/18 Active Tablets 15mg 90tab 1 by I48.0 Braydon Rodriguez chalino mouth Jose, daily DO [facility] Atorvastatin Calcium 12/17 Active Tablets 20mg 90tab take 1 Braydon Rodriguez chalino tablet Jose, at DO [facility] bedtime ( Stop taking March 2018 per pt ) Nitrostat 12/12 Active Tablets 0.4mg 25tab one sl Aniya Dietrich. Sub s q5min up Sodums, to 3 MD, [facility], doses as FSCAI needed Carvedilol 06/13 Active Tablets 25mg 360ta 2 by Braydon Rodriguez /2012 geoffrey mouth Jose, twice a DO [facility] day Pantoprazole Sodium Active Tablets 40mg 90tab 1 by Braydon Rodriguez / DR chalino Garcia, every DO [facility] day ( Stop taking March 2018) Proair HFA Active Aerosol 108(90Bas 2 puffs e) by mouth mcg/Act every 4 hours as needed Multaq Active Tablets 400mg 180ta 1 by Braydon Rodriguez geoffrey Garcia, twice a DO [facility] day Polyethylene Glycol Active Powder 3350NF as Unknown 3350 0000 needed Triamterene/Hydrochlo Active Tablets 37.5-25mg 90tab 1 tablet Braydon Rodriguez rothiazide s by mouth Jose, daily DO [facility] Sertraline HCL Active Tablets 100mg 2 by Unknown mouth every day Lamotrigine Active Tablets 25mg 100mg Yomi, daily JAVIER Schwartz Tiagabine HCL Active Tablets 4mg daily at hs prn Prazosin HCL Active Capsules 2mg prn Hydroxyzine HCL Active Tablets 10mg 1 tablet Unknown po daily as needed Alprazolam Active Tablets 0.5mg 1 tablet Mayo, po daily Rick Matos.Mena Doxycycline Hyclate Active 50mg 1 cap po twice daily x 10 Nifedipine ER 11/27 Hx Tablets 30mg 90tab 1 by Braydon Rodriguez ER 24HR s mouth Garcia, - every DO [facility] Nifedipine ER 11/20 Hx Tablets 60mg take one Braydon Rodriguez ER 24HR tablet Garcia, - by mouth DO [facility] 11/27 Nifedipine ER 03/21 Hx Tablets 30mg 90tab 1 by Braydon Rodriguez ER 24HR s mouth Garcia, - every DO [facility] ( taking 60mg once a day) Nifedical XL 03/19 Hx Tablets 60mg 1 tablet Braydon Rodriguez ER 24HR po at Garcia, - bedtime DO [facility] 03/21 Hydrochlorothiazide 12/18 Hx Tablets 25mg 90tab 1 by Aniya Nazario s mouth Sodums, - every ANTWAN BUTCHER, [facility] [place] Clopidogrel Bisulfate 12/15 Hx Tablets 75mg 90tab 1 by I25.2 Braydon Rodriguez s mouth Garcia, - every DO [facility] Multaq 12/15 Hx Tablets 400mg 60tab 1 by Aniya Nazario s mouth Sodums, - twice a ANTWAN BUTCHER, Xarelto 12/15 Hx Tablets 20mg 30tab 1 by Aniya Nazario s mouth Sodums, - every ANTWAN BUTCHER, Brilinta 12/15 Hx Tablets 90mg 180ta 1 tab by Aniya Nazario bs mouth Sodums, - twice a ANTWAN BUTCHER, Atorvastatin Calcium 08/02 Hx Tablets 10mg 90tab 1 po qd chalino Uribe, 11/20 Nico, PRASHANT MONCADA Klor-Con M10 08/02 Hx Tablets 10Meq 90tab 1 po qd ER chalino Uribe, 12/15 Nico, PRASHANT MONCADA Aspir-Low Hx Tablets 81mg 1 by Unknown / DR mouth - every Magnesium Oxide Hx Tablets 250mg 1 by Unknown / mouth - every 11/17 day needed Alprazolam 0000 Hx Tablets 1mg 1 by Unknown /0000 mouth - every 4 11/17 hours needed Sucralfate 00 Hx Tablets 1gm 1 by Unknown /0000 mouth - four 11/17 times day as needed Nifedical XL 00/ Hx Tablets 30mg 1 tablet Marry /0000 ER 24HR po at , - bedtime Yaquelin, 03/19 Vitamin B12 Hx Tablets 250mcg 1 by Unknown /0000 ER mouth - every Folic Acid Hx Tablets 1mg take one Unknown /0000 tablet - po daily 11/17 Lamotrigine Hx Tablets 25mg 1 tablet Unknown /0000 po twice - daily 07/02 Melatonin ER Hx Tablets 15mg 3 tablet Unknown /0000 ER po at - bedtime 05/12 needed Trazodone HCL 00 Hx Tablets 100mg as Unknown /0000 needed - 03/01 Trintellix Hx Tablets 20mg 1 tablet [place], /0000 po daily MD Braydon - 03/01 Randy Hx Tablets 4mg Unknown /0000 - 11/17 Vitamin B-1 Hx Tablets 100mg 1 by Unknown /0000 mouth - every Prednisone Hx Tablets 20mg 2 tablet Unknown /0000 po twice - daily x4 Immunizations Description No Information Available Vital Signs Date Vital Result Comment 05/13/2018 3:54pm Height 68 inches 5'8" Weight 216.00 lb with shoes Heart Rate 66 /min BP Systolic Sitting 110 mmHg Lue reg cuff BP Diastolic Sitting 80 mmHg Lue reg cuff BP Systolic Standing 112 mmHg Lue reg cuff BP Diastolic Standing 86 mmHg Lue reg cuff Respiratory Rate 16 /min BMI (Body Mass Index) 32.8 kg/m2 Ejection Fraction 45-50% date 09/05/18 ECHO 11/27/2017 11:41am Height 68 inches 5'8" Weight 195.00 lb No shoes Heart Rate 70 /min BP Systolic Sitting 130 mmHg Lue reg cuff BP Diastolic Sitting 88 mmHg Lue reg cuff BP Systolic Standing 102 mmHg Lue reg cuff BP Diastolic Standing 80 mmHg Lue reg cuff Respiratory Rate 16 /min BMI (Body Mass Index) 29.6 kg/m2 Ejection Fraction 45-50% 09/05/2017-echo 09/11/2017 10:24am Height 68 inches 5'8" Weight 210.00 lb Heart Rate 66 /min BP Systolic Sitting 120 mmHg BP Diastolic Sitting 62 mmHg Respiratory Rate 16 /min Body Temperature 98.2 F BMI (Body Mass Index) 31.9 kg/m2 07/03/2017 7:56am Height 65 inches 5'5" Weight 206.00 lb without shoes Heart Rate 64 /min BP Systolic Sitting 120 mmHg Lue reg cuff BP Diastolic Sitting 80 mmHg Lue reg cuff BP Systolic Standing 122 mmHg Lue reg cuff BP Diastolic Standing 80 mmHg Lue reg cuff Respiratory Rate 16 /min BMI (Body Mass Index) 34.3 kg/m2 Ejection Fraction 50-55% echo 03/201703/22/2017 2:55pm Height 65 inches 5'5" Weight 213.00 lb without shoes Heart Rate 60 /min BP Systolic Sitting 122 mmHg Rue lg cuff BP Diastolic Sitting 90 mmHg Rue lg cuff BP Systolic Standing 122 mmHg Rue lg cuff BP Diastolic Standing 80 mmHg Rue lg cuff Respiratory Rate 17 /min BMI (Body Mass Index) 35.4 kg/m2 Ejection Fraction 45-50% date 12/13/16 ECHO 02/19/2017 3:19pm Height 65 inches 5'5" Weight 218.00 lb with out shoes Heart Rate 73 /min BP Systolic Sitting 130 mmHg Lue reg cuff BP Diastolic Sitting 78 mmHg Lue reg cuff BP Systolic Standing 126 mmHg Lue reg cuff BP Diastolic Standing 70 mmHg Lue reg cuff Respiratory Rate 17 /min BMI (Body Mass Index) 36.3 kg/m2 Ejection Fraction 45-50% date 12/13/2016 ECHO 12/18/2016 3:07pm Height 65 inches 5'5" Weight 233.00 lb w/o shoes Heart Rate 66 /min reg BP Systolic Sitting 144 mmHg Lue, lg cuff BP Diastolic Sitting 96 mmHg Lue, lg cuff BP Systolic Standing 140 mmHg Lue BP Diastolic Standing 90 mmHg Lue Respiratory Rate 16 /min BMI (Body Mass Index) 38.8 kg/m2 Ejection Fraction 45-50% as of 12/13/2016 echo Results Description No Information Available Procedures Date Code Description Status 05/13/2018 02287 EKG Tracing & Interpretation Completed 11/27/2017 94704 EKG Tracing & Interpretation Completed 09/05/2017 38009 ECHO Transthorasic Realtime 2D W Doppler & Color Flow Hosp Completed 09/05/2017 91978 EKG, Interpretation Only Completed 08/07/2017 82305 EKG, Interpretation Only Completed 07/03/2017 87182 EKG Tracing & Interpretation Completed 04/26/2017 09431 ECHO Transthoracic, Real-Time 2D With Doppler And Color Completed Flow 02/19/2017 56062 EKG Tracing & Interpretation Completed 12/27/2016 97307 Treadmill Interp/Report Only Completed 12/27/2016 17265 Stress Test Supervsn W/Out I/R Completed 12/18/2016 80518 EKG Tracing & Interpretation Completed 12/14/2016 72990 EKG, Interpretation Only Completed 12/13/2016 70320 ECHO Transthorasic Realtime 2D W Doppler & Color Flow Hosp Completed 12/13/2016 60400 EKG, Interpretation Only Completed 12/11/2016 88674 EKG, Interpretation Only Completed 12/11/2016 79181 ECHO Transthorasic Realtime 2D W Doppler & Color Flow Hosp Completed 12/10/2016 74489 Cath PLMT&NJX L Ventriculog Img S&I Completed 12/10/2016 81932 EKG, Interpretation Only Completed 12/10/2016 11365 Revascularization Acute Total/Subtotal Occlusion Completed 07/09/2012 43159 ECHO Transthoracic, Real-Time 2D With Doppler And Color Completed Flow 06/01/2012 24444 EKG, Interpretation Only Completed 06/27/2011 88905 Color Flow Doppler/Interp & Reprt Completed 06/27/2011 97998 Color Flow Doppler/Interp & Reprt Completed 06/27/2011 62753 Pulse Wave/Continuous-Interp.RPT Completed 06/27/2011 03096 Pulse Wave/Continuous-Interp.RPT Completed 06/27/2011 07330 ECHO Transthorasic Realtime 2D W Doppler & Color Flow Hosp Completed 06/27/2011 80935 ECHO Transthorasic Realtime 2D W Doppler & Color Flow Hosp Completed 06/27/2011 87973 ECHO Transthorasic Realtime 2D W Doppler & Color Flow Hosp Completed Encounters Type Date Location Provider Dx Diagnosis Office Visit 09/01/2018 [facility] Yrn Londono.115 Cellulitis of 8:31a Assoc,pc DO right lower limb Hospitalists M17.12 Unilateral primary osteoarthritis, left knee Office Visit 08/31/2018 8:31a [facility] Zakiya L03.115 Cellulitis of Assoc,radha Rivers DO right lower limb Hospitalists M25.561 Pain in right knee Office Visit 05/23/2018 8:00a [facility] Cordell Alston MD L70.0 Acne vulgaris B36.8 Other specified superficial mycoses L23.9 Allergic contact dermatitis, unspecified cause Office Visit 05/13/2018 4:00p [facility] Braydon SMarycruz I25.2 Old myocardial Of Vadim Garcia DO infarction [facility] I25.10 Athscl heart disease of [place] coronary artery w/o ang pctrs E83.42 Hypomagnesemia I48.0 Paroxysmal atrial fibrillation I10 Essential (primary) hypertension E78.5 Hyperlipidemia, unspecified E11.69 Type 2 diabetes mellitus with other specified complication Office Visit 04/22/2018 3:40p [facility] Cordell Alston MD L70.0 Acne vulgaris B36.8 Other specified superficial mycoses L23.9 Allergic contact dermatitis, unspecified cause D22.5 Melanocytic nevi of trunk Office Visit 11/27/2017 11:20a [facility] Braydon Rodriguez I25.10 Athscl heart Of Vadim Garcia DO disease of [facility] [place] coronary artery w/o ang pctrs I48.0 Paroxysmal atrial fibrillation R42 Dizziness and giddiness E83.42 Hypomagnesemia R94.31 Abnormal electrocardiogram [ECG] [EKG] I49.3 Ventricular premature depolarization I10 Essential (primary) hypertension E78.5 Hyperlipidemia, unspecified Office Visit 09/11/2017 10:30a [facility] Reynaldo Reddy.2 Anorectal Of Vadim Cha M.D. abscess Office Visit 09/07/2017 3:49p [facility] Mary Stevens I48.3 Typical atrial Assoc,radha Lentzists I25.10 Athscl heart disease of [place] coronary artery w/o ang pctrs I10 Essential (primary) hypertension F10.20 Alcohol dependence, uncomplicated Office Visit 09/06/2017 3:46p [facility] Mary Stevens I48.3 Typical atrial Assoc,pc M.D. flutter Hospitalists I25.10 Athscl heart disease of [place] coronary artery w/o ang pctrs I10 Essential (primary) hypertension F10.20 Alcohol dependence, uncomplicated Office Visit 09/05/2017 3:46p [facility] Mary Hohn, I48.3 Typical atrial Assoc,radha Walsh flutter Hospitalists I25.10 Athscl heart disease of [place] coronary artery w/o ang pctrs I10 Essential (primary) hypertension F10.20 Alcohol dependence, uncomplicated [facility].3 Typical Assoc,radha URIBE M.D. atrial Hospitalists flutter F10.20 Alcohol dependence, uncomplicated I25.10 Athscl heart disease of [place] coronary artery w/o ang pctrs I10 Essential (primary) hypertension [facility] Unspecified atrial 8:51a Assoc,radha Martin M.D. fibrillation Hospitalists R07.9 Chest pain, unspecified F10.10 Alcohol abuse, uncomplicated F32.89 Other specified depressive episodes Office Visit 08/06/2017 [facility] Cony S. I48.91 Unspecified atrial 8:47a Assoc,pc Vera Sanabria fibrillation Hospitalists R07.9 Chest pain, unspecified F10.10 Alcohol abuse, uncomplicated F32.89 Other specified depressive episodes Office Visit 07/03/2017 8:20a [facility] Braydon S. I48.0 Paroxysmal atrial Of [employer] Garcia, DO fibrillation FACC I25.2 Old myocardial infarction I10 Essential (primary) hypertension E78.5 Hyperlipidemia, unspecified G47.33 Obstructive sleep apnea (adult) (pediatric) E11.69 Type 2 diabetes mellitus with other specified complication I25.10 Athscl heart disease of [place] coronary artery w/o ang pctrs Office Visit 03/22/2017 2:40p [facility] Braydon S. I25.2 Old myocardial Of [employer] Garcia, DO infarction FACC I42.9 Cardiomyopathy, unspecified G47.33 Obstructive sleep apnea (adult) (pediatric) E11.69 Type 2 diabetes mellitus with other specified complication I48.0 Paroxysmal atrial fibrillation E78.5 Hyperlipidemia, unspecified I10 Essential (primary) hypertension Office Visit 02/19/2017 3:40p [facility] Braydon Rodriguez I25.2 Old myocardial Of [employer] Garcia, DO infarction FACC I48.0 Paroxysmal atrial fibrillation E78.5 Hyperlipidemia, unspecified I10 Essential (primary) hypertension G47.33 Obstructive sleep apnea (adult) (pediatric) I42.9 Cardiomyopathy, unspecified E11.69 Type 2 diabetes mellitus with other specified complication Office Visit 12/28/2016 [facility] Dionne R07.9 Chest pain, 2:00p Assoc,radha Garnett NP unspecified Hospitalists I25.118 Athscl heart disease of [place] cor art w oth ang pctrs I48.0 Paroxysmal atrial fibrillation Office Visit 12/26/2016 1:59p [facility] Jovana R07.9 Chest pain, Assoc,radha Dallas M.D. unspecified Hospitalists I25.118 Athscl heart disease of [place] cor art w oth ang pctrs I48.0 Paroxysmal atrial fibrillation Office Visit 12/18/2016 3:00p [facility] Aniya Nazario I21.4 Non-St elevation Of [employer] Work[employer] [facility] [place] MD Jalen, (Nstemi) FAC, FSCAI myocardial infarction I48.0 Paroxysmal atrial fibrillation I10 Essential (primary) hypertension Office Visit 12/15/2016 [facility] I48.91 Unspecified atrial 3:42p Assradha ortiz M.D. fibrillation Hospitalists R07.9 Chest pain, unspecified I25.10 Athscl heart disease of [place] coronary artery w/o ang pctrs I10 Essential (primary) hypertension Office Visit 12/15/2016 1:43p [facility] Braydon SMarycruz I48.0 Paroxysmal atrial Of [employer] Garcia, DO fibrillation FACC I21.4 Non-St elevation (Nstemi) myocardial infarction I25.10 Athscl heart disease of [place] coronary artery w/o ang pctrs Office Visit 12/14/2016 [facility] I48.91 Unspecified atrial 3:41p Assocradha M.D. fibrillation Hospitalists R07.9 Chest pain, unspecified I25.10 Athscl heart disease of [place] coronary artery w/o ang pctrs I10 Essential (primary) hypertension Office Visit 12/14/2016 1:52p [facility] Braydon SMarycruz I48.0 Paroxysmal atrial Of [employer] Garcia, DO fibrillation [facility] I21.4 Non-St elevation (Nstemi) myocardial infarction Office Visit 12/13/2016 [facility] Manan I48.91 Unspecified 3:41p Assoc,pc Marco, N.P. atrial Hospitalists fibrillation R07.9 Chest pain, unspecified I25.10 Athscl heart disease of [place] coronary artery w/o ang pctrs I10 Essential (primary) hypertension Office Visit 12/13/2016 3:26p [facility] Tracey Johnson, I48.0 Paroxysmal atrial Of [facility] M.D. fibrillation I25.10 Athscl heart disease of [place] coronary artery w/o ang pctrs Office Visit 12/11/2016 4:08p [facility] Oumar Reeder, I21.4 Non- St elevation Of [employer] Work[employer] [facility] [place] Marquise.Michelel, [facility], (Nstemi) [facility] myocardial infarction Office Visit 12/11/2016 2:02p [facility] Chris I21.4 Non-St elevation Assoc,pc Nico Hernandez (Nstemi) Hospitalists myocardial infarction I25.110 Athscl heart disease of [place] cor art w unstable ang pctrs G47.33 Obstructive sleep apnea (adult) (pediatric) F32.89 Other specified depressive episodes Office Visit 12/10/2016 2:01p [facility] Amando Guillaume, I21.4 Non-St elevation Assoc,radha Walsh (Nstemi) Hospitalists myocardial infarction I25.110 Athscl heart disease of [place] cor art w unstable ang pctrs G47.33 Obstructive sleep apnea (adult) (pediatric) F32.89 Other specified depressive episodes Office Visit 12/10/2016 1:27p [facility] Aniya Nazario I21.4 Non-St elevation Of [employer] [facility] [place] MD Jalen, (Nstemi) [facility], [facility] myocardial infarction I48.0 Paroxysmal atrial fibrillation I10 Essential (primary) hypertension I25.10 Athscl heart disease of [place] coronary artery w/o ang pctrs Office Visit 12/09/2016 9:52a [facility] Lala Nogueira, R07.9 Chest pain , Assoc,pc N.P. unspecified Hospitalists J45.20 Mild intermittent asthma, uncomplicated I25.119 Athscl heart disease of [place] cor art w unsp ang pctrs Office Visit 08/02/2012 Abhijeet Trevino Shai 414.9 Ischemic Heart 8:00a Cardiology Of Nico Uribe, Disease Chronic [employer] FACC, FASNC Unspec Office Visit 06/01/2012 Shikha Manish Soria 414.01 Coronary 11:27a Cardiology Nico Lucero Atherosclerosis [place] 427.31 Atrial Fibrillation Office Visit 06/27/2011 8:44a Shikha Soria 427.31 Atrial Cardiology Nico Lucero Fibrillation Plan of Treatment 05/13/2018 - Braydon Garcia DO FACCI25.2 Old myocardial infarctionNew Medication:Aspirin Adult Low Dose 81 mg - 1 by mouth every dayComments:Restart taking atorvastatin. New evidence shows the LDL should be much lower than we used to think. Start taking 40 mg a day.It has been a year since your last stent. Change clopidogrel to aspirin 81 mg daily. Try cutting the triamterene- hctz in 10/02 to see if this still controls the edema but doesn't cause lightheadednessFollow up:f/u 6 months with ekgI25.10 Atherosclerotic heart disease of [place] coronary artery withE83.42 PklsllbeypyjbcG54.0 Paroxysmal atrial rylorcgkzpyzP46 Essential (primary) hqhcjlgryephI81.5 Hyperlipidemia, unspecifiedNew Medication:Atorvastatin Calcium 40 mg - 1 by mouth every dayE11.69 Type 2 diabetes mellitus with other specified complication
[2018-11-15] MEDS ORDERED: Nicotine Inhaler* 10 MG AMP INH PRN (17:38)
--- NOTE | 2018-11-15 18:09 | ED ---
Substance Abuse/Use - HPI Summary HPI Summary: Pt is a 48 y/o M presenting to the ED brought in by police for intoxication. LEVEL 5 CAVEAT: The pts full hx and and physical are limited due to the pts status of intoxication. Per police, the pts sister said the patient took his normal medication this morning, is intoxicated, wants to go to rehab, and threatened to kill himself if he went back to retirement. He was released from retirement yesterday. - History Of Current Complaint Chief Complaint: EDSubstanceAbuse Stated Complaint: [id number] , POSSIBLE OVERDOSE Time Seen by Provider: 11/15/18 17:37 Hx Obtained From: Other: - police Hx From Patient Unobtainable Due To: Other - intoxication Onset/Duration of Drug/ETOH Abuse: Hours Timing Of Abuse: Binge Use Severity Initially: Severe Severity Currently: Severe Character: Stuporous Aggravating Factor(s): Nothing Alleviating Factor(s): Nothing Associated Signs And Symptoms: Hostile, Other: - sexual actions - Allergies/Home Medications Allergies/Adverse Reactions: Allergies Allergy/AdvReac Type Severity Reaction Status Date / Time amlodipine Allergy Mild Palpitation Verified 11/15/18 17:35 s azithromycin Allergy Mild Shakes Verified 11/15/18 17:35 erythromycin base Allergy Mild Shakes Verified 11/15/18 17:35 lisinopril Allergy Mild Palpitation Verified 11/15/18 17:35 s metoprolol [From Lopressor] Allergy Palpitation Verified 11/15/18 17:35 s Home Medications: Home Medications busPIRone TAB* [Buspar *] 30 mg PO BID 11/16/18 [History Confirmed 11/16/18] PMH/Surg Hx/FS Hx/Imm Hx Previously Healthy: No Endocrine/Hematology History: Reports: Hx Anticoagulant Therapy - xarelto for a. fib, Hx Diabetes - diet controlled Cardiovascular History: Reports: Hx Angina, Hx Coronary Artery Disease, Hx Hypertension, Other Cardiovascular Problems/Disorders - STENT PLACED TO RCA Respiratory History: Reports: Hx Asthma, Other Respiratory Problems/Disorders - recurrent dermatitis of unknown origin GI History: Reports: Other GI Disorders - hepatic encephalopathy dx'd 10/24/2017 History: Reports: Other Problems/Disorders - STAGE III CKD Musculoskeletal History: Reports: Hx Gout - hands - takes allopurinol Sensory History: Reports: Hx Contacts or Glasses Denies: Hx Hearing Aid Opthamlomology History: Reports: Hx Contacts or Glasses Psychiatric History: Reports: Hx Anxiety, Hx Depression - Currently on Zoloft, buspar and in counseling, Hx Substance Abuse - h/o ETOH abuse - in remission - Surgical History Surgery Procedure, Year, and Place: CARDIAC STENT PLACEMENT 2010 and November 2016 , and January 2017. - Immunization History Date of Tetanus Vaccine: utd Date of Influenza Vaccine: none Infectious Disease History: No Infectious Disease History: Denies: Hx Clostridium Difficile, Hx of Known/Suspected MRSA, Traveled Outside the [place] in Last 30 Days - Family History Known Family History: Positive: Cardiac Disease, Hypertension, Diabetes - Social History Alcohol Use: None Alcohol Amount: H/o ETOH abuse - none since 10/2017 Hx Substance Use: No Substance Use Type: Reports: None Substance Use Comment - Amount & Last Used: 09/04/17 Hx Tobacco Use: No Smoking Status (MU): Never Smoked Tobacco Review of Systems Negative: Fever Neurological: Other - intoxication All Other Systems Reviewed And Are Negative: No Physical Exam Triage Information Reviewed: Yes Vital Signs On Initial Exam: Initial Vitals Resp BP 17 123/75 11/15/18 17:13 11/15/18 17:13 Vital Signs Reviewed: Yes Completion Of Physical Exam Limited Due To: Level 5 - intoxication Diagnostics - Vital Signs Vital Signs Temp Pulse Resp BP Pulse Ox 11/15/18 17:35 18 11/15/18 17:14 98.0 F 71 18 123/75 96 11/15/18 17:13 17 123/75 - Laboratory Result Diagrams: 11/16/18 08:22 11/16/18 08:22 Lab Statement: Any lab studies that have been ordered have been reviewed, and results considered in the medical decision making process. Course/Dx - Course Course Of Treatment: Pt is a 48 y/o M presenting to the ED brought in by police for intoxication. LEVEL 5 CAVEAT: The pts full hx and and physical are limited due to the pts status of intoxication. Per police, the pts sister said the patient took his normal medication this morning, is intoxicated, wants to go to rehab, and threatened to kill himself if he went back to retirement. He was released from retirement yesterday. The pt will be signed out to Dr. Moreno pending MHE. - Diagnoses Provider Diagnoses: Alcohol intoxication Discharge - Sign-Out/Discharge Documenting (check all that apply): Patient Departure, Sign-Out Patient Signing out patient TO: Jorge Moreno Patient Received Moderate/Deep Sedation with Procedure: No - Discharge Plan Condition: Stable Disposition: HOME Patient Education Materials: Alcohol Intoxication (ED) Referrals: Anuj Stevens MD [Primary Care Provider] - - Billing Disposition and Condition Condition: STABLE Disposition: Home - Attestation Statements Document Initiated by Scribe: Yes Documenting Scribe: Diana Siegel Provider For Whom Ulises is Documenting (Include Credential): Melva Brink MD. Scribe Attestation: Diana Mendoza, scribed for Melva Brink MD. on 11/17/18 at 1043. Scribe Documentation Reviewed: Yes Provider Attestation: The documentation as recorded by the scribe, Diana Siegel accurately reflects the service I personally performed and the decisions made by Tracy bonilla MD. Status of Scribe Document: Viewed
[2018-11-15 18:22] LABS: ABS Basophils 0.1 10^3/ul (0-0.2); ABS Eosinophils 0.3 10^3/ul (0-0.6); ABS Lymphocytes 2.1 10^3/ul (1.0-4.8); ABS Monocytes 0.4 10^3/ul (0-0.8); ABS Neutrophils 5.9 10^3/ul (1.5-7.7); ABS Nucleated RBC 0 10^3/ul; Eosinophil % 3.4 %; Hematocrit 46 % (42-52); Hemoglobin 15.7 g/dl (14.0-18.0); Lymphocyte % 23.7 %; Mean Corpuscular HGB Conc 34 g/dl (31-36); Mean Corpuscular Hemoglobin 29 pg (27-31); Mean Corpuscular Volume 85 fL (80-94); Mean Platelet Volume 7.5 fL (7.4-10.4); Nucleated Red Blood Cells % 0.1; Platelet Count 232 10^3/ul (150-450); Red Blood Count 5.48 10^6/ul (4.00-5.40); Red Cell Distribution Width 15 % (10.5-15); White Blood Count 8.8 10^3/ul (3.5-10.8)
[2018-11-15 18:45] LABS: ALT 26 U/L (7-52); AST 27 U/L (13-39); Albumin 4.7 g/dL (3.2-5.2); Albumin/Globulin Ratio 1.8 (1-3); Alkaline Phosphatase 81 U/L (34-104); Anion Gap 8 mmol/L (2-11); BUN/Creatinine Ratio 15.7 (8-20); Blood Urea Nitrogen 14 mg/dL (6-24); CO2 Carbon Dioxide 27 mmol/L (22-32); Calcium 9.2 mg/dL (8.6-10.3); Chloride 109 mmol/L (101-111); EGFR African American 109.9 (>60); EGFR Non-African American 90.9 (>60); Globulin 2.6 g/dL (2-4); Glucose 142 mg/dL (70-100); Potassium 4.2 mmol/L (3.5-5.0); Sodium 144 mmol/L (135-145); Total Protein 7.3 g/dL (6.4-8.9)
[2018-11-15 18:55] LABS: Acetaminophen < 15 mcg/mL; Salicylate < 2.50 mg/dL (<30)
[2018-11-15 18:57] LABS: Alcohol 437 mg/dL (<10)
--- NOTE | 2018-11-15 19:01 | ED ---
Progress - Progress Note Progress Note: Received pt sign out from Dr. Brink awaiting mental health evaluation, bloodwork , and sobriety. Toxicology report was negative for other drugs. Pt will not be sober until 0800 and will be signed out to Dr. Brink awaiting mental health evaluation and sobriety. Course/Dx - Course Course Of Treatment: Received pt sign out from Dr. Brink awaiting mental health evaluation, bloodwork, and sobriety. Toxicology report was negative for other drugs. Pt will not be sober until 0800 and will be signed out to Dr. Brink awaiting mental health evaluation and sobriety. - Diagnoses Provider Diagnoses: Alcohol intoxication Discharge - Sign-Out/Discharge Documenting (check all that apply): Sign-Out Patient Signing out patient TO: Melva Brink Receiving patient FROM: Melva Brink Patient Received Moderate/Deep Sedation with Procedure: No - Discharge Plan Condition: Stable Disposition: HOME Patient Education Materials: Alcohol Intoxication (ED) Referrals: Anuj Stevens MD [Primary Care Provider] - - Billing Disposition and Condition Condition: STABLE Disposition: Home - Attestation Statements Document Initiated by Dianaibe: Yes Documenting Scribe: Vijay Linares Provider For Whom Ulises is Documenting (Include Credential): Dr. Jorge Moreno MD Scribe Attestation: Vijay Mendoza scribed for Dr. Jorge Moreno MD on 11/19/18 at 1428. Scribe Documentation Reviewed: Yes Provider Attestation: The documentation as recorded by the scribeVijay accurately reflects the service I personally performed and the decisions made by me, Dr. Jorge Moreno MD Status of Scribe Document: Viewed
[2018-11-15 19:02] LABS: Urine Appearance Clear; Urine Bacteria Absent (Absent); Urine Bilirubin Negative (Negative); Urine Blood 2+ (Negative); Urine Color Straw; Urine Glucose Negative (Negative); Urine Ketones Negative (Negative); Urine Nitrite Negative (Negative); Urine Protein Negative (Negative); Urine Red Blood Cell Absent (Absent); Urine Specific Gravity 1.005 (1.010-1.030); Urine Urobilinogen Negative (Negative); Urine White Blood Cell Absent (Absent)
[2018-11-15 19:06] LABS: TSH (Thyroid Stimulating Horm) 1.17 mcIU/mL (0.34-5.60)
[2018-11-15 19:25] LABS: Barbiturates Urine Screen None Detected (None Detect); Benzodiazepine Urine Screen None Detected (None Detect); Urine Cannabinoids Screen None Detected (None Detect)
[2018-11-15] MEDS ORDERED: Haloperidol INJ IV/IM* 5 MG/ML AMP IM ONE (20:19)
[2018-11-15] MEDS ORDERED: LORazepam INJ* 2 MG/ML 1 ML VIAL IM ONE (20:19)
--- NOTE | 2018-11-16 07:24 | ED ---
Progress - Progress Note Progress Note: Received pt sign out from Dr. Moreno awaiting mental health evaluation and sobriety. Pt is a 48 y/o M presenting to the ED brought in by police for intoxication. DIAG EKG An EKG taken at 0707 reveals Afib at a rate of 146 BPM with RVR at [address] depression in V4, V5, and V6. An EKG taken at 0708 reveals converted to sinus rhythm at 71 BPM. An EKG taken at 0918 reveals normal sinus rhythm at 67 BPM with PACs. Re-Evaluation - Re-Evaluation First Eval Re-Evaluation Time: 07:40 Change: Unchanged Comment: Patient is awake and alert. He is not complaining of CP, but he is in and out of A-fib with RVR. Second Eval Re-Evaluation Time: 07:55 Change: Unchanged Comment: The patient is now complaining of chest pain. So I am ordering rate control and pain control and ordering a new set of labs. Course/Dx - Course Course Of Treatment: Received pt sign out from Dr. Moreno awaiting mental health evaluation and sobriety. The patient is now complaining of chest pain. So I am ordering rate control and pain control and ordering a new set of labs. Per MHE, patient will be discharged home. Patient is agreeable with this plan. - Diagnoses Provider Diagnoses: Alcohol intoxication Discharge - Sign-Out/Discharge Documenting (check all that apply): Patient Departure - Discharge home, Receiving Sign-Out Receiving patient FROM: Jorge Moreno - Upon shift change pending MHE and sobriety Patient Received Moderate/Deep Sedation with Procedure: No - Discharge Plan Condition: Stable Disposition: HOME Patient Education Materials: Alcohol Intoxication (ED) Referrals: Anuj Stevens MD [Primary Care Provider] - - Billing Disposition and Condition Condition: STABLE Disposition: Home - Attestation Statements Document Initiated by Scribe: Yes Documenting Scribe: Brenda Thrasher Provider For Whom Ulises is Documenting (Include Credential): Dr. Melva Brink MD Scribe Attestation: Brenda Mendoza, scribed for Dr. Melva Brink MD on 11/18/18 at 1610. Scribe Documentation Reviewed: Yes Provider Attestation: The documentation as recorded by the Brenda painter accurately reflects the service I personally performed and the decisions made by me, Dr. Melva Brink MD Status of Scribe Document: Viewed
[2018-11-16] MEDS ORDERED: NS 0.9% 1000 ML** 1,000 ML IV ONE (07:38)
[2018-11-16] MEDS ORDERED: Dronedarone TAB* 400 MG PO ONE (07:54)
[2018-11-16] MEDS ORDERED: Rivaroxaban TAB(*) 15 MG PO ONE (07:59)
[2018-11-16] MEDS ORDERED: Ondansetron INJ* 2 MG/ML VIAL IV ONE (08:00)
[2018-11-16] MEDS ORDERED: Morphine VIAL* 4 MG/ML VIAL (1 ml vial) IV ONE (08:00)
[2018-11-16 08:31] LABS: ABS Basophils 0 10^3/ul (0-0.2); ABS Eosinophils 0.1 10^3/ul (0-0.6); ABS Lymphocytes 1.5 10^3/ul (1.0-4.8); ABS Monocytes 0.5 10^3/ul (0-0.8); ABS Nucleated RBC 0 10^3/ul; Eosinophil % 1.8 %; Hematocrit 44 % (42-52); Hemoglobin 14.7 g/dl (14.0-18.0); Lymphocyte % 18.2 %; Mean Corpuscular HGB Conc 34 g/dl (31-36); Mean Corpuscular Hemoglobin 29 pg (27-31); Mean Corpuscular Volume 85 fL (80-94); Mean Platelet Volume 7.2 fL (7.4-10.4); Nucleated Red Blood Cells % 0.1; Platelet Count 222 10^3/ul (150-450); Red Blood Count 5.14 10^6/ul (4.00-5.40); Red Cell Distribution Width 15 % (10.5-15); White Blood Count 8.1 10^3/ul (3.5-10.8)
[2018-11-16 08:45] LABS: Albumin 3.9 g/dL (3.2-5.2); Albumin/Globulin Ratio 1.7 (1-3); BUN/Creatinine Ratio 14.1 (8-20); Calcium 8.6 mg/dL (8.6-10.3); EGFR African American 105.8 (>60); EGFR Non-African American 87.4 (>60); Globulin 2.3 g/dL (2-4); Potassium 3.7 mmol/L (3.5-5.0); Total Bilirubin 0.3 mg/dL (0.2-1.0); Total Protein 6.2 g/dL (6.4-8.9)
[2018-11-16 15:47] VITALS: BP 176/93
== END 2018-11-16 16:05 | disposition home or self-care (01) ==
LOC: ED 17:07
DX: F10.129 Alcohol abuse with intoxication, unspecified (principal); Z79.01 Long term (current) use of anticoagulants; I25.10 Atherosclerotic heart disease of native coronary artery without angina pectoris; I10 Essential (primary) hypertension
CPT/HCPCS: 36415; 80053; 80307; 80320; 80329; 81003; 81015; 83880; 84443; 84484; 85025; 93005; 96372; 96374; 96375; 99284; A9270-GY; G0480; J2270; J2405

== ENCOUNTER 2018-12-09 10:05 | Observation (INO) | payer OTHER ==
--- OUTSIDE RECORDS SUMMARY | 2018-12-09 10:31 | XMS REPORT | Continuity of Care Document ---
:1970 External Reference #:[id number] Author Name Karishma Medina Care Team Providers Name Role Phone Anuj Stevens MD Care Team Information Child Care Centre Director Unavailable Anuj Stevens MD Primary Care Physician Unavailable Payers Date Identification Numbers Payment Provider Subscriber Policy Number: [id number] Jayy Rashaun Pascualdict Group Number: [id number] [address] PayID: [id number] [place] [address] Effective: 2017 Policy Number: [id number] Medicaid Rashaun Longoria Expires: 2018 Group Name: 1 1 [address] PayID: [id number] [place] [address] Advance Directives Description No Information Available Problems Date Description Provider Status Onset: 12/18/2016 Acute subendocardial infarction Aniya Rao MD, [facility] , Active [facility] Family History Description No Information Available [...] S. /2018 s mouth Garcia, every DO FACC day Aspirin Adult Low 05/13 Active Tablets 81mg 100ta 1 by I25.[address] hale mouth Jose, every DO FACC day Magnesium Oxide 11/27 Active Tablets 400mg 90tab 1 by E83.42 Braydon Rodriguez chalino mouth Jose, every DO FACC day Xarelto 12/18 Active Tablets 15mg 30tab 1 by I48.0 Braydon Rodriguez chalino mouth Jose, daily DO FACC Atorvastatin Calcium 12/17 Active Tablets 20mg 90tab take 1 Braydon Rodriguez s tablet Jose, at DO [facility] bedtime ( Stop taking March 2018 per pt ) Nitrostat 12/12 Active Tablets 0.4mg 25tab one michael Dietrich. Reed s q5min up Sodums, to 3 MD, [facility], doses as FSCAI needed Carvedilol 06/13 [...] Tablets 400mg 180ta 1 by Braydon Rodriguez / geoffrey Garcia, twice a DO FACC day Polyethylene Glycol Active Powder [id number] as Unknown 3350 0000 needed Triamterene/Hydrochlo Active Tablets 37.5-25mg 90tab 1 tablet Braydon Rodriguez rothiazide / s by mouth Jose, daily DO FACC Sertraline HCL Active Tablets 100mg 2 by mouth every day Lamotrigine Active Tablets 25mg 100mg Yomi, daily JAVIER Schwartz Tiagabine HCL Active Tablets 4mg daily at Unknown / hs prn Prazosin HCL Active Capsules 2mg prn Unknown Hydroxyzine HCL Active Tablets 10mg 1 tablet Unknown po daily as needed Alprazolam Active Tablets 0.5mg 1 tablet Mayo, po daily Vera Matos Doxycycline Hyclate Active 50mg 1 cap po twice daily x 10 Nifedipine ER 11/27 Hx Tablets 30mg 90tab 1 by Braydon Rodriguez ER 24HR s mouth Garcia, - every DO [facility] Nifedipine ER 11/20 Hx Tablets 60mg take one Braydon Rodriguez ER 24HR tablet Garcia, - by mouth DO [facility] 11/27 Nifedipine ER 03/21 Hx Tablets 30mg 90tab 1 by Braydon Rodriguez ER 24HR s mouth Garcia, - every DO [facility] 11/13 day ( taking 60mg once a day) Nifedical XL 03/19 Hx Tablets 60mg 1 tablet Braydon Garza ER 24HR po at Garcia, - bedtime DO [facility] 03/21 Hydrochlorothiazide 12/18 Hx Tablets 25mg 90tab 1 by Aniya Nazario s mouth Sodums, - every ANTWAN BUTCHER, [facility] [place] Clopidogrel Bisulfate 12/15 Hx Tablets 75mg 90tab 1 by I25.2 Braydon Rodriguez s mouth Garcia, - every DO [facility] Multaq 12/15 Hx Tablets 400mg 60tab [...] Hx Tablets 10mg 90tab 1 po qd Uriel chalino Uribe, 11/20 Nico, PRASHANT MONCADA Klor-Con M10 08/02 Hx Tablets 10Meq 90tab 1 po qd ER chalino Uribe, 12/15 Nico, PRASHANT MONCADA Aspir-Low Hx Tablets 81mg 1 by Unknown /0000 DR mouth - every Magnesium Oxide Hx Tablets 250mg 1 by Unknown /0000 mouth - every 11/17 day needed Alprazolam 00/ Hx Tablets 1mg 1 by Unknown /0000 mouth - every 4 11/17 hours needed Sucralfate 00 Hx Tablets 1gm 1 by Unknown /0000 mouth - four 11/17 times day as needed Nifedical XL 00 Hx Tablets 30mg 1 tablet Marry /0000 [...] at - bedtime 05/12 needed Trazodone HCL Hx Tablets 100mg as Unknown /0000 needed - 03/01 Trintellix Hx Tablets 20mg 1 tablet [place], /0000 po daily MD Braydon - 03/01 Randy Hx Tablets 4mg Unknown /0000 - 11/17 Vitamin B-1 Hx Tablets 100mg 1 by Unknown /0000 mouth - every Prednisone 00 Hx Tablets 20mg 2 tablet Unknown /0000 [...] Available Procedures Date Code Description Status 05/13/2018 90394 EKG Tracing & Interpretation Completed 11/27/2017 49933 EKG Tracing & Interpretation Completed 09/05/2017 48146 ECHO Transthorasic Realtime 2D W Doppler & Color Flow Hosp Completed 09/05/2017 52316 EKG, Interpretation Only Completed 08/07/2017 40353 EKG, Interpretation Only Completed 07/03/2017 40232 EKG Tracing & Interpretation Completed 04/26/2017 87895 ECHO Transthoracic, Real-Time 2D With Doppler And Color Completed Flow 02/19/2017 29799 EKG Tracing & Interpretation Completed 12/27/2016 16540 Treadmill Interp/Report Only Completed 12/27/2016 48561 Stress Test Supervsn W/Out I/R Completed 12/18/2016 23629 EKG Tracing & Interpretation Completed 12/14/2016 61450 EKG, Interpretation Only Completed 12/13/2016 03742 ECHO Transthorasic Realtime 2D W Doppler & Color Flow Hosp Completed 12/13/2016 98979 EKG, Interpretation Only Completed 12/11/2016 92006 EKG, Interpretation Only Completed 12/11/2016 49694 ECHO Transthorasic Realtime 2D W Doppler & Color Flow Hosp Completed 12/10/2016 46804 Cath PLMT&NJX L Ventriculog Img S&I Completed 12/10/2016 32783 EKG, Interpretation Only Completed 12/10/2016 55421 Revascularization Acute Total/Subtotal Occlusion Completed 07/09/2012 28384 ECHO Transthoracic, Real-Time 2D With Doppler And Color Completed Flow 06/01/2012 40608 EKG, Interpretation Only Completed 06/27/2011 58793 Color Flow Doppler/Interp & Reprt Completed 06/27/2011 86917 Color Flow Doppler/Interp & Reprt Completed 06/27/2011 49202 Pulse Wave/Continuous-Interp.RPT Completed 06/27/2011 14025 Pulse Wave/Continuous-Interp.RPT Completed 06/27/2011 08106 ECHO Transthorasic Realtime 2D W Doppler & Color Flow Hosp Completed 06/27/2011 64258 ECHO Transthorasic Realtime 2D W Doppler & Color Flow Hosp Completed 06/27/2011 12189 ECHO Transthorasic Realtime 2D W Doppler & Color Flow Hosp Completed Encounters Type Date Location Provider Dx Diagnosis [facility] Cellulitis of 8:31a Assoc,pc DO right lower limb Hospitalists M17.12 Unilateral primary osteoarthritis, left knee Office Visit 08/31/2018 8:31a [facility] Zakiya L03.115 Cellulitis of Assoc,radha Rivers, DO right lower limb Hospitalists M25.561 Pain in right knee Office Visit 05/23/2018 8:00a [facility] Dermatology Cordell Alston MD L70.0 Acne vulgaris B36.8 Other specified superficial mycoses L23.9 Allergic contact dermatitis, unspecified cause Office Visit 05/13/2018 4:00p [facility] Braydon Rodriguez I25.2 Old myocardial Of Vadim Garcia DO infarction [facility] I25.10 [place] heart disease of [place] coronary artery w/o ang pctrs E83.42 Hypomagnesemia I48.0 Paroxysmal atrial fibrillation I10 Essential (primary) hypertension E78.5 Hyperlipidemia, unspecified E11.69 Type 2 diabetes mellitus with other specified complication Office Visit 04/22/2018 3:40p [facility] Dermatology Cordell Alston MD L70.0 Acne vulgaris B36.8 Other specified superficial mycoses L23.9 Allergic contact dermatitis, unspecified cause D22.5 Melanocytic nevi of trunk Office Visit 11/27/2017 11:20a [facility] Braydon Rodriguez I25.10 [place] heart Of Vadim Garcia DO disease of [facility] [place] coronary artery w/o ang pctrs I48.0 Paroxysmal atrial fibrillation R42 Dizziness and giddiness E83.42 Hypomagnesemia R94.31 Abnormal electrocardiogram [ECG] [EKG] I49.3 Ventricular premature depolarization I10 Essential (primary) hypertension E78.5 Hyperlipidemia, unspecified Office Visit 09/11/2017 10:30a [facility] Reynaldo Reddy.2 Anorectal Of Vadim Cha M.D. abscess Office Visit 09/07/2017 3:49p [place] [facility] Stevens I48.3 Typical atrial Assocradha M.D. flutter Hospitalists I25.10 [place] heart disease of [place] coronary artery w/o ang pctrs I10 Essential (primary) hypertension F10.20 Alcohol dependence, uncomplicated Office Visit 09/06/2017 3:46p [facility] [place] [facility] Mary Hilda, I48.3 Typical atrial Assoc,radha Walsh flutter Hospitalists I25.10 [place] heart disease of [place] coronary artery w/o ang pctrs I10 Essential (primary) hypertension F10.20 Alcohol dependence, uncomplicated Office Visit 09/05/2017 3:46p [facility] Mary Hilda, I48.3 Typical atrial Assoc,radha Walsh flutter Hospitalists I25.10 [place] heart disease of [place] coronary artery w/o ang pctrs I10 Essential (primary) hypertension F10.20 Alcohol dependence, uncomplicated Office Visit 09/04/2017 3:45p [facility] Seven Pagan I48.3 Typical Assoc,radha URIBE M.D. atrial Hospitalists flutter F10.20 Alcohol dependence, uncomplicated I25.10 [place] heart disease of [place] coronary artery w/o ang pctrs I10 Essential (primary) hypertension [facility] Un[facility] atrial 8:51a Assoc,radha Martin M.D. fibrillation Hospitalists R07.9 Chest pain, unspecified F10.10 Alcohol abuse, uncomplicated F32.89 Other specified depressive episodes Office Visit 08/06/2017 [facility] Cony S. I48.91 Unspecified atrial 8:47a Assoc,radha Sanabria N.P. fibrillation Hospitalists R07.9 Chest pain, unspecified F10.10 Alcohol abuse, uncomplicated F32.89 Other specified depressive episodes Office Visit 07/03/2017 8:20a [facility] Braydon S. I48.0 Paroxysmal atrial Of Senior Electrical Designer Garcia, DO fibrillation FACC I25.2 Old myocardial infarction I10 Essential (primary) hypertension E78.5 Hyperlipidemia, unspecified G47.33 Obstructive sleep apnea (adult) (pediatric) E11.69 Type 2 diabetes mellitus with other specified complication I25.10 [place] heart disease of [place] coronary artery w/o ang pctrs Office Visit 03/22/2017 2:40p [facility] Braydon S. I25.2 Old myocardial Of Senior Electrical Designer Garcia, DO infarction FACC I42.9 Cardiomyopathy, unspecified G47.33 Obstructive sleep apnea (adult) (pediatric) E11.69 Type 2 diabetes mellitus with other specified complication I48.0 Paroxysmal atrial fibrillation E78.5 Hyperlipidemia, unspecified I10 Essential (primary) hypertension Office Visit 02/19/2017 3:40p [facility] Braydon Rodriguez I25.2 Old myocardial Of Senior Electrical Designer Garcia, DO infarction FACC I48.0 Paroxysmal atrial fibrillation E78.5 Hyperlipidemia, unspecified I10 Essential (primary) hypertension G47.33 Obstructive sleep apnea (adult) (pediatric) I42.9 Cardiomyopathy, unspecified E11.69 Type 2 diabetes mellitus with other specified complication Office Visit 12/28/2016 [facility] R07.9 Chest pain, 2:00p Assoc,radha Garnett, CHRISTINE unspecified Hospitalists I25.118 [place] heart disease of [place] cor art w oth ang pctrs I48.0 Paroxysmal atrial fibrillation Office Visit 12/26/2016 1:59p [facility] Jovana R07.9 Chest pain, Assoc,radha Dallas M.D. unspecified Hospitalists I25.118 [place] heart disease of [place] cor art w oth ang pctrs I48.0 Paroxysmal atrial fibrillation Office Visit 12/18/2016 3:00p [facility] Aniya Nazario I21.4 Non-St elevation Of Senior Electrical Designer [facility] [place] Jalen, (Nstemi) FAC, FSCAI myocardial infarction I48.0 Paroxysmal atrial fibrillation I10 Essential (primary) hypertension Office Visit 12/15/2016 [facility] I48.91 Unspecified atrial 3:42p Assoc,radha Martin M.D. fibrillation Hospitalists R07.9 Chest pain, unspecified I25.10 [place]scl heart disease of [place] coronary artery w/o ang pctrs I10 Essential (primary) hypertension Office Visit 12/15/2016 1:43p [facility] Braydon SMarycruz I48.0 Paroxysmal atrial Of Senior Electrical Designer Garcia, DO fibrillation FAC I21.4 Non-St elevation (Nstemi) myocardial infarction I25.10 Athscl heart disease of [place] coronary artery w/o ang pctrs Office Visit 12/14/2016 [facility] I48.91 Unspecified atrial 3:41p Assoc,radha Martin M.D. fibrillation Hospitalists R07.9 Chest pain, unspecified I25.10 [place]scl heart disease of [place] coronary artery w/o ang pctrs I10 Essential (primary) hypertension Office Visit 12/14/2016 1:52p [facility] Braydon Rodriguez I48.0 Paroxysmal atrial Of Senior Electrical Designer Garcia, DO fibrillation FAC I21.4 Non-St elevation (Nstemi) myocardial infarction Office Visit 12/13/2016 [facility] Manan I48.91 Unspecified 3:41p Assoc,pc Marco, N.P. atrial Hospitalists fibrillation R07.9 Chest pain, unspecified I25.10 [place] heart disease of [place] coronary artery w/o ang pctrs I10 Essential (primary) hypertension Office Visit 12/13/2016 3:26p [facility] Tracey Johnson, I48.0 Paroxysmal atrial Of Senior Electrical Designer M.D. fibrillation I25.10 [place] heart disease of [place] coronary artery w/o ang pctrs Office Visit 12/11/2016 4:08p [facility] Oumar Reeder, I21.4 Non- St elevation Of Senior Electrical Designer [facility] Nico, [facility], (Nstemi) [facility] myocardial infarction Office Visit 12/11/2016 2:02p [facility] Chris I21.4 Non-St elevation Assoc,pc Nico Hernandez (Nstemi) Hospitalists myocardial infarction I25.110 [place] heart disease of [place] cor art w unstable ang pctrs G47.33 Obstructive sleep apnea (adult) (pediatric) F32.89 Other specified depressive episodes Office Visit 12/10/2016 2:01p [facility] Amando Guillaume, I21.4 Non-St elevation Assoc,radha Walsh (Nstemi) Hospitalists myocardial infarction I25.110 [place] heart disease of [place] cor art w unstable ang pctrs G47.33 Obstructive sleep apnea (adult) (pediatric) F32.89 Other specified depressive episodes Office Visit 12/10/2016 1:27p [facility] Aniya Nazario I21.4 Non-St elevation Of Senior Electrical Designer AT [facility] MD Jalen, (Nstemi) [facility], [facility] myocardial infarction I48.0 Paroxysmal atrial fibrillation I10 Essential (primary) hypertension I25.10 [place] heart disease of [place] coronary artery w/o ang pctrs Office Visit 12/09/2016 9:52a [facility] Lala Nogueira, R07.9 Chest pain , Assoc,pc N.P. unspecified Hospitalists J45.20 Mild intermittent asthma, uncomplicated I25.119 [place] heart disease of [place] cor art w unsp ang pctrs Office Visit 08/02/2012 Abhijeet Trevino Shai 414.9 Ischemic Heart 8:00a Cardiology Of Nico Uribe, Disease Chronic Senior Electrical Designer FACC, FASNC Unspec Office Visit 06/01/2012 Shikha Manish FatoumataMarycruz 414.01 Coronary 11:27a Cardiology Nico Lucero Atherosclerosis [place] 427.31 Atrial Fibrillation Office Visit 06/27/2011 8:44a Shikha Soria 427.31 Atrial Cardiology Nico Lucero Fibrillation Plan of Treatment 05/13/2018 - Braydon Garcia, DO FACCI25.2 Old myocardial infarctionNew Medication:Aspirin Adult [...] months with ekgI25.10 Atherosclerotic heart disease of [place] coronary artery withE83.42 UaammxjqsiekiqV02.0 Paroxysmal atrial gxamifpzgbjiI42 Essential (primary) dqvdgoqiyeivD94.5 Hyperlipidemia, unspecifiedNew Medication:Atorvastatin Calcium 40 mg - 1 by mouth every dayE11.69 Type 2 diabetes mellitus with other specified complication
--- OUTSIDE RECORDS SUMMARY | 2018-12-09 10:31 | XMS REPORT | Continuity of Care Document ---
:1970 External Reference #:[id number] Author Name Karishma Medina Care Team Providers Name Role Phone Anuj Stevens MD Care Team Information Presser Machine Unavailable Anuj Stevens MD Primary Care Physician Unavailable Payers Date Identification Numbers Payment Provider Subscriber Policy Number: [id number] Jayy Rashaun Pascualdict Group Number: [id number] [address] PayID: [id number] [place] [address] Effective: 2017 Policy Number: [id number] Medicaid Rashaun Longoria Expires: 2018 Group Name: 1 1 [address] PayID: [id number] [place] [address] Advance Directives Description No Information Available Problems Date Description Provider Status Onset: 12/18/2016 Acute subendocardial infarction Aniya Rao MD, [facility] , Active [facility] Family History Description No Information Available Social [...] Braydon Rodriguez s tablet Jose, at DO [facility] bedtime ( Stop taking March 2018 per pt ) Nitrostat 12/12 Active Tablets 0.4mg 25tab one michael Dietrich. Reed s q5min up Sodums, to 3 MD, [facility], doses as FSCAI needed Carvedilol 06/13 Active [...] 24HR s mouth Garcia, - every DO [facility] Nifedipine ER 11/20 Hx Tablets 60mg take one Braydon Rodriguez ER 24HR tablet Garcia, - by mouth DO [facility] 11/27 Nifedipine ER 03/21 Hx Tablets 30mg 90tab 1 by Braydon Rodriguez ER 24HR s mouth Garcia, - every DO [facility] 11/13 day ( taking 60mg once a day) Nifedical XL 03/19 Hx Tablets 60mg 1 tablet Braydon Garza ER 24HR po at Garcia, - bedtime DO [facility] 03/21 Hydrochlorothiazide 12/18 Hx Tablets 25mg 90tab 1 by Aniya Nazario s mouth Sodums, - every ANTWAN [place]CH[place] [facility] [place] Clopidogrel Bisulfate 12/15 Hx Tablets 75mg 90tab 1 by I25.2 Braydon Rodriguez s mouth Garcia, - every DO [facility] Multaq 12/15 Hx Tablets 400mg 60tab 1 by Anyia Nazario s mouth Sodums, - twice a [...] Available Procedures Date Code Description Status 05/13/2018 04449 EKG Tracing & Interpretation Completed 11/27/2017 10569 EKG Tracing & Interpretation Completed 09/05/2017 92410 ECHO Transthorasic Realtime 2D W Doppler & Color Flow Hosp Completed 09/05/2017 97501 EKG, Interpretation Only Completed 08/07/2017 63221 EKG, Interpretation Only Completed 07/03/2017 11268 EKG Tracing & Interpretation Completed 04/26/2017 72986 ECHO Transthoracic, Real-Time 2D With Doppler And Color Completed Flow 02/19/2017 04530 EKG Tracing & Interpretation Completed 12/27/2016 28484 Treadmill Interp/Report Only Completed 12/27/2016 50870 Stress Test Supervsn W/Out I/R Completed 12/18/2016 76290 EKG Tracing & Interpretation Completed 12/14/2016 28271 EKG, Interpretation Only Completed 12/13/2016 37368 ECHO Transthorasic Realtime 2D W Doppler & Color Flow Hosp Completed 12/13/2016 40886 EKG, Interpretation Only Completed 12/11/2016 71527 EKG, Interpretation Only Completed 12/11/2016 08543 ECHO Transthorasic Realtime 2D W Doppler & Color Flow Hosp Completed 12/10/2016 98941 Cath PLMT&NJX L Ventriculog Img S&I Completed 12/10/2016 67955 EKG, Interpretation Only Completed 12/10/2016 23898 Revascularization Acute Total/Subtotal Occlusion Completed 07/09/2012 84519 ECHO Transthoracic, Real-Time 2D With Doppler And Color Completed Flow 06/01/2012 08860 EKG, Interpretation Only Completed 06/27/2011 17142 Color Flow Doppler/Interp & Reprt Completed 06/27/2011 86361 Color Flow Doppler/Interp & Reprt Completed 06/27/2011 66675 Pulse Wave/Continuous-Interp.RPT Completed 06/27/2011 08663 Pulse Wave/Continuous-Interp.RPT Completed 06/27/2011 65195 ECHO Transthorasic Realtime 2D W Doppler & Color Flow Hosp Completed 06/27/2011 77712 ECHO Transthorasic Realtime 2D W Doppler & Color Flow Hosp Completed 06/27/2011 40732 ECHO Transthorasic Realtime 2D W Doppler & Color Flow Hosp Completed Encounters Type Date Location Provider Dx Diagnosis [facility] L[facility].115 Cellulitis of 8:31a Assoc,pc DO right lower limb Hospitalists M17.12 Unilateral primary osteoarthritis, left knee Office Visit 08/31/2018 8:31a [facility] Zakiya L03.115 Cellulitis of Assoc,radha Rivers, DO right lower limb Hospitalists M25.561 Pain in right knee Office Visit 05/23/2018 8:00a [facility] Cordell Alston MD L70.0 Acne vulgaris B36.8 Other specified superficial mycoses L23.9 Allergic contact dermatitis, unspecified cause Office Visit 05/13/2018 4:00p [facility] Braydon Rodriguez I25.2 Old myocardial Of Vadim Garcia DO infarction [facility] 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 E83.42 Hypomagnesemia I48.0 Paroxysmal atrial fibrillation I10 Essential (primary) hypertension E78.5 Hyperlipidemia, unspecified E11.69 Type 2 diabetes mellitus with other specified complication Office Visit 04/22/2018 3:40p [facility] Cordell Alston MD L70.0 Acne vulgaris B36.8 Other specified superficial mycoses L23.9 Allergic contact dermatitis, unspecified cause D22.5 Melanocytic nevi of trunk Office Visit 11/27/2017 11:20a [facility] Braydon Rodriguez I25.10 Athscl heart Of Vadim Garcia DO disease of [facility] tribal coronary artery w/o ang pctrs I48.0 Paroxysmal atrial fibrillation R42 Dizziness and giddiness E83.42 Hypomagnesemia R94.31 Abnormal electrocardiogram [ECG] [EKG] I49.3 Ventricular premature depolarization I10 Essential (primary) hypertension E78.5 Hyperlipidemia, unspecified Office Visit 09/11/2017 10:30a [facility] Reynaldo Reddy.2 Anorectal Of Vadim Cha M.D. abscess Office Visit 09/07/2017 3:49p [place] [facility] I48.3 Typical atrial Assocradha M.D. 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 fibrillation Hospitalists R07.9 Chest pain, unspecified F10.10 Alcohol abuse, uncomplicated F32.89 Other specified depressive episodes Office Visit 08/06/2017 [facility] Cony S. I48.91 Unspecified atrial 8:47a Assoc,radha Sanabria N.P. fibrillation Hospitalists R07.9 Chest pain, unspecified F10.10 Alcohol abuse, uncomplicated F32.89 Other specified depressive episodes Office Visit 07/03/2017 8:20a [facility] Braydon S. 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 I25.2 Old myocardial Of [employer] Garcia, DO infarction FACC I42.9 Cardiomyopathy, unspecified G47.33 Obstructive sleep apnea (adult) (pediatric) E11.69 Type 2 diabetes mellitus with other specified complication I48.0 Paroxysmal atrial fibrillation E78.5 Hyperlipidemia, unspecified I10 Essential (primary) hypertension Office Visit 02/19/2017 3:40p [facility] Braydon Rodriguez I25.2 Old myocardial Of [employer] Garcia, DO infarction FACC I48.0 Paroxysmal atrial fibrillation E78.5 Hyperlipidemia, unspecified I10 Essential (primary) hypertension G47.33 Obstructive sleep apnea (adult) (pediatric) I42.9 Cardiomyopathy, unspecified E11.69 Type 2 diabetes mellitus with other specified complication Office Visit 12/28/2016 [facility] R07.9 Chest pain, 2:00p Assoc,radha Garnett, CHRISTINE unspecified Hospitalists I25.118 Athscl heart disease of tribal cor art w oth ang pctrs I48.0 Paroxysmal atrial fibrillation Office Visit 12/26/2016 1:59p [facility] Jovana R07.9 Chest pain, Assoc,radha Dallas M.D. unspecified Hospitalists I25.118 Athscl heart disease of tribal cor art w oth ang pctrs I48.0 Paroxysmal atrial fibrillation Office Visit 12/18/2016 3:00p [facility] Aniya Nazario I21.4 Non-St elevation Of [employer] [place] [facility] [place] MD Jalen, (Nstemi) FAC, FSCAI myocardial infarction I48.0 Paroxysmal atrial fibrillation I10 Essential (primary) hypertension Office Visit 12/15/2016 [facility] I48.91 Unspecified atrial 3:42p Assoc,radha Martin M.D. 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 Office Visit 12/11/2016 4:08p [facility] Oumar Reeder, I21.4 Non- St elevation Of [employer] Consultant [facility] [facility] [place] Nico, [facility], (Nstemi) [facility] myocardial infarction Office Visit 12/11/2016 2:02p [facility] Chris I21.4 Non-St elevation Assoc,pc Nico Hernandez (Nstemi) Hospitalists myocardial infarction I25.110 Athscl heart disease of tribal cor art w unstable ang pctrs G47.33 Obstructive sleep apnea (adult) (pediatric) F32.89 Other specified depressive episodes Office Visit 12/10/2016 2:01p [facility] Amando Guillaume, I21.4 Non-St elevation Assoc,radha Walsh (Nstemi) Hospitalists myocardial infarction I25.110 Athscl heart disease of tribal cor art w unstable ang pctrs G47.33 Obstructive sleep apnea (adult) (pediatric) F32.89 Other specified depressive episodes Office Visit 12/10/2016 1:27p [facility] Aniya Nazario I21.4 Non-St elevation Of [employer] Consultant AT [facility] [place] MD Jalen, (Nstemi) [facility], [facility] myocardial infarction I48.0 Paroxysmal atrial fibrillation I10 Essential (primary) hypertension 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
--- OUTSIDE RECORDS SUMMARY | 2018-12-09 10:31 | XMS REPORT | Continuity of Care Document ---
:1970 External Reference #:[id number] Author Name Karishma Medina Care Team Providers Name Role Phone Anuj Stevens MD Care Team Information Shelter Case Manager Unavailable Anuj Stevens MD Primary Care Physician Unavailable Payers Date Identification Numbers Payment Provider Subscriber Policy Number: [id number] Jayy Rashaun Pascualdict Group Number: [id number] [address] PayID: [id number] [place] [address] Effective: 2017 Policy Number: [id number] Medicaid Rashaun Longoria Expires: 2018 Group Name: 1 1 [address] PayID: [id number] [place] [address] Advance Directives Description No Information Available Problems Date Description Provider Status Onset: 12/18/2016 Acute subendocardial infarction Aniya Rao MD, [facility] , Active [facility] Family History Description No Information Available Social [...] Braydon Rodriguez s tablet Jose, at DO [facility] bedtime ( Stop taking March 2018 per pt ) Nitrostat 12/12 Active Tablets 0.4mg 25tab one michael Dietrich. Reed s q5min up Sodums, to 3 MD, [facility], doses as FSCAI needed Carvedilol [...] Active Tablets 400mg 180ta 1 by Braydon Rodirguez / geoffrey Garcia, twice a DO FACC [...] 24HR s mouth Garcia, - every DO [facility] Nifedipine ER 11/20 Hx Tablets 60mg take one Braydon Rodriguez ER 24HR tablet Garcia, - by mouth DO [facility] 11/27 Nifedipine ER 03/21 Hx Tablets 30mg 90tab 1 by Braydon Rodriguez ER 24HR s mouth Garcia, - every DO [facility] 11/13 day ( taking 60mg once a day) Nifedical XL 03/19 Hx Tablets 60mg 1 tablet Braydon Garza ER 24HR po at Garcia, - bedtime DO [facility] 03/21 Hydrochlorothiazide 12/18 Hx Tablets 25mg 90tab 1 by Aniya Nazario s mouth Sodums, - every ANTWAN BUTCHER, [facility] Clopidogrel Bisulfate 12/15 Hx Tablets 75mg 90tab 1 by I25.2 Braydon Rodriguez s mouth Garcia, - every DO [facility] Multaq 12/15 Hx Tablets 400mg [...] Available Procedures Date Code Description Status 05/13/2018 27915 EKG Tracing & Interpretation Completed 11/27/2017 04620 EKG Tracing & Interpretation Completed 09/05/2017 64535 ECHO Transthorasic Realtime 2D W Doppler & Color Flow Hosp Completed 09/05/2017 27421 EKG, Interpretation Only Completed 08/07/2017 08832 EKG, Interpretation Only Completed 07/03/2017 29991 EKG Tracing & Interpretation Completed 04/26/2017 42928 ECHO Transthoracic, Real-Time 2D With Doppler And Color Completed Flow 02/19/2017 20163 EKG Tracing & Interpretation Completed 12/27/2016 24158 Treadmill Interp/Report Only Completed 12/27/2016 01230 Stress Test Supervsn W/Out I/R Completed 12/18/2016 44332 EKG Tracing & Interpretation Completed 12/14/2016 77613 EKG, Interpretation Only Completed 12/13/2016 86322 ECHO Transthorasic Realtime 2D W Doppler & Color Flow Hosp Completed 12/13/2016 40932 EKG, Interpretation Only Completed 12/11/2016 04562 EKG, Interpretation Only Completed 12/11/2016 90746 ECHO Transthorasic Realtime 2D W Doppler & Color Flow Hosp Completed 12/10/2016 07350 Cath PLMT&NJX L Ventriculog Img S&I Completed 12/10/2016 01133 EKG, Interpretation Only Completed 12/10/2016 13114 Revascularization Acute Total/Subtotal Occlusion Completed 07/09/2012 34926 ECHO Transthoracic, Real-Time 2D With Doppler And Color Completed Flow 06/01/2012 04540 EKG, Interpretation Only Completed 06/27/2011 42565 Color Flow Doppler/Interp & Reprt Completed 06/27/2011 43552 Color Flow Doppler/Interp & Reprt Completed 06/27/2011 09999 Pulse Wave/Continuous-Interp.RPT Completed 06/27/2011 83686 Pulse Wave/Continuous-Interp.RPT Completed 06/27/2011 72718 ECHO Transthorasic Realtime 2D W Doppler & Color Flow Hosp Completed 06/27/2011 17400 ECHO Transthorasic Realtime 2D W Doppler & Color Flow Hosp Completed 06/27/2011 88329 ECHO Transthorasic Realtime 2D W Doppler & Color Flow Hosp Completed Encounters Type Date Location Provider Dx Diagnosis [facility]ul[facility] 8:31a Assoc,pc DO right lower limb Hospitalists M17.12 Unilateral primary osteoarthritis, left knee Office Visit 08/31/2018 8:31a [facility] Zakiya L03.115 Cellulitis of Assoc,radha Rivers, DO right lower limb Hospitalists M25.561 Pain in right knee Office Visit 05/23/2018 8:00a [facility] Cordell Alston MD L70.0 Acne vulgaris B36.8 Other specified superficial mycoses L23.9 Allergic contact dermatitis, unspecified cause Office Visit 05/13/2018 4:00p [facility] Braydon Rodriguez I25.2 Old myocardial Of Vadim Garcia DO infarction [facility] I25.10 Athscl heart disease of [place] coronary artery w/o ang pctrs E83.42 Hypomagnesemia I48.0 Paroxysmal atrial fibrillation I10 Essential (primary) hypertension E78.5 Hyperlipidemia, unspecified E11.69 Type 2 diabetes mellitus with other specified complication Office Visit 04/22/2018 3:40p [facility] Cordell Alston MD L70.0 Acne vulgaris B36.8 Other specified superficial mycoses L23.9 Allergic contact dermatitis, unspecified cause D22.5 Melanocytic nevi of trunk Office Visit 11/27/2017 11:20a [facility] Braydon Rodriguez I25.10 Athscl heart Of Vadim Garcia DO disease of [facility] pala coronary artery w/o ang pctrs I48.0 Paroxysmal atrial fibrillation R42 Dizziness and giddiness E83.42 Hypomagnesemia R94.31 Abnormal electrocardiogram [ECG] [EKG] I49.3 Ventricular premature depolarization I10 Essential (primary) hypertension E78.5 Hyperlipidemia, unspecified Office Visit 09/11/2017 10:30a [facility] Reynaldo Reddy.2 Anorectal Of Vadim Cha M.D. abscess Office Visit 09/07/2017 3:49p [place] Toño Stevens I48.3 Typical atrial Assocradha M.D. flutter Hospitalists I25.10 Athscl heart disease of [place] coronary artery w/o ang pctrs I10 Essential (primary) hypertension F10.20 Alcohol dependence, uncomplicated Office Visit 09/06/2017 3:46p [facility] Mary Hilda, I48.3 Typical atrial Assoc,radha Walsh flutter Hospitalists I25.10 Athscl heart disease of [place] coronary artery w/o ang pctrs I10 Essential (primary) hypertension F10.20 Alcohol dependence, uncomplicated Office Visit 09/05/2017 3:46p [facility] Mary Hilda, I48.3 Typical atrial Assoc,radha Walsh flutter Hospitalists I25.10 Athscl heart disease of [place] coronary artery w/o ang pctrs I10 Essential (primary) hypertension F10.20 Alcohol dependence, uncomplicated Office Visit 09/04/2017 3:45p [facility] Seven Pagan I48.3 Typical Assoc,radha URIBE M.D. atrial Hospitalists flutter F10.20 Alcohol dependence, uncomplicated I25.10 Athscl heart disease of [place] coronary artery w/o ang pctrs I10 Essential (primary) hypertension [facility] Unspecified atrial 8:51a Assoc,radha Martin M.D. fibrillation Hospitalists R07.9 Chest pain, unspecified F10.10 Alcohol abuse, uncomplicated F32.89 Other specified depressive episodes Office Visit 08/06/2017 [facility] Cony S. I48.91 Unspecified atrial 8:47a Assoc,radha Sanabria N.P. fibrillation Hospitalists R07.9 Chest pain, unspecified F10.10 Alcohol abuse, uncomplicated F32.89 Other specified depressive episodes Office Visit 07/03/2017 8:20a [facility] Braydon S. I48.0 Paroxysmal atrial Of Multi Care Technician Garcia, DO fibrillation FACC I25.2 Old myocardial infarction I10 Essential (primary) hypertension E78.5 Hyperlipidemia, unspecified G47.33 Obstructive sleep apnea (adult) (pediatric) E11.69 Type 2 diabetes mellitus with other specified complication I25.10 Athscl heart disease of pal[place] coronary artery w/o ang pctrs Office Visit 03/22/2017 2:40p [facility] Braydon S. I25.2 Old myocardial Of Multi Care Technician Garcia, DO infarction FACC I42.9 Cardiomyopathy, unspecified G47.33 Obstructive sleep apnea (adult) (pediatric) E11.69 Type 2 diabetes mellitus with other specified complication I48.0 Paroxysmal atrial fibrillation E78.5 Hyperlipidemia, unspecified I10 Essential (primary) hypertension Office Visit 02/19/2017 3:40p [facility] Braydon Rodriguez I25.2 Old myocardial Of Multi Care Technician Garcia, DO infarction FACC I48.0 Paroxysmal atrial fibrillation E78.5 Hyperlipidemia, unspecified I10 Essential (primary) hypertension G47.33 Obstructive sleep apnea (adult) (pediatric) I42.9 Cardiomyopathy, unspecified E11.69 Type 2 diabetes mellitus with other specified complication Office Visit 12/28/2016 [facility] R07.9 Chest pain, 2:00p Assoc,radha Garnett, CHRISTINE unspecified Hospitalists I25.118 Athscl heart disease of [place] cor art w oth ang pctrs I48.0 Paroxysmal atrial fibrillation Office Visit 12/26/2016 1:59p [facility] Jovana R07.9 Chest pain, Assoc,radha Dallas M.D. unspecified Hospitalists I25.118 Athscl heart disease of [place] cor art w oth ang pctrs I48.0 Paroxysmal atrial fibrillation Office Visit 12/18/2016 3:00p [facility] Aniya Nazario I21.4 Non-St elevation Of Multi Care Technician AT [facility] MD Jalen, (Nstemi) FAC, FSCAI myocardial infarction I48.0 Paroxysmal atrial fibrillation I10 Essential (primary) hypertension Office Visit 12/15/2016 [facility] I48.91 Unspecified atrial 3:42p Assoc,radha Martin M.D. fibrillation Hospitalists R07.9 Chest pain, unspecified I25.10 Athscl heart disease of [place] coronary artery w/o ang pctrs I10 Essential (primary) hypertension Office Visit 12/15/2016 1:43p [facility] Braydon SMarycruz I48.0 Paroxysmal atrial Of Multi Care Technician Garcia, DO fibrillation FAC I21.4 Non-St elevation (Nstemi) myocardial infarction I25.10 Athscl heart disease of [place] coronary artery w/o ang pctrs Office Visit 12/14/2016 [facility] I48.91 Unspecified atrial 3:41p Assoc,radha Martin M.D. fibrillation Hospitalists R07.9 Chest pain, unspecified I25.10 Athscl heart disease of [place] coronary artery w/o ang pctrs I10 Essential (primary) hypertension Office Visit 12/14/2016 1:52p [facility] Braydon Rodriguez I48.0 Paroxysmal atrial Of Multi Care Technician Garcia, DO fibrillation FAC I21.4 Non-St elevation (Nstemi) myocardial infarction Office Visit 12/13/2016 [facility] Manan I48.91 Unspecified 3:41p Assoc,pc Marco, N.P. atrial Hospitalists fibrillation R07.9 Chest pain, unspecified I25.10 Athscl heart disease of [place] coronary artery w/o ang pctrs I10 Essential (primary) hypertension Office Visit 12/13/2016 3:26p [facility] Tracey Johnson, I48.0 Paroxysmal atrial Of Multi Care Technician M.D. fibrillation I25.10 Athscl heart disease of pal[place] coronary artery w/o ang pctrs Office Visit 12/11/2016 4:08p [facility] Oumar Reeder, I21.4 Non- St elevation Of Multi Care Technician AT [facility] Nico, [facility], (Nstemi) [facility] myocardial infarction Office Visit 12/11/2016 2:02p [facility] Chris I21.4 Non-St elevation Assoc,pc Nico Hernandez (Nstemi) Hospitalists myocardial infarction I25.110 Athscl heart disease of pal[place] cor art w unstable ang pctrs G47.33 Obstructive sleep apnea (adult) (pediatric) F32.89 Other specified depressive episodes Office Visit 12/10/2016 2:01p [facility] Amando Guillaume, I21.4 Non-St elevation Assoc,radha Walhs (Nstemi) Hospitalists myocardial infarction I25.110 Athscl heart disease of [place] cor art w unstable ang pctrs G47.33 Obstructive sleep apnea (adult) (pediatric) F32.89 Other specified depressive episodes Office Visit 12/10/2016 1:27p [facility] Aniya Nazario I21.4 Non-St elevation Of Multi Care Technician AT [facility] MD Jalen, (Nstemi) [facility], [facility] myocardial infarction I48.0 Paroxysmal atrial fibrillation I10 Essential (primary) hypertension I25.10 Athscl heart disease of [place] coronary artery w/o ang pctrs Office Visit 12/09/2016 9:52a [facility] Lala Nogueira, R07.9 Chest pain , Assoc,pc N.P. unspecified Hospitalists J45.20 Mild intermittent asthma, uncomplicated I25.119 Athscl heart disease of pal[place] cor art w unsp ang pctrs Office Visit 08/02/2012 Abhijeet Trevino Shai 414.9 Ischemic Heart 8:00a Cardiology Of Nico Uribe, Disease Chronic Multi Care Technician FACC, FASNC Unspec Office Visit 06/01/2012 Shikha Manish FatoumataMarycruz 414.01 Coronary 11:27a Cardiology Nico Lucero Atherosclerosis [facility] [place] [facility] [place] 427.31 Atrial Fibrillation Office Visit 06/27/2011 8:44a [...] months with ekgI25.10 Atherosclerotic heart disease of [place] coronary artery withE83.42 BhkbgathtcddwxR05.0 Paroxysmal atrial ofhoeuckvnscZ44 Essential (primary) vwtinvuanvivU50.5 Hyperlipidemia, unspecifiedNew Medication:Atorvastatin Calcium 40 mg - 1 by mouth every dayE11.69 Type 2 diabetes mellitus with other specified complication
--- OUTSIDE RECORDS SUMMARY | 2018-12-09 10:31 | XMS REPORT | Continuity of Care Document ---
:1970 External Reference #:[id number] Author Name Karishma Medina Care Team Providers Name Role Phone Anuj Stevens MD Care Team Information [employer] Unavailable Anuj Stevens MD Primary Care Physician Unavailable Payers Date Identification Numbers Payment Provider Subscriber Policy Number: [id number] Jayy Rashaun Pascualdict Group Number: [id number] [address] PayID: [id number] [place] [address] Effective: 2017 Policy Number: [id number] Medicaid Rashaun Longoria Expires: 2018 Group Name: 1 1 [address] PayID: [id number] [place] [address] Advance Directives Description No Information Available Problems Date Description Provider Status Onset: 12/18/2016 Acute subendocardial infarction Aniya Rao MD, [facility] , Active [facility] Family History Description No Information Available [...] Braydon Rodriguez s tablet Jose, at DO [facility] bedtime ( Stop taking March 2018 per pt ) Nitrostat 12/12 Active Tablets 0.4mg 25tab one mcihael Dietrich. Reed s q5min up Sodums, to 3 MD, [facility], doses as FSCAI needed Carvedilol 06/13 Active [...] 24HR s mouth Garcia, - every DO [facility] Nifedipine ER 11/20 Hx Tablets 60mg take one Braydon Rodriguez ER 24HR tablet Garcia, - by mouth DO [facility] 11/27 Nifedipine ER 03/21 Hx Tablets 30mg 90tab 1 by Braydon Rodriguez ER 24HR s mouth Garcia, - every DO [facility] 11/13 day ( taking 60mg once a day) Nifedical XL 03/19 Hx Tablets 60mg 1 tablet Braydon Garza ER 24HR po at Garcia, - bedtime DO [facility] 03/21 Hydrochlorothiazide 12/18 Hx Tablets 25mg 90tab 1 by Aniya Nazario s mouth Sodums, - every ANTWAN BUTCHER, [facility] Clopidogrel Bisulfate 12/15 Hx Tablets 75mg 90tab 1 by I25.2 Braydon Rodriguez s mouth Garcia, - every DO [facility] Multaq 12/15 Hx Tablets 400mg 60tab 1 [...] Available Procedures Date Code Description Status 05/13/2018 14068 EKG Tracing & Interpretation Completed 11/27/2017 80163 EKG Tracing & Interpretation Completed 09/05/2017 26123 ECHO Transthorasic Realtime 2D W Doppler & Color Flow Hosp Completed 09/05/2017 94117 EKG, Interpretation Only Completed 08/07/2017 92624 EKG, Interpretation Only Completed 07/03/2017 54205 EKG Tracing & Interpretation Completed 04/26/2017 26804 ECHO Transthoracic, Real-Time 2D With Doppler And Color Completed Flow 02/19/2017 55964 EKG Tracing & Interpretation Completed 12/27/2016 47674 Treadmill Interp/Report Only Completed 12/27/2016 66388 Stress Test Supervsn W/Out I/R Completed 12/18/2016 40611 EKG Tracing & Interpretation Completed 12/14/2016 41599 EKG, Interpretation Only Completed 12/13/2016 31666 ECHO Transthorasic Realtime 2D W Doppler & Color Flow Hosp Completed 12/13/2016 16016 EKG, Interpretation Only Completed 12/11/2016 45306 EKG, Interpretation Only Completed 12/11/2016 88729 ECHO Transthorasic Realtime 2D W Doppler & Color Flow Hosp Completed 12/10/2016 04287 Cath PLMT&NJX L Ventriculog Img S&I Completed 12/10/2016 55965 EKG, Interpretation Only Completed 12/10/2016 92586 Revascularization Acute Total/Subtotal Occlusion Completed 07/09/2012 54325 ECHO Transthoracic, Real-Time 2D With Doppler And Color Completed Flow 06/01/2012 36029 EKG, Interpretation Only Completed 06/27/2011 52604 Color Flow Doppler/Interp & Reprt Completed 06/27/2011 44295 Color Flow Doppler/Interp & Reprt Completed 06/27/2011 20415 Pulse Wave/Continuous-Interp.RPT Completed 06/27/2011 51097 Pulse Wave/Continuous-Interp.RPT Completed 06/27/2011 06809 ECHO Transthorasic Realtime 2D W Doppler & Color Flow Hosp Completed 06/27/2011 80193 ECHO Transthorasic Realtime 2D W Doppler & Color Flow Hosp Completed 06/27/2011 32726 ECHO Transthorasic Realtime 2D W Doppler & Color Flow Hosp Completed Encounters Type Date Location Provider Dx Diagnosis [facility]ul[facility] of 8:31a Assoc,pc DO right lower limb Hospitalists M17.12 Unilateral primary osteoarthritis, left knee Office Visit 08/31/2018 8:31a [facility] Zakiya L03.115 Cellulitis of Assoc,radha Rivers, DO right lower limb Hospitalists M25.561 Pain in right knee Office Visit 05/23/2018 8:00a [facility] Cordell Alston MD L70.0 Acne vulgaris B36.8 Other specified superficial mycoses L23.9 Allergic contact dermatitis, unspecified cause Office Visit 05/13/2018 4:00p [facility] Braydon Rodriguez I25.2 Old myocardial Of Vadim Garcia DO infarction [facility] I25.10 [place] heart disease of [place] coronary artery w/o ang pctrs E83.42 Hypomagnesemia I48.0 Paroxysmal atrial fibrillation I10 Essential (primary) hypertension E78.5 Hyperlipidemia, unspecified E11.69 Type 2 diabetes mellitus with other specified complication Office Visit 04/22/2018 3:40p [facility] Derm[facility] Cordell Alston MD L70.0 Acne vulgaris B36.8 Other specified superficial mycoses L23.9 Allergic contact dermatitis, unspecified cause D22.5 Melanocytic nevi of trunk Office Visit 11/27/2017 11:20a [facility] Braydon Rodriguez I25.10 Athscl heart Of Vadim Garcia DO disease of [facility] [place] coronary artery w/o ang pctrs I48.0 Paroxysmal atrial fibrillation R42 Dizziness and giddiness E83.42 Hypomagnesemia R94.31 Abnormal electrocardiogram [ECG] [EKG] I49.3 Ventricular premature depolarization I10 Essential (primary) hypertension E78.5 Hyperlipidemia, unspecified Office Visit 09/11/2017 10:30a [facility] Reynaldo Reddy.2 Anorectal Of Vadim Cha M.D. abscess Office Visit 09/07/2017 3:49p [place] Toño Stevens I48.3 Typical atrial Assocradha M.D. flutter Hospitalists I25.10 Athscl heart disease of [place] coronary artery w/o ang pctrs I10 Essential (primary) hypertension F10.20 Alcohol dependence, uncomplicated Office Visit 09/06/2017 3:46p [facility] Mary Hilda, I48.3 Typical atrial Assoc,radha Walsh flutter Hospitalists I25.10 Athscl heart disease of [place] coronary artery w/o ang pctrs I10 Essential (primary) hypertension F10.20 Alcohol dependence, uncomplicated Office Visit 09/05/2017 3:46p [facility] Mary Hilda, I48.3 Typical atrial Assoc,radha Walsh flutter Hospitalists I25.10 Athscl heart disease of [place] coronary artery w/o ang pctrs I10 Essential (primary) hypertension F10.20 Alcohol dependence, uncomplicated Office Visit 09/04/2017 3:45p [facility] Seven Pagan I48.3 Typical Assoc,radha URIBE M.D. atrial Hospitalists flutter F10.20 Alcohol dependence, uncomplicated I25.10 Athscl heart disease of [place] coronary artery w/o ang pctrs I10 Essential (primary) hypertension [facility] Unspecified atrial 8:51a Assoc,radha Martin M.D. fibrillation Hospitalists R07.9 Chest pain, unspecified F10.10 Alcohol abuse, uncomplicated F32.89 Other specified depressive episodes Office Visit 08/06/2017 [facility] Cony S. I48.91 Unspecified atrial 8:47a Assoc,radha Sanabria N.P. fibrillation Hospitalists R07.9 Chest pain, unspecified F10.10 Alcohol abuse, uncomplicated F32.89 Other specified depressive episodes Office Visit 07/03/2017 8:20a [facility] Braydon S. I48.0 Paroxysmal atrial Of [employer]iler Garcia, DO fibrillation FACC I25.2 Old myocardial infarction I10 Essential (primary) hypertension E78.5 Hyperlipidemia, unspecified G47.33 Obstructive sleep apnea (adult) (pediatric) E11.69 Type 2 diabetes mellitus with other specified complication I25.10 Athscl heart disease of [place] coronary artery w/o ang pctrs Office Visit 03/22/2017 2:40p [facility] Braydon S. I25.2 Old myocardial Of [employer]iler Garcia, DO infarction FACC I42.9 Cardiomyopathy, unspecified G47.33 Obstructive sleep apnea (adult) (pediatric) E11.69 Type 2 diabetes mellitus with other specified complication I48.0 Paroxysmal atrial fibrillation E78.5 Hyperlipidemia, unspecified I10 Essential (primary) hypertension Office Visit 02/19/2017 3:40p [facility] Braydon Rodriguez I25.2 Old myocardial Of [employer]iler Garcia, DO infarction FACC I48.0 Paroxysmal atrial fibrillation E78.5 Hyperlipidemia, unspecified I10 Essential (primary) hypertension G47.33 Obstructive sleep apnea (adult) (pediatric) I42.9 Cardiomyopathy, unspecified E11.69 Type 2 diabetes mellitus with other specified complication Office Visit 12/28/2016 [facility] R07.9 Chest pain, 2:00p Assoc,radha Garnett, CHRISTINE unspecified Hospitalists I25.118 Athscl heart disease of [place] cor art w oth ang pctrs I48.0 Paroxysmal atrial fibrillation Office Visit 12/26/2016 1:59p [facility] Jovana R07.9 Chest pain, Assoc,radha Dallas M.D. unspecified Hospitalists I25.118 Athscl heart disease of [place] cor art w oth ang pctrs I48.0 Paroxysmal atrial fibrillation Office Visit 12/18/2016 3:00p [facility] Aniya Nazario I21.4 Non-St elevation Of [employer] Filer AT [facility] MD Jalen, (Nstemi) FAC, FSCAI myocardial infarction I48.0 Paroxysmal atrial fibrillation I10 Essential (primary) hypertension Office Visit 12/15/2016 [facility] I48.91 Unspecified atrial 3:42p Assoc,radha Martin M.D. fibrillation Hospitalists R07.9 Chest pain, unspecified I25.10 Athscl heart disease of [place] coronary artery w/o ang pctrs I10 Essential (primary) hypertension Office Visit 12/15/2016 1:43p [facility] Braydon SMarycruz I48.0 Paroxysmal atrial Of [employer]iler Garcia, DO fibrillation FAC I21.4 Non-St elevation (Nstemi) myocardial infarction I25.10 Athscl heart disease of [place] coronary artery w/o ang pctrs Office Visit 12/14/2016 [facility] I48.91 Unspecified atrial 3:41p Assoc,radha Martin M.D. fibrillation Hospitalists R07.9 Chest pain, unspecified I25.10 Athscl heart disease of [place] coronary artery w/o ang pctrs I10 Essential (primary) hypertension Office Visit 12/14/2016 1:52p [facility] Braydon Rodriguez I48.0 Paroxysmal atrial Of [employer]iler Garcia, DO fibrillation FAC I21.4 Non-St elevation (Nstemi) myocardial infarction Office Visit 12/13/2016 [facility] Manan I48.91 Unspecified 3:41p Assoc,pc Marco, N.P. atrial Hospitalists fibrillation R07.9 Chest pain, unspecified I25.10 Athscl heart disease of [place] coronary artery w/o ang pctrs I10 Essential (primary) hypertension Office Visit 12/13/2016 3:26p [facility] Traecy Johnson, I48.0 Paroxysmal atrial Of [employer] Filer M.D. fibrillation I25.10 Athscl heart disease of [place] coronary artery w/o ang pctrs Office Visit 12/11/2016 4:08p [facility] Oumar Reeder, I21.4 Non- St elevation Of [employer] Filer AT [facility] Nico, [facility], (Nstemi) [facility] myocardial infarction Office Visit 12/11/2016 2:02p [facility] Chris I21.4 Non-St elevation Assoc,pc Nico Hernandez (Nstemi) Hospitalists myocardial infarction I25.110 Athscl heart disease of [place] cor art w unstable ang pctrs G47.33 Obstructive sleep apnea (adult) (pediatric) F32.89 Other specified depressive episodes Office Visit 12/10/2016 2:01p [facility] Amando Guillaume, I21.4 Non-St elevation Assoc,radha Walsh (Nstemi) Hospitalists myocardial infarction I25.110 Athscl heart disease of [place] cor art w unstable ang pctrs G47.33 Obstructive sleep apnea (adult) (pediatric) F32.89 Other specified depressive episodes Office Visit 12/10/2016 1:27p [facility] Aniya Nazario I21.4 Non-St elevation Of [employer]iler AT [facility] MD Jalen, (Nstemi) [facility], [facility] myocardial infarction I48.0 Paroxysmal atrial fibrillation I10 Essential (primary) hypertension I25.10 Athscl heart disease of [place] coronary artery w/o ang pctrs Office Visit 12/09/2016 9:52a [facility] Lala Nogueira, R07.9 Chest pain , Assoc,pc N.P. unspecified Hospitalists J45.20 Mild intermittent asthma, uncomplicated I25.119 Athscl heart disease of [place] cor art w unsp ang pctrs Office Visit 08/02/2012 Abhijeet Trevino Shai 414.9 Ischemic Heart 8:00a Cardiology Of Nico Uribe, Disease Chronic Balance Wheel Hand Filer FACC, FASNC Unspec Office Visit 06/01/2012 Shikha Manish FatoumataMarycruz 414.01 Coronary 11:27a Cardiology Nico Lucero Atherosclerosis [place] 427.31 Atrial Fibrillation Office Visit 06/27/2011 8:44a [...] months with ekgI25.10 Atherosclerotic heart disease of [place] coronary artery withE83.42 UedkptpokvylsaQ21.0 Paroxysmal atrial jpsuviuuwidlS22 Essential (primary) pbnbeozelqrnK46.5 Hyperlipidemia, unspecifiedNew Medication:Atorvastatin Calcium 40 mg - 1 by mouth every dayE11.69 Type 2 diabetes mellitus with other specified complication
--- NOTE | 2018-12-09 10:39 | ED ---
HPI Cardiac - HPI Summary HPI Summary: Patient is a 48 y/o M presenting to ED with complaints of "galloping" palpitations, bradycardia, lower sternal chest pain, and light-headedness. He reports that he has been having Sx on an off for the past ten months with recent increase in frequency of episodes in the past 10-11 days. He notes that palpitations are aggravated when lying on back. PMHx of [place] 2-3 years ago, patient has 5 stents. He notes that present Sx are dissimilar to previous MIs. Patient is currently incarcerated, he sent request form to medical unit to talk about his current medications with nurse three days ago, states that he has been recently having more feelings of afib than normal. He also notes that his HR will drop below 40s. Patient also reports chest pain that is substernal with some radiation to back. Some slight SOB is noted but no cough. Patient endorses dizziness characterizes as a light-headedness with Sx as well. He also notes some abdominal pain and diarrhea but relates this to the lactulose that he is taking and has been on for three months. Abdominal pain is described as achy, states that it onset "noticeably" around six days ago, notes it is aggravate by eating. No BLE edema is reported. In room, pulse 71, BP 120/68, o2 97. On triage , pain is rated 5/10, nothing is noted to aggravate/alleviate Sx. Home medications and allergies are reviewed. - History of Current Complaint Chief Complaint: EDChestPainROMI Stated Complaint: LOW HEART RATE PER PT Time Seen by Provider: 12/09/18 10:24 Hx Obtained From: Patient Onset/Duration: Started Days Ago - episodes of Sx became more frequent 10-11 days ago, abdominal pain became "noticeable" 5-6 days ago. Timing: Intermittent, Lasting Days - episodes of Sx became more frequent 10-11 days ago, abdominal pain became "noticeable" 5-6 days ago. Initial Severity: Moderate Current Severity: Moderate - 5/10 Pain Intensity: 5 Pain Scale Used: 0-10 Numeric - 5/10 Chest Pain Location: Lower Sternal Chest Pain Radiates: Yes Chest Pain Radiates To:: Back Character: Other: - bradycardia, galloping Aggravating Factor(s): Position - lying on back Alleviating Factor(s): Nothing Associated Signs and Symptoms: Positive: Chest Pain - lower sternal, Dizziness - light-headedness, Shortness of Breath, Lightheadedness, Palpitations - bradycardia, galloping, Back Pain, Abdominal Pain, Other: - diarrhea. Negative : Swelling, Cough, Productive Cough, Nonproductive Cough, Calf Pain/Swelling, Edema - Additional Pertinent History Primary Care Physician: [facility] - Allergy/Home Medications Allergies/Adverse Reactions: Allergies Allergy/AdvReac Type Severity Reaction Status Date / Time amlodipine Allergy Mild Palpitation Verified 12/09/18 10:38 s azithromycin Allergy Mild Shakes Verified 12/09/18 10:38 erythromycin base Allergy Mild Shakes Verified 12/09/18 10:38 lisinopril Allergy Mild Palpitation Verified 12/09/18 10:38 s metoprolol [From Lopressor] Allergy Palpitation Verified 12/09/18 10:38 s PMH/Surg Hx/FS Hx/Imm Hx Endocrine/Hematology History: Reports: Hx Anticoagulant Therapy - xarelto for a. fib, Hx Diabetes - diet controlled Cardiovascular History: Reports: Hx Angina, Hx Coronary Artery Disease, Hx Hypertension, Hx Myocardial Infarction, Other Cardiovascular Problems/Disorders - STENT PLACED TO RCA Respiratory History: Reports: Hx Asthma, Other Respiratory Problems/Disorders - recurrent dermatitis of unknown origin GI History: Reports: Other GI Disorders - hepatic encephalopathy dx'd 10/24/2017 History: Reports: Other Problems/Disorders - STAGE III CKD Musculoskeletal History: Reports: Hx Gout - hands - takes allopurinol Sensory History: Reports: Hx Contacts or Glasses Denies: Hx Hearing Aid Opthamlomology History: Reports: Hx Contacts or Glasses Psychiatric History: Reports: Hx Anxiety, Hx Depression - Currently on Zoloft, buspar and in counseling, Hx Substance Abuse - h/o ETOH abuse - in remission - Surgical History Surgery Procedure, Year, and Place: CARDIAC STENT PLACEMENT 2010 and November 2016 , and January 2017. - Immunization History Date of Tetanus Vaccine: utd Date of Influenza Vaccine: none Infectious Disease History: No Infectious Disease History: Denies: Hx Clostridium Difficile, Hx of Known/Suspected MRSA, Traveled Outside the [place] in Last 30 Days - Family History Known Family History: Positive: Cardiac Disease, Hypertension, Diabetes - Social History Alcohol Use: None Alcohol Amount: H/o ETOH abuse - none since 10/2017 Hx Substance Use: No Substance Use Type: Reports: None Substance Use Comment - Amount & Last Used: 09/04/17 Hx Tobacco Use: No Smoking Status (MU): Never Smoked Tobacco Review of Systems Positive: Palpitations, Chest Pain Positive: Shortness Of Breath. Negative: Cough Positive: Abdominal Pain, Diarrhea Negative: Edema - BLE Neurological: Other - POSITIVE - LIGHT-HEADEDNESS All Other Systems Reviewed And Are Negative: Yes Physical Exam - Summary Physical Exam Summary: Constitutional: Well-developed, Well-nourished, Alert. (-) Distressed Skin: Warm, Dry HENT: Normocephalic; Atraumatic Eyes: Conjunctiva normal Neck: Musculoskeletal ROM normal neck. (-) JVD, (-) Stridor, (-) Tracheal deviation Cardio: Bradycardia, Heart sounds normal; Intact distal pulses; The pedal pulses are 2+ and symmetric. Radial pulses are 2+ and symmetric. (-) Murmur Pulmonary/Chest wall: Effort normal. (-) Respiratory distress, (-) Wheezes, (-) Rales Abd: Soft, (-) tenderness, (-) Distension, (-) Guarding, (-) Rebound Musculoskeletal: (-) Edema Lymph: (-) Cervical adenopathy Neuro: Alert, Oriented x3 Psych: Mood and affect Normal Triage Information Reviewed: Yes Vital Signs On Initial Exam: Initial Vitals Temp Pulse Resp BP Pulse Ox 96.6 F 38 18 128/68 96 12/09/18 10:08 12/09/18 10:08 12/09/18 10:08 12/09/18 10:08 12/09/18 10:08 Vital Signs Reviewed: Yes Diagnostics - Vital Signs Vital Signs Temp Pulse Resp BP Pulse Ox 12/09/18 10:08 96.6 F 38 18 128/68 96 - Laboratory Result Diagrams: 12/09/18 10:58 12/09/18 10:58 Lab Statement: Any lab studies that have been ordered have been reviewed, and results considered in the medical decision making process. - Radiology chest x-ray Radiology Interpretation Completed By: Radiologist Summary of Radiographic Findings: CXR IMPRESSION: #. Cardiomegaly appears new. No compelling evidence for pulmonary edema. This report was reviewed by Dr. Erickson. - EKG 1017 Cardiac Rate: NL - rate of 82 BPM EKG Rhythm: Sinus Rhythm ST Segment: Normal Summary of EKG Findings: EKG showed NSR with 82 BPM, WI is normal, QRS is normal , QTc is borderline short, ST is normal, T wave is normal, ventricular bigeminy is noted. Re-Evaluation - Re-Evaluation First Eval Re-Evaluation Time: 13:01 Comment: Patient informed of admission, he is agreeable. Disposition - Course Course Of Treatment: Patient is a 48 y/o M presenting to ED with complaints of "galloping" palpitations, bradycardia, lower sternal chest pain, and light- headedness. He reports that he has been having Sx on an off for the past ten months with recent increase in frequency of episodes in the past 10-11 days. He notes that palpitations are aggravated when lying on back. PMHx of [place] 2-3 years ago, patient has 5 stents. He notes that present Sx are dissimilar to previous MIs. Patient is currently incarcerated, he sent request form to medical unit to talk about his current medications with nurse three days ago, states that he has been recently having more feelings of afib than normal. He also notes that his HR will drop below 40s. Patient also reports chest pain that is substernal with some radiation to back. Some slight SOB is noted but no cough. Patient endorses dizziness characterizes as a light-headedness with Sx as well. He also notes some abdominal pain and diarrhea but relates this to the lactulose that he is taking and has been on for three months. Abdominal pain is described as achy, states that it onset "noticeably" around six days ago, notes it is aggravate by eating. No BLE edema is reported. On physical exam, bradycardia is noted, no wheezes. EKG showed NSR with 82 BPM, WI is normal, QRS is normal, QTc is borderline short, ST is normal, T wave is normal, ventricular bigeminy is noted. CXR IMPRESSION: #. Cardiomegaly appears new. No compelling evidence for pulmonary edema. Labs showed glucose 125, trop 0. Patient's case was discussed with Dr. Lara at 1258, Dr. Lara accepts the patient for admission. - Diagnoses Provider Diagnoses: Chest pain, Ventricular bigeminy - Physician Notifications Discussed Care Of Patient With: Bill Lara Time Discussed With Above Provider: 12:58 Instructed by Provider To: Other - Patient's case was discussed with Dr. Lara at 1258, Dr. Lara accepts the patient for admission. Discharge - Sign-Out/Discharge Documenting (check all that apply): Patient Departure - admit - Discharge Plan Condition: Good Disposition: ADMITTED TO [facility] - Billing Disposition and Condition Condition: GOOD Disposition: Admitted to [facility] - Attestation Statements Document Initiated by Ulises: Yes Documenting Scribe: NISA THOMAS Provider For Whom Ulises is Documenting (Include Credential): JACQUELINE NOVOA MD Scribe Attestation: INISA, scribed for JACQUELINE ERICKSON MD on 12/09/18 at 2218. Scribe Documentation Reviewed: Yes Provider Attestation: The documentation as recorded by the NISA painter accurately reflects the service I personally performed and the decisions made by me, JACQUELINE ERICKSON MD Status of Scribe Document: Viewed
[2018-12-09 11:10] LABS: ABS Basophils 0.1 10^3/ul (0-0.2); ABS Eosinophils 0.2 10^3/ul (0-0.6); ABS Lymphocytes 1.6 10^3/ul (1.0-4.8); ABS Monocytes 0.6 10^3/ul (0-0.8); ABS Neutrophils 6.4 10^3/ul (1.5-7.7); ABS Nucleated RBC 0 10^3/ul; Eosinophil % 2.4 %; Hematocrit 43 % (42-52); Hemoglobin 14.6 g/dl (14.0-18.0); Lymphocyte % 18.5 %; Mean Corpuscular HGB Conc 34 g/dl (31-36); Mean Corpuscular Hemoglobin 29 pg (27-31); Mean Corpuscular Volume 86 fL (80-94); Mean Platelet Volume 7.7 fL (7.4-10.4); Nucleated Red Blood Cells % 0.1; Platelet Count 240 10^3/ul (150-450); Red Blood Count 4.99 10^6/ul (4.00-5.40); Red Cell Distribution Width 15 % (10.5-15); White Blood Count 8.9 10^3/ul (3.5-10.8)
[2018-12-09 11:30] LABS: Albumin 3.9 g/dL (3.2-5.2); Albumin/Globulin Ratio 1.6 (1-3); BUN/Creatinine Ratio 14.6 (8-20); Calcium 9.4 mg/dL (8.6-10.3); EGFR African American 100.7 (>60); EGFR Non-African American 83.3 (>60); Globulin 2.5 g/dL (2-4); Potassium 4.4 mmol/L (3.5-5.0); Total Bilirubin 0.3 mg/dL (0.2-1.0); Total Protein 6.4 g/dL (6.4-8.9)
--- NOTE | 2018-12-09 16:12 | ADMNOTE ---
Subjective Date of Service: 12/09/18 Interval History: HISTORY AND PHYSICAL PCP: Rodney CC: chest pain HPI: Patient is 48 year old man with CAD, and paroxysmal atrial fibrillation, who comes in to ER today from [facility], complaining of 6/10 chest pressure, mild dyspnea. Pain waxes and wanes, is as low as 2/10, and does not radiate. Both hands do feel numb. He also has prominent palpitations, which are very uncomfortable and have been increasing in severity for 2-[address] Garcia for cardiology. He is taking his usual cardiac medications despite incarceration. Today he went to nurse in the shelter with these complaints, and she found HR was 30, so he was referred to ER. Cardiac history includes stent to LAD in 12/14, with angioplasty of a diagonal branch, followed by stenting of same diagonal branch in 02/13 when in [place]. 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, diet-controlled DM2; PSH drainage of perirectal abscess Review of Systems - Measurements Intake and Output: Intake and Output Last 24 Hours 12/07/18 12/08/18 12/09/18 12/10/18 05:59 06:59 06:59 06:59 Weight 95.254 kg - Review of Systems Constitutional Symptoms: Negative: Weight Gain, Weight Loss Dermatology: Positive: Normal HEENT: Positive: Normal Eyes: Positive: Normal Thyroid: Positive: Normal Pulmonary: Positive: Normal Cardiology: Positive: Chest Pain, Shortness of Breath, Palpitations Negative: Syncope Gastroenterology: Positive: Normal Negative: Nausea, Vomiting Genital - Urinary: Positive: Normal Genitourinary - Male: Negative: Prostatism Endocrinology: Positive: Diabetes Mellitus Hematologic/Lymphatic: Positive: Use of Anticoagulant, Use of Antiplatelet Drugs Neurology: Positive: Normal Psychiatry: Positive: Normal Objective Active Medications: Home Medications: Buspirone HCl (Buspar Tab*) 30 mg PO BID OMAR Dronedarone (Multaq Tab*) 400 mg PO BID [facility] Lamotrigine (Lamictal Tab(*)) 200 mg PO BEDTIME [facility] Rivaroxaban (Xarelto(*)) 15 mg PO DAILY [facility] Sertraline HCl (Zoloft*) 200 mg PO DAILY [facility] Vital Signs - 8 hr 12/09/18 12/09/18 12/09/18 11:00 11:06 11:36 Temperature Pulse Rate 36 35 Respiratory 19 19 18 Rate Blood Pressure 102/65 97/60 (mmHg) O2 Sat by Pulse 97 95 Oximetry 12/09/18 12/09/18 12/09/18 12:40 12:42 12:43 Temperature Pulse Rate 55 61 63 Respiratory 15 12 Rate Blood Pressure 133/89 143/100 143/100 (mmHg) O2 Sat by Pulse 98 97 Oximetry 12/09/18 12/09/18 12/09/18 15:00 15:05 15:39 Temperature 36.3 C Pulse Rate 56 57 57 Respiratory 15 17 17 Rate Blood Pressure 131/73 131/73 (mmHg) O2 Sat by Pulse 95 92 92 Oximetry Appearance: alert, no distress Eyes: No Scleral Icterus Ears/Nose/Mouth/Throat: NL Teeth, Lips, Gums Neck: NL Appearance and Movements; NL JVP, No Thyroid Enlargement, Masses Respiratory: Symmetrical Chest Expansion and Respiratory Effort, Clear to Auscultation, Clear to Percussion Cardiovascular: NL Sounds; No Murmurs; No JVD, No Edema, - - irregularly irregular Abdominal: NL Sounds; No Tenderness; No Distention Lymphatic: No Cervical Adenopathy Skin: No Rash or Ulcers Neurological: Alert and Oriented x 3 Lines/Tubes/Other Access: Clean, Dry and Intact Peripheral IV Nutrition: Taking PO's Result Diagrams: 12/09/18 10:58 12/09/18 10:58 Additional Lab and Data: Laboratory Tests 12/09/18 12/09/18 12/09/18 10:58 10:58 14:28 POC Glucose (mg/dL) Lactic Acid 1.2 Calcium 9.4 AST 19 ALT 20 Troponin I 0.00 0.01 Total Protein 6.4 Albumin 3.9 12/09/18 14:29 POC Glucose (mg/dL) 77 Lactic Acid Calcium AST ALT Troponin I Total Protein Albumin EKG Data: EKG: ventricular bigeminy Telemetry: a-fib up to 120 bpm, alternating w/ NSR Assess/Plan/Problems-Billing Assessment: 48 year old man w/ CAD, a-fib, admitted with atypical chest pressure and palpitations. - Patient Problems (1) Atrial fibrillation Current Visit: No Status: Suspected Code(s): I48.91 - UNSPECIFIED ATRIAL FIBRILLATION SNOMED Code(s): 88268482 Comment: -clearly has paroxsymal afib depite using dronedarone. -continue anticoagulation w/ Xarelto -Will consult with Dr. Feliciano re alternative rate or rhythm control, has both tachycardia and bradycardia on current regimen (2) Angina concurrent with and due to arteriosclerosis of coronary artery Current Visit: Yes Status: Acute Priority: High Code(s): I25.119 - ATHSCL HEART DISEASE OF EEK COR ART W UNSP ANG PCTRS SNOMED Code(s): 17792339700635691 Comment: -Unclear whether chest pressure is due to rhythm, or ischemia -Will observe on telemetry, repeat troponins -May need nuclear stress test tomorrow. (3) Anxiety Current Visit: Yes Status: Acute Priority: Low Code(s): F41.9 - ANXIETY DISORDER, UNSPECIFIED SNOMED Code(s): 92649282 Comment: -continue BuSpar and sertraline (4) DVT prophylaxis Current Visit: No Status: Acute Priority: Low Code(s): XFK4445 - SNOMED Code(s): 321882912 Comment: - on Xarelto Status and Disposition: Observation status
[2018-12-09] MEDS: diPHENhydraMINE PO* 50 MG PO PRN ×2 (16:51→22:24)
[2018-12-09] MEDS ORDERED: lamoTRIgine TAB(*) 100 MG PO SCH (21:00)
--- NOTE | 2018-12-09 21:05 | CONS ---
CC: Dr. Stevens * CARDIOLOGY CONSULTATION NOTE: DATE OF CONSULT: 12/09/18 INDICATION FOR CONSULTATION: Atrial fibrillation, chest pain. HISTORY OF PRESENT ILLNESS: The patient is a 48-year-old gentleman with a history of coronary artery disease, history of stenting multiple times to his right coronary artery and history of paroxysmal atrial fibrillation. He is on Multaq. The patient came to the emergency room because of increased episodes of palpitations and atypical chest pain. The patient states that his chest pain that he experienced has been mild in his chest, has been on and off for the last couple of days. It is not the same discomfort that he had prior to stent implantation. The patient has also been noticing episodes of heart racing. He says that he has been in and out of atrial fibrillation. He is aware of it. He denies any lightheadedness, dizziness or syncope. He denies any orthopnea. He denies any changes in medications. Of note, the patient has been incarcerated, but has been able to take his medications. The patient was recently discharged from our office practice due to failure to show up for multiple office visits. PAST MEDICAL HISTORY: Significant for coronary artery disease. He had a stent placed to his distal right coronary artery in 2010. He has had 1 stent placed to his LAD in November 2016. Stenting to his right posterolateral branch with inferior wall in November 2016. OUTPATIENT MEDICATIONS: 1. Xarelto 15 mg a day. 2. Atorvastatin 40 mg a day. 3. Coreg 50 mg b.i.d. 4. Pantoprazole 40 mg a day. 5. Multaq 400 mg b.i.d. 6. BuSpar 30 mg b.i.d. 7. Lamictal 200 mg q.h.s. 8. Zoloft 100 mg a day. ALLERGIES: AMLODIPINE, AZITHROMYCIN, LISINOPRIL. SOCIAL HISTORY: Denies smoking. Rare alcohol intake. Again, currently he is incarcerated. He has not been exercising regularly. PHYSICAL EXAMINATION: Height is 5 feet 8 inches, weight 223 pounds. Temperature 97.6, heart rate is 61, blood pressure 131/73. Sclerae anicteric. Oropharynx is pink without erythema. Carotids are 2+ without bruits. JVD is normal. Thyroid is normal. Cardiac Exam: S1, S2 without any murmurs, rubs or gallops. Lungs are clear to auscultation. Extremities show no edema. He has 2 + pulses throughout. The patient is awake and alert and oriented. He moves all 4 extremities equally. DIAGNOSTIC STUDIES/LAB DATA: Laboratory Studies: CBC within normal limits. Chemistries within normal limits. BUN and creatinine are normal. Troponin is negative x3. IMPRESSION: This is a 48-year-old gentleman with a history of coronary artery disease, history of paroxysmal atrial fibrillation. In the emergency room, the patient was going in and out of atrial fibrillation and normal sinus rhythm. The patient is on appropriate medications. For now, my recommendation is the patient undergo cardiac testing. The patient was scheduled for an exercise nuclear stress test and an echocardiogram tomorrow. The patient is on Xarelto 15 mg a day. Given his creatinine clearance, the patient should be on 20 mg a day. The question is why he is on the lower dose. Again, the patient has been discharged from our practice. I will see the patient here in the hospital, but he will need to see a different hog tender upon discharge. [id number]/CPS #: [id number] MTDD
[2018-12-09] MEDS: busPIRone TAB* 30 MG PO SCH (22:25)
[2018-12-09] MEDS: Dronedarone TAB* 400 MG PO SCH (22:25)
[2018-12-10] MEDS ORDERED: Acetaminophen TAB* 325 MG PO PRN (01:51)
[2018-12-10] MEDS ORDERED: Rivaroxaban TAB(*) 20 MG TAB PO SCH (09:00)
[2018-12-10] MEDS ORDERED: Rivaroxaban TAB(*) 15 MG PO SCH (09:00)
[2018-12-10] MEDS ORDERED: Sertraline* 100 MG TAB PO SCH (09:00)
[2018-12-10] MEDS ORDERED: Perflutren Lipid Microsphere* 3 ML VIAL ONE (10:33)
[2018-12-10] MEDS ORDERED: Regadenoson* 0.4 MG/5 ML SYRINGE ONE (10:45)
[2018-12-10] MEDS ORDERED: Aminophylline IV* 25 MG/ML 10 ML VIAL ONE (11:02)
[2018-12-10] MEDS: Dronedarone TAB* 400 MG PO SCH (12:46)
[2018-12-10] MEDS: busPIRone TAB* 30 MG PO SCH (12:49)
[2018-12-10] MEDS: diPHENhydraMINE PO* 50 MG PO PRN (12:49)
--- NOTE | 2018-12-10 12:52 | ECHO ---
Patient: LEXUS THOMAS [facility] Rec#: [id number] : 1970 Date: 12/10/2018 Age: 48y Height: 173 cm / 68.1 in Weight: 101.3 kg / 223.3 lbs Sex: M BSA: 2.1 Room#: [facility] Admit Date#: 12/09/2018 Type: Inpatient Referring: Sulaiman Feliciano MD Reading: Sulaiman Feliciano MD Toolmaker Helper: Citlaly Gomez RN RDCS CC: Anuj Stevens MD Transthoracic Echocardiogram Indication: Chest pain BP: 129/83 HR: 57 Rhythm: Bradycardia Findings History: CAD, ME, multiple stents, paroxysmal A. fib, ETOH use, asthma, obesity Technical Comments: The study is technically limited due to patient body habitus. Left Ventricle: The left ventricular chamber size is normal. Moderate concentric left ventricular hypertrophy is observed. There is a focal wall motion abnormality present. There is mildly decreased left ventricular systolic function. The estimated ejection fraction is 45-50%. Abnormal left ventricular diastolic function is observed. The basal inferior, mid anterior, and mid inferior wall segments are hypokinetic (score 2). Overall wallmotion score index is 2.00 Left Atrium: The left atrium is slightly dilated. Right Ventricle: The right ventricular cavity size is normal. The right ventricular global systolic function is normal. Right Atrium: The right atrium is mildly dilated. Aortic Valve: The aortic valve is trileaflet. The aortic valve leaflets are mildly thickened. There is trace to mild aortic regurgitation. There is no evidence of aortic stenosis. Mitral Valve: The mitral valve leaflets are mildly thickened. There is a trace of mitral regurgitation. There is no evidence of mitral stenosis. Tricuspid Valve: The tricuspid valve leaflets are normal. There is trace tricuspid regurgitation. Unable to estimate the right ventricular systolic pressure. There is no tricuspid stenosis. Pulmonic Valve: The pulmonic valve appears normal. There is a trace pulmonic regurgitation. There is no pulmonic stenosis. Pericardium: There is no significant pericardial effusion. A pericardial fat pad is visualized. Aorta: There is mild dilatation of the ascending aorta. There is no dilatation of the aortic arch. There is moderate dilatation of the aortic root. at 4.0cm. Pulmonary Artery: The main pulmonary artery is not well visualized. Venous: The inferior vena cava appears normal in size. There is a greater than 50% respiratory change in the inferior vena cava dimension. Contrast: Definity was used to optimize study. A total of 3 ml of diluted Definity was given IV to enhance endocardial definition. Summary: There are no significant changes when compared to the previous study done on 09/05/17 Conclusions Moderate concentric left ventricular hypertrophy is observed. There is mildly decreased left ventricular systolic function. There is a focal wall motion abnormality present. The estimated ejection fraction is 45-50%. The basal inferior, mid anterior, and mid inferior wall segments are hypokinetic (score 2). The right ventricular global systolic function is normal. There is trace to mild aortic regurgitation. There is a trace of mitral regurgitation. There is trace tricuspid regurgitation. Unable to estimate the right ventricular systolic pressure. There is moderate dilatation of the aortic root. at 4.0cm. Measurements Name Value Normal Range RVIDd (AP) 2D 3.4 cm (0.9 - 2.6) RVDdMajor (2D) 3.5 cm (2.2 - 4.4) RAd ISD 4CH 5.4 cm (3.4 - 4.9) RA (A4C)W 4.9 cm (2.9 - 4.6) IVSd (2D) 1.4 cm (0.6 - 1) LVPWd (2D) 1.3 cm (0.6 - 1) LVIDd (2D) 4.8 cm (3.6 - 5.4) LVIDs (2D) 3.8 cm - LV FS (2D) 21 % (25 - 45) Aortic Annulus 2.6 cm (1.4 - 2.6) Ao root diameter (2D) 4 cm (2.1 - 3.5) Ascending Ao 3.8 cm (2.1 - 3.4) LA dimension (AP) 2D 3.8 cm (2.3 - 3.8) LAd ISD 4CH 5.4 cm (2.9 - 5.3) LA ISD 4CH W 4 cm (2.5 - 4.5) Name Value Normal Range LA ESV BP (A/L) index 24.8 ml/m2 - Name Value Normal Range MV E-wave Vmax 0.63 m/sec - MV deceleration time 257 msec - MV A-wave Vmax 0.61 m/sec - MV E:A ratio 1 ratio - LV septal e' Vmax 0.05 m/sec - LV lateral e' Vmax 0.07 m/sec - LV E:e' septal ratio 12.6 ratio - LV E:e' lateral ratio 9 ratio - Name Value Normal Range AV Vmax 1.1 m/sec - AV VTI 24.9 cm - AV peak gradient 5 mmHg - AV mean gradient 3 mmHg - LVOT Vmax 0.79 m/sec - LVOT VTI 17.5 cm - LVOT peak gradient 2 mmHg - LVOT mean gradient 1 mmHg - SILVIANO Vmax 0.68 m/sec - Name Value Normal Range IVC diameter 1.9 cm - Name Value Normal Range PV Vmax 0.54 m/sec - Wallmotion BAS Not Seen BA Not Seen BAL Not Seen TODD Not Seen BI Hypokinetic BIS Not Seen MAS Not Seen MA Hypokinetic MAL Not Seen MIL Not Seen ME Hypokinetic MIS Not Seen Not Seen AA Not Seen AL Not Seen AI Not Seen APEX Not Seen
[2018-12-10 15:32] VITALS: BP 151/92
--- NOTE | 2018-12-10 22:39 | DS ---
CC: Dr. Stevens * DISCHARGE SUMMARY: DATE OF ADMISSION: 12/09/18 DATE OF DISCHARGE: 12/10/18 PRIMARY CARE PROVIDER: Dr. Stevens. DISCHARGE DIAGNOSES: 1. Atypical chest pain, acute coronary syndrome ruled out. 2. Paroxysmal atrial fibrillation. SECONDARY DIAGNOSES: 1. History of alcohol abuse. 2. Coronary artery disease, status post stent to distal right coronary artery in 2010 and another stent to his left anterior descending in November 2016, also to the right posterolateral branch in November 2016. 3. Atrial fibrillation. 4. Obstructive sleep apnea. 5. Hypertension. 6. Ischemic versus nonischemic (alcohol related) cardiomyopathy. 7. Diet-controlled diabetes. 8. Noncompliance. MEDICATIONS ON DISCHARGE: 1. BuSpar 30 mg p.o. b.i.d. 2. Multaq 400 mg p.o. b.i.d. 3. Lamotrigine 20 mg p.o. at bedtime. 4. Sertraline 200 mg p.o. daily. Medication changed: Xarelto was increased from 15 mg to 20 mg p.o. daily with meal. HOSPITAL COURSE: Mr. Longoria is a 48-year-old male with a past medical history as stated above that presents to the emergency room from [facility] complaining of 6/10 chest pressure with mild dyspnea associated with palpitations. For more details of his presentation, I refer you to his history and physical. In the emergency room, the patient had an initial troponin that was negative and an EKG that showed no acute ischemic changes. The patient was found to be in and out of atrial fibrillation. He was in consultation by Cardiology (Dr. Feliciano) and his recommendation was for a transthoracic echocardiogram and for stress test. He also recommended increasing the patient's Xarelto from 15 to 20 mg given his normal creatinine clearance. The patient underwent a transthoracic echocardiogram that showed ejection fraction of 45 to 50% with basal inferior, mid anterior and mid inferior wall segments hypokinesis. No significant valve disease. The patient underwent a pharmacological stress as he was unable to exercise and he showed fixed photopenia of the anterior wall, which may reflect previous infarct. No reversibility to suggest ischemia and diffuse hypokinesis with an end diastolic volume of 146. Those results were discussed with Dr. Feliciano and he had no additional recommendations. Of note, the patient has been discharged from [facility] Cardiology and his plan is to make arrangements to follow up with Dr. Quintanilla at the [facility]. At the time of discharge, the patient was in sinus rhythm, asymptomatic. He verbalized understanding of the change on his Xarelto dose. PHYSICAL EXAMINATION: Vital Signs: Temperature 97.9, heart rate 64, respiratory rate 16, oxygen saturation 97% on room air, blood pressure is 151/ 92. General: The patient is a middle-aged gentleman, sitting up in bed in no acute distress. CVS: S1 and S2. Regular rate and rhythm. Chest: Breath sounds bilaterally with no added sounds. Neuro: He is alert and oriented x3. He is able to move all 4 extremities. DIET: Heart-healthy consistent carb diet, avoid caffeine and alcohol. ACTIVITIES: As tolerated. DISPOSITION: [facility]. STATUS WHILE IN THE HOSPITAL: Observation. CONDITION AT THE TIME OF DISCHARGE: Fair. Please keep in mind this is a summarized version of this patient's hospital stay. If you need more information , please feel free to call me at [phone] or please obtain the full medical records. TIME SPENT: Approximately 45 minutes was spent to complete this discharge. [id number]/CPS #: [id number] MTDD
== END 2018-12-10 17:38 ==
LOC: ED 10:05 → EEVIPCON 13:05 → MEDTELE 13:05
PROVIDERS: ADMIT Internal Medicine; ATTEND Internal Medicine
DX: R07.89 Other chest pain (principal); I48.0 Paroxysmal atrial fibrillation; I25.2 Old myocardial infarction; Z79.82 Long term (current) use of aspirin; I25.10 Atherosclerotic heart disease of native coronary artery without angina pectoris; E83.42 Hypomagnesemia; I10 Essential (primary) hypertension; E78.5 Hyperlipidemia, unspecified; E11.69 Type 2 diabetes mellitus with other specified complication; R55 Syncope and collapse; I48.91 Unspecified atrial fibrillation; G47.33 Obstructive sleep apnea (adult) (pediatric); I42.9 Cardiomyopathy, unspecified; I25.5 Ischemic cardiomyopathy; E11.9 Type 2 diabetes mellitus without complications; Z91.19 Patient's noncompliance with other medical treatment and regimen; F10.21 Alcohol dependence, in remission; Z79.01 Long term (current) use of anticoagulants
CPT/HCPCS: 36415; 71045; 78452; 80053; 83605; 84484; 85025; 93005; 93306; 99283; A9270-GY; A9502; C8929; G0378; J0280; J2785

== ENCOUNTER 2019-05-09 07:37 | Observation (INO) | payer OTHER ==
--- NOTE | 2019-05-09 07:48 | ED ---
Shortness of Breath - HPI Summary HPI Summary: A 49 y/o male brought in by [facility] ambulance presents to [facility] with a chief complaint of SOB since this morning. He also reports diaphoresis and says that he was feeling like he was having a panic attack. He denies fevers, chills. He has a Hx of asthma and denies a Hx of COPD. The patient says that he did not take his medications. These medications include Lamictal, Xarelto and Carvedilol. He says that he does not wear O2 at home. He claims that he drinks 10-12 beers in one sitting about three times per week. He has a Hx of hepatic enephalopathy. He denies a Hx of Cirrhosis and claims that his liver tests have been fine. - History of Current Complaint Chief Complaint: EDShortnessOfBreath Time Seen by Provider: 05/09/19 07:39 Hx Obtained From: Patient, EMS Onset/Duration: Sudden Onset, Lasting Hours, Still Present Timing: Constant Current Severity: Mild Dyspnea At: Rest Aggravating Factors: Nothing Alleviating Factors: Nothing Associated Signs & Symptoms: Diaphoresis - Allergy/Home Medications Allergies/Adverse Reactions: Allergies Allergy/AdvReac Type Severity Reaction Status Date / Time amlodipine Allergy Mild Palpitation Verified 12/09/18 10:38 s azithromycin Allergy Mild Shakes Verified 12/09/18 10:38 erythromycin base Allergy Mild Shakes Verified 12/09/18 10:38 lisinopril Allergy Mild Palpitation Verified 12/09/18 10:38 s metoprolol [From Lopressor] Allergy Palpitation Verified 12/09/18 10:38 s Home Medications: Home Medications Carvedilol [Coreg] 25 mg PO BID 05/09/19 [History Confirmed 05/09/19] PMH/Surg Hx/FS Hx/Imm Hx Endocrine/Hematology History: Reports: Hx Anticoagulant Therapy - xarelto for a. fib, Hx Diabetes - diet controlled Cardiovascular History: Reports: Hx Angina, Hx Coronary Artery Disease, Hx Hypertension, Hx Myocardial Infarction, Other Cardiovascular Problems/Disorders - STENT PLACED TO RCA Respiratory History: Reports: Hx Asthma, Other Respiratory Problems/Disorders - recurrent dermatitis of unknown origin GI History: Reports: Other GI Disorders - hepatic encephalopathy dx'd 10/24/2017 History: Reports: Other Problems/Disorders - STAGE III CKD Musculoskeletal History: Reports: Hx Gout - hands - takes allopurinol Sensory History: Reports: Hx Contacts or Glasses Denies: Hx Hearing Aid Opthamlomology History: Reports: Hx Contacts or Glasses Psychiatric History: Reports: Hx Anxiety, Hx Depression - Currently on Zoloft, buspar and in counseling, Hx Substance Abuse - h/o ETOH abuse - in remission - Surgical History Surgery Procedure, Year, and Place: CARDIAC STENT PLACEMENT 2010 and November 2016 , and January 2017. - Immunization History Date of Tetanus Vaccine: utd Date of Influenza Vaccine: none Infectious Disease History: No Infectious Disease History: Denies: Hx Clostridium Difficile, Hx of Known/Suspected MRSA, Traveled Outside the [place] in Last 30 Days - Family History Known Family History: Positive: Cardiac Disease, Hypertension, Diabetes - Social History Alcohol Use: None Alcohol Amount: H/o ETOH abuse - none since 10/2017 Hx Substance Use: No Substance Use Type: Reports: None Substance Use Comment - Amount & Last Used: 09/04/17 Hx Tobacco Use: No Smoking Status (MU): Never Smoked Tobacco Review of Systems Positive: Skin Diaphoresis. Negative: Fever, Chills Positive: Shortness Of Breath Positive: Anxious All Other Systems Reviewed And Are Negative: Yes Physical Exam - Summary Physical Exam Summary: GENERAL: Patient is a well-developed and nourished M who is lying comfortable in the stretcher. Patient is not in any acute respiratory distress. HEAD AND FACE: Normocephalic EYES: PERRLA, EOMI x 2. EARS: Hearing grossly intact. MOUTH: Oropharynx within normal limits. NECK: Supple, trachea is midline, no adenopathy, no JVD, no carotid bruit. CHEST: Symmetric, no tenderness at palpation LUNGS: Faint wheezing bilaterally. CVS: Regular rate and rhythm, S1 and S2 present, no murmurs or gallops appreciated. ABDOMEN: Soft, non-tender. Bowel sounds are normal. No abnormal abdominal pulsations. EXTREMITIES: Full ROM in all major joints, no edema, no cyanosis or clubbing. NEURO: Alert and oriented x 3. No acute neurological deficits. Speech is normal and follows commands. Tremors. SKIN: Dry and warm Triage Information Reviewed: Yes Vital Signs On Initial Exam: Initial Vitals Temp Pulse Resp BP Pulse Ox 96.6 F 71 16 156/101 92 05/09/19 07:39 05/09/19 07:39 05/09/19 07:39 05/09/19 07:39 05/09/19 07:39 Vital Signs Reviewed: Yes Diagnostics - Vital Signs Vital Signs Temp Pulse Resp BP Pulse Ox 05/09/19 07:39 96.6 F 71 16 156/101 92 - Laboratory Result Diagrams: 05/10/19 07:00 05/10/19 07:00 Lab Statement: Any lab studies that have been ordered have been reviewed, and results considered in the medical decision making process. - Radiology CXR Radiology Interpretation Completed By: Radiologist Summary of Radiographic Findings: PROMINENT INTERSTITIAL MARKINGS AND RIGHT LUNG INFILTRATE MOST CONSISTENT. WITH PNEUMONIA LESS LIKELY CONGESTIVE HEART FAILURE. ED physician has reviewed this imaging report. - CT Chest/thorax CTA CT Interpretation Completed By: Radiologist Summary of CT Findings: 1. LIMITED EXAM, NO EVIDENCE FOR PULMONARY EMBOLISM. 2. BILATERAL INFILTRATES CONSISTENT WITH PNEUMONIA. 3. SMALL BILATERAL PLEURAL EFFUSIONS. ED physician has reviewed this imaging report. - EKG 07:55 Cardiac Rate: NL - 68 bpm EKG Rhythm: Sinus Rhythm Summary of EKG Findings: NSR at 68 bpm, LAE, normal axis, normal intervals Re-Evaluation - Re-Evaluation First Eval Re-Evaluation Time: 11:09 Course/Dx - Course Course Of Treatment: A 49 y/o male brought in by [facility] ambulance presents to [facility] with a chief complaint of SOB since this morning. The physical exam revealed faint wheezing bilaterally and tremors. Blood work, chemistries, blood gas and toxicology obtained. CXR impression: PROMINENT INTERSTITIAL MARKINGS AND RIGHT LUNG INFILTRATE MOST CONSISTENT. WITH PNEUMONIA LESS LIKELY CONGESTIVE HEART FAILURE. EKG at 07:55 reveals NSR at 68 bpm, LAE, normal axis , normal intervals. In the ED course the patient was given Iodixanol IV, Ativan IV, Reglan IV, Lopressor IV, Sodium Chloride IV, Decadron IV, Rocephin, Ceftriaxone IVPB, Carvedilol PO, and Duoneb INH. Chest/thorax CTA impression: 1. LIMITED EXAM, NO EVIDENCE FOR PULMONARY EMBOLISM. 2. BILATERAL INFILTRATES CONSISTENT WITH PNEUMONIA. 3. SMALL BILATERAL PLEURAL EFFUSIONS. The patient will be admitted. Case discussed with hospitalist, Dr. Martin. I discussed results with patient. The patient agrees with this plan. - Diagnoses Provider Diagnoses: Pneumonia - Physician Notifications Discussed Care of Patient With: Wai Martin Time Discussed With Above Provider: 11:20 Instructed by Provider To: Admit As Inpatient Discharge - Sign-Out/Discharge Documenting (check all that apply): Patient Departure - admit Patient Received Moderate/Deep Sedation with Procedure: No - Discharge Plan Condition: Fair Disposition: ADMITTED TO [facility] - Billing Disposition and Condition Condition: FAIR Disposition: Admitted to [facility] - Attestation Statements Document Initiated by Scribe: Yes Documenting Scribe: Oumar Bates Provider For Whom Ulises is Documenting (Include Credential): Melva Brink MD Scribe Attestation: Oumar Mendoza, scribed for Melva Brink MD on 05/10/19 at 1144. Scribe Documentation Reviewed: Yes Provider Attestation: The documentation as recorded by the Oumar painter accurately reflects the service I personally performed and the decisions made by Tracy bonilla MD Status of Scribe Document: Viewed
[2019-05-09] MEDS ORDERED: NS 0.9% 1000 ML** 1,000 ML IV ONE ×2 (08:10→12:52)
[2019-05-09] MEDS ORDERED: Lorazepam PYXIS KEY PRN ×2 (08:11→11:11)
[2019-05-09] MEDS ORDERED: LORazepam INJ* 2 MG/ML 1 ML VIAL IV PUSH ONE ×2 (08:11→11:11)
[2019-05-09] MEDS ORDERED: Dexamethasone IV* 4 MG/ML 1 ML (4 MG) IV SLOW PU ONE (08:12)
[2019-05-09] MEDS ORDERED: Albuterol/Ipratropium NEB.SOL* Albuterol 2.5 MG/Ipratropium 0.5 MG 3 ML INH ONE (08:12)
[2019-05-09] MEDS ORDERED: Lorazepam PYXIS KEY ONE ×2 (08:20→11:18)
[2019-05-09 08:32] LABS: ABS Eosinophils 0.1 10^3/ul (0-0.6); ABS Lymphocytes 0.7 10^3/ul (1.0-4.8); ABS Monocytes 0.2 10^3/ul (0-0.8); ABS Neutrophils 3.6 10^3/ul (1.5-7.7); Eosinophil % 2.6 %; Hematocrit 40 % (42-52); Hemoglobin 13.5 g/dL (14.0-18.0); Lymphocyte % 15.8 %; Mean Corpuscular HGB Conc 34 g/dL (31-36); Mean Corpuscular Hemoglobin 30 pg (27-31); Mean Corpuscular Volume 90 fL (80-94); Platelet Count 175 10^3/uL (150-450); Red Blood Count 4.46 10^6 /uL (4.18-5.48); Red Cell Distribution Width 16 % (10-15); White Blood Count 4.7 10^3/uL (3.5-10.8)
[2019-05-09 08:50] LABS: Albumin 3.9 g/dL (3.2-5.2); Albumin/Globulin Ratio 1.6 (1-3); BUN/Creatinine Ratio 20.7 (8-20); Calcium 8.4 mg/dL (8.6-10.3); EGFR African American 120.3 (>60); EGFR Non-African American 99.5 (>60); Globulin 2.5 g/dL (2-4); Potassium 3.9 mmol/L (3.5-5.0); Total Bilirubin 0.3 mg/dL (0.2-1.0); Total Protein 6.4 g/dL (6.4-8.9); Troponin I 0.01 ng/mL (<0.04)
[2019-05-09] MEDS ORDERED: Azithromycin 500 mg/250 ml NS 500 MG/250 ML BAG IVPB ONE (09:09)
[2019-05-09] MEDS ORDERED: cefTRIAXone(*) 1 GM in NS 0.9% 50 ML* 50 ML IVPB ONE ×2 (09:09→11:03)
[2019-05-09] MEDS ORDERED: cefTRIAXone(*) 1 GM ADVAN/BAG ONE (09:25)
[2019-05-09 09:28] LABS: Activated Partial Thrombo Time 40.1 seconds (26.0-38.0); INR 1.22 (0.82-1.09)
[2019-05-09] MEDS ORDERED: Metoclopramide IV* 5 MG/ML 2 ML VIAL IV ONE (09:42)
[2019-05-09] MEDS ORDERED: Metoprolol Tartrate IV* 1 MG/ML 5 ML VIAL ONE (09:44)
[2019-05-09] MEDS ORDERED: Iodixanol* (CONTRAST) 320 MG/ML 100 ML SDV IV ONE (09:49)
[2019-05-09] MEDS ORDERED: Carvedilol TAB* 25 MG PO ONE (09:50)
[2019-05-09] MEDS ORDERED: Diltiazem IV push/loading dose 5 MG/ML 5 ML vial (25 mg) IV SLOW PU ONE (12:50)
[2019-05-09] MEDS ORDERED: Diltiazem IV push/loading dose 5 MG/ML 5 ML vial (25 mg) ONE (12:53)
[2019-05-09] MEDS ORDERED: Acetaminophen TAB* 325 MG PO PRN (14:18)
[2019-05-09] MEDS ORDERED: Al Hydrox/Mg Hydrox/Simet LIQ* 30 ML UDC PO PRN (14:18)
[2019-05-09] MEDS ORDERED: Albuterol 2.5 MG/3 ML NEB.SOL* (0.083%) INH PRN (15:24)
--- NOTE | 2019-05-09 16:14 | HP ---
CC: Dr. Shaikh * HISTORY AND PHYSICAL: DATE OF ADMISSION: 05/09/19 TIME OF ADMISSION: 3 p.m. PRIMARY CARE PHYSICIAN: Dr. Shaikh. CHIEF COMPLAINT: "I couldn't breathe." HISTORY OF PRESENT ILLNESS: This is a 49-year-old man with history of asthma, AFib, nonischemic cardiomyopathy, and sleep apnea who presents to the emergency department with 3 weeks of shortness of breath that got worse 4 days ago. He cannot describe anything that happened 3 weeks ago and he was not particularly ill and nebulizers were working for his shortness of breath up until 4 days ago when he felt the shortness of breath worsened and it was not just present on exertion, but was present at rest as well. He attempted to use nebulizers with little relief, and then today, he could not catch his breath while resting, so he came to the emergency department. He does complain of a recent cough productive of yellow sputum. He has had some subjective fevers. He has had no sick contacts, no travel. He has had no sore throat, rhinorrhea, headaches, nausea, vomiting, constipation, or diarrhea. EMERGENCY ROOM COURSE: In the ER, he received 1 L of normal saline, 10 mg of IV Cardizem, 8 mg of Decadron, 25 mg of oral Coreg, 5 mg of Reglan, another liter of normal saline, 1 g of ceftriaxone. PAST MEDICAL HISTORY: 1. Coronary artery disease, status post PCI. 2. AFib. 3. Obstructive sleep apnea, on CPAP that he wears. 4. Hypertension. 5. Nonischemic cardiomyopathy thought to be related to alcohol. 6. Type 2 diabetes that is diet controlled. 7. Asthma. 8. Questionable history of hepatic encephalopathy, but no cirrhosis. HOME MEDICATIONS: 1. Multaq 400 mg b.i.d. 2. Lamotrigine 200 mg q.h.s. 3. Sertraline 200 mg daily. 4. Xarelto 20 mg daily. 5. Coreg 25 mg b.i.d. ALLERGIES: AMLODIPINE, AZITHROMYCIN, ERYTHROMYCIN, LISINOPRIL, and METOPROLOL. FAMILY HISTORY: His mom has cirrhosis from an infection that he does not know what it is. His dad has polycythemia vera. SOCIAL HISTORY: He is a never smoker. He drinks a 12-pack of beer per day about 2 to 3 days per week. He can go days without it and has never had withdrawal that he knows of. He uses no drugs. REVIEW OF SYSTEMS: As per the HPI. Remainder of the review of systems is negative. PHYSICAL EXAMINATION GENERAL: Alert, well-appearing middle-aged man, in no distress. He is resting comfortably in the stretcher and is able to speak in full sentences with no accessory respiratory muscle use. He is lying down almost flat with no dyspnea. VITAL SIGNS: Temperature 96.6, heart rate 64, respiratory rate 16, pulse ox 91 % on room air, blood pressure 154/96. HEENT: He has no pharyngeal exudates or erythema. His oral mucosa is moist. No scleral icterus. NECK: I cannot appreciate any JVP. No lymphadenopathy. CHEST: He is in a regular rate and rhythm with no murmurs. He has an old sternotomy incision. His lungs have mildly decreased air movement with no rhonchi. ABDOMEN: Soft, nontender, nondistended. No guarding or rebound. No CVA tenderness. EXTREMITIES: No edema, rashes, or ulcers. NEUROLOGIC: He is oriented x3. His strength is 5/5 in all extremities. DIAGNOSTIC STUDIES/LAB DATA: White blood cells 4.7, hemoglobin 13.5, platelets 175. INR 1.22. D-dimer 249. VBG 7.44/40/56. Sodium 142, potassium 3.9, chloride 109, bicarb 24, BUN 17, creatinine 0.82, glucose 167. Lactic acid 1.3. Ammonia 54. Troponin 0.01, 0.01, 0.00. The serum alcohol is 37. EKG: Normal sinus rhythm, normal axis, normal intervals. No Qs. No ST or T- wave changes. Chest thorax CTA shows limited exam, no evidence for PE, bilateral infiltrates consistent with pneumonia, and small bilateral pleural effusions. ASSESSMENT AND PLAN: This is a 49-year-old man with history of coronary artery disease, nonischemic cardiomyopathy, alcohol use, and asthma who presents to the emergency department with 3 weeks of shortness of breath, worsened over the last 4 days, and in the emergency department is found to have a pneumonia on a CTA. 1. Shortness of breath. Certainly, his CTA which shows bilateral patchy infiltrates suggests an infectious cause of his dyspnea; however, he does not have typical signs and symptoms of community-acquired pneumonia and has no leukocytosis or fever. However, he did admit to some sputum production and cough, though that does not seem to be a predominant symptom. We will check a sputum culture, urine legionella, and urine strep antigen as well as blood cultures. He has received ceftriaxone in the emergency department. I will check an HIV and continue the ceftriaxone. Other causes of his subacute worsening of his dyspnea on exertion suggest a differential of decompensated heart failure; however, his volume exam is challenging and I do not appreciate any JVP. I will repeat an echo and continue him on his home dose of Coreg. Also on the differential is uncontrolled atrial fibrillation as he did have several episodes of it in the emergency department that was improved with beta- blockers. We will monitor him on telemetry. Acute coronary syndrome has been ruled out with a normal EKG and normal troponins x3. I will give him prednisone for the possibility of an asthma exacerbation, though I do not appreciate bronchospasm on exam and I also ordered a p.r.n. albuterol. 2. Atrial fibrillation with rapid ventricular response. He is now rate controlled. I will continue with home dose of Coreg. Continue Xarelto. 3. Coronary artery disease, status post percutaneous coronary intervention. I am unclear why he does not take an aspirin or a statin. It does not seem that he is followed up with Cardiology. I would like to start these. They are not listed on his allergy list. 4. Obstructive sleep apnea. Continue nocturnal CPAP. 5. Mood disorder. Continue lamotrigine and sertraline. 6. DVT prophylaxis: Therapeutic anticoagulation with Xarelto. [id number]/[facility] #: [id number] JEANCARLOS
--- NOTE | 2019-05-09 18:29 | ECHO ---
*[facility]* [place] [address] Fax #: [phone] Transthoracic Echocardiogram Patient: Rashaun Longoria : 1970 Study Date: 05/09/2019 Age: 49 Gender: M HR: 62 bpm Height: 68 in /172.7 cm BSA: 2.17 m^2 Weight: 230.5 lb /104.8 kg BMI: 35.1 kg/m^2 *Coal Equipment Operator: * Citlaly Gomez RDCS RN *Referring Physician: * Zakiya Rivers *Reading Physician: * Tracey Johnson MD Indications: SOB. History: Paroxysmal Atrial fibrillation. Coronary artery disease. PR. Multiiple stents. Asthma. Risk factors: Hypertension. Obese. ETOH use. Conclusions Summary: - Left ventricle: The cavity size is normal. Wall thickness is mildly to moderately increased. Systolic function is at the lower limits of normal. The estimated ejection fraction is 50-55%. Hypokinesis of the basalinferior myocardium. - Right ventricle: The cavity size is mildly dilated. Wall thickness is mildly increased. Systolic function is normal. - Mitral valve: There is mild regurgitation. - Aortic valve: There is trace to mild regurgitation. - Tricuspid valve: There is trace regurgitation. Unable to measure pulmonary artery pressure. - Aorta: The ascending aorta internal dimension in the A-P direction, maximal systolic dimension is 4.0 cm. - Ascending aorta: The ascending aorta is mildly dilated. - Compared with prior echocardiogram of 12/10/18, basilar hypokinesis noted on prior study, more focal now, prior ejection fraction 45-50%, right ventricular hypertrophy and right ventricle chamber dilatation is new, AI is stable, mitral regurgitation previously trace/mild, tricuspid regurgitation is stable. Aorta diameter diameter has increased from 3.8 cm. Study data: Transthoracic echocardiogram. Procedure: Transthoracic echocardiography was performed. Image quality was fair. The study was technically limited due to body habitus. Complete 2D, spectral Doppler, and color flow Doppler. Location: Bedside. Patient status: Inpatient. Patient room number: 416-02. Rhythm: Normal sinus rhythm with PAC's. Findings Left ventricle: The cavity size is normal. Wall thickness is mildly to moderately increased. Systolic function is at the lower limits of normal. The estimated ejection fraction is 50-55%. Regional wall motion abnormalities: Hypokinesis of the basalinferior myocardium. Doppler parameters are consistent with abnormal left ventricular relaxation (grade 1 diastolic dysfunction). Right ventricle: The cavity size is mildly dilated. Wall thickness is mildly increased. Systolic function is normal. Left atrium: The atrium is mildly dilated. Right atrium: The atrium is mildly dilated. Mitral valve: The leaflets are mildly thickened. There is no evidence of stenosis. There is mild regurgitation. Aortic valve: The valve is trileaflet. The leaflets are mildly thickened. There is no evidence of stenosis. There is trace to mild regurgitation. Tricuspid valve: The valve is structurally normal. There is no evidence of stenosis. There is trace regurgitation. Pulmonic valve: The valve is structurally normal. There is no evidence of stenosis. There is no significant regurgitation. Aorta: Aortic root: The aortic root is mildly dilated. Ascending aorta: The ascending aorta is mildly dilated. Aortic arch: The aortic arch is not dilated. Pericardium: There is no pericardial effusion. Pulmonary arteries: Not well visualized. Systolic pressure can not be accurately estimated. Systemic veins: Inferior vena cava: The vessel is mildly dilated. There is (>= 50%) respiratory change in the IVC dimension. Measurements Left ventricle Value Ref Aortic valve Value Ref EDUARDO, LAX 4.8 cm 4.2 - Radha diam, ED 2.5 cm ---- 5.8 Radha diam/bsa, ED 1.1 cm/m^2 ---- ESD, LAX (H) 4.3 cm 2.5 - Peak v, S 1.17 m/sec ---- 4.0 VTI, S 29.8 cm ---- FS, LAX (L) 10 % 25 - 43 Mean grad, S 3.0 mm Hg ---- PW, ED (H) 1.3 cm 0.6 - Peak grad, S 5.0 mm Hg ---- 1.0 LVOT/AV, VTI ratio 0.86 ---- IVS/PW, ED 0.98 -------- E', lat radha, TDI 10.6 cm/sec >=10.0 Mitral valve Value R ef E/e', lat radha, TDI 11 -------- Peak E 1.16 m/sec ---- E', med radha, TDI (L) 6.1 cm/sec >=7.0 Peak A 0.64 m/sec - --- E/e', med radha, TDI 19 -------- Decel time 165 ms ---- E', avg, TDI 8.4 cm/sec -------- Peak grad, D 5.4 mm Hg ---- E/e', avg, TDI 14 <=14 Peak E/A ratio 1.8 - --- LVOT Value Ref Pulmonic valve Value Ref Peak efrain, S 1.04 m/sec -------- Peak v, S 0.92 m/sec ---- VTI, S 25.6 cm -------- Peak grad, S 3.0 mm Hg ---- Mean grad, S 3 mm Hg -------- Aortic root Value Ref Ventricular septum Value Ref Root diam 4.2 cm <4.3 IVS, ED (H) 1.3 cm 0.6 - 1.0 Ascending aorta Value Ref AAo AP diam, S 4.0 cm ---- Right ventricle Value Ref EDUARDO, LAX 3.4 cm -------- Aortic arch Value Ref EDUARDO minor ax, A4C (H) 3.7 cm 1.9 - Arch diam 3.1 cm ---- mid 3.5 Decending aorta Value Ref Left atrium Value Ref Ben peak efrain 0.5 m/sec ---- ML dim, A4C 4.7 cm -------- SI dim, A4C 7.1 cm -------- Inferior vena cava Value Ref Vol/bsa, ES, 1-p 35 ml/m^2 12 - 37 Diam 2.5 cm ---- A4C Vol/bsa, ES, A/L (H) 40 ml/m^2 16 - 34 Right atrium Value Ref ML dim, ES, A4C (H) 5.0 cm 2.6 - 4.4 SI dim, ES, A4C (H) 6.2 cm 3.4 - 5.3 Estimated RAP 8 mm Hg -------- Legend: (L) and (H) tia values outside specified reference range. Prepared and electronically signed by Tracey Johnson MD 05/09/2019 18:28
[2019-05-09] MEDS ORDERED: LORazepam TAB(*) 1 MG PO SCH (19:00)
[2019-05-09] MEDS ORDERED: lamoTRIgine TAB(*) 100 MG PO SCH (21:00)
[2019-05-09] MEDS: Carvedilol TAB* 25 MG PO SCH (22:15)
[2019-05-09] MEDS: Dronedarone TAB* 400 MG PO SCH (22:16)
[2019-05-09] MEDS: Apixaban* 5 MG TAB PO SCH (22:16)
[2019-05-10 07:31] LABS: ABS Lymphocytes 0.5 10^3/ul (1.0-4.8); ABS Monocytes 0.3 10^3/ul (0-0.8); Hematocrit 40 % (42-52); Hemoglobin 13.5 g/dL (14.0-18.0); Lymphocyte % 7.9 %; Mean Corpuscular HGB Conc 34 g/dL (31-36); Mean Corpuscular Hemoglobin 31 pg (27-31); Mean Corpuscular Volume 90 fL (80-94); Mean Platelet Volume 7.9 fL (7.4-10.4); Platelet Count 189 10^3/uL (150-450); Red Blood Count 4.41 10^6 /uL (4.18-5.48); Red Cell Distribution Width 16 % (10-15); White Blood Count 5.8 10^3/uL (3.5-10.8)
[2019-05-10 07:52] LABS: Calcium 8.5 mg/dL (8.6-10.3); Potassium 3.7 mmol/L (3.5-5.0)
[2019-05-10 07:57] LABS: BUN/Creatinine Ratio 20.9 (8-20); EGFR African American 151.9 (>60); EGFR Non-African American 125.6 (>60)
[2019-05-10] MEDS: Carvedilol TAB* 25 MG PO SCH (08:48)
[2019-05-10] MEDS: Dronedarone TAB* 400 MG PO SCH (08:48)
[2019-05-10] MEDS: Apixaban* 5 MG TAB PO SCH (08:48)
[2019-05-10] MEDS ORDERED: Multivitamins/Minerals TAB PO SCH (09:00)
[2019-05-10] MEDS ORDERED: Thiamine TAB* 100 MG TAB PO SCH (09:00)
[2019-05-10] MEDS ORDERED: predniSONE TAB* 20 MG PO SCH (09:00)
[2019-05-10] MEDS ORDERED: Rivaroxaban TAB(*) 20 MG TAB PO SCH (09:00)
[2019-05-10] MEDS ORDERED: Sertraline* 100 MG TAB PO SCH (09:00)
[2019-05-10] MEDS ORDERED: Folic Acid TAB* 1 MG PO SCH (09:00)
[2019-05-10 12:06] VITALS: BP 154/81
--- NOTE | 2019-05-10 14:42 | DS ---
DISCHARGE SUMMARY: DATE OF ADMISSION: 05/09/19 DATE OF DISCHARGE: 05/10/19 PRINCIPAL DISCHARGE DIAGNOSES: 1. Community acquired pneumonia. 2. Asthma exacerbation. 3. Atrial fibrillation with rapid ventricular response. SECONDARY DISCHARGE DIAGNOSES: 1. History of coronary artery disease. 2. AFib, on anticoagulation. 3. Obstructive sleep apnea, on CPAP. 4. Hypertension. 5. History of nonischemic cardiomyopathy related to alcohol use. 6. Alcohol dependence. 7. Type 2 diabetes. 8. Asthma. MEDICATIONS AT DISCHARGE: 1. Multaq 400 mg b.i.d. 2. Zoloft 200 mg daily. 3. Lamotrigine 200 mg at bedtime. 4. Coreg 25 mg b.i.d. 5. Eliquis 5 mg b.i.d. 6. Doxycycline 100 mg b.i.d. for 4 more days. 7. Prednisone 40 mg daily for 4 days. Please note that his Xarelto has been changed to Eliquis due to interaction with Multaq. PHYSICAL EXAM AT DISCHARGE: Temperature 96.9, heart rate 67, respiratory rate 14, pulse ox 98% on room air; his pulse ox is 95% on room air with ambulation, blood pressure 154/81. General: Alert, well-appearing man in no distress, sitting in bed, eating his lunch. HEENT: He has facial plethora. Oral mucosa is moist. Neck: No JVP. No adenopathy. Chest: He is in regular rate and rhythm with no murmurs. His lungs have improved aeration and scant rhonchi at the bases. His abdomen is obese, soft, nontender. His liver is not palpable. Extremities: He has no tremor, no asterixis. No edema, rashes, or ulcers. Neurologic: He is oriented, appropriate, calm and his strength is 5/5 in all extremities. His gait is normal. PERTINENT LAB TESTS ON THIS HOSPITALIZATION: His troponins were negative x3. PERTINENT IMAGING ON THIS HOSPITALIZATION: A CTA done in the emergency department showed no evidence of pulmonary embolism, bilateral infiltrates consistent with pneumonia, and small bilateral pleural effusion. A transthoracic echocardiogram on 05/09/19 showed LV systolic function of 50% to 55% with hypokinesis of the basal inferior myocardium. The RV cavity is mildly dilated with mildly increased wall thickness and normal systolic function, mild mitral regurgitation, trace to mild aortic regurgitation, trace tricuspid regurgitation. BRIEF HOSPITAL COURSE: Mr. Longoria was admitted from the emergency department on 05/09/19 for bilateral pneumonia that was noted on a CTA. His presenting complaint was mostly shortness of breath and dyspnea on exertion; however, he did incidentally note a productive cough. So, I treated him empirically for community acquired pneumonia with ceftriaxone and also reevaluated his cardiac function. Given his history of alcohol use and nonischemic cardiomyopathy, a repeat echocardiogram did not show depressed ejection fraction and, in fact, showed improvement since his last echocardiogram. He did have a change in his RV wall; however, a CTA ruled out PE. He was treated with ceftriaxone and Solu- Medrol and nebulizers and improved quickly. He had no oxygen requirement at rest or with ambulation. Sputum culture was unable to be obtained. Urine Legionella and strep antigens were negative. He is being discharged on 4 more days of doxycycline and 4 more days of prednisone. He has never had pulmonary function tests that he knows of. He should consider PFTs with his primary care provider if deemed appropriate. Regarding his cardiac history, he has not seen a uniformer in years and agrees to see one here in [place]. He will ask his primary care provider for a referral. His shortness of breath may also have been related to AFib with RVR, which he was noted to be in the emergency department or his AFib with RVR may have been related to his pneumonia. Either way, his heart rate responded well to IV metoprolol and I was able to put him back on his home dose of carvedilol without any further intervention and his heart rate has been well controlled. Regarding his anticoagulation, he has been on Xarelto, but given interaction of Xarelto with Multaq, I changed the Xarelto to Eliquis. He did not think he had ever been on Eliquis before and there was no reason that he knew of that he was not, so he was agreeable to this change. Regarding his alcohol use, he was placed on the WAM protocol, but did not score during any time and required no Ativan during this admission. CONDITION AT THE TIME OF DISCHARGE: Stable. DISPOSITION: Mr. Longoria is requesting discharge to home on 05/10/19 and I think this is appropriate. I am discharging him on 4 more days of prednisone and doxycycline. He has a nebulizer at home that I encouraged him to use. He probably needs PFTs at some point. He is going to establish care with Dr. Shaikh and I encouraged him to get a referral to a uniformer [id number]/[facility] #: [id number] JEANCARLOS
[2019-05-10 15:29] LABS: HIV 4th Generation Negative (Negative)
== END 2019-05-10 14:00 | disposition home or self-care (01) | DRG 139 ==
LOC: ED 07:37 → INTOOBSV 15:16 → MED 15:16
PROVIDERS: ADMIT Internal Medicine; ATTEND Internal Medicine
DX: J18.9 Pneumonia, unspecified organism (principal); J45.901 Unspecified asthma with (acute) exacerbation; I42.6 Alcoholic cardiomyopathy; J90 Pleural effusion, not elsewhere classified; I48.91 Unspecified atrial fibrillation; I25.10 Atherosclerotic heart disease of native coronary artery without angina pectoris; G47.33 Obstructive sleep apnea (adult) (pediatric); I10 Essential (primary) hypertension; F10.20 Alcohol dependence, uncomplicated; M10.9 Gout, unspecified; F41.9 Anxiety disorder, unspecified; F32.9 Major depressive disorder, single episode, unspecified; E11.9 Type 2 diabetes mellitus without complications; I08.3 Combined rheumatic disorders of mitral, aortic and tricuspid valves; Z88.8 Allergy status to other drugs, medicaments and biological substances; Z88.1 Allergy status to other antibiotic agents; Z80.7 Family history of other malignant neoplasms of lymphoid, hematopoietic and related tissues; Z79.01 Long term (current) use of anticoagulants; Z83.79 Family history of other diseases of the digestive system; I25.2 Old myocardial infarction; Z95.5 Presence of coronary angioplasty implant and graft; Z82.49 Family history of ischemic heart disease and other diseases of the circulatory system; Z83.3 Family history of diabetes mellitus; Z79.899 Other long term (current) drug therapy
CPT/HCPCS: 36415; 71046; 71275; 80048; 80053; 80320; 82140; 82803; 83605; 83880; 84484; 85025; 85379; 85610; 85730; 87205; 87389; 87899; 93005; 93306; 94660; 99284; A9270-GY; G0378; G0480; J0456; J0696; J1100; J2060; J3490; J7512; Q9967

== ENCOUNTER 2019-06-03 14:49 | Emergency (ER) | payer OTHER ==
--- NOTE | 2019-06-03 15:56 | UC ---
Respiratory Complaint HPI - HPI Summary HPI Summary: 49 yo male feeling under the weather x 2 weeks. Cough and wheezing as well as fever and chills, some nausea and diarrhea Early in May was hospitalized for bilateral pneumonia hx asthma, hx CAD, hx AF - History of Current Complaint Chief Complaint: UCRespiratory Stated Complaint: COLD SYMPTOMS Time Seen by Provider: 06/03/19 15:27 Hx Obtained From: Patient Onset/Duration: Gradual Onset, Lasting Hours, Lasting Weeks Severity Initially: Mild Severity Currently: Moderate Pain Intensity: 0 Pain Scale Used: 0-10 Numeric Character: Cough: Productive - at times Aggravating Factors: Exertion, Deep Breaths, Recumbent Position Alleviating Factors: Bronchodilator Associated Signs And Symptoms: Positive: Fever - kathy, Chills, Wheezing, Nasal Congestion, Sinus Discomfort - Allergies/Home Medications Allergies/Adverse Reactions: Allergies Allergy/AdvReac Type Severity Reaction Status Date / Time amlodipine Allergy Mild Palpitation Verified 06/03/19 15:01 s azithromycin Allergy Mild Shakes Verified 06/03/19 15:01 erythromycin base Allergy Mild Shakes Verified 06/03/19 15:01 lisinopril Allergy Mild Palpitation Verified 06/03/19 15:01 s metoprolol [From Lopressor] Allergy Palpitation Verified 06/03/19 15:01 s Home Medications: Home Medications ALPRAZolam [Xanax] 0.5 mg PO TID PRN 06/03/19 [History Confirmed 06/03/19] PMH/Surg Hx/FS Hx/Imm Hx Previously Healthy: Yes Endocrine History: Diabetes - diet controlled Cardiovascular History: Cardiac Disease, Hypertension, Myocardial Infarction, Atrial Fibrillation Respiratory History: Asthma, Bronchitis, Pneumonia Other History Of: Anticoagulant Therapy - xarelto for a. fib - Surgical History Surgical History: Yes Surgery Procedure, Year, and Place: CARDIAC STENT PLACEMENT 2010 and November 2016 , and January 2017. Perirectal abscess - Family History Known Family History: Positive: Cardiac Disease, Hypertension, Diabetes - Social History Alcohol Use: Weekly Alcohol Amount: H/o ETOH abuse - none since 10/2017 Substance Use Type: None Substance Use Comment - Amount & Last Used: 09/04/17 Smoking Status (MU): Never Smoked Tobacco - Immunization History Most Recent Influenza Vaccination: NEVER Most Recent Tetanus Shot: 2013 Most Recent Pneumonia Vaccination: NEVER Review of Systems All Other Systems Reviewed And Are Negative: Yes Constitutional: Positive: Fever, Chills, Fatigue Skin: Positive: Negative Eyes: Positive: Negative ENT: Positive: Nasal Discharge, Sinus Congestion, Sinus Pain/Tenderness Respiratory: Positive: Cough, Other - wheezing Cardiovascular: Positive: Negative Gastrointestinal: Positive: Negative Genitourinary: Positive: Negative Motor: Positive: Negative Neurovascular: Positive: Negative Musculoskeletal: Positive: Negative Neurological: Positive: Negative Psychological: Positive: Negative Physical Exam Triage Information Reviewed: Yes Completion Of Physical Exam Limited Due To: Altered Mental Status Appearance: Well-Appearing, No Pain Distress, Well-Nourished Vital Signs: Initial Vital Signs Temp 97.1 F 06/03/19 15:03 Pulse 60 06/03/19 15:03 Resp 18 06/03/19 15:03 Pulse Ox 98 06/03/19 15:03 Vital Signs Reviewed: Yes Eyes: Positive: Conjunctiva Clear ENT: Positive: Hearing grossly normal, Pharynx normal, Nasal congestion, Nasal drainage, TMs normal, Sinus tenderness, Uvula midline. Negative: Tonsillar swelling, Tonsillar exudate, Trismus, Muffled voice, Hoarse voice Neck: Positive: Supple, Nontender, No Lymphadenopathy Respiratory: Positive: Lungs clear, Normal breath sounds, No respiratory distress, No accessory muscle use Cardiovascular: Positive: No Murmur. Negative: RRR Musculoskeletal: Positive: ROM Intact, No Edema Neurological: Positive: Alert Psychological Exam: Normal Skin Exam: Normal Diagnostics - Radiology No standard instances Radiology Interpretation Completed By: Radiologist Summary of Radiographic Findings: stable cardiomegaly, resolution of infiltrates Respiratory Course/Dx - Differential Dx/Diagnosis Provider Diagnosis: Bronchitis with bronchospasm Discharge ED - Sign-Out/Discharge Documenting (check all that apply): Patient Departure All imaging exams completed and their final reports reviewed: Yes - Discharge Plan Condition: Stable Disposition: HOME Prescriptions: Amoxicillin PO (*) [Amoxicillin 875 MG (*)] 875 mg PO BID #14 tab Dronedarone HCl [Multaq] 400 mg PO BID #20 tab predniSONE [Deltasone 20 MG TAB] 40 mg PO DAILY #10 tab Patient Education Materials: Acute Bronchitis (ED) Forms: *Work Release Referrals: Isa Shaikh MD [Primary Care Provider] - 1 Week - Billing Disposition and Condition Condition: STABLE Disposition: Home
== END 2019-06-03 16:20 | disposition home or self-care (01) ==
LOC: UCEAST 14:49
DX: J40 Bronchitis, not specified as acute or chronic (principal); E11.9 Type 2 diabetes mellitus without complications; I10 Essential (primary) hypertension; I25.2 Old myocardial infarction; I48.91 Unspecified atrial fibrillation; Z79.01 Long term (current) use of anticoagulants; Z88.8 Allergy status to other drugs, medicaments and biological substances; Z88.1 Allergy status to other antibiotic agents; Z95.5 Presence of coronary angioplasty implant and graft
CPT/HCPCS: 71046; 99212; G0463

== ENCOUNTER 2019-06-19 14:05 | Observation (INO) | payer OTHER ==
[2019-06-19] MEDS ORDERED: Aspirin 81 mg CHEW TAB* 81 MG TAB.CHEW PO ONE (14:17)
--- NOTE | 2019-06-19 14:22 | ED ---
HPI Chest Pain - HPI Summary HPI Summary: Patient is a 49 y/o M w/ Hx of [place] who presents to [facility] via EMS with police lieutenant from skilled nursing for chief complaint of episodes of chest pain. Chest pain is reported to have onset last night, 06/18/19. Chest pain is reported to have worsened this morning and is characterized as a pressure. He claims pain radiates to his back, and notes pain at this area is sharp. Episodes of chest pain last around 30-60 seconds. No pain at present is noted. Patient additionally reports nausea and diaphoresis but denies vomiting. He claims that Sx are similar to those he had during his [place] two years ago in November 2016. Patient is on Eliquis. He states that he has 5 cardiac stents. Patient had a "fine" cardiac stress test in November of 2018. He notes that he is a borderline diabetic. Patient reports Hx of kidney failure and states that he is not on dialysis. On triage, pain is denied, nothing is noted to aggravate/alleviate Sx. Home medications and allergies are reviewed. - History of Current Complaint Chief Complaint: EDChestPainROMI Time Seen by Provider: 06/19/19 14:13 Hx Obtained From: Patient Onset/Duration: Started Days Ago, Resolved Timing: Intermittent, Lasting Seconds Current Severity: None Pain Intensity: 0 Pain Scale Used: 0-10 Numeric Chest Pain Radiates: Yes Chest Pain Radiates To:: Back Character: Pressure/Squeezing, Sharp/Stabbing Aggravating Factor(s): Nothing Alleviating Factor(s): Nothing Associated Signs and Symptoms: Positive: Chest Pain, Diaphoresis, Nausea. Negative: Vomiting - Additional Pertinent History Primary Care Physician: [facility] - Allergy/Home Medications Allergies/Adverse Reactions: Allergies Allergy/AdvReac Type Severity Reaction Status Date / Time amlodipine Allergy Mild Palpitation Verified 06/03/19 15:01 s azithromycin Allergy Mild Shakes Verified 06/03/19 15:01 erythromycin base Allergy Mild Shakes Verified 06/03/19 15:01 lisinopril Allergy Mild Palpitation Verified 06/03/19 15:01 s metoprolol [From Lopressor] Allergy Palpitation Verified 06/03/19 15:01 s Home Medications: Home Medications Lactulose* 15 ml PO TID 06/19/19 [History Confirmed 06/19/19] Levalbuterol HFA INHALER* [Xopenex Hfa Inhaler*] 1 puff INH Q4H PRN 06/19/19 [ History Confirmed 06/19/19] Triamcinolone 0.025% CM(NF) [Kenalog Cream 0.025%*] 1 applic TOPICAL BID [History Confirmed 06/19/19] busPIRone TAB* [Buspar TAB*] 30 mg PO BID 06/19/19 [History Confirmed 06/19/19] hydrOXYzine pamoate [Hydroxyzine Pamoate] 1 tab PO TID PRN 06/19/19 [History Confirmed 06/19/19] lamoTRIgine [Lamotrigine] 200 mg PO BEDTIME 06/19/19 [History Confirmed 06/19/19 ] PMH/Surg Hx/FS Hx/Imm Hx Endocrine/Hematology History: Reports: Hx Anticoagulant Therapy - xarelto for a. fib, Hx Diabetes - diet controlled Cardiovascular History: Reports: Hx Angina, Hx Coronary Artery Disease, Hx Hypertension, Hx Myocardial Infarction, Other Cardiovascular Problems/Disorders - STENT PLACED TO RCA Respiratory History: Reports: Hx Asthma, Other Respiratory Problems/Disorders - recurrent dermatitis of unknown origin GI History: Reports: Other GI Disorders - hepatic encephalopathy dx'd 10/24/2017 History: Reports: Other Problems/Disorders - STAGE III CKD Denies: Hx Renal Disease Musculoskeletal History: Reports: Hx Gout - hands - takes allopurinol Sensory History: Reports: Hx Contacts or Glasses Denies: Hx Hearing Aid Opthamlomology History: Reports: Hx Contacts or Glasses Psychiatric History: Reports: Hx Anxiety, Hx Depression - Currently on Zoloft, buspar and in counseling, Hx Substance Abuse - h/o ETOH abuse - in remission - Surgical History Surgery Procedure, Year, and Place: CARDIAC STENT PLACEMENT 2010 and November 2016 , and January 2017. Perirectal abscess - Immunization History Date of Tetanus Vaccine: utd Date of Influenza Vaccine: none Infectious Disease History: No Infectious Disease History: Denies: Hx Clostridium Difficile, Hx of Known/Suspected MRSA, Traveled Outside the [place] in Last 30 Days - Family History Known Family History: Positive: Cardiac Disease, Hypertension, Diabetes - Social History Alcohol Use: Weekly Alcohol Amount: H/o ETOH abuse - none since 10/2017 Hx Substance Use: No Substance Use Type: Reports: None Substance Use Comment - Amount & Last Used: 09/04/17 Hx Tobacco Use: No Smoking Status (MU): Never Smoked Tobacco Review of Systems Positive: Skin Diaphoresis Positive: Chest Pain Positive: Nausea. Negative: Vomiting All Other Systems Reviewed And Are Negative: Yes Physical Exam - Summary Physical Exam Summary: VITAL SIGNS: Reviewed. GENERAL: Patient is a well-developed and nourished male who is lying comfortable in the stretcher. Patient is not in any acute respiratory distress. HEAD AND FACE: No signs of trauma. No ecchymosis, hematomas or skull depressions. No sinus tenderness. EYES: PERRLA, EOMI x 2, No injected conjunctiva, no nystagmus. EARS: Hearing grossly intact. Ear canals and tympanic membranes are within normal limits. MOUTH: Oropharynx within normal limits. NECK: Supple, trachea is midline, no adenopathy, no JVD, no carotid bruit, no c- spine tenderness, neck with full ROM. CHEST: Symmetric, no tenderness at palpation. LUNGS: Clear to auscultation bilaterally. No wheezing or crackles. CVS: Regular rate and rhythm, S1 and S2 present, no murmurs or gallops appreciated. ABDOMEN: Soft, non-tender. No signs of distention. No rebound, no guarding, and no masses palpated. Bowel sounds are normal. EXTREMITIES: FROM in all major joints, no edema, no cyanosis or clubbing. NEURO: Alert and oriented x 3. No acute neurological deficits. Speech is normal and follows commands. SKIN: Dry and warm. Triage Information Reviewed: Yes Vital Signs On Initial Exam: Initial Vitals Temp Pulse Resp BP Pulse Ox 97.6 F 70 17 146/106 97 06/19/19 14:05 06/19/19 14:05 06/19/19 14:05 06/19/19 14:05 06/19/19 14:05 Vital Signs Reviewed: Yes Diagnostics - Vital Signs Vital Signs Temp Pulse Resp BP Pulse Ox 06/19/19 14:05 97.6 F 70 17 146/106 97 - Laboratory Result Diagrams: 06/20/19 05:09 06/20/19 05:09 Lab Statement: Any lab studies that have been ordered have been reviewed, and results considered in the medical decision making process. - Radiology CXR Radiology Interpretation Completed By: Radiologist Summary of Radiographic Findings: IMPRESSION: NO EVIDENCE FOR ACTIVE CARDIOPULMONARY DISEASE. THIS REPORT WAS REVIEWED BY DR. ADAME. - EKG 1412 Cardiac Rate: NL - rate of 62 BPM EKG Rhythm: Sinus Rhythm Summary of EKG Findings: EKG showed NSR with rate of 62 BPM, no STEMI. This EKG was reviewed and interpreted by ED physician. Chest Pain Course/Dx - Course Assessment/Plan: Patient is a 49 y/o M w/ Hx of [place] who presents to [facility] via EMS with police lieutenant from skilled nursing for chief complaint of episodes of chest pain. Chest pain is reported to have onset last night, 06/18/19. Chest pain is reported to have worsened this morning and is characterized as a pressure. He claims pain radiates to his back, and notes pain at this area is sharp. Episodes of chest pain last around 30-60 seconds. No pain at present is noted. Patient additionally reports nausea and diaphoresis but denies vomiting. He claims that Sx are similar to those he had during his [place] two years ago in November 2016. Patient is on Eliquis. He states that he has 5 cardiac stents. Patient had a "fine" cardiac stress test in November of 2018. He notes that he is a borderline diabetic. Patient reports Hx of kidney failure and states that he is not on dialysis. Blood work without any significant abnormality except for glucose of 159, troponin 0.04, and BNP is 467. EKG shows no ST elevations and is in normal sinus rhythm. Chest x-ray impression: No evidence for active cardiopulmonary disease. In the ED course the patient was given aspirin and nitroglycerin. I held the Lopressor since the patient reports he is allergic to Lopressor. At this point because of his comorbidities I discussed the case with Dr. Lenz from the hospital services was accepted the patient for admission. The patient at this point is hemodynamically stable alert and oriented 3. - Diagnoses Provider Diagnoses: Chest pain - Provider Notifications Discussed Care Of Patient With: Mojgan Lenz Time Discussed With Above Provider: 14:12 Instructed by Provider To: Other - Patient's case was discussed with Dr. Lenz , Dr. Lenz accepts for admission. Discharge ED - Sign-Out/Discharge Documenting (check all that apply): Patient Departure - admit All imaging exams completed and their final reports reviewed: Yes Patient Received Moderate/Deep Sedation with Procedure: No - Discharge Plan Condition: Stable Disposition: ADMITTED TO [facility] - Billing Disposition and Condition Condition: STABLE Disposition: Admitted to [facility] - Attestation Statements Document Initiated by Scribe: Yes Documenting Scribe: NISA THOMAS Provider For Whom Ulises is Documenting (Include Credential): KIMO ADAME MD Scribe Attestation: INISA, scribed for KIMO ADAME MD on 06/20/19 at 0847. Scribe Documentation Reviewed: Yes Provider Attestation: The documentation as recorded by the NISA painter accurately reflects the service I personally performed and the decisions made by me, KIMO ADAME MD Status of Scribe Document: Viewed
[2019-06-19 14:34] LABS: ABS Eosinophils 0.1 10^3/ul (0-0.6); ABS Lymphocytes 0.8 10^3/ul (1.0-4.8); ABS Monocytes 0.4 10^3/ul (0-0.8); ABS Neutrophils 5.8 10^3/ul (1.5-7.7); Eosinophil % 1.3 %; Hematocrit 45 % (42-52); Hemoglobin 15.4 g/dL (14.0-18.0); Lymphocyte % 11.1 %; Mean Corpuscular HGB Conc 34 g/dL (31-36); Mean Corpuscular Hemoglobin 31 pg (27-31); Mean Corpuscular Volume 91 fL (80-94); Mean Platelet Volume 7.8 fL (7.4-10.4); Nucleated Red Blood Cells % 0.1; Platelet Count 208 10^3/uL (150-450); Red Blood Count 4.97 10^6 /uL (4.18-5.48); Red Cell Distribution Width 16 % (10-15); White Blood Count 7.1 10^3/uL (3.5-10.8)
[2019-06-19 14:49] LABS: Activated Partial Thrombo Time 37.3 seconds (26.0-38.0); INR 1.22 (0.82-1.09)
[2019-06-19 14:51] LABS: ALT 38 U/L (7-52); AST 30 U/L (13-39); Albumin/Globulin Ratio 1.7 (1-3); Alkaline Phosphatase 85 U/L (34-104); Anion Gap 6 mmol/L (2-11); Blood Urea Nitrogen 12 mg/dL (6-24); CO2 Carbon Dioxide 28 mmol/L (22-32); Calcium 8.8 mg/dL (8.6-10.3); Chloride 106 mmol/L (101-111); Creatine Kinase 92 U/L (10-223); EGFR African American 123.8 (>60); EGFR Non-African American 102.3 (>60); Globulin 2.4 g/dL (2-4); Glucose 159 mg/dL (70-100); Magnesium 1.9 mg/dL (1.9-2.7); Potassium 3.5 mmol/L (3.5-5.0); Sodium 140 mmol/L (135-145); Total Protein 6.4 g/dL (6.4-8.9)
[2019-06-19 14:54] LABS: CKMB ng/mL 3.8 ng/mL (0.6-6.3)
--- OUTSIDE RECORDS SUMMARY | 2019-06-19 15:03 | XMS REPORT | Summary of Care ---
:1970 Author Organization [facility] Address [address] [facility] [place] [address] Care Team Providers Name Role Phone Anuj Stevens MD Primary Care Provider Reason for Referral Refer to Department Only (Routine) Status Reason Specialty Diagnoses / Referred By Referred To Procedures Contact Contact Pending Review CARDIOLOGY / Diagnoses Atrial fibrillation, chronic (HCC) Jose Mccall [facility] Maribel, PHOTOLITHOGRAPHIC STRIPPER Cardiology [address] [place], [place] [address] [address] [place], [place] Phone: [phone] Phone: Reason for Visit Reason Comments Hospital Follow Up ER f/u [facility] 05/08/19 for hand swelling and pneumonia, completed prednisone and doxycycline Encounter Details Date Type Department Care Team Description 05/15/2019 Office Visit [facility] Maribel Mccall, Pneumonia of both lower lobes due to infectious organism (HCC) (Primary Dx); Practice PHOTOLITHOGRAPHIC STRIPPER Pain in both hands; [address] Atrial fibrillation, chronic (HCC) [place] [address] [place] [address] [phone] Allergies Active Allergy Reactions Severity Noted Date Comments Amlodipine Cardiac Reaction 09/30/2013 Azasite GI Reaction 02/07/2011 Diarrhea and stomach distress Erythromycin Unknown Reaction 10/04/2007 CONVULSIONS Metrocream 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 2 diabetes mellitus Dx250.00 without complication non-Insulin (HCC) dependent Test Blood Glucose 1 time(s) A DAY Glucose Blood In 1 Strip by In 100 Strip 0 05/14/2015 Active Vitro Vitro route StripIndications: DAILY NEEDED Type 2 diabetes (to check blood mellitus without sugar level). complication (HCC) Dx 250.00 Lancets Does not 1 Units by Does 100 Each 0 05/14/2015 Active apply not apply route MiscIndications: DAILY NEEDED Type 2 diabetes (to check blood mellitus without sugar level). complication (HCC) Dx250.00 Non-insulin dependent. Sildenafil Citrate Take 1 Tab by 6 Tab 0 03/30/2016 Active (VIAGRA) 50 MG Oral mouth NEEDED Tab (ED). Cyanocobalamin Take by mouth. 0 Active (B-12) 1000 MCG Oral Cap foliC acid 1 MG Oral Take 1 mg by 0 Active Tab mouth DAILY. dronedarone (MULTAQ) Take 400 mg by 0 Active 400 MG Oral Tab mouth TWO TIMES DAILY WITH MEALS. carvedilol (COREG) Take 2 Tabs by 360 Tab 1 02/15/2017 Active 25 MG Oral mouth TWICE TabIndications: DAILY. Essential hypertension nitroglycerin Place 1 Tab 25 Tab 0 02/15/2017 Active (NITROSTAT) 0.4 MG under tongue Sublingual SL Tab EVERY FIVE MINUTES NEEDED (prn chest pain). ALPRAZolam (XANAX) Take 1 Tab by 30 Tab 0 02/28/2017 Active 0.5 MG Oral mouth EVERY TabIndications: BEDTIME Anxiety state NEEDED for sleep/insomnia. sertraline (ZOLOFT) Take 200 mg by 0 Active 100 MG Oral Tab mouth DAILY. lactulose (CEPHULAC) Take 10 g by 0 01/23/2018 Active 10 GM/15ML Oral mouth DAILY Solution NEEDED. ELIQUIS 5 MG Oral TWICE DAILY. 0 05/10/2019 Active Tab levalbuterol HFA Take 1-2 Puffs 0 Active (XOPENEX HFA) 45 by inhalation MCG/ACT Inhalation EVERY FOUR Aerosol HOURS NEEDED. lamotrigine Take 200 mg by 0 Active (LAMICTAL) 100 MG mouth EVERY Oral Tab BEDTIME. Mometasone Take 2 INHL by 0 Active Furo-Formoterol Fum inhalation (DULERA) 200-5 TWICE DAILY. MCG/ACT Inhalation Aerosol NIFEDICAL XL 30 MG TAKE ONE TABLET 30 Tab 5 10/23/2016 Discontinued Oral TABLET SR 24 HR BY MOUTH EVERY 9 DAY clopidogrel (PLAVIX) Take 75 mg by 0 Discontinued 75 MG Oral Tab mouth DAILY. 9 Pantoprazole Sodium Take 40 mg by 0 Discontinued (PROTONIX) 40 MG mouth DAILY. 9 Oral Pack triamterene-hydrochl Take 1 Tab by 0 Discontinued orothiazide mouth DAILY. 9 (MAXZIDE-25) 37.5-25 MG Oral Tab atorvastatin Take 20 mg by 0 Discontinued (LIPITOR) 20 MG Oral mouth DAILY. 9 Tab Thiamine HCl (B-1) Take 1 Tab by 0 Discontinued 100 MG Oral Tab mouth DAILY. 9 rivaroxaban Take 15 mg by 0 Discontinued (XARELTO) 15 MG Oral mouth DAILY. 9 Tab albuterol HFA Take 2 Puffs by 1 Inhaler 4 02/15/2017 Discontinued (VENTOLIN) 108 (90 inhalation 9 BASE) MCG/ACT EVERY FOUR Inhalation Aero Soln HOURS NEEDED (wheezing). lamotrigine Take 1 Tab by 28 Tab 0 02/28/2017 Discontinued (LAMICTAL) 25 MG mouth TWICE 9 Oral TabIndications: DAILY. Depression, unspecified depression type PRAZOSIN HCL PO Take 4 mg by 0 Discontinued mouth EVERY 9 BEDTIME. documented as of this encounter (statuses as of 05/15/2019) Active Problems Problem Noted Date Anal abscess 05/30/2016 Simple renal cyst 06/03/2015 Overview: right kidney Type 2 diabetes mellitus without complication 05/07/2015 Achilles tendinitis 04/21/2015 Paroxysmal atrial fibrillation 03/12/2015 Carpal tunnel syndrome 07/17/2014 KEE (obstructive sleep apnea) 05/25/2014 Overview: CPAP Gastritis 04/30/2014 CAD (coronary artery disease) 09/30/2013 Overview: [place] 11/2016. Stent RCA 2010. LAD drug eluted stent, jailing the second diagonal and scorin baloon atherectomy of the side branch of first diagonal - 11/2016 Tremor 08/30/2010 Hyperglycemia 08/30/2010 Essential hypertension 11/25/2007 Allergic Rhinitis 11/25/2007 Allergen Induced Asthma 11/25/2007 Obesity 11/25/2007 documented as of this encounter (statuses as of 05/15/2019) Resolved Problems Problem Noted Date Resolved Date Polycystic kidney disease 09/30/2013 06/03/2015 Overview: Followed Nephrology in [place] Sinusitis 11/21/2011 02/16/2012 Conjunctivitis unspecified 08/30/2010 03/10/2011 documented as of this encounter (statuses as of 05/15/2019) Immunizations Name Administration Dates Next Due TD Vaccine 10/01/1993 documented as of this encounter Social History Tobacco Use Types Packs/Day Years Used Date Never Smoker Smokeless Tobacco: Never Used Alcohol Use Drinks/Week oz/Week Comments No H/O alcohol abuse Sex Assigned at Date Recorded Not on file Job Start Date Occupation Industry Not on file Not on file Not on file Travel History Travel Start Travel End No recent travel history available. documented as of this encounter Last Filed Vital Signs Vital Sign Reading Time Taken Comments Blood Pressure 140/82 05/15/2019 11:32 AM EDT Pulse 60 05/15/2019 11:32 AM EDT Temperature - - Respiratory Rate - - Oxygen Saturation - - Inhaled Oxygen Concentration - - Weight 102.5 kg (226 lb) 05/15/2019 11:32 AM EDT Height 172.7 cm (5' 8") 05/15/2019 11:32 AM EDT Body Mass Index 34.36 05/15/2019 11:32 AM EDT documented in this encounter Patient Instructions Patient InstructionsMaribel Mccall FNP - 05/15/2019 11:40 AM EDTLabs today Schedule appointment with Dr Shaikh and Dr Gottiectronically signed by Maribel Mccall FNP at 05/15/2019 11:53 AM EDT documented in this encounter Progress Notes Maribel Mccall FNP - 05/15/2019 11:40 AM EDT PATIENT: Rashaun Longoria : 1970 DATE OF SERVICE: 05/15/2019 CHIEF COMPLAINT: Chief Complaint Patient presents with Hospital Follow Up ER f/u [facility] 05/08/19 for hand swelling and pneumonia, completed prednisone and doxycycline Subjective HISTORY OF PRESENT ILLNESS: Rashaun Longoria is a 49-y.o. male. HPI Went to ER 05/09/19 with SOB - admitted with bilateral pneumonia. Treated with antibiotic and prednisone - discharged 05/10/19. Advised to follow up with PCP and Cardiology - has not made those appointments. Does c/o hand pain since put on Coreg by [facility]. 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 + FH arthritis [facility] reports reviewed - CT chest confirmed bilateral infiltrates Past Medical History: Diagnosis Date Allergen Induced Asthma 11/25/2007 Allergic Rhinitis 11/25/2007 Anxiety CAD (coronary artery disease) 09/30/2013 [place] 11[place]. Stent RCA 2010. LAD drug eluted stent, jailing the second diagonal and scorin baloon atherectomy of the side branch of first diagonal - 11/2016 Essential hypertension 11/25/2007 Gastritis H/O: rheumatic fever Age 4 History of alcohol abuse Obesity 11/25/2007 KEE (obstructive sleep apnea) 05/25/2014 CPAP Paroxysmal atrial fibrillation (HCC) 03/12/2015 Polycystic kidney disease 09/30/2013 Followed Nephrology in [place] Sinusitis 11/21/2011 Type 2 diabetes mellitus without complication (HCC) 05/07/2015 Family History Problem Relation Age of Onset Blood Disease Father POLYCYTHEMIA VERA Heart Disease Father Depression/Depressed Mother Depression/Depressed Brother ALL BROTHERS BEING TREATED Anxiety Brother ALL BROTHERS BEING TREATED Aneurysm Brother Depression/Depressed Sister ALL SISTERS BEING TREATED Heart Disease Sister Anxiety Sister ALL SISTERS BEING TREATED Current Outpatient Medications Medication Sig ALPRAZolam (XANAX) 0.5 MG Oral Tab Take 1 Tab by mouth EVERY BEDTIME NEEDED for sleep/insomnia. Blood Glucose Monitoring Suppl (BLOOD GLUCOSE METER) Does not apply Kit 1 Units by Does not apply route DAILY NEEDED (to check for blood sugar level) . Dx250.00 non-Insulin dependent Test Blood Glucose 1 time(s) A DAY carvedilol (COREG) 25 MG Oral Tab Take 2 Tabs by mouth TWICE DAILY. Cyanocobalamin (B-12) 1000 MCG Oral Cap Take by mouth. dronedarone (MULTAQ) 400 MG Oral Tab Take 400 mg by mouth TWO TIMES DAILY WITH MEALS. ELIQUIS 5 MG Oral Tab TWICE DAILY. foliC acid 1 MG Oral Tab Take 1 mg by mouth DAILY. Glucose Blood In Vitro Strip 1 Strip by In Vitro route DAILY NEEDED ( to check blood sugar level). Dx 250.00 lactulose (CEPHULAC) 10 GM/15ML Oral Solution Take 10 g by mouth DAILY NEEDED. lamotrigine (LAMICTAL) 100 MG Oral Tab Take 200 mg by mouth EVERY BEDTIME. Lancets Does not apply Misc 1 Units by Does not apply route DAILY NEEDED (to check blood sugar level). Dx250.00 Non-insulin dependent. levalbuterol HFA (XOPENEX HFA) 45 MCG/ACT Inhalation Aerosol Take 1-2 Puffs by inhalation EVERY FOUR HOURS NEEDED. Mometasone Furo-Formoterol Fum (DULERA) 200-5 MCG/ACT Inhalation Aerosol Take 2 INHL by inhalation TWICE DAILY. nitroglycerin (NITROSTAT) 0.4 MG Sublingual SL Tab Place 1 Tab under tongue EVERY FIVE MINUTES NEEDED (prn chest pain). sertraline (ZOLOFT) 100 MG Oral Tab Take 200 mg by mouth DAILY. Sildenafil Citrate (VIAGRA) 50 MG Oral Tab Take 1 Tab by mouth NEEDED (ED). No current facility-administered medications for this visit. Allergies Allergen Reactions Amlodipine Cardiac Reaction Azithromycin [Azasite] GI Reaction Diarrhea and stomach distress Erythromycin Unknown Reaction CONVULSIONS Metronidazole [Metrocream] CHIP LOFT WORKER Reaction Dizziness Social History Socioeconomic History Marital status: Spouse name: Not on file Number of children: Not on file Years of education: Not on file Highest education level: Not on file Occupational History Not on file Social Needs Financial resource strain: Not on file Food insecurity: Worry: Not on file Inability: Not on file Transportation needs: Medical: Not on file Non-medical: Not on file Tobacco Use Smoking status: Never Smoker Smokeless tobacco: Never Used Substance and Sexual Activity Alcohol use: No Comment: H/O alcohol abuse Drug use: No Sexual activity: Yes Partners: Female Lifestyle Physical activity: Days per week: Not on file Minutes per session: Not on file Stress: Not on file Relationships Social connections: Talks on phone: Not on file Gets together: Not on file Attends gnosticism service: Not on file Active member of club or organization: Not on file Attends meetings of clubs or organizations: Not on file Relationship status: Not on file Intimate partner violence: Fear of current or ex partner: Not on file Emotionally abused: Not on file Physically abused: Not on file Forced sexual activity: Not on file Other Topics Concern Back Care Not Asked Bike Helmet Not Asked Blood Transfusions No Caffeine Concern Not Asked Exercise Yes Comment: gym 3x/week 1-1.5 hours wts/cardio Hobby Hazards Not Asked International Travel Not Asked Service Not Asked Occupational Exposure Not Asked Seat Belt Not Asked Self-Exams Not Asked Sleep Concern Not Asked Special Diet Not Asked Stress Concern Not Asked Weight Concern Not Asked Social History Narrative . 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 REVIEW OF SYSTEMS: Review of Systems Constitutional: Positive for malaise/fatigue. Negative for chills and fever. Respiratory: Positive for cough and sputum production. Negative for shortness of breath and wheezing. Cardiovascular: Negative for chest pain, palpitations and leg swelling. Musculoskeletal: Positive for joint pain and myalgias. Neurological: Negative for dizziness, loss of consciousness and headaches. Objective PHYSICAL EXAM: VITALS: BP 140/82 | Pulse 60 | Ht 5' 8" (1.727 m) | Wt 226 lb (102.5 kg) | BMI 34.36 kg/m Body mass index is 34.36 kg/m. Physical Exam Constitutional: He is oriented to person, place, and time. Vital signs are normal. He appears well-developed and well-nourished. HENT: Head: Normocephalic and atraumatic. Right Ear: Tympanic membrane normal. Left Ear: Tympanic membrane normal. Nose: Nose normal. Mouth/Throat: Uvula is midline and oropharynx is clear and moist. Eyes: Pupils are equal, round, and reactive to light. EOM are normal. Neck: Normal range of motion. No JVD present. Cardiovascular: Normal rate and regular rhythm. Pulmonary/Chest: Effort normal and breath sounds normal. No stridor. No respiratory distress. He hasno wheezes. He has no rales. Musculoskeletal: Right hand: He exhibits normal range of motion, normal capillary refill, no deformity and no swelling. Left hand: He exhibits normal range of motion, normal capillary refill, no deformity and no swelling. Lymphadenopathy: He has no cervical adenopathy. Neurological: He is alert and oriented to person, place, and time. No cranial nerve deficit or sensory deficit. Gait normal. Skin: Skin is warm and dry. Capillary refill takes less than 2 seconds. No ecchymosis and no rash noted. No cyanosis or erythema. No pallor. Vitals reviewed. ASSESSMENT / IMPRESSION: ICD-9-CM ICD-10-CM 1. Pneumonia of both lower lobes due to infectious organism (HCC) 483.8 J18.1 2. Pain in both hands 729.5 M79.641 COMPREHENSIVE METABOLIC PANEL M79.642 GLYCOHEMOGLOBIN A1C SEDIMENTATION RATE ANTI NUCLEAR ANTIBODY URIC ACID CYCLIC CITRULLINE PEPTIDE ANTIBODY IGG CYCLIC CITRULLINE PEPTIDE ANTIBODY IGG URIC ACID ANTI NUCLEAR ANTIBODY SEDIMENTATION RATE GLYCOHEMOGLOBIN A1C COMPREHENSIVE METABOLIC PANEL 3. Atrial fibrillation, chronic (HCC) 427.31 I48.2 REFER TO CARDIOLOGY (GENERAL) LIPID PROFILE LIPID PROFILE Plan Labs today Schedule appointment with Dr Shaikh and Dr Garcia Author: [place] Ma 05/15/2019 12:36 documented in this encounter Plan of Treatment Date Type Specialty Care Team Description 05/29/2019 Office Visit Cardiology Chun Quintanilla MD [address] [place] [address] 05/29/2019 Office Visit Family Practice Isa Shaikh MD [address] [place] [address] Name Type Priority Associated Diagnoses Date/Time COMPREHENSIVE METABOLIC Lab Routine Pain in both hands 05/15/2019 12:11 PM PANEL EDT LIPID PROFILE Lab Routine Atrial fibrillation, 05/15/2019 12:11 PM chronic (HCC) EDT GLYCOHEMOGLOBIN A1C Lab Routine Pain in both hands 05/15/2019 12:11 PM EDT SEDIMENTATION RATE Lab Routine Pain in both hands 05/15/2019 12:11 PM EDT ANTI NUCLEAR ANTIBODY Lab Routine Pain in both hands 05/15/2019 12:11 PM EDT URIC ACID Lab Routine Pain in both hands 05/15/2019 12:11 PM EDT CYCLIC CITRULLINE PEPTIDE Lab Routine Pain in both hands 05/15/2019 12:11 PM ANTIBODY IGG EDT Name Type Priority Associated Diagnoses Order Schedule COMPREHENSIVE METABOLIC Lab Routine Pain in both hands Expected: 05/15/2019 PANEL (Approximate), Expires: 11/11/2019 LIPID PROFILE Lab Routine Atrial fibrillation, Expected: 05/15/2019 chronic (HCC) (Approximate), Expires: 11/11/2019 GLYCOHEMOGLOBIN A1C Lab Routine Pain in both hands Expected: 05/15/2019 (Approximate), Expires: 05/15/2020 SEDIMENTATION RATE Lab Routine Pain in both hands Expected: 05/15/2019 (Approximate), Expires: 11/11/2019 ANTI NUCLEAR ANTIBODY Lab Routine Pain in both hands Expected: 05/15/2019 (Approximate), Expires: 11/11/2019 URIC ACID Lab Routine Pain in both hands Expected: 05/15/2019 (Approximate), Expires: 05/15/2020 CYCLIC CITRULLINE PEPTIDE Lab Routine Pain in both hands Expected: 2018 ANTIBODY IGG (Approximate), Expires: 11/11/2019 Name Type Priority Associated Diagnoses Order Schedule REFER TO CARDIOLOGY Referral Routine Atrial fibrillation, Expected: 2018, (GENERAL) chronic (HCC) Expires: 05/15/2020 Health Maintenance Due Date Last Done Comments Diabetic Eye Exam 1970 PNEUMOCOCCAL 0-64 YRS (1 of 1975 1 - PPSV23) DEPRESSION SCREENING 1981 LIPID DISORDER SCREENING 02/09/2017 02/10/2016, 03/15/2015, 01/06/2011, Additional history exists URINE MICROALBUMIN 03/10/2017 03/10/2016, 04/12/2015 HEMOGLOBIN A1C 06/16/2017 12/14/2016, 02/10/2016, 07/22/2015, Additional history exists FOOT EXAM 02/15/2018 02/15/2017, 02/15/2017 COLONOSCOPY SCREENING 2019 ZOSTER IMMUNIZATION SERIES 2019 (1 of 2) INFLUENZA VACCINE (#1) 2019 HPV IMMUNIZATION SERIES Aged Out No longer eligible based on patient's age to complete this topic MENINGOCOCCAL VACCINE IMM Aged Out No longer eligible based on patient's age to complete this topic documented as of this encounter Goals Goal Patient Goal Associated Recent Patient-Stated? Author Type Problems Progress Blood Pressure Blood Pressure 140/82 No Marry, < 140/90 (05/15/2019 Yaquelin, 11:32 AM EDT) PHOTOLITHOGRAPHIC STRIPPER Note: This is an individualized treatment (blood pressure) goal for Rashaun Longoria : Displayed above (on the left) is your goal for blood pressure control. Your most recent blood pressure is also shown above, on the right. You should try to achieve blood pressures that are lower than your goal listed above (on the left). Diabetes < 7.0 Diabetes Type 2 diabetes 6.6 (02/10/2016 No Jaret Ayala, mellitus without 12:20 PM EDT) PAJeremiah complication Note: Diabetes Care Plan According to current 2014 ADA guidelines the patient A1C goal is less than 7. The patient's last A1C was Lab Results Lab Results Value Date/Time GLYCO 6.8 03/15/2015 1146 GLYCO 6.2 08/30/2010 1123 The patient is:at goal . As your provider, it is important that I advise you regarding: your current medications and help you with any challenges you may face taking your medications as directed (ex. instructions, cost, side effects, and interactions). Important lifestyle changes:exercise and diet your clinical goals and how you can achieve success:weight reduction medication management: N/A diet only patient education/self-management tools provided: Current self-management tools adequate To successfully manage my Diabetes I will: have lab work every six months if my previous A1c was 7 or less. If my results were greater than 7, I will have lab work every three months. My goal is to control my diabetes by keeping A1c below 7.0 take medications every day as prescribed by my healthcare provider and if unable to take them I will discuss with my provider. exercise/walk 1 hour 5 day(s) per week. If I experience chest pain, chest tightness, or shortness of breath, I will seek medical attention immediately. check feet daily. If sores or irritation are noticed, will seek medical attention. follow a low carbohydrate and low fat diet. My goal is an LDL (bad cholesterol) number less than 100 when I have my routine lab work. check blood sugar as instructed and will call my healthcare provider if the results are consistently below 70 or above 300. I will monitor for symptoms of low blood sugar (feeling faint, dizzy, lig htheaded, jittery, sweaty, or hungry), if symptoms are noticed, I will eat or drink something (glucose tabs, orange juice, candy) to help raise sugar. record my blood sugar results (including dextrose sticks). [id number] is safe and secure way for you to do this in your medical record online. try to obtain an ideal body weight. My recent weight was Weight: 243 lb ( 110.224 kg). My weight loss goal for my next office visit is 33 lb. to prevent kidney problems common to people with diabetes I will complete a yearly Microalbumin to check for protein in urine. I will talk with my healthcare provider about medications to prevent diabetic renal disease. to prevent diabetic retinopathy I will see an eye doctor yearly. A yearly dilated eye exam helps prevent blindness. if currently smoking, will discuss how to quit smoking with my healthcare provider and work towards quitting. Glycohemoglobin A1c < 7.0 Diabetes 6.6 (02/10/2016 12:20 No Yaquelin Tuttle, PM EDT) [place] Note: This is an individualized treatment (diabetes control, HgbA1C) goal for Rashaun Longoria: Displayed above is your progress towards your HgbA1C goal. Your goal is shown above (on the left); your most recent HgbA1C is shown on the right. Note that lower numbers are better. Weight loss vs. 18 mo Lifestyle 0 (05/15/2019 11:32 AM No Yaquelin Tuttle FNP max (lbs) >= 10 EDT) Note: This is an individualized lifestyle goal for Rashaun Longoria: Your body mass index (BMI) is more than 30. You should lose weight. A reasonable starting goal is to lose 10 pounds. Displayed above is how many pounds you have lost thus far towards your 10 pound weight loss goal. Keep immunizations current Lifestyle No Yaquelin Tuttle FNP Note: This is an individualized lifestyle goal for Rashaun Longoria: Please be sure to keep up-to-date on recommended immunizations. For example, this would include a yearly influenza vaccine. Immunization status can be seen by looking at the Health Maintenance sections of your [facility], Plan of Care, and any After Visit Summaries. Take all prescribed medications as Self-management No Yaquelin Tuttle FNP directed Note: This is an individualized self-management goal for Rashaun Longoria: Please take all prescribed medications as directed. 1. Do not skip doses. If you cannot afford your medications, talk with your doctor. 2. Use a pill reminder system such as a pill box if needed. Your pharmacist can help you with this. 3. Contact your Pharmacy 5 days before your medication runs out. If you cannot take your medications for any reasons, talk with your doctor. 4. Please bring all of your medication bottles and inhalers (or a list of all your medications/inhalers) with you to every visit. Potential barriers to meeting all of your care plan goals will continue to be addressed on an ongoing basis. documented as of this encounter Results Not on filedocumented in this encounter Visit Diagnoses Diagnosis Pneumonia of both lower lobes due to infectious organism (HCC) - Primary Pain in both hands Atrial fibrillation, chronic (HCC) Atrial fibrillation documented in this encounter documented as of this encounter
[2019-06-19 15:10] LABS: Troponin I 0.04 ng/mL (<0.04)
[2019-06-19] MEDS ORDERED: Nitroglycerin TAB 0.4 MG* 0.4 MG TAB SL ONE (15:23)
[2019-06-19 15:58] LABS: Troponin I 0.04 ng/mL (<0.04)
[2019-06-19] MEDS ORDERED: Acetaminophen TAB* 325 MG PO PRN (16:03)
[2019-06-19] MEDS ORDERED: Ondansetron INJ* 2 MG/ML VIAL IV PRN (16:03)
[2019-06-19] MEDS ORDERED: Nitroglycerin TAB 0.4 MG* 0.4 MG TAB SL PRN (16:03)
[2019-06-19] MEDS ORDERED: Levalbuterol HFA INHALER* 1 PUFF MDI INH PRN (16:12)
[2019-06-19] MEDS ORDERED: hydrOXYzine HCL TAB* 25 MG PO PRN ×2 (16:12→23:00)
--- NOTE | 2019-06-19 16:46 | CONSULT ---
Subjective Date of Service: 06/19/19 Interval History: Service: Hospitalist Date of admission and consult 06/19/2019 CC Chest pain Reason for consult: Chest pain, detectable troponin HPI: Lexus Thomas is a 49 year old man known to me. He has been discharged in the past from our ([facility]) outpatient practice due to recurrent missed appointments. He relapsed with alcohol and is now in correction. His last drink of alcohol was Sunday06/14/2019. He tells me he has not had any coreg in 2 days. he has also had ETOH withdrawal symptoms of shakes, chills and palpitations. He has also noted 2 separate forms of chest discomfort. 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 A second for of chest discomfort is on the right side of chest. This discomfort is more vague in nature and the descriptive quality was not as good as the left sided chest discomfort. His BP was severely elevated. He did received a SL NTG. At some point his pain has resolved and he is now asymptomatic. The timing of pain resolution to the nitroglycerine was not closely temporally related. He has had issues in the past with large fluctuations in his weight (and therefore BP and need for medications) and had orthostatic symptoms/syncope in the past related to this. Pmhx/surgical hx: - history of CAD, MO, PCI most recently 01/2017, LVEF 45-50% symptomatic paroxysmal atrial fibrillation dyslipidemia obesity hypertension alcoholism Slepp apnea DM type 2 ? 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 The patient's father of heart disease and had polycythemia vera. The patient has a sister, who is alive and has COPD and heart valve replacement. The patient has another sister, who has a "clot" in her heart. The patient has a brother who is healthy and a brother with multiple brain aneurysms and a son with asthma" Medications Active Medications: Acetaminophen (Tylenol Tab*) 650 mg PO Q6H PRN PRN Reason: MILD PAIN or TEMP > 100.4 Apixaban (Eliquis*) 5 mg PO BID [facility] Aspirin (Aspirin Ec Tab*) 81 mg PO DAILY [facility] Buspirone HCl (Buspar Tab*) 30 mg PO BID [facility] Carvedilol (Coreg Tab*) 25 mg PO BID [facility] Dronedarone (Multaq Tab*) 400 mg PO BID [facility] Enoxaparin Sodium (Lovenox(*)) 40 mg SUBCUT Q24H OMAR Lactulose (Lactulose*) 15 ml PO TID [facility] Levalbuterol HCl (Xopenex Hfa Inhaler*) 1 puff INH Q4H PRN PRN Reason: SOB/WHEEZING Nitroglycerin (Nitroglycerin Tab 0.4 Mg*) 0.4 mg SL Q5M PRN PRN Reason: ANGINA Non-Formulary Medication (Hydroxyzine Pamoate [Hydroxyzine Pamoate]) 1 tab PO TID PRN PRN Reason: ITCHING Non-Formulary Medication (Lamotrigine [Lamotrigine]) 200 mg PO BEDTIME [facility] Ondansetron HCl (Zofran Inj*) 4 mg IV Q6H PRN PRN Reason: NAUSEA Sertraline HCl (Zoloft*) 200 mg PO DAILY [facility] Triamcinolone Acetonide (Kenalog Cream 0.025%*) 1 applic TOPICAL BID [facility] Triamterene/HCTZ (Dyazide Cap*) 1 cap PO DAILY [facility] Home Medications: Dronedarone TAB* [Multaq TAB*] 400 mg PO BID #180 tab 12/28/16 [Rx Confirmed ] Sertraline* [Zoloft*] 200 mg PO DAILY 08/06/17 [History Confirmed 06/19/19] Carvedilol [Coreg] 25 mg PO BID 05/09/19 [History Confirmed 06/19/19] Apixaban* [Eliquis*] 5 mg PO BID #60 tab 05/10/19 [Rx Confirmed 06/19/19] Lactulose* 15 ml PO TID 06/19/19 [History Confirmed 06/19/19] Levalbuterol HFA INHALER* [Xopenex Hfa Inhaler*] 1 puff INH Q4H PRN 06/19/19 [ History Confirmed 06/19/19] Triamcinolone 0.025% CM(NF) [Kenalog Cream 0.025%*] 1 applic TOPICAL BID [History Confirmed 06/19/19] busPIRone TAB* [Buspar TAB*] 30 mg PO BID 06/19/19 [History Confirmed 06/19/19] hydrOXYzine pamoate [Hydroxyzine Pamoate] 1 tab PO TID PRN 06/19/19 [History Confirmed 06/19/19] lamoTRIgine [Lamotrigine] 200 mg PO BEDTIME 06/19/19 [History Confirmed 06/19/19 ] Patient states he is taking aspirin daily Review of Systems - Measurements Intake and Output: Intake and Output Last 24 Hours 06/17/19 06/18/19 06/19/19 06/20/19 06:59 06:59 06:59 06:59 Weight 210 lb - Review of Systems Constitutional Symptoms: Positive: Weight Gain Negative: Weight Loss, Unexplained Falls Dermatology: Negative: Rash, Skin Lesions HEENT: Negative: Change in Hearing, Vertigo Eyes: Negative: Change in Vision, Double Vision Thyroid: Negative: Cold Intolerance, Heat Intolerance, Palpitations Pulmonary: Negative: Cough, Sputum, Hemoptysis, Wheezing, Respiratory Distress, Shortness of Breath, COPD, Exercise Intolerance, Home Oxygen Cardiology: Positive: Palpitations Negative: Chest Pain, Shortness of Breath, Swelling of Ankles, Peripheral Vascular Dis, Edema, Claudication, Paroxysmal Nocturnal Dyspnea, Orthopnea Gastroenterology: Positive: Diarrhea, Other Negative: Abdominal Pain, Anorexia, Blood in Stools, Change in Bowel Habits, Haematemesis, Melena Genital - Urinary: Negative: Dysuria, Hematuria Musculoskeletal: Negative: Joint Pain, Joint Stiffness Endocrinology: Positive: Obesity, Diabetes Negative: Thyroid Problems, Polydipsia, Polyuria Hematologic/Lymphatic: Positive: Use of Anticoagulant Negative: Hx Leukemia, Hx Lymphoma, Use of Antiplatelet Drugs Review of Systems Statement: All other review of systems negative, unless stated above. Objective Vital Signs: Temp Pulse Resp BP Pulse Ox 97.6 F 67 17 146/106 96 06/19/19 14:05 06/19/19 14:14 06/19/19 14:14 06/19/19 14:05 06/19/19 14:14 Appearance: nad, not toxic appearing Ears/Nose/Mouth/Throat: Clear Oropharnyx, Mucous Membranes Moist Neck: NL Appearance and Movements; NL JVP, Trachea Midline Respiratory: Symmetrical Chest Expansion and Respiratory Effort, Clear to Auscultation Cardiovascular: NL Sounds; No Murmurs; No JVD, RRR, No Edema Abdominal: NL Sounds; No Tenderness; No Distention Extremities: No Edema Skin: No Rash or Ulcers Neurological: Alert and Oriented x 3 Laboratory Results: 06/19/19 14:13 06/19/19 14:13 INR (Anticoag Therapy) 1.22 (0.82-1.09) H 06/19/19 14:13 APTT 37.3 seconds (26.0-38.0) 06/19/19 14:13 Total Bilirubin 0.50 mg/dL (0.2-1.0) 06/19/19 14:13 AST 30 U/L (13-39) 06/19/19 14:13 ALT 38 U/L (7-52) 06/19/19 14:13 Alkaline Phosphatase 85 U/L (34-104) 06/19/19 14:13 CK-MB (CK-2) 3.8 ng/mL (0.6-6.3) 06/19/19 14:13 B-Natriuretic Peptide 467 pg/mL (<=100) H 06/19/19 14:13 Total Protein 6.4 g/dL (6.4-8.9) 06/19/19 14:13 Albumin 4.0 g/dL (3.2-5.2) 06/19/19 14:13 Globulin 2.4 g/dL (2-4) 06/19/19 14:13 Albumin/Globulin Ratio 1.7 (1-3) 06/19/19 14:13 TSH 2.00 mcIU/mL (0.34-5.60) 06/19/19 14:13 06/19/19 06/19/19 14:13 15:21 Troponin I 0.04 H* 0.04 H* Diagnostic Imaging: Holter Monitor - (02/13/2018) 1353 pvc's, 1921 pac's, no arrhytmias or significant pauses, min hr 46 bpm, avg 65 bpm, max 108 bpm Echocardiogram - (09/05/2017) LVEF 45-50% with inferior wall motion abnormality , slight LA dilation, no more than mild valvular disease Event Monitor - (08/22/2011) Symptoms of palpitations correlating with normal sinus rhythm. There are no cardiac dysrhythmias noted on this study Stress Test - (02/05/2017) Vasodilator stress MPI with distal inferior ischemia, LVEF 38% on rest and stress Cardiac Procedures: Cardiac Catheterization - (07/29/2011) Dr. Reeder [facility], R femoral: Abnormal stress test with ischemia to inferior wall. Ion RYNE to distal RCA Cardiac Catheterization - (12/10/2016) Dr. Rao [facility] right radial. Indication NSTEMI: Culprit mid LAD s/p RYNE, 2nd diagonal jailed, s/p balloon atherectomy to 1st diagonal, moderate distal RCA lesion proximal to prior stent Cardiac Catheterization - (02/06/2017) [place]. Symptomatic paroxysmal Afib with abnormal stress test showing distal inferior wall ischemia: s/p PCI to RPL echo 05/2019 Mild-moderate LVH LVEf 50% with basal inferior hypokinesis No significant valvular abnormalities noted Patient Name: LEXUS THOMAS Exam Date: 06/19/19 IMPRESSION: NO EVIDENCE FOR ACTIVE CARDIOPULMONARY DISEASE. EKG Data: ekg admission: NSR, poor r wave progression q wave with TWI lead III slightly more prominent than 05/2019 ekg Assessment/Plan Mr. Thomas ruled out for ACS. I suspect his detectable troponin and BNP are secondary to known ischemic and hypertensive heart disease in the setting of suspect hypertensive urgency/emergency secondary to beta-martin and ETOH withdrawal. - even in setting of AFIRE study would continue apirin 81 mg to the anticoagulant which he said he has been taking - Add triamterene-hctz (ordered) which he had been on before but stopped (when had syncope related to low BP) when lost excessive amount of weight (now regained) - Restart [facility] medications including coreg - Plan for exercise stress echo tomorrow 06/20/2019. Thank you for allowing me to participate in the cardiovascular care of this patient. Please do not hesitate to contact me with questions or concerns.
[2019-06-19] MEDS ORDERED: Enoxaparin(*) 40 MG/0.4 ML SYR SUBCUT SCH (17:00)
[2019-06-19] MEDS: Potassium Chloride* LIQUID 20 MEQ/15 ML UDC PO ONE ×2 (17:00→17:17)
[2019-06-19] MEDS: Triamterene/HCTZ 37.5-25 MG* CAP PO SCH (18:15)
[2019-06-19] MEDS: Carvedilol TAB* 25 MG PO SCH ×2 (18:15→22:18)
--- NOTE | 2019-06-19 18:49 | HP ---
CC: Dr. Shaikh; Dr. Braydon Garcia * ADMISSION HISTORY AND PHYSICAL: DATE OF ADMISSION: 06/19/19 PRIMARY CARE PROVIDER: Dr. Shaikh. MY ATTENDING WHILE IN THE HOSPITAL: Dr. Mojgan Lenz.* (DICTATED BY RICHY LUTHER) CONSULTING LITIGATION SUPPORT ANALYST: Dr. Braydon Garcia. CHIEF COMPLAINT: Chest pain x12 hours. HISTORY OF PRESENT ILLNESS: Mr. Longoria is a 49-year-old male with past medical history significant for coronary artery disease, status post MN in 2017 ; atrial fibrillation; hypertension and alcoholic cardiomyopathy, as well as concern for possible cirrhosis with questionable history of hepatic encephalopathy, who presents to the emergency department after having approximately 1 month ago relapse on alcohol, drinking for approximately 1 month half liter of vodka a day. The patient's last drink was on last Sunday , 06/14/19. He has been withdrawing from alcohol in a mild fashion since then with tremulousness, diarrhea. Starting last night, he had some palpitations with associated chest pain, a dull pain in the center of his chest as well as a stinging pain in his left anterior chest. This was associated with diaphoresis and shortness of breath, though he says these were going on before chest pain started, but worse with the chest pain. The patient also had palpitations associated with this, which he says were similar to when he had an AFib and that the pain itself is similar, but not exactly the same as when he previously had an MN. The patient came into the emergency department, received nitroglycerin, but his chest pain resolved around the same time and he does not feel it was exactly when he received the nitroglycerin. The patient in the emergency department had elevated blood pressures without tachycardia. The patient's chest pain now resolved. The patient had a chest x-ray, which was not abnormal and EKG of poor quality, but without significant ST segment elevation or depression. The patient denies recent illness except for alcohol withdrawal. He has been having subjective fevers and chills associated with this as well as the aforementioned diarrhea. The patient complains of occasional stabbing bladder pain, but otherwise has not had any urinary symptoms. The patient has been taking all of his medications routinely while in half-way and has been of course abstaining from alcohol. His last drink was on 06/14/19. In the emergency department, the patient was found to have an elevated troponin and elevated BNP. Otherwise, relatively unremarkable labs. Due to concern for elevated troponin and chest pain, we were asked to evaluate the patient for admission to the hospital. PAST MEDICAL HISTORY: Coronary artery disease, status post MN in 2017 with stent; atrial fibrillation; obstructive sleep apnea, compliant with CPAP; hypertension; history of alcoholic cardiomyopathy; diabetes mellitus type 2; asthma; history of questionable hepatic encephalopathy and questionable cirrhosis; questionable polycystic kidney disease. PAST SURGICAL HISTORY: Catheterization, multiple rectal abscess drainages. MEDICATIONS: 1. Lamictal 200 mg p.o. daily. 2. BuSpar 10 mg p.o. t.i.d. 3. Lactulose 15 mL p.o. t.i.d. 4. Eliquis 5 mg p.o. b.i.d. 5. Multaq 400 mg p.o. b.i.d. 6. Hydroxyzine 25 mg p.o. t.i.d. 7. Carvedilol 25 mg p.o. b.i.d. 8. Levalbuterol inhaler 4 times daily as needed for wheezing. 9. Triamcinolone topical ointment. ALLERGIES: AMLODIPINE, AZITHROMYCIN, ERYTHROMYCIN, LISINOPRIL, and METOPROLOL. FAMILY HISTORY: The patient's mother is alive at 82 with cirrhosis related to infectious hepatitis. The patient's father of heart disease and had polycythemia vera. The patient has a sister, who is alive and has COPD and heart valve replacement. The patient has another sister, who has a "clot" in her heart. The patient has a brother who is healthy and a brother with multiple brain aneurysms and a son with asthma. SOCIAL HISTORY: The patient never smoked. The patient abused alcohol for most of his life. The patient denies illicit drugs. 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 The patient never and has 1 child. The patient's surrogate decision maker will be his sister, Jocelin Longoria. REVIEW OF SYSTEMS: A 10-point review of systems was reviewed and is negative except as above in the HPI. PHYSICAL EXAMINATION GENERAL: The patient is a 49-year-old male, who appears stated age and sitting in the bed, in no acute distress. VITAL SIGNS: Temperature 97.6, pulse rate of 67, respiratory rate of 17, oxygen saturation 96% on room air, blood pressure 146/106. HEENT: Head: Normocephalic and atraumatic. Sclerae anicteric. No conjunctival injection. Nasal mucosa moist. Oral mucosa moist. No pharyngeal erythema, discharge or exudate. NECK: Supple, nontender. No lymphadenopathy. No carotid bruits auscultated. No JVD. RESPIRATORY: Clear to auscultation bilaterally. No wheezes, rales, or rhonchi. Good air exchange bilaterally. CARDIAC: Regular rate and rhythm. No clicks, murmurs, gallops, or rubs. Pulses are 2+ in the bilateral dorsalis pedis, posterior tibialis, and radial areas. ABDOMEN: Soft, nontender, nondistended. Bowel sounds present and normoactive in all 4 quadrants. No hepatosplenomegaly. No abdominal bruits auscultated. No hepatojugular reflux. GENITOURINARY: No suprapubic or CVA tenderness. NEURO: Cranial nerves II through XII intact. No focal deficits. Alert and oriented x3. Non-tremulous. PSYCHIATRIC: Pleasant and cooperative. SKIN: Clean, dry, and intact. No rash. DIAGNOSTIC STUDIES/LAB DATA: White blood cell count 7.1, hemoglobin 15.4, platelet count 208,000. INR 1.22, APTT 37.3. Sodium 140, potassium 3.5, chloride 106, carbon dioxide 28, anion gap 6, BUN 12, creatinine 0.8, glucose 159, calcium 8.8, magnesium 1.9. Bilirubin 0.5, AST 30, ALT 38, alkaline phosphatase 85. Creatine kinase 92, CK-MB 3.8, troponin I 0.04 x2, BNP 467. Protein 6.4, albumin 4.0, globulin 2.4. TSH 2.0. Studies: EKG shows normal sinus rhythm. No ST segment elevation or depression. Normal axis. No hypertrophy. Likely left atrial enlargement. T- wave inversion in V3. Compared to previous exam, there are no significant changes. Chest x-ray read as no acute cardiopulmonary disease. ASSESSMENT AND PLAN: Impression: Mr. Longoria is a 49-year-old male with past medical history significant for coronary artery disease, status post stenting; paroxysmal atrial fibrillation and alcoholic cardiomyopathy, who presents to the emergency department after 1 month of recurrent alcohol abuse, who has been having chest pain for the past 12 hours and will be admitted to the hospital for rule out myocardial infarction and assessment of his cardiac status. 1. Chest pain. The patient's chest pain is only associated with palpitations. It is possible he is going in and out of atrial fibrillation, but given that he came into the emergency department with chest pain and was not found to be in atrial fibrillation at that time, it makes this less likely his pain could be related directly to coronary artery disease. The patient will be monitored on telemetry and have a stress echocardiogram. The patient is currently chest pain free. The patient is in normal sinus rhythm on the monitor and had no significant T-wave changes. The patient will be risk stratified with a hemoglobin A1c and a lipid profile. The patient is not on a statin and likely should be. The patient is on aspirin. This will be started while in the hospital. The patient received a loading dose of 324 mg. The patient will have a repeat EKG in the morning and a stress echocardiogram. This case has been discussed with Dr. Braydon Garcia of Cardiology, who knows the patient from his outpatient practice. The patient will have a third troponin drawn. 2. History of alcoholic cardiomyopathy. The patient's ejection fraction had rebounded to normal on his most recent echocardiogram done 1 month ago; however , he has been drinking heavily in the last month and his BNP is higher than has previously been recorded. The patient also complains of slight leg swelling and some shortness of breath with exertion as well as difficulty breathing when lying flat. The patient will again have an echocardiogram. The patient is not in significant fluid overload at this time. 3. Atrial fibrillation. The patient is currently in normal sinus rhythm. As above, it could be the cause of the patient's symptoms. Continue the patient's carvedilol and Multaq as well as the patient's Eliquis. 4. Asthma. Continue the patient's levalbuterol as needed. 5. History of questionable hepatic encephalopathy. If the patient has hepatic encephalopathy, the patient likely has underlying cirrhosis. He states this has never been fully evaluated outpatient with elastography or other definitive modality. This should be undergone and the patient should abstain entirely from alcohol. 6. Hypertension. The patient is slightly hypertensive. Continue the patient' s home regimen. Add on medications as needed to keep blood pressure under good control. 7. Diabetes mellitus type 2. Hemoglobin A1c as above. The patient has not been on medications for this in the past that he is aware of. 8. DVT prophylaxis: Lovenox subcu. 9. FEN: The patient will have a heart-healthy diet without caffeine. The patient will be n.p.o. after midnight for his stress echo in the morning. 10. Disposition: The patient is admitted to observation to the hospital. 11. Code status: The patient would like to be a full code. The patient's surrogate decision maker will be his sister as above. TIME SPENT: Approximately 60 minutes were spent on the admission of this patient, 30 of which was spent [id number] with the patient obtaining history and physical and discussing treatment plan. This plan has been discussed with my attending, Dr. Mojgan Lenz, and she is in agreement. RICHY LUTHER [id number]/CPS #: [id number] JEANCARLOS
[2019-06-19 20:48] LABS: Troponin I 0.04 ng/mL (<0.04)
[2019-06-19] MEDS ORDERED: Carvedilol TAB* 25 MG PO SCH (21:00)
[2019-06-19] MEDS ORDERED: lamoTRIgine TAB(*) 100 MG PO SCH (21:00)
[2019-06-19] MEDS: Lactulose* 15 ML UDC PO SCH (22:17)
[2019-06-19] MEDS: Apixaban* 5 MG TAB PO SCH (22:18)
[2019-06-19] MEDS: busPIRone TAB* 30 MG PO SCH (22:18)
[2019-06-19] MEDS: Dronedarone TAB* 400 MG PO SCH (22:18)
[2019-06-19] MEDS: Triamcinolone 0.025% OINT * 15 GM TUBE TOPICAL SCH (22:19)
[2019-06-20] MEDS ORDERED: NS 0.9% 1000 ML** 1,000 ML IV SCH
[2019-06-20 02:19] LABS: Urine Appearance Clear; Urine Bilirubin Negative (Negative); Urine Blood Negative (Negative); Urine Color Yellow; Urine Glucose Negative (Negative); Urine Ketones Negative (Negative); Urine Nitrite Negative (Negative); Urine Protein Negative (Negative); Urine Specific Gravity 1.016 (1.010-1.030); Urine Urobilinogen Negative (Negative)
[2019-06-20 06:00] LABS: ABS Eosinophils 0.1 10^3/ul (0-0.6); ABS Lymphocytes 1.3 10^3/ul (1.0-4.8); ABS Monocytes 0.4 10^3/ul (0-0.8); ABS Neutrophils 4.5 10^3/ul (1.5-7.7); Hematocrit 45 % (42-52); Hemoglobin 14.8 g/dL (14.0-18.0); Lymphocyte % 20.2 %; Mean Corpuscular HGB Conc 33 g/dL (31-36); Mean Corpuscular Hemoglobin 31 pg (27-31); Mean Corpuscular Volume 92 fL (80-94); Mean Platelet Volume 7.9 fL (7.4-10.4); Nucleated Red Blood Cells % 0.2; Platelet Count 184 10^3/uL (150-450); Red Blood Count 4.86 10^6 /uL (4.18-5.48); Red Cell Distribution Width 16 % (10-15); White Blood Count 6.3 10^3/uL (3.5-10.8)
[2019-06-20 06:11] LABS: BUN/Creatinine Ratio 13.5 (8-20); EGFR African American 100.3 (>60); EGFR Non-African American 82.9 (>60); HDL Cholesterol 47.3 mg/dL; Potassium 3.5 mmol/L (3.5-5.0)
[2019-06-20] MEDS ORDERED: Aspirin EC TAB* 81 MG TAB.EC PO SCH (09:00)
[2019-06-20] MEDS ORDERED: Sertraline* 100 MG TAB PO SCH (09:00)
[2019-06-20] MEDS: Carvedilol TAB* 25 MG PO SCH ×2 (09:12→12:02)
[2019-06-20] MEDS: busPIRone TAB* 30 MG PO SCH (09:27)
[2019-06-20] MEDS: Dronedarone TAB* 400 MG PO SCH (09:29)
[2019-06-20] MEDS: Apixaban* 5 MG TAB PO SCH (09:29)
[2019-06-20] MEDS: Triamterene/HCTZ 37.5-25 MG* CAP PO SCH (09:29)
[2019-06-20] MEDS: Triamcinolone 0.025% OINT * 15 GM TUBE TOPICAL SCH (09:30)
[2019-06-20] MEDS: Lactulose* 15 ML UDC PO SCH ×2 (09:30→14:13)
[2019-06-20] MEDS ORDERED: Atropine SYRINGE* 0.1 MG/ML 10 ML SYRINGE (1 MG) ONE ×2 (13:34→14:34)
[2019-06-20] MEDS ORDERED: DOBUTamine 2000 MCG/ML IVPREMX 500 MG/250 ML BAG IV ONE (13:35)
[2019-06-20] MEDS ORDERED: Amiodarone 150 MG IVPREMIX* 0 MG/0 ML BAG IV ONE (13:35)
[2019-06-20] MEDS ORDERED: Perflutren Lipid Microsphere* 3 ML VIAL ONE (14:02)
--- NOTE | 2019-06-20 15:27 | PN ---
Subjective Date of Service: 06/20/19 Interval History: f/u chest pain had normal submaximal dobutamine (while on beta-martin) this afternoon agreeable to take zetia 10 mg po daily Still with different forms of non-exertional chest discomfort, no evidence of myocardial ischemia Medications Active Medications: Acetaminophen (Tylenol Tab*) 650 mg PO Q6H PRN PRN Reason: MILD PAIN or TEMP > 100.4 Apixaban (Eliquis*) 5 mg PO BID [facility] Last Admin: 06/20/19 09:29 Dose: 5 mg Aspirin (Aspirin Ec Tab*) 81 mg PO DAILY [facility] Last Admin: 06/20/19 09:28 Dose: 81 mg Buspirone HCl (Buspar Tab*) 30 mg PO BID [facility] Last Admin: 06/20/19 09:27 Dose: 30 mg Carvedilol (Coreg Tab*) 25 mg PO BID [facility] Last Admin: 06/20/19 12:02 Dose: 25 mg Dronedarone (Multaq Tab*) 400 mg PO BID [facility] Last Admin: 06/20/19 09:29 Dose: 400 mg Ezetimibe (Zetia Tab*) 10 mg PO 1700 [facility] Hydroxyzine HCl (Atarax Tab*) 25 mg PO TID PRN PRN Reason: .ITCHING Last Admin: 06/19/19 23:05 Dose: 25 mg Lactulose (Lactulose*) 15 ml PO TID [facility] Last Admin: 06/20/19 14:13 Dose: Not Given Lamotrigine (Lamictal Tab(*)) 200 mg PO BEDTIME [facility] Last Admin: 06/19/19 22:18 Dose: 200 mg Levalbuterol HCl (Xopenex Hfa Inhaler*) 1 puff INH Q4H PRN PRN Reason: SOB/WHEEZING Nitroglycerin (Nitroglycerin Tab 0.4 Mg*) 0.4 mg SL Q5M PRN PRN Reason: ANGINA Ondansetron HCl (Zofran Inj*) 4 mg IV Q6H PRN PRN Reason: NAUSEA Last Admin: 06/19/19 19:44 Dose: 4 mg Sertraline HCl (Zoloft*) 200 mg PO DAILY [facility] Last Admin: 06/20/19 09:28 Dose: 200 mg Triamcinolone Acetonide (Triamcinolone 0.025% Oint *) 1 applic TOPICAL BID [facility] Last Admin: 06/20/19 09:30 Dose: Not Given Triamterene/HCTZ (Dyazide Cap*) 1 cap PO DAILY [facility] Last Admin: 06/20/19 09:29 Dose: 1 cap Objective Vital Signs: Temp Pulse Resp BP Pulse Ox 97.8 F 60 20 143/82 98 06/20/19 11:15 06/20/19 11:15 06/20/19 11:15 06/20/19 11:15 06/20/19 11:15 Oxygen Devices in Use Now: None Appearance: nad, not toxic appearing Ears/Nose/Mouth/Throat: Clear Oropharnyx, Mucous Membranes Moist Neck: NL Appearance and Movements; NL JVP, Trachea Midline Respiratory: Symmetrical Chest Expansion and Respiratory Effort, Clear to Auscultation Cardiovascular: NL Sounds; No Murmurs; No JVD, RRR, No Edema Abdominal: NL Sounds; No Tenderness; No Distention Extremities: No Edema Skin: No Rash or Ulcers Neurological: Alert and Oriented x 3 Laboratory Results: 06/20/19 05:09 06/20/19 05:09 INR (Anticoag Therapy) 1.22 (0.82-1.09) H 06/19/19 14:13 APTT 37.3 seconds (26.0-38.0) 06/19/19 14:13 Total Bilirubin 0.50 mg/dL (0.2-1.0) 06/19/19 14:13 AST 30 U/L (13-39) 06/19/19 14:13 ALT 38 U/L (7-52) 06/19/19 14:13 Alkaline Phosphatase 85 U/L (34-104) 06/19/19 14:13 CK-MB (CK-2) 3.8 ng/mL (0.6-6.3) 06/19/19 14:13 B-Natriuretic Peptide 467 pg/mL (<=100) H 06/19/19 14:13 Total Protein 6.4 g/dL (6.4-8.9) 06/19/19 14:13 Albumin 4.0 g/dL (3.2-5.2) 06/19/19 14:13 Globulin 2.4 g/dL (2-4) 06/19/19 14:13 Albumin/Globulin Ratio 1.7 (1-3) 06/19/19 14:13 Triglycerides 157 mg/dL 06/20/19 05:09 Cholesterol 178 mg/dL 06/20/19 05:09 LDL Cholesterol 99 mg/dL 06/20/19 05:09 HDL Cholesterol 47.3 mg/dL 06/20/19 05:09 TSH 2.00 mcIU/mL (0.34-5.60) 06/19/19 14:13 06/19/19 06/19/19 06/19/19 14:13 15:21 20:20 Troponin I 0.04 H* 0.04 H* 0.04 H* Diagnostic Imaging: Holter Monitor - (02/13/2018) 1353 pvc's, 1921 pac's, no arrhytmias or significant pauses, min hr 46 bpm, avg 65 bpm, max 108 bpm Echocardiogram - (09/05/2017) LVEF 45-50% with inferior wall motion abnormality , slight LA dilation, no more than mild valvular disease Event Monitor - (08/22/2011) Symptoms of palpitations correlating with normal sinus rhythm. There are no cardiac dysrhythmias noted on this study Stress Test - (02/05/2017) Vasodilator stress MPI with distal inferior ischemia, LVEF 38% on rest and stress Cardiac Procedures: Cardiac Catheterization - (07/29/2011) Dr. Reeder [facility] [place], R femoral: Abnormal stress test with ischemia to inferior wall. Ion RYNE to distal RCA Cardiac Catheterization - (12/10/2016) Dr. Rao [facility] right radial. Indication NSTEMI: Culprit mid LAD s/p RYNE, 2nd diagonal jailed, s/p balloon atherectomy to 1st diagonal, moderate distal RCA lesion proximal to prior stent Cardiac Catheterization - (02/06/2017) [place]. Symptomatic paroxysmal Afib with abnormal stress test showing distal inferior wall ischemia: s/p PCI to RPL echo 05/2019 Mild-moderate LVH LVEf 50% with basal inferior hypokinesis No significant valvular abnormalities noted Patient Name: LEXUS THOMAS Exam Date: 06/19/19 IMPRESSION: NO EVIDENCE FOR ACTIVE CARDIOPULMONARY DISEASE. EKG Data: ekg admission: NSR, poor r wave progression q wave with TWI lead III slightly more prominent than 05/2019 ekg Assessment/Plan Mr. Thomas ruled out for ACS, dobutamine stress echo with no inducible ischemia - Continue same medications except add zetia 10 mg po daily (ordered) - Patient can be discharged from a cardiac standpoint - He tells me he is establish care with Dr. Quintanilla at [facility] and he was advised to make an appointment for follow up (please send out discharge summary) Thank you for allowing me to participate in the cardiovascular care of this patient. Please do not hesitate to contact me with questions or concerns.
[2019-06-20] MEDS ORDERED: Ezetimibe TAB* 10 MG PO SCH (17:00)
--- NOTE | 2019-06-20 17:00 | STRESS ---
"*[facility]* [place] [address] Fax #: [phone] Stress Echocardiogram Dobutamine (Report amended [id number]) Patient: Rashaun Lonogria : 1970 Study Date: 06/20/2019 Age: 49 Gender: M HR: 65 bpm Height: 68 in /172.7 cm BSA: 2.23 m^2 Weight: 221 lb /100.5 kg BMI: 33.7 kg/m^2 *Title Checker: * Citlaly Gomez RDCS RN *Referring Physician: * Braydon Garcia MD *Reading Physician: * Braydon Garcia MD Indications: Chest Pain, unspecified. History: Atrial fibrillation. Coronary artery disease. SD with coronary stenting. ETOH abuse. Sleep apnea. Asthma. Risk factors: Hypertension. Diabetes mellitus. Dyslipidemia. Conclusions Summary: Submaximal dobutamine stress echocardiogram on maximum dobutamine with use of atropine while on beta-martin in a patient with known CAD. Ra had chest discomfort with stress without evidence of ischemia. Study data: Stress echocardiogram Consent: The risks and benefits of the procedure, including alternatives were discussed with the patient and/or their health care personnel representative and written informed consent was obtained. Procedure: Initial setup: Intravenous access was obtained. Surface ECG leads and manual cuff blood pressure measurements were monitored throughout the procedure. A baseline ECG was recorded. Dobutamine stress test. Dobutamine was administered at an initial rate of 20 mcg/kg/min, then 40 mcg/kg/min, 50 mcg/kg/min then 60 mcg/kg/min. Atropine 2mg IV was given. The infusion was terminated at maximal dose administration and due to chest discomfort. Transthoracic stress echocardiography. Image quality was fair. Images were captured at baseline, low dose, peak dose, and recovery. A total of 10 ml of Definity was administered IV to enhance endocardial border definition. Location: Echo laboratory. Patient status: Inpatient. Study completion: There were no complications. Findings Baseline ECG: Normal sinus rhythm. Cardiac stress table: + + + |Stage |BP | + + + |Baseline |134/87 (103) | + + + |Dobutamine 20 ug/kg/min|131/72 (92) | + + + |Dobutamine 40 ug/kg/min|190/92 (125) | + + + |Dobutamine 50 ug/kg/min|247/93 (144) | + + + |Peak stress |247/93 (144) | + + + |Immediate post stress |223 /129 (160)| + + + |Recovery; 1 min |223/129 (160) | + + + |Recovery; 2 min |223/129 (160) | + + + |Recovery; 3 min |158/121 (133) | + + + |Recovery; 6 min |121/104 (110) | + + + |Recovery; 7 min |108/85 (93) | + + + Stress results: Maximal heart rate during stress was 138 bpm (81% of maximal predicted heart rate). The maximal predicted heart rate was 170 bpm.The target heart rate was 145 bpm.The target heart rate was not achieved. The heart rate response to stress is blunted. There is a normal resting blood pressure with a hypertensive response to stress. Stress ECG: Sinus tachycardia with PACs and PVCs noted. Non-specific ST segment changes. Baseline: LV global systolic function is at the lower limits of normal. Ejection fraction 50% with basal inferoseptal/inferior akinesis. Peak stress: No change in the baseline segmental WMA with stress. The remaining vernon showed minimal augmentation with no new segmental wall motion changes. No echocardiogram evidence of ischemia. Braydon Swain MD 06/20/2019 17:01"
[2019-06-20 18:05] VITALS: BP 110/81
--- NOTE | 2019-06-20 23:56 | DS ---
CC: Dr. Shaikh; Dr. Quintanilla * DISCHARGE SUMMARY: DATE OF ADMISSION: 06/19/19 DATE OF DISCHARGE: 06/20/19 PRIMARY CARE PROVIDER: Dr. Shaikh. ATTENDING PHYSICIAN: aDna Hill MD * (dictated by RICHY Otero ). PRIMARY DIAGNOSES: 1. Atypical chest pain. 2. Alcohol withdrawal. 3. Beta martin withdrawal. 4. Mild troponinemia. SECONDARY DIAGNOSES: 1. Coronary artery disease, status post myocardial infarction with stenting in 2017. 2. Atrial fibrillation. 3. Hypertension. 4. Alcoholic cardiomyopathy. 5. Diabetes mellitus. 6. Asthma. 7. Obstructive sleep apnea. 8. Possible history of hepatic encephalopathy, cirrhosis. 9. Possible polycystic kidney disease. CONSULTATIONS WHILE IN THE HOSPITAL: Cardiology. Assessment and Plan: Mr. Longoria ruled out for ACS. I suspect detectable troponin and BNP are secondary to known ischemic and hypotensive heart disease in the setting of suspected hypotensive urgency/emergency secondary to beta martin and alcohol withdrawal. Would continue aspirin 81 mg to anticoagulate. Add triamterene- HCTZ. Restart [employer]. Medications including Coreg, exercise stress test. STUDIES WHILE IN THE HOSPITAL: Stress echocardiogram. Summary: Submaximal dobutamine stress echocardiogram on maximum dobutamine with the use of atropine while on beta martin in a patient with known CAD. The patient has chest discomfort with stress without evidence of ischemia. DISCHARGE MEDICATIONS: Home medications: 1. Apixaban 5 mg p.o. b.i.d. 2. Buspirone 30 mg p.o. b.i.d. 3. Carvedilol 25 mg p.o. b.i.d. 4. Dronedarone 400 mg p.o. b.i.d. 5. Hydroxyzine pamoate 1 tab p.o. t.i.d. p.r.n. itching. 6. Lactulose 15 mL p.o. t.i.d. 7. Lamotrigine 200 mg p.o. at bedtime. 8. Levalbuterol 1 puff inhalation q.4 hours p.r.n. shortness of breath/wheeze. 9. Sertraline 200 mg p.o. daily. 10. Triamcinolone 1 application topically b.i.d. New home medications: 1. Aspirin 81 mg p.o. daily. 2. Ezetimibe 10 mg p.o. at bedtime. 3. Triamterene/hydrochlorothiazide 37.5/25 1 cap p.o. daily. HISTORY OF PRESENT ILLNESS/HOSPITAL COURSE: Mr. Longoria is a 49-year-old male with past medical history of coronary artery disease with stenting status post RI, AFib, hypertension, KEE, alcoholic cardiomyopathy who presented to the ER with complaints of palpitations and chest pain. For full and complete details please see the history and physical dictated by RICHY Fonseca on 06/19/19. But in short, the patient presents with these symptoms. He notes that he started drinking approximately 1 month ago, half of a liter of vodka per day. He then discontinued alcohol use on 06/14/19. He has since developed withdrawal symptoms with tremulousness and diarrhea, which he continues to have. The patient complained of palpitations, but was noted to be in normal sinus rhythm. EKG was within normal limits without ST elevation or depression. He was noted to have a troponin of 0.04 x4. Hospitalist team admitted the patient. Cardiology was consulted and recommended restart triamterene/ hydrochlorothiazide as well as aspirin. Exercise stress test echo was ordered. There was no evidence of ischemia. Final recommendations by cardiology were continue Zetia and follow up with Dr. 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 At the time of discharge, the patient notes that he has chest pain with deep breathing only. He does note occasional palpitations, dizziness, lightheadedness. He continues to have tremors and dizziness as well as nausea. These were suspected to be from alcohol withdrawal. The patient is also noted to have missed his Coreg for 2 to 3 days prior to admission. The patient denies headache, vision changes, shortness of breath, diaphoresis, cough, fevers , chills, abdominal pain, vomiting, constipation. He denies myalgias and arthralgias that are abnormal from his daily aches and pains. Mr. Longoria is stable for discharge to home. REVIEW OF SYSTEMS: A 14-point review of systems has been performed and all the pertinent positives and negatives are in the HPI. All other systems are negative. PHYSICAL EXAMINATION: Vital Signs: Temperature 98.6 oral, heart rate 81, respiratory rate 18, oxygen saturation 91% on room air, blood pressure 110/81. General: Mr. Longoria is a well-developed, well-nourished, obese, white man, who is sitting up in bed. He appears to be in no acute distress. He is somewhat tremulous. HEENT: Visual ba are grossly intact. PERRL, EOMI, nonicteric sclerae. Hearing grossly intact. Oral mucous membranes are moist. There are no lesions. Pharynx is clear. The tongue is at midline. Cardiovascular: Regular rate and rhythm with S1, S2 present without murmurs, rubs, clicks, or gallops. There is no JVD. There is trace peripheral edema. Pulmonary: Symmetrical chest expansion without the use of accessory muscles. Lungs are clear to auscultation bilaterally without rhonchi, wheezes, or rubs. Abdomen: Obese, bowel sounds in all quadrants. Nontender to palpation, soft. Musculoskeletal: Full range of motion without pain or deformities. Neuro: The patient is awake. He is alert and oriented x3 with cranial nerves grossly intact. He is able to move all of his extremities. He has a steady gait without impairment. DISCHARGE PLAN: Mr. Longoria will be discharged back to [facility] in custody of law enforcement. CONDITION: Good. DIET: Heart healthy. MEDICATIONS: 1. Continue outpatient medications. 2. Add Zetia 10 mg p.o. daily. 3. Continue triamterene/HCTZ as in the past. 4. Continue aspirin 81 mg p.o. daily. EDUCATION: 1. Follow up with primary care provider as scheduled. 2. Follow up with Dr. Quintanilla, Cardiology, in 1 to 2 weeks. 3. Return to the ER or nearest hospital if he experienced any worsening of symptoms, chest discomfort or pain, shortness of breath, dizziness, lightheadedness, loss of consciousness, high fevers, chills, night sweats, or any other worrisome signs or symptoms. This is a summarized report of a complex medical history and hospital stay. For further details, please see the entire medical record. TIME SPENT: Approximately 35 minutes was spent on this discharge, greater than half that time was spent [id number] with the patient discussing discharge plans and instructions. RICHY WHITTAKER [id number]/[facility] #: [id number] JEANCARLOS
== END 2019-06-20 18:00 ==
LOC: ED 14:05 → MEDTELE 16:52 → EEVIPCON 16:52
PROVIDERS: ADMIT Hospitalist; ATTEND Internal Medicine
DX: R07.89 Other chest pain (principal); F10.239 Alcohol dependence with withdrawal, unspecified; F19.939 Other psychoactive substance use, unspecified with withdrawal, unspecified; I25.10 Atherosclerotic heart disease of native coronary artery without angina pectoris; I48.91 Unspecified atrial fibrillation; I10 Essential (primary) hypertension; I42.6 Alcoholic cardiomyopathy; E11.9 Type 2 diabetes mellitus without complications; J45.909 Unspecified asthma, uncomplicated; G47.33 Obstructive sleep apnea (adult) (pediatric); K74.60 Unspecified cirrhosis of liver; Q61.3 Polycystic kidney, unspecified; Z79.899 Other long term (current) drug therapy; E78.5 Hyperlipidemia, unspecified; E66.9 Obesity, unspecified; Z79.82 Long term (current) use of aspirin; R94.31 Abnormal electrocardiogram [ECG] [EKG]
CPT/HCPCS: 36415; 71045; 80048; 80053; 80061; 81003; 82550; 82553; 82607; 83036; 83735; 83880; 84443; 84484; 85025; 85610; 85730; 93005; 93351; 94660; 96374; 99283; A9270-GY; G0378; J0282; J0461; J1250; J2405

== ENCOUNTER 2019-11-12 08:43 | Emergency (ER) | payer OTHER ==
--- OUTSIDE RECORDS SUMMARY | 2019-11-12 08:52 | XMS REPORT | Summary of Care ---
:1970 Author Organization [facility] Address [address] [place] [address] Care Team Providers Name Role Phone Isa Shaikh Primary Care Provider Reason for Referral Refer to Department Only (Routine) Status Reason Specialty Diagnoses / Referred By Referred To Procedures Contact Contact Pending Review NEUROLOGY / Diagnoses Seizure disorder (HCC) [place]el [place]rology [place] [address] Refer to Department Only (Routine) Status Reason Specialty Diagnoses / Referred By Referred To Procedures Contact Contact Pending Review OPHTHALMOLOGY / Diagnoses Type 2 diabetes mellitus without complication, without long-term current use of insulin ([facility]) Neel, Ophthalmology [place] [address] Scheduling Instructions Please indicate side affected in the diagnosis. Refer to Department Only (Routine) Status Reason Specialty Diagnoses / Referred By Referred To Procedures Contact Contact Pending Review ENDOCRINOLOGY / Diagnoses Type 2 diabetes mellitus without complication, without long-term current use of insulin ([facility]) Abhijeet Shaikh Endocrinology MD [facility] [place] [phone] Phone: Fax: Scheduling Instructions Referrals to [employer]- Use Dept: [facility] Refer to Department Only (Routine) Status Reason Specialty Diagnoses / Referred By Referred To Procedures Contact Contact Pending Review Physical Diagnoses Low back pain with sciatica, sciatica laterality unspecified, unspecified back pain laterality, unspecified chronicity Jose Shaikh Therapy MD [facility] - [address] Therapy [place], [place] [address] [address] [address] Phone: [place], [place] [phone] Fax: Reason for Visit Reason Comments Establish Care needs meds refilled also pt c/o pain that raidates down both legs anlong with hands going numb, also need colonscopy Encounter Details Date Type Department Care Team Description 09/18/2019 Office Visit [facility], Low back pain with sciatica, sciatica laterality unspecified, unspecified back pain laterality, unspecified chronicity (Primary Dx); Practice MD Isa Type 2 diabetes mellitus without complication, without long-term current use of insulin ([facility]); [address] [facility] Paroxysmal atrial fibrillation ([facility]); [place] [address] Seizure disorder ([facility]); [phone] Dyslipidemia Allergies Active Allergy Reactions Severity Noted Date Comments Amlodipine Cardiac Reaction 09/30/2013 Azasite GI Reaction 02/07/2011 Diarrhea and stomach distress Erythromycin Unknown Reaction 10/04/2007 CONVULSIONS Metrocream HOUSE FATHER Reaction 12/18/2012 Dizziness documented as of this encounter (statuses as of 09/18/2019) Medications Medication Sig Dispensed Refills Start Date End Date Status Cyanocobalamin Take by mouth. 0 Active (B-12) 1000 MCG Oral Cap foliC acid 1 MG Oral Take 1 mg by 0 Active Tab mouth DAILY. dronedarone (MULTAQ) Take 400 mg by 0 Active 400 MG Oral Tab mouth TWO TIMES DAILY WITH MEALS. carvedilol (COREG) Take 2 Tabs by 360 Tab 1 02/15/2017 Active 25 MG Oral mouth TWICE TabIndications: DAILY. Essential hypertension ALPRAZolam (XANAX) Take 1 Tab by 30 Tab 0 02/28/2017 Active 0.5 MG Oral mouth EVERY TabIndications: BEDTIME Anxiety state NEEDED for sleep/insomnia. sertraline (ZOLOFT) Take 200 mg by 0 Active 100 MG Oral Tab mouth DAILY. lactulose (CEPHULAC) Take 10 g by 0 01/23/2018 Active 10 GM/15ML Oral mouth DAILY Solution NEEDED. levalbuterol HFA Take 1-2 Puffs 0 Active (XOPENEX HFA) 45 by inhalation MCG/ACT Inhalation EVERY FOUR Aerosol HOURS NEEDED. lamotrigine Take 200 mg by 0 Active (LAMICTAL) 100 MG mouth EVERY Oral Tab BEDTIME. Mometasone Take 2 INHL by 0 Active Furo-Formoterol Fum inhalation (DULERA) 200-5 TWICE DAILY. MCG/ACT Inhalation Aerosol apixaban (ELIQUIS) 5 Take 1 Tab by 60 Tab 0 06/03/2019 Active MG Oral Tab mouth TWICE DAILY. Blood Glucose 1 Units by Does 1 Kit 0 05/07/2015 Discontinued Monitoring Suppl not apply route 9 (BLOOD GLUCOSE DAILY NEEDED METER) Does not (to check for apply blood sugar KitIndications: Type level). 2 diabetes mellitus Dx250.00 without complication non-Insulin (HCC) dependent Test Blood Glucose 1 time(s) A DAY Glucose Blood In 1 Strip by In 100 Strip 0 05/14/2015 Discontinued Vitro Vitro route 9 StripIndications: DAILY NEEDED Type 2 diabetes (to check blood mellitus without sugar level). complication (HCC) Dx 250.00 Lancets Does not 1 Units by Does 100 Each 0 05/14/2015 Discontinued apply not apply route 9 MiscIndications: DAILY NEEDED Type 2 diabetes (to check blood mellitus without sugar level). complication (HCC) Dx250.00 Non-insulin dependent. Sildenafil Citrate Take 1 Tab by 6 Tab 0 03/30/2016 Discontinued (VIAGRA) 50 MG Oral mouth NEEDED 9 Tab (ED). nitroglycerin Place 1 Tab 25 Tab 0 02/15/2017 Discontinued (NITROSTAT) 0.4 MG under tongue 9 Sublingual SL Tab EVERY FIVE MINUTES NEEDED (prn chest pain). documented as of this encounter (statuses as of 09/18/2019) Active Problems Problem Noted Date Anal abscess 05/30/2016 Simple renal cyst 06/03/2015 Overview: right kidney Type 2 diabetes mellitus without complication 05/07/2015 Achilles tendinitis 04/21/2015 Paroxysmal atrial fibrillation 03/12/2015 Carpal tunnel syndrome 07/17/2014 KEE (obstructive sleep apnea) 05/25/2014 Overview: CPAP Gastritis 04/30/2014 CAD (coronary artery disease) 09/30/2013 Overview: [place] 11/2016. Stent RCA 2010. LAD drug eluted stent, jailing the second diagonal and scorin baloon atherectomy of the side branch of first diagonal - 11/2016 Tremor 08/30/2010 Hyperglycemia 08/30/2010 Essential hypertension 11/25/2007 Allergic Rhinitis 11/25/2007 Allergen Induced Asthma 11/25/2007 Obesity 11/25/2007 documented as of this encounter (statuses as of 09/18/2019) Resolved Problems Problem Noted Date Resolved Date Polycystic kidney disease 09/30/2013 06/03/2015 Overview: Followed bu Nephrology in [place] Sinusitis 11/21/2011 02/16/2012 Conjunctivitis unspecified 08/30/2010 03/10/2011 documented as of this encounter (statuses as of 09/18/2019) Immunizations Name Administration Dates Next Due TD Vaccine 10/01/1993 TDAP Vaccine 04/18/2017 documented as of this encounter Social History [...] Sign Reading Time Taken Comments Blood Pressure 112/88 09/18/2019 10:31 AM EST Pulse 73 09/18/2019 10:31 AM EST Temperature 36.2 09/18/2019 10:31 AM C (97.2 EST F) Respiratory Rate - - Oxygen Saturation 97% 09/18/2019 10:31 AM EST Inhaled Oxygen Concentration - - Weight 104.4 kg (230 lb 3.2 oz) 09/18/2019 10:31 AM EST Height 172.7 cm (5' 8") 09/18/2019 10:31 AM EST Body Mass Index 35 09/18/2019 10:31 AM EST documented in this encounter Patient Instructions Patient InstructionsIsa Shaikh MD - 09/18/2019 10:20 AM EST1. Schedule appointment with a an eye doctor 2. Schedule fasting blood tests in 11/2019 3. Start physical therapy for the back pain 4. Follow up in 4 weeks after PT started 5. Schedule appointment with neurology 6. Schedule appointment with carddiology documented in this encounter Progress Notes Isa Shaikh MD - 09/18/2019 10:20 AM EST Patient: Rashaun Longoria Date of Service: 09/18/2019 Subjective: Rashaun Longoria is a 49-y.o. male who presents for Chief Complaint Patient presents with Establish Care needs meds refilled also pt c/o pain that raidates down both legs anlong with hands going numb, also need colonscopy He complains of low back pain for several week(s), positional with bending or lifting, with radiation down the L leg. Precipitating factors: none recalled by the patient. Prior history of back problems: recurrent self limited episodes of low back pain in the past. There is numbness in the L leg, the leg feels week. Diabetic Review of Systems - diabetic diet compliance: noncompliant some of the time, home glucose monitoring: is not performed, further diabetic ROS: has dysesthesias in the distal feet, last eye examapproximately m ore than a year ago. Past Medical History: Diagnosis Date Allergen Induced Asthma 11/25/2007 Allergic Rhinitis 11/25/2007 Anxiety CAD (coronary artery disease) 09/30/2013 FL 11/2016. Stent RCA 2010. LAD drug eluted stent, jailing the second diagonal and scorin baloon atherectomy of the side branch of first diagonal - 11/2016 Essential hypertension 11/25/2007 Gastritis H/O: rheumatic fever Age 4 History of alcohol abuse Obesity 11/25/2007 KEE (obstructive sleep apnea) 05/25/2014 BiPAP 07/20 Paroxysmal atrial fibrillation (HCC) 03/12/2015 Polycystic kidney disease 09/30/2013 Followed Nephrology in [facility] (HCC) usually in [place], [place] Type 2 diabetes mellitus without complication ([facility]) 05/07/2015 Outpatient Medications as of 09/18/2019 Medication Sig Dispense Refill ALPRAZolam (XANAX) 0.5 MG Oral Tab Take 1 Tab by mouth EVERY BEDTIME NEEDED for sleep/insomnia. 30 Tab 0 apixaban (ELIQUIS) 5 MG Oral Tab Take 1 Tab by mouth TWICE DAILY. 60 Tab 0 carvedilol (COREG) 25 MG Oral Tab Take 2 Tabs by mouth TWICE DAILY. 360 Tab 1 Cyanocobalamin (B-12) 1000 MCG Oral Cap Take by mouth. dronedarone (MULTAQ) 400 MG Oral Tab Take 400 mg by mouth TWO TIMES DAILY WITH MEALS. foliC acid 1 MG Oral Tab Take 1 mg by mouth DAILY. lactulose (CEPHULAC) 10 GM/15ML Oral Solution Take 10 g by mouth DAILY NEEDED. lamotrigine (LAMICTAL) 100 MG Oral Tab Take 200 mg by mouth EVERY BEDTIME. levalbuterol HFA (XOPENEX HFA) 45 MCG/ACT Inhalation Aerosol Take 1-2 Puffs by inhalation EVERY FOUR HOURS NEEDED. Mometasone Furo-Formoterol Fum (DULERA) 200-5 MCG/ACT Inhalation Aerosol Take 2 INHL by inhalation TWICE DAILY. sertraline (ZOLOFT) 100 MG Oral Tab Take 200 mg by mouth DAILY. No current facility-administered medications on file as of 09/18/2019. Allergies Allergen Reactions Amlodipine Cardiac Reaction Azithromycin [Azasite] GI Reaction Diarrhea and stomach distress Erythromycin Unknown Reaction CONVULSIONS Metronidazole [Metrocream] HOUSE FATHER Reaction Dizziness Review of Systems: All remaining review of systems was negative. Objective: BP 112/88 (BP Location: Left arm, Patient Position: Sitting) Pulse 73 Temp 97.2 F (36.2 C) Ht 5' 8" (1.727 m) Wt 230 lb 3.2 oz (104.4 kg) SpO2 97 % BMI 35 kg/m2 General appearance: alert, well appearing, and in no distress. Oropharyngeal exam - mucous membranes moist, pharynx normal without lesions. Neck exam - supple, no significant adenopathy, bilateral symmetric anterior adenopathy. Chest: clear to auscultation, no wheezes, rales or rhonchi, symmetric air entry. CVS exam: normal rate, regular rhythm, normal S1, S2, no murmurs, rubs, clicks or gallops. Back exam: pain with motion noted during exam, tenderness in the lower Lumbar spine, negative straight-leg raise bilaterally , normal reflexes bilateral lower extremities. Examination of the feet reveals warm, good capillary refill, normal DP and PT pulses and reduced sensation at distal feet. HGA1C - good, CMP - elevated sugar, FLP - sub optimal LDL Component Latest Ref Rng & Units 05/15/2019 05/15/2019 05/15/2019 12:11 PM 12:11 PM 12:11 PM Sodium 134 - 145 mmol/L 138 Potassium 3.5 - 5.1 mmol/L 4.0 Chloride 98 - 107 mmol/L 100 CO2 22 - 30 mmol/L 27 Calcium 8.3 - 10.1 mg/dl 8.9 Albumin 3.5 - 5.0 g/dl 4.0 BUN 9 - 20 mg/dl 21 (H) Creatinine 0.8 - 1.5 mg/dl 0.7 (L) Glucose (Lab) 70 - 99 mg/dl 141 (H) Protein,Total 6.3 - 8.2 g/dl 6.8 Total Bilirubin 0.0 - 1.1 MG/DL 0.8 AST 17 - 59 U/L 29 ALT 21 - 72 U/L 31 ALKALINE PHOSPHATASE 40 - 150 U/L 78 eGFR See Interpretation Below ml/min/1.73ml Sq >60 BUN/Creatinine Ratio 6 - 22 RATIO 30 (H) Anion Gap 3 - 11 mmol/L 11 A/G Ratio 0.8 - 2.0 ratio 1.4 Cholestrol <200 mg/dl 213 (H) HDL >40 mg/dl 90 Triglycerides <150 mg/dl 84 LDL Cholesterol <100 MG/DL 106 (H) Cholesterol / HDL Ratio RATIO 2.4 LDL / HDL Ratio 1.2 Non-HDL Cholesterol 0 - 130 MG/DL 123 Glycohemoglobin - POCT <=5.6 % 6.2 (H) ICD-9-CM ICD-10-CM 1. Low back pain with sciatica, sciatica laterality unspecified, unspecified back pain laterality, unspecified chronicity 724.3 M54.40 XR LUMBAR SPINE MIN 4 VIEWS (STANDARD) REFER TO PHYSICAL THERAPY / REHAB 2. Type 2 diabetes mellitus without complication, without long-term current use of insulin (HCC) 250.00 E11.9 REFER TO DIABETES/NUTRITION REFER TO OPHTHALMOLOGY COMPREHENSIVE METABOLIC PANEL LIPID PROFILE GLYCOHEMOGLOBIN A1C MICROALBUMIN, RANDOM URINE W/ CREATININE MICROALBUMIN, RANDOM URINE W/ CREATININE 3. Paroxysmal atrial fibrillation (HCC) 427.31 I48.0 CBC WITH DIFFERENTIAL 4. Seizure disorder (HCC) 345.90 G40.909 REFER TO NEUROLOGY 5. Dyslipidemia Not able to tolerate statins in the past including Lipitor and Pravachol 272.4 E78.5 Patient Instructions 1. Schedule appointment with a an eye doctor 2. Schedule fasting blood tests in 11/2019 3. Start physical therapy for the back pain 4. Follow up in 4 weeks after PT started 5. Schedule appointment with neurology 6. Schedule appointment with cardiology Author: Isa Shaikh MD documented in this encounter Plan of Treatment Date Type Specialty Care Team Description 09/29/2019 Ancillary Procedure Radiology 10/06/2019 Office Visit Neurosurgery Shad Rios MD [address] [place] [address] [phone] 10/06/2019 Office Visit Physical Therapy Clarita Reed, PT [address] [place] [address] [phone] Name Type Priority Associated Diagnoses Date/Time MICROALBUMIN, RANDOM Lab Routine Type 2 diabetes mellitus 09/18/2019 11:10 AM EST URINE W/ CREATININE without complication, without long-term current use of insulin ([facility]) Name Type Priority Associated Diagnoses Order Schedule XR LUMBAR SPINE MIN 4 Imaging Routine Low back pain with Ordered: 2018 VIEWS (STANDARD) sciatica, sciatica laterality unspecified, unspecified back pain laterality, unspecified chronicity COMPREHENSIVE METABOLIC Lab Routine Type 2 diabetes Expected: PANEL mellitus without 09/18/2019 complication, without (Approximate), long-term current use Expires: 09/18/2020 of insulin ([facility]) LIPID PROFILE Lab Routine Type 2 diabetes Expected: mellitus without 09/18/2019 complication, without (Approximate), long-term current use Expires: 09/18/2020 of insulin ([facility]) GLYCOHEMOGLOBIN A1C Lab Routine Type 2 diabetes Expected: mellitus without 09/18/2019 complication, without (Approximate), long-term current use Expires: 09/18/2020 of insulin (HCC) CBC WITH DIFFERENTIAL Lab Routine Paroxysmal atrial Expected: fibrillation (HCC) 09/18/2019 (Approximate), Expires: 09/18/2020 MICROALBUMIN, RANDOM URINE Lab Routine Type 2 diabetes Expected: W/ CREATININE mellitus without 09/18/2019 complication, without (Approximate), long-term current use Expires: 03/16/2020 of insulin (HCC) Name Type Priority Associated Diagnoses Order Schedule REFER TO PHYSICAL Referral Routine Low back pain with 99 Occurrences THERAPY / REHAB sciatica, sciatica starting 09/18/2019 laterality until 09/18/2020 unspecified, unspecified back pain laterality, unspecified chronicity REFER TO Referral Routine Type 2 diabetes Expected: 09/18/2019, DIABETES/NUTRITION mellitus without Expires: 09/18/2020 complication, without long-term current use of insulin (HCC) REFER TO OPHTHALMOLOGY Referral Routine Type 2 diabetes Expected: 2018, mellitus without Expires: 09/18/2020 complication, without long-term current use of insulin (HCC) REFER TO NEUROLOGY Referral Routine Seizure disorder (HCC) Expected: 2018, Expires: 09/18/2020 Health Maintenance Due Date Last Done Comments Diabetic Eye Exam 1970 URINE MICROALBUMIN 03/10/2017 03/10/2016, 04/12/2015 Colonoscopy 2019 ZOSTER IMMUNIZATION SERIES 2019 (1 of 2) HEMOGLOBIN A1C 11/15/2019 05/15/2019, 12/14/2016, 02/10/2016, Additional history exists LIPID DISORDER SCREENING 05/15/2020 05/15/2019, 02/10/2016, 03/15/2015, Additional history exists DEPRESSION SCREENING 09/18/2020 09/18/2019 FOOT EXAM 09/18/2020 09/18/2019, 02/15/2017, 02/15/2017 INFLUENZA VACCINE (#1) 2020 Postponed from 06/01/2019 (Patient refused) PNEUMOCOCCAL 0-64 YRS (1 of 09/18/2020 Postponed from 1 - PPSV23) 1975 (Patient refused) DTaP/Tdap/Td Vaccines (3 - 04/18/2027 04/18/2017, 10/01/1993 Tdap) HEPATITIS A IMMUNIZATION Aged Out No longer eligible SERIES based on patient's age to complete this topic HPV IMMUNIZATION SERIES Aged Out No longer eligible based on patient's age to complete this topic MENINGOCOCCAL VACCINE IMM Aged Out No longer eligible based on patient's age to complete this topic documented as of this encounter Goals Goal Patient Goal Associated Recent Patient-Stated? 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 Your most recent blood pressure is also shown above, on the right. You should try to achieve blood pressures that are lower than your goal listed above (on the left). Diabetes < 7.0 Diabetes Type 2 diabetes 6.2 (05/15/2019 No Jaret Ayala, mellitus without 12:11 PM EDT) ЕЛЕНА complication Note: Diabetes Care Plan According to [...] my blood sugar results (including dextrose sticks). [facility] [place] is safe and secure way for you [...] towards quitting. Glycohemoglobin A1c < 7.0 Diabetes 6.2 (05/15/2019 12:11 No Yaquelin Tuttle, PM EDT) [place] Note: This is an individualized treatment (diabetes control, HgbA1C) goal for Rashaun Longoria: Displayed above is your progress towards your HgbA1C goal. Your goal is shown above (on the left); your most recent HgbA1C is shown on the right. Note that lower numbers are better. Weight loss vs. 18 mo Lifestyle 0 (09/18/2019 10:31 AM No Yaquelin Tuttle FNP max (lbs) >= 10 EST) Note: This is an individualized lifestyle goal for Rashaun Longorai: Your body mass index (BMI) is more [...] ongoing basis. documented as of this encounter Procedures Procedure Name Priority Date/Time Associated Diagnosis Comments DIABETES FOOT EXAM Routine 09/18/2019 documented in this encounter Results DIABETES FOOT EXAM (09/18/2019) FOOT EXAM neuropathy feet [facility] Performing Organization Address City/State/Zipcode Phone Number [facility] [address] [place] [address] documented in this encounter Visit Diagnoses Diagnosis Low back pain with sciatica, sciatica laterality unspecified, unspecified back pain laterality, unspecified chronicity Type 2 diabetes mellitus without complication, without long-term current use of insulin (HCC) Paroxysmal atrial fibrillation (HCC) Atrial fibrillation Seizure disorder (HCC) Unspecified epilepsy without mention of intractable epilepsy Dyslipidemia Other and unspecified hyperlipidemia documented in this encounter documented as of this encounter
--- OUTSIDE RECORDS SUMMARY | 2019-11-12 08:52 | XMS REPORT | Summary of Care ---
:1970 Author Organization [facility] Address [address] [place] [address] Care Team Providers Name Role Phone Isa Shaikh Primary Care Provider Reason for Referral Refer to Department Only (Routine) Status Reason Specialty Diagnoses / Referred By Referred To Procedures Contact Contact Pending Review OPHTHALMOLOGY Diagnoses Type 2 diabetes mellitus without complication, without long-term current use of insulin (HCC) Isa Shaikh MD [address] [place] [address] Scheduling Instructions Please indicate side affected in the diagnosis. Reason for Visit Reason Comments Follow Up to medications Encounter Details Date Type Department Care Team Description 11/06/2019 Office Visit Abhijeet Johnson Spencergiovanniwendy Type 2 diabetes mellitus without complication, without long-term current use of insulin (HCC) (Primary Dx ); Practice MD Isa Colon cancer screening; [address] [facility] [address] [facility] Paroxysmal atrial fibrillation (HCC) [place], [place] [id number] [place] [address] [phone] Allergies Active Allergy Reactions Severity Noted Date Comments Amlodipine Cardiac Reaction 09/30/2013 Azasite GI Reaction 02/07/2011 Diarrhea and stomach distress Erythromycin Unknown Reaction 10/04/2007 CONVULSIONS Metrocream GRAPHIC TECHNICIAN Reaction 12/18/2012 Dizziness documented as of this encounter (statuses as of 11/06/2019) Medications Medication Sig Dispensed Refills Start End Date Status Date Cyanocobalamin Take by mouth. 0 Active (B-12) 1000 MCG Oral Cap foliC acid 1 MG Take 1 mg by 0 Active Oral Tab mouth DAILY. carvedilol (COREG) Take 2 Tabs by 360 Tab 1 Active 25 MG Oral mouth TWICE 7 TabIndications: DAILY. Essential hypertension ALPRAZolam (XANAX) Take 1 Tab by 30 Tab 0 Active 0.5 MG Oral mouth EVERY 7 TabIndications: BEDTIME Anxiety state NEEDED for sleep/insomnia. levalbuterol HFA Take 1-2 Puffs 0 Active (XOPENEX HFA) 45 by inhalation MCG/ACT Inhalation EVERY FOUR Aerosol HOURS NEEDED. lamotrigine Take 200 mg by 0 Active (LAMICTAL) 100 MG mouth EVERY Oral Tab BEDTIME. sertraline (ZOLOFT) Take 2 Tabs by 60 Tab 1 Active 100 MG Oral Tab mouth DAILY. 9 apixaban (ELIQUIS) Take 1 Tab by 60 Tab 1 Active 5 MG Oral Tab mouth TWICE 9 DAILY. triamterene-hydroch Take 1 Cap by 30 Cap 0 Active lorothiazide mouth DAILY. 0 (DYAZIDE) 37.5-25 MG Oral Cap lactulose Take 15 mL by 450 mL 0 Active (CEPHULAC) 10 mouth DAILY 0 GM/15ML Oral NEEDED Solution (constipation). Aspirin (ASPIRIN Take by mouth. 0 Active 81) 81 MG Oral Tab EC Mometasone Take 2 INHL by 0 11/06/19 Discontinued Furo-Formoterol Fum inhalation 20 (DULERA) 200-5 TWICE DAILY. MCG/ACT Inhalation Aerosol dronedarone Take 400 mg by 60 Tab 1 11/06/19 Discontinued (MULTAQ) 400 MG mouth TWO TIMES 9 20 (Other) Oral Tab DAILY WITH MEALS. documented as of this encounter (statuses as of 11/06/2019) Active Problems Problem Noted Date Anal abscess 05/30/2016 Simple renal cyst 06/03/2015 Overview: right kidney Type 2 diabetes mellitus without complication 05/07/2015 Achilles tendinitis 04/21/2015 Paroxysmal atrial fibrillation 03/12/2015 Carpal tunnel syndrome 07/17/2014 KEE (obstructive sleep apnea) 05/25/2014 Overview: CPAP Gastritis 04/30/2014 CAD (coronary artery disease) 09/30/2013 Overview: [place] 11[place]2016. Stent RCA 2010. LAD drug eluted stent, jailing the second diagonal and scorin baloon atherectomy of the side branch of first diagonal - 11/2016 Tremor 08/30/2010 Hyperglycemia 08/30/2010 Essential hypertension 11/25/2007 Allergic Rhinitis 11/25/2007 Allergen Induced Asthma 11/25/2007 Obesity 11/25/2007 documented as of this encounter (statuses as of 11/06/2019) Resolved Problems Problem Noted Date Resolved Date Polycystic kidney disease 09/30/2013 06/03/2015 Overview: Followed bu Nephrology in [place] Sinusitis 11/21/2011 02/16/2012 Conjunctivitis unspecified 08/30/2010 03/10/2011 documented as of this encounter (statuses as of 11/06/2019) Immunizations Name Administration Dates Next Due TD [...] Sign Reading Time Taken Comments Blood Pressure 112/60 11/06/2019 3:52 PM EST Pulse 73 11/06/2019 3:52 PM EST Temperature 37.1 11/06/2019 3:52 PM C (98.8 EST F) Respiratory Rate - - Oxygen Saturation 96% 11/06/2019 3:52 PM EST Inhaled Oxygen Concentration - - Weight 101.4 kg (223 lb 9.6 oz) 11/06/2019 3:52 PM EST Height 172.7 cm (5' 8") 11/06/2019 3:52 PM EST Body Mass Index 34 11/06/2019 3:52 PM EST documented in this encounter Patient Instructions Patient InstructionsIsa Shaikh MD - 11/06/2019 3:40 PM EST1. Schedule fasting blood tests 2. Will make referral for Cologuard test 3. Schedule appointment with an eye doctor 4. Follow up after the tests and as needed documented in this encounter Progress Notes Isa Shaikh MD - 11/06/2019 3:40 PM EST Patient: Rashaun Longoria Date of Service: 11/06/2019 Subjective: Rashaun Longoria is a 49-y.o. male who presents for Chief Complaint Patient presents with Follow Up to medications Patient comes follow up DM, CAD, paroxysmal atrial fibrillation [place] [facility] [place]/O for ACS. Stress test negative for ischemia Patient stopped drinking alcohol 6 months ago No chest pains, no SOB Stopped Dronedarone on his own No complains of palpitations Has appointment pnd with cardiology complains of shooting pain in the L ear area off and on Past Medical History: Diagnosis Date Allergen Induced Asthma 11/25/2007 Allergic Rhinitis 11/25/2007 Anxiety CAD (coronary artery disease) 09/30/2013 [place] 11/2016. Stent RCA 2010. LAD drug eluted stent, jailing the second diagonal and scorin baloon atherectomy of the side branch of first diagonal - 11/2016 Essential hypertension 11/25/2007 Gastritis H/O: rheumatic fever Age 4 History of alcohol abuse Obesity 11/25/2007 KEE (obstructive sleep apnea) 05/25/2014 BiPAP 07/20 Paroxysmal atrial fibrillation (HCC) 03/12/2015 Polycystic kidney disease 09/30/2013 Followed Nephrology in [facility] ([facility]) usually in [place], [place] Type 2 diabetes mellitus without complication ([facility]) 05/07/2015 Outpatient Medications as of 11/06/2019 Medication Sig Dispense Refill ALPRAZolam (XANAX) 0.5 MG Oral Tab Take 1 Tab by mouth EVERY BEDTIME NEEDED for sleep/insomnia. 30 Tab 0 apixaban (ELIQUIS) 5 MG Oral Tab Take 1 Tab by mouth TWICE DAILY. 60 Tab 1 carvedilol (COREG) 25 MG Oral Tab Take 2 Tabs by mouth TWICE DAILY. 360 Tab 1 Cyanocobalamin (B-12) 1000 MCG Oral Cap Take by mouth. foliC acid 1 MG Oral Tab Take 1 mg by mouth DAILY. lactulose (CEPHULAC) 10 GM/15ML Oral Solution Take 15 mL by mouth DAILY NEEDED (constipation). 450 mL 0 lamotrigine (LAMICTAL) 100 MG Oral Tab Take 200 mg by mouth EVERY BEDTIME. levalbuterol HFA (XOPENEX HFA) 45 MCG/ACT Inhalation Aerosol Take 1-2 Puffs by inhalation EVERY FOUR HOURS NEEDED. sertraline (ZOLOFT) 100 MG Oral Tab Take 2 Tabs by mouth DAILY. 60 Tab 1 triamterene-hydrochlorothiazide (DYAZIDE) 37.5-25 MG Oral Cap Take 1 Cap by mouth DAILY. 30 Cap 0 No current facility-administered medications on file as of 11/06/2019. Allergies Allergen Reactions Amlodipine Cardiac Reaction Azithromycin [Azasite] GI Reaction Diarrhea and stomach distress Erythromycin Unknown Reaction CONVULSIONS Metronidazole [Metrocream] GRAPHIC TECHNICIAN Reaction Dizziness Review of Systems: All remaining review of systems was negative. Objective: BP 112/60 (BP Location: Left arm, Patient Position: Sitting) Pulse 73 Temp 98.8 F (37.1 C) Ht 5' 8" (1.727 m) Wt 223 lb 9.6 oz (101.4 kg) SpO2 96 % BMI 34 kg/m2 GENERAL: alert, no distress EARS: normal tympanic membranes and external ear canals, bilaterally THROAT: lips, mucosa, and tongue normal: teeth and gums normal NECK: supple, symmetrical, trachea midline and no adenopathy LUNGS: clear to auscultation bilaterally HEART: regular rate and rhythm, S1, S2 normal, no murmur, click, rub or gallop EXTREMITIES: no edema ICD-9-CM ICD-10-CM 1. Type 2 diabetes mellitus without complication, without long-term current use of insulin (HCC) 250.00 E11.9 REFER TO OPHTHALMOLOGY 2. Colon cancer screening V76.51 Z12.11 COLOGUARD STOOL DNA TEST (EXTERNAL) 3. Paroxysmal atrial fibrillation (HCC) Follow with cardiology 427.31 I48.0 Patient Instructions 1. Schedule fasting blood tests 2. Will make referral for Cologuard test 3. Schedule appointment with an eye doctor 4. Follow up after the tests and as needed Author: Isa Shaikh MD documented in this encounter Plan of Treatment Date Type Specialty Care Team Description 11/21/2019 Lab Internal Medicine 12/04/2019 Office Visit Cardiology Chun Quintanilla MD [address] [place] [id number] [phone] Name Type Priority Associated Diagnoses Order Schedule COLOGUARD STOOL DNA Lab - Exact Routine Colon cancer Ordered: TEST (EXTERNAL) Sciences screening 11/06/2019 Name Type Priority Associated Diagnoses Order Schedule REFER TO OPHTHALMOLOGY Referral Routine Type 2 diabetes Expected: 2019, mellitus without Expires: 11/06/2020 complication, without long-term current use of insulin (HCC) Health Maintenance Due Date Last Done Comments Diabetic Eye Exam 1970 Colonoscopy 2019 HEMOGLOBIN A1C 11/15/2019 05/15/2019, 12/14/2016, 02/10/2016, Additional history exists LIPID DISORDER SCREENING 05/15/2020 05/15/2019, 02/10/2016, 03/15/2015, Additional history exists DEPRESSION SCREENING 09/18/2020 09/18/2019 FOOT EXAM 09/18/2020 09/18/2019, 09/18/2019, 02/15/2017 INFLUENZA VACCINE (#1) 2020 Postponed from 06/01/2019 (Patient refused) PNEUMOCOCCAL 0-64 YRS (1 of 09/18/2020 Postponed from 1 - PPSV23) 1975 (Patient refused) URINE MICROALBUMIN 09/18/2020 09/18/2019, 03/10/2016, 04/12/2015 ZOSTER IMMUNIZATION SERIES 11/06/2020 Postponed from (1 of 2) 2019 (Vaccine not available) DTaP/Tdap/Td Vaccines (3 - 04/18/2027 04/18/2017, 10/01/1993 [...] Type Problems Progress Blood Pressure Blood Pressure 112/60 No Marry, < 140/90 (11/06/2019 Yaquelin, 3:52 PM EST) WEIGHT CALLER Note: This is an individualized treatment (blood [...] Type 2 diabetes 6.2 (05/15/2019 No Jaret yAala, mellitus without 12:11 PM EDT) RICHY-Ermias complication Note: Diabetes Care Plan According to [...] my blood sugar results (including dextrose sticks). [facility] is safe and secure way for you [...] better. Weight loss vs. 18 mo Lifestyle 6.6 (11/06/2019 3:52 PM No Yaquelin Tuttle FNP max (lbs) >= [...] filedocumented in this encounter Visit Diagnoses Diagnosis Colon cancer screening Special screening for malignant neoplasms, colon Type 2 diabetes mellitus without complication, without long-term current use of insulin (HCC) Paroxysmal atrial fibrillation (HCC) Atrial fibrillation documented in this encounter Guarantor Name Account Type Relation to Date of Phone Billing Address Patient [place] Personal/Famil 1970 [facility] Oscar [address]ler (Home) [place] [address] documented as of this encounter
[2019-11-12 08:54] VITALS: BP 124/80
--- NOTE | 2019-11-12 09:21 | UC ---
Knee Pain HPI - HPI Summary HPI Summary: PATIENT PRESENTS WITH A FEW DAYS OF LEFT KNEE REDNESS, SWELLING, PAIN AND WARMTH. NO FEVER. DENIES ANY TRAUMA ALTHOUGH STATES HE HAS STARTED WORKING OUT RECENTLY. HIS KNEE HAS GIVEN OUT ON HIM A COUPLE OF TIMES SINCE THE ONSET OF THE SYMPTOMS. PATIENT HAD A VERY SIMILAR EPISODE IN HIS RIGHT KNEE JUST OVER A YEAR AGO AND WAS ADMITTED FOR CELLULITIS. - History of Current Complaint Chief Complaint: UCLowerExtremity Stated Complaint: KNEE PAIN Time Seen by Provider: 11/12/19 09:03 Hx Obtained From: Patient Onset/Duration: Gradual Onset, Lasting Days, Still Present Severity Initially: Moderate Severity Currently: Moderate Pain Intensity: 8 Pain Scale Used: 0-10 Numeric Character: Dull, Aching Aggravating Factor(s): Movement, Weight Bearing Alleviating Factor(s): Rest Associated Signs And Symptoms: Positive: Swelling, Redness. Negative: Weakness , Numbness, Tingling Able to Bear Weight: Yes - with pain - Allergies/Home Medications Allergies/Adverse Reactions: Allergies Allergy/AdvReac Type Severity Reaction Status Date / Time amlodipine Allergy Mild Palpitation Verified 11/12/19 08:55 s azithromycin Allergy Mild Shakes Verified 11/12/19 08:55 erythromycin base Allergy Mild Shakes Verified 11/12/19 08:55 lisinopril Allergy Mild Palpitation Verified 11/12/19 08:55 s metoprolol [From Lopressor] Allergy Palpitation Verified 11/12/19 08:55 s PMH/Surg Hx/FS Hx/Imm Hx Endocrine History: Diabetes Cardiovascular History: Cardiac Disease, Hypertension Respiratory History: Asthma Other History Of: Anticoagulant Therapy - xarelto for a. fib - Surgical History Surgical History: Yes Surgery Procedure, Year, and Place: CARDIAC STENT PLACEMENT 2010 and November 2016 , and January 2017. Perirectal abscess - Family History Known Family History: Positive: Cardiac Disease, Hypertension, Diabetes - Social History Alcohol Use: None Alcohol Amount: 0.5 bottle vodka Substance Use Type: None Substance Use Comment - Amount & Last Used: 09/04/17 Smoking Status (MU): Never Smoked Tobacco - Immunization History Most Recent Influenza Vaccination: NEVER Most Recent Tetanus Shot: 2013 Most Recent Pneumonia Vaccination: NEVER Review of Systems All Other Systems Reviewed And Are Negative: Yes Constitutional: Positive: Negative Respiratory: Positive: Negative Cardiovascular: Positive: Negative Gastrointestinal: Positive: Negative Musculoskeletal: Positive: Arthralgia, Decreased ROM, Edema Physical Exam Triage Information Reviewed: Yes Appearance: Well-Appearing, No Pain Distress, Well-Nourished Vital Signs: Initial Vital Signs Temp 98.8 F 11/12/19 08:50 Pulse 64 11/12/19 08:50 Resp 16 11/12/19 08:50 BP 124/80 11/12/19 08:50 Pulse Ox 100 11/12/19 08:50 Vital Signs Reviewed: Yes Eyes: Positive: Conjunctiva Clear ENT: Positive: Hearing grossly normal Neck: Positive: Supple Respiratory: Positive: No respiratory distress, No accessory muscle use Cardiovascular: Positive: Pulses Normal Abdomen Description: Positive: Soft Musculoskeletal: Positive: ROM Limited @ - LEFT KNEE, Edema @ - LEFT ANTERIOR KNEE, Other: - LEFT KNEE WARM, RED. PAIN WITH PALPATION OVER PATELLA Psychological: Positive: Age Appropriate Behavior Skin: Positive: Rashes - ERYTHEMA LEFT KNEE Diagnostics - Radiology LEFT KNEE XRAYS Radiology Interpretation Completed By: Radiologist Summary of Radiographic Findings: SOFT TISSUE SWELLING. Knee Pain Course/Dx - Course Course Of Treatment: X-RAY TODAY SHOWS SOFT TISSUE SWELLING BUT NO EFFUSION OR BONY INJURY. WILL COVER FOR CELLULITIS OF THE KNEE WITH DOXYCYCLINE. ADVISED ORTHOPEDIC FOLLOW- UP. PATIENT TO GO TO THE ER WITHOUT FAIL IF HE DEVELOPS FEVER, WORSENING PAIN OR ANY OTHER CONCERNING SYMPTOMS. - Differential Dx/Diagnosis Provider Diagnosis: Cellulitis of left knee Discharge ED - Sign-Out/Discharge Documenting (check all that apply): Patient Departure All imaging exams completed and their final reports reviewed: Yes - Discharge Plan Condition: Stable Disposition: HOME Prescriptions: Doxycycline Monohydrate 1 cap PO BID #20 cap Patient Education Materials: Cellulitis (ED), Knee Pain (ED) Forms: *Work Release Referrals: Chris Dawson MD [Medical Doctor] - 1 Week Isa Shaikh MD [Primary Care Provider] - If Needed Additional Instructions: X-RAYS OF YOUR LEFT KNEE TODAY SHOW SOFT TISSUE SWELLING BUT NO BONY INJURY OR JOINT EFFUSION. WILL COVER WITH DOXYCYCLINE TWICE DAILY FOR 10 DAYS. I RECOMMEND YOU FOLLOW-UP WITH ORTHOPEDICS. GO TO THE ER WITHOUT FAIL IF YOU DEVELOP WORSENING PAIN, FEVER OR ANY OTHER CONCERNING SYMPTOMS. TYLENOL FOR DISCOMFORT. - Billing Disposition and Condition Condition: STABLE Disposition: Home
== END 2019-11-12 10:15 | disposition home or self-care (01) ==
LOC: UCEAST 08:43
DX: L03.116 Cellulitis of left lower limb (principal); E11.9 Type 2 diabetes mellitus without complications; I10 Essential (primary) hypertension; I48.91 Unspecified atrial fibrillation; Z88.1 Allergy status to other antibiotic agents; Z88.8 Allergy status to other drugs, medicaments and biological substances; Z79.01 Long term (current) use of anticoagulants; Z95.5 Presence of coronary angioplasty implant and graft
CPT/HCPCS: 99212; G0463

== ENCOUNTER 2019-12-16 13:54 | Emergency (ER) | payer OTHER ==
--- OUTSIDE RECORDS SUMMARY | 2019-12-16 14:04 | XMS REPORT ---
:1970 Author Name TERRY SHELBY Address [address] [facility] [address] [place] [address] Care Team Providers Name Role Phone TERRY SHELBY Primary Care Physician Unavailable Allergies, Adverse Reactions, Alerts Allergy Code CodeSystem Reaction Severity Criticality Status Start Substance Date Erythromycin Seizure Moderate Active Atorvastatin Cramp Moderate Active Medications Medication Medication Medication Start Stop Route Dose Status Fill Code CodeSystem Date Date Instructions Apixaban RxNorm 5 mgm active BID 5 mgm BID Lamictal RxNorm 200 mgm active HS 200 mgm HS Xopenex HFA RxNorm 1-2 active puffs Q4 hr PRN SOB 1-2 puffs Q4 hr PRN SOB Carvedilol RxNorm 25 mgm active BID 25 mgm BID Sertraline RxNorm 200 mgm active QD 200 mgm QD Multaq RxNorm 400 mgm active BID 400 mgm BID Dulera RxNorm 200-5 active mcg/ACT 200-5 mcg/ACT Lactulose RxNorm 10 G active TID 10 G TID Relevant diagnostic tests/laboratory data Narrative No Information Procedures Procedure Code CodeSystem Target Date of Status Service Device Device Device Name Site Procedure Delivery Code Name UID Location SNOMED-CT () 2019-09-22 completed [facility] [address] [place], [address] [id number] SNOMED-CT () 2019-10-03 completed [facility] [address] [place], [address] [id number] SNOMED-CT () 2019-10-07 completed [facility] [address] [place], [address] [id number] SNOMED-CT () 2019-10-16 completed [facility] [address] [place], [address] [id number] SNOMED-CT () 2019-10-15 completed [facility]pt [facility] [address] [place], [address] [id number] SNOMED-CT () 2019-10-14 completed [facility]pt [facility] [address] [place], [address] [id number] SNOMED-CT () 2019-10-23 completed [facility]pt [facility] [address] [place], [address] [id number] SNOMED-CT () 2019-10-22 completed [facility] [address] [place], [address] [id number] SNOMED-CT () 2019-10-22 completed [facility]pt [facility] [address] [place], [address] [id number] SNOMED-CT () 2019-10-30 completed [facility] [address] [place], [address] [id number] SNOMED-CT () 2019-10-29 completed [facility]pt [facility] [address] [place], [address] [id number] SNOMED-CT () 2019-11-06 completed [facility] [address] [place], [address] [id number] SNOMED-CT () 2019-11-05 completed [facility] [address] [place], [address] [id number] SNOMED-CT () 2019-11-04 completed [facility]pt [facility] [address] [place], [address] [id number] SNOMED-CT () 2019-11-11 completed [facility]pt [facility] [address] [place], [address] [id number] SNOMED-CT () 2019-11-21 completed [facility] [address] [place], [address] [id number] SNOMED-CT () 2019-11-20 completed [facility]pt [facility] [address] [place], [address] [id number] SNOMED-CT () 2019-11-19 completed [facility]pt [facility] [address] [place], [address] [id number] SNOMED-CT () 2019-11-28 completed [facility]pt [facility] [address] [place], [address] [id number] SNOMED-CT () 2019-11-27 completed [facility]pt [facility] [address] [place], [address] [id number] SNOMED-CT () 2019-11-26 completed [facility] [address] [place], [address] [id number] SNOMED-CT () 2019-12-04 completed [facility] [address] [place], [address] [id number] SNOMED-CT () 2019-12-03 completed [facility] [address] [place], [address] [id number] Encounters/Encounter Diagnoses Encounter Encounter Diagnosis Diagnosis Diagnosis Date of Service Name Code Code Name CodeSystem Diagnosis Delivery Location Individual 64273 SNOMED-CT 2019-12-09 [facility] , , , Vital Signs No Information Social History Element Description Description Start End Code CodeSystem AdditionalInfo Date Date SexAssignedAtBirth Male 1970-1 M AdministrativeGender 01-07 Hospital Discharge Instructions Reason For Referral Medical Equipment FDA Assessments
--- OUTSIDE RECORDS SUMMARY | 2019-12-16 14:04 | XMS REPORT | Summary of Care ---
:1970 Author Organization [facility] Address [address] [place] [address] Care Team Providers Name Role Phone Isa Shaikh Primary Care Provider Anuj Stevens MD Jayy-Attributed Pcp Reason for Visit Reason Comments Follow Up to labs Encounter Details Date Type Department Care Team Description 12/11/2019 Office Visit Abhijeet Shaikh, Type 2 diabetes mellitus without complication, without long-term current use of insulin (HCC) (Primary Dx ); Practice MD Isa Increased ammonia level; [address] [place] [address] [place] [address] [phone] Allergies Active Allergy Reactions Severity Noted Date Comments Amlodipine Cardiac Reaction 09/30/2013 Azasite GI Reaction 02/07/2011 Diarrhea and stomach distress Erythromycin Unknown Reaction 10/04/2007 CONVULSIONS Metrocream LARD RENDERER Reaction 12/18/2012 Dizziness documented as of this encounter (statuses as of 12/11/2019) Medications Medication Sig Dispensed Refills Start Date End Date Status carvedilol (COREG) 25 MG Take 2 Tabs by 360 Tab 1 02/15/2017 Active Oral TabIndications: mouth TWICE Essential hypertension DAILY. Additional Information Patient taking differently: 25 mg Oral BID, Reported on 12/04/2019 9:59 AM ALPRAZolam (XANAX) 0.5 MG Take 1 Tab by mouth EVERY 30 Tab 0 02/28/2017 Active Oral TabIndications: Anxiety BEDTIME NEEDED for state sleep/insomnia. levalbuterol HFA (XOPENEX Take 1-2 Puffs by 0 Active HFA) 45 MCG/ACT Inhalation inhalation EVERY FOUR Aerosol HOURS NEEDED. lamotrigine (LAMICTAL) 100 Take 200 mg by mouth EVERY 0 Active MG Oral Tab BEDTIME. sertraline (ZOLOFT) 100 MG Take 2 Tabs by mouth DAILY. 60 Tab 1 11/13/2019 Active Oral Tab apixaban (ELIQUIS) 5 MG Oral Take 1 Tab by mouth TWICE 60 Tab 1 11/13/2019 Active Tab DAILY. lactulose (CEPHULAC) 10 TAKE 15 MLS BY MOUTH DAILY 450 mL 0 12/01/2019 Active GM/15ML Oral Solution NEEDED FOR CONSTIPATION triamterene-hydrochlorothiaz TAKE ONE CAPSULE BY MOUTH 30 Cap 0 12/01/2019 Active nalini (DYAZIDE) 37.5-25 MG ONCE DAILY Oral Cap Benzonatate 200 MG Oral Take 1 Cap by mouth THREE 42 Cap 0 12/01/2019 Active CapIndications: Cough TIMES DAILY NEEDED (For cough). guaifenesin (MUCINEX) 600 MG Take 1 Tab by mouth EVERY 28 Tab 0 12/01/2019 Active Oral TABLET SR 12 TWELVE HOURS. HRIndications: Cough Rosuvastatin Calcium 5 MG Take 1 Tab by mouth EVERY 30 Tab 11 12/04/2019 Active Oral TabIndications: BEDTIME. Coronary artery disease involving [place] coronary artery of [place] heart without angina pectoris documented as of this encounter (statuses as of 12/11/2019) Active Problems Problem Noted Date Anal abscess 05/30/2016 Simple renal cyst 06/03/2015 Overview: right kidney Type 2 diabetes mellitus without complication 05/07/2015 Achilles tendinitis 04/21/2015 Paroxysmal atrial fibrillation 03/12/2015 Carpal tunnel syndrome 07/17/2014 KEE (obstructive sleep apnea) 05/25/2014 Overview: CPAP Gastritis 04/30/2014 CAD (coronary artery disease) 09/30/2013 Overview: [place] 11/2016. Stent RCA 2010. LAD drug eluted stent, jailing the second diagonal and scorin baloon atherectomy of the side branch of first diagonal - 11/2016 Tremor 08/30/2010 Hyperglycemia 08/30/2010 Essential hypertension 11/25/2007 Allergic Rhinitis 11/25/2007 Allergen Induced Asthma 11/25/2007 Obesity 11/25/2007 documented as of this encounter (statuses as of 12/11/2019) Resolved Problems Problem Noted Date Resolved Date Polycystic kidney disease 09/30/2013 06/03/2015 Overview: Followed bu Nephrology in [place] Sinusitis 11/21/2011 02/16/2012 Conjunctivitis unspecified 08/30/2010 03/10/2011 documented as of this encounter (statuses as of 12/11/2019) Immunizations Name Administration Dates Next Due TD Vaccine 10/01/1993 TDAP Vaccine 04/18/2017 documented as of this encounter Social History Tobacco Use Types Packs/Day Years Used Date Never Smoker Smokeless Tobacco: Never Used Alcohol Use Drinks/Week oz/Week Comments No H/O alcohol abuse Sex Assigned at Date Recorded Not on file documented as of this encounter Last Filed Vital Signs Vital Sign Reading Time Taken Comments Blood Pressure 112/60 12/11/2019 10:48 AM EDT Pulse 67 12/11/2019 10:48 AM EDT Temperature 37.1 12/11/2019 10:48 AM C (98.8 EDT F) Respiratory Rate - - Oxygen Saturation 98% 12/11/2019 10:48 AM EDT Inhaled Oxygen Concentration - - Weight 102.2 kg (225 lb 6.4 oz) 12/11/2019 10:48 AM EDT Height 172.7 cm (5' 8") 12/11/2019 10:48 AM EDT Body Mass Index 34.27 12/11/2019 10:48 AM EDT documented in this encounter Patient Instructions Patient InstructionsIsa Shaikh MD - 12/11/2019 10:40 AM EDT1. Follow low fat, no sugar diet 2. Schedule fasting blood tests in 3 months 3. Please do the Cologuard test documented in this encounter Progress Notes Isa Shaikh MD - 12/11/2019 10:40 AM EDT PATIENT: Rashaun Longoria : 1970 DATE OF SERVICE: 12/11/2019 SUBJECTIVE: 49-y.o. male for follow up of diabetes. Diabetic Review of Systems - diabetic diet compliance: compliant most of the time, home glucose monitoring: is not performed, last eye exam scheduled end of 11/2019 Other symptoms and concerns: wants his Ammonias to be checked because feels "cloudy". Received Cologuard kit, but hasn't done the testing yet. Past Medical History: Diagnosis Date ? Allergen Induced Asthma 11/25/2007 ? Allergic Rhinitis 11/25/2007 ? Anxiety ? CAD (coronary artery disease) 09/30/2013 [place] 11/2016. Stent RCA 2010. LAD drug eluted stent, jailing the second diagonal and scorin baloon atherectomy of the side branch of first diagonal - 11/2016 ? Essential hypertension 11/25/2007 ? Gastritis ? H/O: rheumatic fever Age 4 ? History of alcohol abuse ? Obesity 11/25/2007 ? KEE (obstructive sleep apnea) 05/25/2014 BiPAP 07/20 ? Paroxysmal atrial fibrillation (HCC) 03/12/2015 ? Polycystic kidney disease 09/30/2013 Followed Nephrology in [place] ? Seizure (HCC) usually in his sleep, [place] ? Type 2 diabetes mellitus without complication (HCC) 05/07/2015 Current Outpatient Medications Medication Sig ? ALPRAZolam (XANAX) 0.5 MG Oral Tab Take 1 Tab by mouth EVERY BEDTIME NEEDED for sleep/insomnia. ? apixaban (ELIQUIS) 5 MG Oral Tab Take 1 Tab by mouth TWICE DAILY. ? Benzonatate 200 MG Oral Cap Take 1 Cap by mouth THREE TIMES DAILY NEEDED (For cough). ? carvedilol (COREG) 25 MG Oral Tab Take 2 Tabs by mouth TWICE DAILY. ( Patient taking differently: Take 25 mg by mouth TWICE DAILY.) ? guaifenesin (MUCINEX) 600 MG Oral TABLET SR 12 HR Take 1 Tab by mouth EVERY TWELVE HOURS. ? lactulose (CEPHULAC) 10 GM/15ML Oral Solution TAKE 15 MLS BY MOUTH DAILY NEEDED FOR CONSTIPATION ? lamotrigine (LAMICTAL) 100 MG Oral Tab Take 200 mg by mouth EVERY BEDTIME. ? levalbuterol HFA (XOPENEX HFA) 45 MCG/ACT Inhalation Aerosol Take 1-2 Puffs by inhalation EVERY FOUR HOURS NEEDED. ? Rosuvastatin Calcium 5 MG Oral Tab Take 1 Tab by mouth EVERY BEDTIME. ? sertraline (ZOLOFT) 100 MG Oral Tab Take 2 Tabs by mouth DAILY. ? triamterene-hydrochlorothiazide (DYAZIDE) 37.5-25 MG Oral Cap TAKE ONE CAPSULE BY MOUTH ONCEDAILY No current facility-administered medications for this visit. OBJECTIVE: BP 112/60 (BP Location: Left arm, Patient Position: Sitting) | Pulse 67 | Temp 98.8 F (37.1 C) | Ht 5' 8" (1.727 m) | Wt 225 lb 6.4 oz (102.2 kg ) | SpO2 98% | BMI 34.27 kg/m General appearance: alert, well appearing, and in no distress. CBC - normal, FLP - sub optimal, HGA1C - stable, CMP - elevated sugar Component Latest Ref Rng & Units 11/21/2019 11/21/2019 11/21/2019 11/21/2019 6:43 AM 6:43 AM 6:43 AM 6:43 AM WBC COUNT 4.23 - 9.07 K/uL 8.92 RBC 4.30 - 5.89 M/UL 5.02 Hemoglobin 13.7 - 17.5 g/dL 14.9 Hematocrit 40.1 - 51.0 % 45.0 MCV 79.0 - 92.2 FL 89.6 MCH 25.7 - 32.2 PG 29.7 MCHC 32.3 - 36.5 g/dL 33.1 Platelet Count 163 - 337 K/uL 216 MPV 9.4 - 12.4 FL 10.2 RDW 11.6 - 14.4 % 13.0 NEUTROPHILS 34.0 - 67.9 % 67.2 Lymphocyte % 21.8 - 53.1 % 21.2 (L) MONOCYTES 5.3 - 12.2 % 7.1 Eosinophils 0.8 - 7.0 % 3.6 Basophil % 0.2 - 1.2 % 0.6 nRBC % 0.0 - 0.2 % 0.0 Neutrophil # 1.78 - 5.38 K/UL 6.00 (H) Lymphocyte # 1.32 - 3.57 K/UL 1.89 Monocyte # 0.30 - 0.82 K/UL 0.63 Eosinophil # 0.04 - 0.54 K/UL 0.32 Basophil # 0.01 - 0.08 K/UL 0.05 Immature Gran % 0.0 - 0.4 % 0.3 Immature Gran # 0.00 - 0.03 K/uL 0.03 NRBC # 0.00 - 0.12 K/uL 0.00 Sodium 134 - 145 mmol/L 139 Potassium 3.5 - 5.1 mmol/L 3.7 Chloride 98 - 107 mmol/L 98 CO2 22 - 30 mmol/L 33 (H) Calcium 8.3 - 10.1 mg/dl 9.3 Albumin 3.5 - 5.0 g/dl 4.3 BUN 9 - 20 mg/dl 25 (H) Creatinine 0.8 - 1.5 mg/dl 1.3 Glucose (Lab) 70 - 99 mg/dl 124 (H) Protein,Total 6.3 - 8.2 g/dl 7.3 Total Bilirubin 0.0 - 1.1 MG/DL 0.3 AST 17 - 59 U/L 31 ALT 21 - 72 U/L 30 ALKALINE PHOSPHATASE 40 - 150 U/L 89 eGFR See Interpretation Below ml/min/1.73ml Sq 58 BUN/Creatinine Ratio 6 - 22 RATIO 19 Anion Gap 3 - 11 mmol/L 8 A/G Ratio 0.8 - 2.0 ratio 1.4 Cholestrol <200 mg/dl 199 HDL >40 mg/dl 26 (L) Triglycerides <150 mg/dl 335 (H) LDL Cholesterol <100 MG/DL 106 (H) Cholesterol / HDL Ratio RATIO 7.7 LDL / HDL Ratio 4.1 Non-HDL Cholesterol 0 - 130 MG/DL 173 (H) Patient Fasting: Yes Glycohemoglobin - POCT <=5.6 % 6.3 (H) Patient advised on tests results. All questions were answered ICD-9-CM ICD-10-CM 1. Type 2 diabetes mellitus without complication, without long-term current use of insulin (HCC) 250.00 E11.9 2. Increased ammonia level 790.6 R79.89 AMMONIA 3. Dyslipidemia Started on low dose Crestor by cardiology 272.4 E78.5 Patient Instructions 1. Follow low fat, no sugar diet 2. Schedule fasting blood tests in 3 months 3. Please do the Cologuard test Author: Isa Shaikh MD 12/11/2019 14:18 documented in this encounter Plan of Treatment Date Type Specialty Care Team Description 02/25/2020 Lab Internal Medicine 02/26/2020 Office Visit Neurology Flako Paniagua CRNP [address] [place] [address] 03/04/2020 Office Visit Cardiology Chun Quintanilla MD [address] [place] [address] [phone] Name Type Priority Associated Diagnoses Date/Time AMMONIA Lab STAT Increased ammonia level 12/11/2019 11:22 AM EDT Health Maintenance Due Date Last Done Comments CT Colonography 1970 Colonoscopy 1969 Colorectal Cancer Screening 1970 Diabetic Eye Exam 1970 FIT-DNA 1970 FIT/FOBT 1970 Sigmoidoscopy 1970 Colonoscopy 2019 HEMOGLOBIN A1C 05/21/2020 11/21/2019, 05/15/2019, 12/14/2016, Additional history exists DEPRESSION SCREENING 09/18/2020 09/18/2019 FOOT EXAM 09/18/2020 09/18/2019, 09/18/2019, 02/15/2017 INFLUENZA VACCINE (#1) 2020 Postponed from 06/01/2019 (Patient refused) PNEUMOCOCCAL 0-64 YRS (1 of 09/18/2020 Postponed from 1 - PPSV23) 1975 (Patient refused) URINE MICROALBUMIN 09/18/2020 09/18/2019, 03/10/2016, 04/12/2015 ZOSTER IMMUNIZATION SERIES 11/06/2020 Postponed from (1 of 2) 2019 (Vaccine not available) LIPID DISORDER SCREENING 12/03/2020 12/04/2019, 11/21/2019, 05/15/2019, Additional history exists DTaP/Tdap/Td Vaccines (3 - 04/18/2027 04/18/2017, 10/01/1993 [...] Blood Pressure 112/60 No Marry, < 140/90 (12/11/2019 Yaquelin, 10:48 AM EDT) RN OBSERVATION Note: This is an individualized treatment (blood pressure) goal for Rashaun Longoria : Displayed above (on the left) is your goal for blood pressure control. Your most recent blood pressure is also shown above, on the right. You should try to achieve blood pressures that are lower than your goal listed above (on the left). Diabetes < 7.0 Diabetes Type 2 diabetes 6.3 (11/21/2019 No Jaret Ayala, mellitus without 6:43 AM EST) PA-C complication Note: Diabetes Care Plan According to [...] towards quitting. Glycohemoglobin A1c < 7.0 Diabetes 6.3 (11/21/2019 6:43 No Yaquelin Tuttle AM EST) [place] Note: This is an individualized treatment (diabetes control, HgbA1C) goal for Rashaun Longoria: Displayed above is your progress towards your HgbA1C goal. Your goal is shown above (on the left); your most recent HgbA1C is shown on the right. Note that lower numbers are better. Weight loss vs. 18 mo Lifestyle 4.8 (12/11/2019 10:48 AM No Yaquelin Tuttle FNP max (lbs) [...] filedocumented in this encounter Visit Diagnoses Diagnosis Increased ammonia level Disorders of urea cycle metabolism Type 2 diabetes mellitus without complication, without long-term current use of insulin (HCC) Dyslipidemia Other and unspecified hyperlipidemia documented in this encounter Guarantor Name Account Type Relation to Date of Phone Billing Address Patient Rashaun Longoria Personal/Famil 1970 [facility] [address] (Home) [place] [address] documented as of this encounter
--- OUTSIDE RECORDS SUMMARY | 2019-12-16 14:04 | XMS REPORT | Summary of Care ---
:1970 Author Organization [facility] Address [address] [place] [address] Care Team Providers Name Role Phone SpencerIsa barajas Primary Care Provider Anuj Stevens MD Jayy-Attributed Pcp Reason for Visit Reason Comments Sick fatigue, congestion, and SOB 10 days ago (off and on). Pt just got finished with Doxycycline due to an infection in his knee. Encounter Details Date Type Department Care Team Description 12/01/2019 Office Visit [place] [facility] DajuanAbdiaziz, Cough (Primary Dx) Medicine PA [address] [place] [address] [place] [address] [phone] Allergies Active Allergy Reactions Severity Noted Date Comments Amlodipine Cardiac Reaction 09/30/2013 Azasite GI Reaction 02/07/2011 Diarrhea and stomach distress Erythromycin Unknown Reaction 10/04/2007 CONVULSIONS Metrocream GIS INSTRUCTOR Reaction 12/18/2012 Dizziness documented as of this encounter (statuses as of 12/01/2019) Medications Medication Sig Dispensed Refills Start Date End Date Status Cyanocobalamin Take by mouth. 0 Active (B-12) 1000 MCG Oral Cap foliC acid 1 MG Oral Take 1 mg by 0 Active Tab mouth DAILY. carvedilol (COREG) Take 2 [...] 100 MG mouth EVERY Oral Tab BEDTIME. Aspirin (ASPIRIN 81) Take by mouth. 0 Active 81 MG Oral Tab EC sertraline (ZOLOFT) Take 2 Tabs by 60 Tab 1 11/13/2019 Active 100 MG Oral Tab mouth DAILY. apixaban (ELIQUIS) 5 Take 1 Tab by 60 Tab 1 11/13/2019 Active MG Oral Tab mouth TWICE DAILY. Benzonatate 200 MG Take 1 Cap by 42 Cap 0 12/01/2019 Active Oral CapIndications: mouth THREE Cough TIMES DAILY NEEDED (For cough). guaifenesin Take 1 Tab by 28 Tab 0 12/01/2019 Active (MUCINEX) 600 MG mouth EVERY Oral TABLET SR 12 TWELVE HOURS. HRIndications: Cough triamterene-hydrochl Take 1 Cap by 30 Cap 0 10/29/2019 Discontinued orothiazide mouth DAILY. 0 (DYAZIDE) 37.5-25 MG Oral Cap lactulose (CEPHULAC) Take 15 mL by 450 mL 0 11/13/2019 Discontinued 10 GM/15ML Oral mouth DAILY 0 Solution NEEDED (constipation). documented as of this encounter (statuses as of 12/01/2019) Active Problems Problem Noted Date Anal abscess 05/30/2016 Simple renal cyst 06/03/2015 Overview: right kidney Type 2 diabetes mellitus without complication 05/07/2015 Achilles tendinitis 04/21/2015 Paroxysmal atrial fibrillation 03/12/2015 Carpal tunnel syndrome 07/17/2014 KEE (obstructive sleep apnea) 05/25/2014 Overview: CPAP Gastritis 04/30/2014 CAD (coronary artery disease) 09/30/2013 Overview: [place] 11/2016. Stent RCA 2010. LAD drug eluted stent, jailing the second diagonal and scorin baloon atherectomy of the side branch of first diagonal - 11/2016 Tremor 08/30/2010 Hyperglycemia 08/30/2010 Essential hypertension 11/25/2007 Allergic Rhinitis 11/25/2007 Allergen Induced Asthma 11/25/2007 Obesity 11/25/2007 documented as of this encounter (statuses as of 12/01/2019) Resolved Problems Problem Noted Date Resolved Date Polycystic kidney disease 09/30/2013 06/03/2015 Overview: Followed bu Nephrology in [place] Sinusitis 11/21/2011 02/16/2012 Conjunctivitis unspecified 08/30/2010 03/10/2011 documented as of this encounter (statuses as of 12/01/2019) Immunizations Name Administration Dates Next Due TD [...] Sign Reading Time Taken Comments Blood Pressure 130/76 12/01/2019 3:40 PM EST Pulse 69 12/01/2019 3:40 PM EST Temperature 36.6 12/01/2019 3:40 PM EST C (97.9 F) Respiratory Rate - - Oxygen Saturation 95% 12/01/2019 3:40 PM EST Inhaled Oxygen Concentration - - Weight 101.2 kg (223 lb) 12/01/2019 3:40 PM EST Height 172.7 cm (5' 8") 12/01/2019 3:40 PM EST Body Mass Index 33.91 12/01/2019 3:40 PM EST documented in this encounter Progress Notes Abdiaziz Graff, RICHY - 12/01/2019 3:40 PM EST PATIENT: Rashaun Longoria : 1970 DATE OF SERVICE: 12/01/2019 Subjective SUBJECTIVE: Rashaun Longoria is a 49-y.o. male who presents for evaluation of nasal congestion, non productivecough and post nasal drip. Denies fever, chills, night sweats. Onset of symptoms was 6 days ago, gradually worsening since that time. He is drinking plenty of fluids. Past history is significant for bilateral pneumonia that developed in May, admitted to hospital for treatment without complication. Patient is non-smoker. Past Medical History: Diagnosis Date ? Allergen Induced Asthma 11/25/2007 ? Allergic Rhinitis 11/25/2007 ? Anxiety ? CAD (coronary artery disease) 09/30/2013 [place] 11/2016. Stent RCA 2010. LAD drug eluted [...] Polycystic kidney disease 09/30/2013 Followed Nephrology in [place] ? Seizure (HCC) usually in his sleep, [place] ? Type 2 diabetes mellitus without complication (HCC) 05/07/2015 Family History Problem Relation Age of Onset ? Blood Disease Father POLYCYTHEMIA VERA ? Heart Disease Father ? Depression/Depressed Mother ? Depression/Depressed Brother ALL BROTHERS BEING TREATED ? Anxiety Brother ALL BROTHERS BEING TREATED ? Aneurysm Brother ? Depression/Depressed Sister ALL SISTERS BEING TREATED ? Heart Disease Sister ? Anxiety Sister ALL SISTERS BEING TREATED Current Outpatient Medications Medication Sig ? ALPRAZolam (XANAX) 0.5 MG Oral Tab Take 1 Tab by mouth EVERY BEDTIME NEEDED for sleep/insomnia. ? apixaban (ELIQUIS) 5 MG Oral Tab Take 1 Tab by mouth TWICE DAILY. ? Aspirin (ASPIRIN 81) 81 MG Oral Tab EC Take by mouth. ? carvedilol (COREG) 25 MG Oral Tab Take 2 Tabs by mouth TWICE DAILY. ? Cyanocobalamin (B-12) 1000 MCG Oral Cap Take by mouth. ? foliC acid 1 MG Oral Tab Take 1 mg by mouth DAILY. ? lactulose (CEPHULAC) 10 GM/15ML Oral Solution Take 15 mL by mouth DAILY NEEDED (constipation). ? lamotrigine (LAMICTAL) 100 MG Oral Tab Take 200 mg by mouth EVERY BEDTIME. ? levalbuterol HFA (XOPENEX HFA) 45 MCG/ACT Inhalation Aerosol Take 1-2 Puffs by inhalation EVERY FOUR HOURS NEEDED. ? sertraline (ZOLOFT) 100 MG Oral Tab Take 2 Tabs by mouth DAILY. ? triamterene-hydrochlorothiazide (DYAZIDE) 37.5-25 MG Oral Cap Take 1 Cap by mouth DAILY. No current facility-administered medications for this visit. Allergies Allergen Reactions ? Amlodipine Cardiac Reaction ? Azithromycin [Azasite] GI Reaction Diarrhea and stomach distress ? Erythromycin Unknown Reaction CONVULSIONS ? Metronidazole [Metrocream] GIS INSTRUCTOR Reaction Dizziness REVIEW OF SYSTEMS: Review of Systems Constitutional: Negative for fever, malaise/fatigue and weight loss. HENT: Positive for congestion. Negative for ear discharge, ear pain and sore throat. Eyes: Negative for pain, discharge and redness. Respiratory: Positive for cough. Negative for shortness of breath and wheezing. Cardiovascular: Negative for chest pain, palpitations and leg swelling. Gastrointestinal: Negative for diarrhea, nausea and vomiting. Musculoskeletal: Negative for myalgias and neck pain. Neurological: Negative for dizziness, weakness and headaches. Objective OBJECTIVE: BP 130/76 (BP Location: Left arm, Patient Position: Sitting) | Pulse 69 | Temp 97.9 F (36.6 C) (Tympanic) | Ht 5' 8" (1.727 m) | Wt 223 lb ( 101.2 kg) | SpO2 95% | BMI 33.91 kg/m GENERAL: alert, cooperative, no distress. HEAD: normocephalic, atraumatic without lesions or tenderness. EYES: Pupils equal and reactive to light. EARS: normal tympanic membranes and external ear canals, bilaterally. SINUS TENDER: negative. MOUTH: lips, mucosa, and tongue normal: teeth and gums normal. NECK: supple, symmetrical, trachea midline. LUNGS: clear to auscultation bilaterally. ASSESSMENT: Acute viral sinusitis ICD-9-CM ICD-10-CM 1. Cough 786.2 R05 Benzonatate 200 MG Oral Cap guaifenesin (MUCINEX) 600 MG Oral TABLET SR 12 HR Plan PLAN: 1. Medications per orders. 2. Antibiotics not warranted at this time. 3. Follow up if symptoms worsen or persist. Author: RICHY Omer 12/01/2019 15:48 documented in this encounter Plan of Treatment Date Type Specialty Care Team Description 12/04/2019 Office Visit Cardiology Chun Quintanilla MD [address] [place] [address] [phone] 12/11/2019 Office Visit Family Practice Isa Shaikh MD [address] [place] [id number] [phone] Health Maintenance Due Date Last Done Comments Diabetic Eye Exam 1970 Colonoscopy 2019 HEMOGLOBIN A1C 05/21/2020 11/21/2019, [...] 2019 (Vaccine not available) LIPID DISORDER SCREENING 11/21/2020 11/21/2019, 05/15/2019, 02/10/2016, Additional history exists DTaP/Tdap/Td Vaccines (3 - [...] Type Problems Progress Blood Pressure Blood Pressure 130/76 No Marry, < 140/90 (12/01/2019 Yaquelin, 3:40 PM EST) 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 To[address] is safe and secure way for you [...] 7.0 Diabetes 6.3 (11/21/2019 6:43 No Yaquelin Tuttle, AM EST) [place] Note: This is an individualized treatment (diabetes control, HgbA1C) goal for Rashaun Longoria: Displayed above is your progress towards your HgbA1C goal. Your goal is shown above (on the left); your most recent HgbA1C is shown on the right. Note that lower numbers are better. Weight loss vs. 18 mo Lifestyle 7.2 (12/01/2019 3:40 PM No Yaquelin Tuttle FNP max (lbs) [...] filedocumented in this encounter Visit Diagnoses Diagnosis Cough documented in this encounter Guarantor Name Account Type Relation to Date of Phone Billing Address Patient Rashaun Longoria Personal/Famil 1970 [facility] [address] (Home) [place] [address] documented as of this encounter
--- OUTSIDE RECORDS SUMMARY | 2019-12-16 14:04 | XMS REPORT | Summary of Care ---
:1970 Author Organization [facility] Address [address] [address] Care Team Providers Name Role Phone Jace Shaikha Primary Care Provider Anuj Stevens MD [facility] Pcp Reason for Referral Medication Prior Authorization (Routine) Status Reason Specialty Diagnoses / Referred By Referred To Procedures Contact Contact Authorized Diagnoses Coronary artery disease involving ramona coronary artery of ramona heart without angina pectoris Chun Quintanilla MD [address] [place] [address] Reason for Visit Reason Comments New Patient Pt. referred by Maribel Mccall for Hx of Chronic Atrial Fibrillation. Pt. Denies Having cardiac Symptoms. Refer to Department Only (Routine) Status Reason Specialty Diagnoses / Referred By Referred To Procedures Contact Contact Closed CARDIOLOGY / Diagnoses Atrial fibrillation, chronic Maribel Mccall [facility] MACHINE PRINTER Cardiology [address] [place] [address] Road Phone: [place] [address] Phone: Encounter Details Date Type Department Care Team Description 12/04/2019 Office Visit Jose Quintanilla Paroxysmal atrial fibrillation (HCC) (Primary Dx); Cardiology MD Chun Coronary artery disease involving ramona coronary artery of ramona heart without angina pectoris; [address] [facility] [address] Essential hypertension; [place] [address] [place] [address] Statin intolerance; [phone] Thoracic aortic aneurysm without rupture (HCC) Allergies Active Allergy Reactions Severity Noted Date Comments Amlodipine Cardiac Reaction 09/30/2013 Azasite GI Reaction 02/07/2011 Diarrhea and stomach distress Erythromycin Unknown Reaction 10/04/2007 CONVULSIONS Metrocream CLIP COATER Reaction 12/18/2012 Dizziness documented as of this encounter (statuses as of 12/05/2019) Medications Medication Sig Dispensed Refills Start Date End Date Status carvedilol (COREG) 25 MG Take 2 Tabs by 360 Tab 1 02/15/2017 Active Oral TabIndications: mouth TWICE Essential hypertension DAILY. Additional Information Patient taking differently: 25 mg Oral BID, Reported on 12/04/2019 9:59 AM ALPRAZolam (XANAX) 0.5 Take 1 Tab by mouth 30 Tab 0 02/28/2017 Active MG Oral EVERY BEDTIME TabIndications: NEEDED for Anxiety state sleep/insomnia. levalbuterol HFA Take 1-2 Puffs by 0 Active (XOPENEX HFA) 45 inhalation EVERY FOUR MCG/ACT Inhalation HOURS NEEDED. Aerosol lamotrigine (LAMICTAL) Take 200 mg by mouth 0 Active 100 MG Oral Tab EVERY BEDTIME. sertraline (ZOLOFT) Take 2 Tabs by mouth 60 Tab 1 11/13/2019 Active 100 MG Oral Tab DAILY. apixaban (ELIQUIS) 5 Take 1 Tab by mouth 60 Tab 1 11/13/2019 Active MG Oral Tab TWICE DAILY. lactulose (CEPHULAC) TAKE 15 MLS BY MOUTH 450 mL 0 12/01/2019 Active 10 GM/15ML Oral DAILY NEEDED FOR Solution CONSTIPATION triamterene-hydrochlor TAKE ONE CAPSULE BY 30 Cap 0 12/01/2019 Active othiazide (DYAZIDE) MOUTH ONCE DAILY 37.5-25 MG Oral Cap Benzonatate 200 MG Take 1 Cap by mouth 42 Cap 0 12/01/2019 Active Oral CapIndications: THREE TIMES DAILY Cough NEEDED (For cough). guaifenesin (MUCINEX) Take 1 Tab by mouth 28 Tab 0 12/01/2019 Active 600 MG Oral TABLET SR EVERY TWELVE HOURS. 12 HRIndications: Cough Rosuvastatin Calcium 5 Take 1 Tab by mouth 30 Tab 11 12/04/2019 Active MG Oral EVERY BEDTIME. TabIndications: Coronary artery disease involving ramona coronary artery of ramona heart without angina pectoris Cyanocobalamin (B-12) Take by mouth. 0 Discontinued 1000 MCG Oral Cap 020 foliC acid 1 MG Oral Take 1 mg by mouth 0 Discontinued Tab DAILY. 020 Aspirin (ASPIRIN 81) Take by mouth. 0 Discontinued 81 MG Oral Tab EC 020 documented as of this encounter (statuses as of 12/05/2019) Active Problems Problem Noted Date Anal abscess 05/30/2016 Simple renal cyst 06/03/2015 Overview: right kidney Type 2 diabetes mellitus without complication 05/07/2015 Achilles tendinitis 04/21/2015 Paroxysmal atrial fibrillation 03/12/2015 Carpal tunnel syndrome 07/17/2014 KEE (obstructive sleep apnea) 05/25/2014 Overview: CPAP Gastritis 04/30/2014 CAD (coronary artery disease) 09/30/2013 Overview: CA 11/2016. Stent RCA 2010. LAD drug eluted stent, jailing the second diagonal and scorin baloon atherectomy of the side branch of first diagonal - 11/2016 Tremor 08/30/2010 Hyperglycemia 08/30/2010 Essential hypertension 11/25/2007 Allergic Rhinitis 11/25/2007 Allergen Induced Asthma 11/25/2007 Obesity 11/25/2007 documented as of this encounter (statuses as of 12/05/2019) Resolved Problems Problem Noted Date Resolved Date Polycystic kidney disease 09/30/2013 06/03/2015 Overview: Followed bu Nephrology in [place] Sinusitis 11/21/2011 02/16/2012 Conjunctivitis unspecified 08/30/2010 03/10/2011 documented as of this encounter (statuses as of 12/05/2019) Immunizations Name Administration Dates Next Due TD [...] Sign Reading Time Taken Comments Blood Pressure 128/84 12/04/2019 9:34 AM EST Pulse 58 12/04/2019 9:34 AM EST Temperature - - Respiratory Rate - - Oxygen Saturation - - Inhaled Oxygen Concentration - - Weight 101.2 kg (223 lb) 12/04/2019 9:34 AM EST Height 172.7 cm (5' 8") 12/04/2019 9:34 AM EST Body Mass Index 33.91 12/04/2019 9:34 AM EST documented in this encounter Patient Instructions Patient InstructionsChun Quintanilla MD - 12/04/2019 9:20 AM EST START taking low dose Crestor 5mg once every evening. No other medication changes today. Continue to work on weight loss, regular exercise, and healthy diet. Get your fasting bloodwork checked about 3 months after starting the Crestor and follow up withme shortly after that. documented in this encounter Progress Notes Chun Quintanilla MD - 12/04/2019 9:20 AM EST [facility] Note Patient: Rashaun Longoria Date of : 1970 Date of Service: 12/04/2019 REFERRING PRACTITIONER: Maribel Mccall PRIMARY CARE PROVIDER: Isa Shaikh Chief Complaint: Chief Complaint Patient presents with ? New Patient Pt. referred by Maribel Mccall for Hx of Chronic Atrial Fibrillation. Pt. Denies Having cardiac Symptoms. History of Present Illness: We had the pleasure of seeing Rashaun Longoria today at the [facility]. He is a 49-y.o. male with obesity, HTN, anxiety, KEE, DM, prior EtOH abuse,CKD, and paroxysmal atrial fibrillation (failed sotalol and Multaq). He also has statin intoleranceand CAD s/p PCI to the RCA in 2010 and later CA s/p LAD PCI 2016 (jailed D2 during that procedure). Mr. Longoria presents to cardiology clinic today to establish care for his CAD and Afib. He was previously followed by Dr. Davidson but last saw him in 2014. More recently he followed up with Dr. Garcia but he stopped seeing him b/ c he had put him on Multaq and he wanted to stop that med. From a symptom standpoint, he reports feeling quite well over the past month since he's taken himself off Multaq. He was diagnosed with "hepatic encephalopathy" in 2018 and was started on lactulose with improvement in his ammonia levels and with EtOH cessation. At this point he is able to do up to 3miles on the elliptical without any CP/pressure or significant dyspnea. He does occasionally get some mild asthma symptoms, but these are mild and respond well to inhalers. Denies any palpitations, lightheadedness, or syncope. No orthopnea, paroxysmal dyspnea, or lower extremity edema. Wears his CPAP regularly. No bleeding issues on Eliquis (did have some epistaxis on Xarelto previously). Patient Active Problem List Diagnosis ? Essential hypertension ? Allergic Rhinitis ? Allergen Induced Asthma ? Obesity ? Tremor ? Hyperglycemia ? Gastritis ? KEE (obstructive sleep apnea) ? Carpal tunnel syndrome ? Paroxysmal atrial fibrillation (HCC) ? Achilles tendinitis ? Type 2 diabetes mellitus without complication (HCC) ? Simple renal cyst ? Anal abscess ? CAD (coronary artery disease) Past Medical History: Diagnosis Date ? Allergen Induced Asthma 11/25/2007 ? Allergic Rhinitis 11/25/2007 ? Anxiety ? CAD (coronary artery disease) 09/30/2013 CA 11/2016. Stent RCA 2010. LAD drug eluted [...] kidney disease 09/30/2013 Followed Nephrology in [place] ? Seizure (HCC) usually in his sleep, [place] ? Type 2 diabetes mellitus without complication (HCC) 05/07/2015 Past Surgical History: Procedure Laterality Date ? ANGIOPLASTY STENT CORONARY 07-28-2011 distal RCA ? CARDIAC CATH 12/09/2016 LAD drug eluted stent, jailing the second diagonal and scorin baloon atherectomy of the side branch of first diagonal - 11/2016 ? [place] I&D PERIRECTAL ABSCESS N/A 05/30/2016 Procedure: DRAINAGE OF ABSCESS PERIRECTAL; Surgeon: Jefry Burch MD; Location: [facility] MAIN OR Allergies Allergen Reactions ? Amlodipine Cardiac Reaction ? Azithromycin [Azasite] GI Reaction Diarrhea and stomach distress ? Erythromycin Unknown Reaction CONVULSIONS ? Metronidazole [Metrocream] CLIP COATER Reaction Dizziness Current Outpatient Medications Medication Sig ? ALPRAZolam [...] No current facility-administered medications for this visit. Family History Problem Relation Age of Onset ? Blood Disease Father POLYCYTHEMIA VERA ? Heart Disease Father ? Depression/Depressed Mother ? Depression/Depressed Brother ALL BROTHERS BEING TREATED ? Anxiety Brother ALL BROTHERS BEING TREATED ? Aneurysm Brother ? Depression/Depressed Sister ALL SISTERS BEING TREATED ? Heart Disease Sister ? Anxiety Sister ALL SISTERS BEING TREATED Social History Socioeconomic History ? Marital status: Single Spouse name: Not on file ? Number of children: Not on file ? Years of education: Not on file ? Highest education level: Not on file Occupational History ? Not on file Social Needs ? Financial resource strain: Not on file ? Food insecurity Worry: Not on file Inability: Not on file ? Transportation needs Medical: Not on file Non-medical: Not on file Tobacco Use ? Smoking status: Never Smoker ? Smokeless tobacco: Never Used Substance and Sexual Activity ? Alcohol use: No Comment: H/O alcohol abuse ? Drug use: No ? Sexual activity: Yes Partners: Female Lifestyle ? Physical activity Days per week: Not on file Minutes per session: Not on file ? Stress: Not on file Relationships ? Social connections Talks on phone: Not on file Gets together: Not on file Attends amish service: Not on file Active member of club or organization: Not on file Attends meetings of clubs or organizations: Not on file Relationship status: Not on file ? Intimate partner violence Fear of current or ex partner: Not on file Emotionally abused: Not on file Physically abused: Not on file Forced sexual activity: Not on file Other Topics Concern ? Back Care Not Asked ? Bike Helmet Not Asked ? Blood Transfusions No ? Caffeine Concern Not Asked ? Exercise Yes Comment: gym 3x/week 1-1.5 hours wts/cardio ? Hobby Hazards Not Asked ? International Travel Not Asked ? Service Not Asked ? Occupational Exposure Not Asked ? Seat Belt Not Asked ? Self-Exams Not Asked ? Sleep Concern Not Asked ? Special Diet Not Asked ? Stress Concern Not Asked ? Weight Concern Not Asked Social History Narrative . 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 Nursing Notes: Monae العلي LPN 12/04/2019 9:50 AM Signed PATIENT: Rashaun Longoria : 1970 DATE OF SERVICE: 12/04/2019 CARDIOLOGY AMBULATORY NURSING INTAKE FORM HISTORY COLLECTED BY CLINICAL STAFF:SIERRA REVIEW OF SYSTEMS: GENERAL: Fever: no Weight loss/gain: no Fatigue: no Recent febrile illness: no NEUROLOGIC: Headache: no Syncope: no CVA/TIA: no Change in sensation: no CARDIOVASCULAR: Chest Pain: no Palpitations: Yes AFIB Orthopnea: no Rheumatic Fever (history of): no Edema: no RESPIRATORY: Cough: no Shortness Of Breath: yes - occ Hemoptysis: no Underlying Lung Disease: no GASTROINTESTINAL: Nausea: no Vomiting: no Constipation: no Diarrhea: no Melena: no PUD (history of): no Hematemesis: no Gastrointestinal Disorder: no GENITOURINARY: Hematuria: no Urinary Tract Infection(s): no Nocturia: no Prostate Problem(s): no HEMATOLOGIC: Easy bruising: no Bleeding: no MUSCULOSKELETAL/PERIPHERAL VASCULAR SYSTEM: Muscle Pain: no Muscle Cramping: no Stiffness: no Muscle Weakness: no BEHAVIORAL/PSYCH: Depression: no ENDOCRINE: Tremors: no Heat or cold intolerance: no Author: Monae العلي LPN 12/04/2019 09:35 I have reviewed the ROS obtained by my nurse and concur as detailed above. Physical Exam: Vitals: 12/04/19 0934 BP: 128/84 BP Location: Right arm Patient Position: Sitting Pulse: 58 Weight: 223 lb (101.2 kg) Height: 5' 8" (1.727 m) Body mass index is 33.91 kg/m. General: Obese, alert 49-y.o. male in NAD HEENT: anicteric, MMM, no E/E OP, conj pink Neck: JVP approx 5-6 cm above RA, no carotid bruits or LAD CV: RRR, normal s1/s2, no appreciable murmurs, rubs, or gallops Pulm: CTA bilaterally without wheezes, rhonchi, or rales. No increased work of breathing. Abd: soft, NT, ND, +BS. No appreciable pulsatile masses or bruits. Ext: no lower extremity edema, no cyanosis, no cords, redness, or warmth, 2+ distal pulses Neuro: no gross focal deficits Skin: no visible lesions Labs: Lab Results Component Value Date NA 139 11/21/2019 K 3.7 11/21/2019 CL 98 11/21/2019 CO2 33 (H) 11/21/2019 GLUCOSE 124 (H) 11/21/2019 BUN 25 (H) 11/21/2019 CREATININE 1.3 11/21/2019 CALCIUM 9.3 11/21/2019 TP 7.3 11/21/2019 ALBUMIN 4.3 11/21/2019 AST 31 11/21/2019 ALT 30 11/21/2019 ALK 89 11/21/2019 TBILI 0.3 11/21/2019 EGFR 58 11/21/2019 No results found for: BNP Lab Results Component Value Date CHOL 199 11/21/2019 TRIG 335 (H) 11/21/2019 HDL 26 (L) 11/21/2019 LDL 106 (H) 11/21/2019 LDLHDLRATIO 4.1 11/21/2019 CHOLHDLRATIO 7.7 11/21/2019 Cardiac Studies: EKG Today (I personally reviewed): Sinus carlos in 50s. LAE. Poor R wave progression. TTE at [facility] 05/09/19: -Mild-moderately increased LV wall thickness -LVEF 50-55% with HK of the basal inferior wall -Mild RV enlargement -Mild MR and trace to mild AR -Mildly dilated ascending aorta 4.1cm. Pharmacologic SPECT at [facility] 12/10/2018: -Moderate fixed defect in the anterior wall -Diffuse hypokinesia, with LVEF 51% Assessment & Plan: Rashaun Longoria is a 49-y.o. male with obesity, HTN, anxiety, KEE, DM, prior EtOH abuse, CKD, andparoxysmal atrial fibrillation (failed sotalol and Multaq). He also has statin intolerance and CAD s/p PCI to the RCA in 2010 and later CA s/p LAD PCI 2016 (jailed D2 during that procedure). ICD-9-CM ICD-10-CM 1. Paroxysmal atrial fibrillation (HCC) 427.31 I48.0 AMBULATORY 12 LEAD EKG ( GLOBAL) 2. Coronary artery disease involving ramona coronary artery of ramona heart without angina [id number] I25.10 Rosuvastatin Calcium 5 MG Oral Tab COMPREHENSIVE METABOLIC PANEL LIPID PROFILE 3. Essential hypertension 401.9 I10 4. Statin intolerance 995.27 Z78.9 5. Thoracic aortic aneurysm without rupture (HCC) 441.2 I71.2 1. Paroxysmal Atrial Fibrillation: The etiology of atrial fibrillation in this patient is most likely related to obesity, KEE, and EtOH abuse. The heart-rate is currently well controlled on the currentmedical regimen (in sinus). This patient's [id number] score is 3. I recommend the following treatment strategy and medical regimen for this patient: Stroke prevention: Based on the patient's [id number] risk profile, I recommend continuing OACtherapy with Eliquis. Rate control: Cont carvedilol 25mg BID Rhythm control: Previously was on Multaq (which he didn't tolerate d/t side effects) and sotalol, which he's not sure if he tolerated. He's been doing well off the Multaq for about a month, so we're going to continue off antiarrhythmic meds. I congratulated him on stopping EtOH and told him that it' s probably one of the reasons he hasn't been flipping back into Afib. If he has symptomatic episodes of Afib going forward, then we'll consider PVI +/- Tikosyn. Further workup/management issues: I strongly encouraged him to continue abstaining from EtOH and continue wearing his CPAP regularly. I also advised doing more regular exercise and working on weight loss. 2. Coronary Artery Disease, s/p CA and PCI to RCA and LAD: Currently asymptomatic from an ischemic standpoint. I recommend the following medical regimen: Antiplatelets: Not on ASA d/t concurrent Eliquis use. Statin: Has had severe myalgias with simvastatin, atorvastatin, and pravastatin. He agreed totry low dose Crestor 5mg QHS. We'll recheck labs in 2 -3 months and if LDL still > 70 then I'll either increase to 10mg or add Zetia. If we can't reach our target LDL or can't use any statin, then we'll need to consider PCSK9 inhibitors in this patient. Beta-martin: Cont carvedilol. TIM-inhibitor/ARB: Is on Diazide rather than an TIM-I for some reason. Will address at futurevisits. Thank you for allowing me to participate in the care of Rashaun Alonzo Von. We will plan on f/u in our office in ~3 months or sooner prn. If you have any questions or concerns please feel free to callour office at . Chun Quintanilla MD, 12/05/2019, 09:45 documented in this encounter Plan of Treatment Date Type Specialty Care Team Description 12/11/2019 Office Visit Family Practice Isa Shaikh MD [address] [place] [address] 02/25/2020 Lab Internal Medicine 03/04/2020 Office Visit Cardiology Chun Quintanilla MD [facility] [place] [address] Name Type Priority Associated Diagnoses Order Schedule AMBULATORY 12 LEAD EKG EKG Routine Paroxysmal atrial Ordered: 12/04/2019 (GLOBAL) fibrillation (HCC) COMPREHENSIVE METABOLIC Lab Routine Coronary artery disease Expected: 12/03 PANEL involving ramona coronary (Approximate), artery of ramona heart Expires: 12/03/2020 without angina pectoris LIPID PROFILE Lab Routine Coronary artery disease Expected: 12/04/2019 involving ramona coronary (Approximate), artery of ramona heart Expires: 12/03/2020 without angina pectoris Health Maintenance Due Date Last Done Comments [...] Type Problems Progress Blood Pressure Blood Pressure 128/84 No Marry, < 140/90 (12/04/2019 Yaquelin, 9:34 AM EST) 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 18 mo Lifestyle 7.2 (12/04/2019 9:34 AM No Yaquelin Tuttle FNP max (lbs) [...] filedocumented in this encounter Visit Diagnoses Diagnosis Paroxysmal atrial fibrillation (HCC) Atrial fibrillation Coronary artery disease involving ramona coronary artery of ramona heart without angina pectoris Essential hypertension Unspecified essential hypertension Statin intolerance Other drug allergy Thoracic aortic aneurysm without rupture (HCC) Thoracic aneurysm without mention of rupture documented in this encounter Guarantor Name Account Type Relation to Date of Phone Billing Address Patient Rashaun Longoria Personal/Famil 1970 [facility] [address] (Home) [place] [address] documented as of this encounter
--- NOTE | 2019-12-16 15:00 | UC ---
Skin Complaint HPI - HPI Summary HPI Summary: 49 yo male presents with rash. He tells me that for years he has had dermatitis to various areas of his body. He has seen dermatology and the only medication they found that works is doxycycline po. He recently started having a flare to his arms over the last 4-5 days and has been trying OTC lotion and his rx steroid cream with no relief. 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 He denies exposure, fever, chills, recent illness. - History of Current Complaint Time Seen by Provider: 12/16/19 15:00 Stated Complaint: RASH Onset/Duration: Gradual Onset Onset Severity: Mild Current Severity: Mild Pain Intensity: 3 Pain Scale Used: 0-10 Numeric - Allergy/Home Medications Allergies/Adverse Reactions: Allergies Allergy/AdvReac Type Severity Reaction Status Date / Time amlodipine Allergy Mild Palpitation Verified 11/12/19 08:55 s azithromycin Allergy Mild Shakes Verified 11/12/19 08:55 erythromycin base Allergy Mild Shakes Verified 11/12/19 08:55 lisinopril Allergy Mild Palpitation Verified 11/12/19 08:55 s metoprolol [From Lopressor] Allergy Palpitation Verified 11/12/19 08:55 s Home Medications: Home Medications Sertraline* [Zoloft*] 200 mg PO DAILY 08/06/17 [History Confirmed 12/16/19] Carvedilol [Coreg] 25 mg PO BID 05/09/19 [History Confirmed 12/16/19] Apixaban* [Eliquis*] 5 mg PO BID #60 tab 05/10/19 [Rx Confirmed 12/16/19] Lactulose* 15 ml PO TID 06/19/19 [History Confirmed 12/16/19] Levalbuterol HFA INHALER* [Xopenex Hfa Inhaler*] 1 puff INH Q4H PRN 06/19/19 [ History Confirmed 12/16/19] lamoTRIgine [Lamotrigine] 100 mg PO BEDTIME 06/19/19 [History Confirmed 12/16/19 ] Triamterene/HCTZ 37.5-25 MG* [Dyazide CAP*] 1 cap PO DAILY #5 cap 06/20/19 [Rx Confirmed 12/16/19] DOXYcycline CAP(*) [DOXYcycline 100MG CAP(*)] 100 mg PO BID #20 cap 12/16/19 [Rx ] PMH/Surg Hx/FS Hx/Imm Hx - Additional Past Medical History Additional PMH: A flutter A fib Cardiovascular History: Hypertension Psychological History: Anxiety, Depression Other History Of: Anticoagulant Therapy - xarelto for a. fib - Surgical History Surgical History: Yes Surgery Procedure, Year, and Place: CARDIAC STENT PLACEMENT 2010 and November 2016 , and January 2017. Perirectal abscess - Family History Known Family History: Positive: Cardiac Disease, Hypertension, Diabetes - Social History Lives: With Family Alcohol Use: Occasionally Alcohol Amount: 0.5 bottle vodka Substance Use Type: None Smoking Status (MU): Never Smoked Tobacco - Immunization History Most Recent Influenza Vaccination: NEVER Most Recent Tetanus Shot: 2013 Most Recent Pneumonia Vaccination: NEVER Review of Systems All Other Systems Reviewed And Are Negative: No Constitutional: Positive: Negative Skin: Positive: Rash Eyes: Positive: Negative ENT: Positive: Negative Respiratory: Positive: Negative Cardiovascular: Positive: Negative Gastrointestinal: Positive: Negative Neurological/Mental Status: Positive: Negative Psychological: Positive: Negative Physical Exam - Summary Physical Exam Summary: GENERAL: NAD. WDWN. No pain distress. SKIN: B/L forearms: dry appearing skin with flat mild erythema and scaling. No edema or open wounds. No induration. No streaking, bleeding, or drainage. NECK: Supple. Nontender. No lymphadenopathy. CHEST: No accessory muscle use. Breathing comfortably and in no distress. CV: Pulses intact. Cap refill <2seconds NEURO: Alert. PSYCH: Age appropriate behavior. Triage Information Reviewed: Yes Vital Signs: Vital Signs: Temp Pulse Resp BP Pulse Ox 97.5 F 72 16 118/72 95 12/16/19 14:57 12/16/19 14:57 12/16/19 14:57 12/16/19 14:57 12/16/19 14:57 Vital Signs Reviewed: Yes Course/Dx - Course Course Of Treatment: Dermatitis to arms. Will rx doxycycline as usually prescribed by his unit reactor operator. Encouraged to f/u with dermatology if symptoms do not improve. - Diagnoses Provider Diagnosis: Dermatitis Discharge ED - Sign-Out/Discharge Documenting (check all that apply): Patient Departure All imaging exams completed and their final reports reviewed: No Studies - Discharge Plan Condition: Stable Disposition: HOME Prescriptions: DOXYcycline CAP(*) [DOXYcycline 100MG CAP(*)] 100 mg PO BID #20 cap Patient Education Materials: Contact Dermatitis (ED) Referrals: Isa Shaikh MD [Primary Care Provider] - Additional Instructions: If you develop a fever, shortness of breath, chest pain, new or worsening symptoms - please call your PCP or go to the ED immediately. If your rash does not improve - please follow up with your unit reactor operator - Billing Disposition and Condition Condition: STABLE Disposition: Home
[2019-12-16 15:02] VITALS: BP 118/72
== END 2019-12-16 15:25 | disposition home or self-care (01) ==
LOC: UCEAST 13:54
DX: L30.9 Dermatitis, unspecified (principal); I48.91 Unspecified atrial fibrillation; I48.92 Unspecified atrial flutter; I10 Essential (primary) hypertension; F32.9 Major depressive disorder, single episode, unspecified; F41.9 Anxiety disorder, unspecified; Z79.899 Other long term (current) drug therapy; Z79.01 Long term (current) use of anticoagulants; Z88.1 Allergy status to other antibiotic agents; Z88.8 Allergy status to other drugs, medicaments and biological substances
CPT/HCPCS: 99212; G0463

== ENCOUNTER 2020-10-11 08:23 | Observation (INO) ==
[2020-10-11 08:50] LABS: ABS Eosinophils 0.1 10^3/ul (0-0.6); ABS Lymphocytes 0.9 10^3/ul (1.0-4.8); ABS Monocytes 0.3 10^3/ul (0-0.8); ABS Neutrophils 5.1 10^3/ul (1.5-7.7); Eosinophil % 1.1 %; Hematocrit 44 % (42-52); Hemoglobin 15.1 g/dL (14.0-18.0); Lymphocyte % 13.7 %; Mean Corpuscular HGB Conc 35 g/dL (31-36); Mean Corpuscular Hemoglobin 31 pg (27-31); Mean Corpuscular Volume 90 fL (80-94); Mean Platelet Volume 7.6 fL (7.4-10.4); Platelet Count 176 10^3/uL (150-450); Red Blood Count 4.85 10^6 /uL (4.18-5.48); Red Cell Distribution Width 16 % (10-15); White Blood Count 6.5 10^3/uL (3.5-10.8)
[2020-10-11 08:57] LABS: INR 1.16 (0.82-1.09)
[2020-10-11 09:08] LABS: Albumin 3.8 g/dL (3.2-5.2); Albumin/Globulin Ratio 1.4 (1-3); BUN/Creatinine Ratio 18.3 (8-20); Calcium 7.9 mg/dL (8.6-10.3); EGFR African American 103.6 (>60); EGFR Non-African American 85.7 (>60); Globulin 2.8 g/dL (2-4); Magnesium 1.4 mg/dL (1.9-2.7); Total Bilirubin 0.4 mg/dL (0.2-1.0); Total Protein 6.6 g/dL (6.4-8.9)
[2020-10-11 09:10] LABS: Troponin I 0.02 ng/mL (<0.03)
[2020-10-11] MEDS ORDERED: NS 0.9% 1000 ml BAG 1,000 ML IV ONE (09:15)
[2020-10-11] MEDS ORDERED: Magnesium Sulfate IV 1GM/100ML 1 GM/100 ML BAG IV ONE (09:19)
[2020-10-11] MEDS ORDERED: LORazepam 2 mg VIAL 1 ml IV PUSH ONE ×2 (09:30→12:11)
[2020-10-11] MEDS ORDERED: Lorazepam PYXIS KEY PRN ×2 (09:30→12:11)
[2020-10-11] MEDS ORDERED: Lorazepam PYXIS KEY ONE (10:03)
[2020-10-11] MEDS ORDERED: Diltiazem IV push/loading dose 5 MG/ML 5 ML vial (25 mg) IV SLOW PU ONE ×2 (11:05→11:29)
[2020-10-11] MEDS ORDERED: Levalbuterol HFA INHALER MDI INH PRN (13:05)
[2020-10-11] MEDS ORDERED: Dextrose 50% Syringe 50 ml 25 GM/50 ML SYRINGE IV PUSH PRN (13:24)
[2020-10-11] MEDS ORDERED: Diltiazem (ADVAN VIAL) 100 MG/100 ML ADDV.BAG IV SCH (14:00)
[2020-10-11] MEDS ORDERED: Thiamine 100 MG/ML 2 ml VIAL (200 mg) IM ONE (14:39)
[2020-10-11] MEDS ORDERED: Magnesium Sulfate 2 gm BAG 2 GM/50 ML BAG IVPB ONE (15:00)
[2020-10-12 05:58] LABS: BUN/Creatinine Ratio 21.4 (8-20); EGFR African American 143.9 (>60); EGFR Non-African American 118.9 (>60); Magnesium 2.1 mg/dL (1.9-2.7); Potassium 3.9 mmol/L (3.5-5.0)
[2020-10-12] MEDS ORDERED: Perflutren Lipid Microsphere 3 ML VIAL ONE (08:29)
[2020-10-12] MEDS ORDERED: Multivitamins/Minerals TAB PO SCH (09:00)
[2020-10-12] MEDS ORDERED: Midazolam 5 mg/5 ml VIAL 1 mg/ml 5 ml VIAL (5 mg) ONE (10:06)
[2020-10-12] MEDS ORDERED: fentaNYL 100 mcg/2 ml 50 MCG/ML VIAL ONE (10:07)
[2020-10-12] MEDS ORDERED: Naloxone 0.4 mg VIAL 0.4 mg/ml 1 ml VIAL ONE (10:07)
[2020-10-12] MEDS ORDERED: Flumazenil 0.5 mg/5 ml 0.1 MG/ML 5 ml VIAL ONE (10:07)
[2020-10-12 15:38] VITALS: BP 166/78
== END 2020-10-12 17:00 | disposition home or self-care (01) ==
LOC: MEDTELE 08:23 → ED 08:23 → MEDTELE 15:22
PROVIDERS: ADMIT Internal Medicine; ATTEND Internal Medicine
PROC: CARDVER (ICD-10-PCS; 2020-10-12 13:05)

== ENCOUNTER 2020-10-17 23:42 | Inpatient (IN) ==
[2020-10-18 00:22] LABS: ABS Eosinophils 0.1 10^3/ul (0-0.6); ABS Monocytes 0.6 10^3/ul (0-0.8); ABS Neutrophils 5.4 10^3/ul (1.5-7.7); Eosinophil % 1.8 %; Hematocrit 44 % (42-52); Hemoglobin 14.8 g/dL (14.0-18.0); Lymphocyte % 14.5 %; Mean Corpuscular HGB Conc 34 g/dL (31-36); Mean Corpuscular Hemoglobin 31 pg (27-31); Mean Corpuscular Volume 91 fL (80-94); Platelet Count 137 10^3/uL (150-450); Red Blood Count 4.79 10^6 /uL (4.18-5.48); Red Cell Distribution Width 16 % (10-15); White Blood Count 7.2 10^3/uL (3.5-10.8)
[2020-10-18 00:39] LABS: Albumin 4.1 g/dL (3.2-5.2); Albumin/Globulin Ratio 1.5 (1-3); BUN/Creatinine Ratio 20.6 (8-20); EGFR African American 93.2 (>60); Globulin 2.8 g/dL (2-4); Potassium 3.6 mmol/L (3.5-5.0); Total Bilirubin 0.8 mg/dL (0.2-1.0); Total Protein 6.9 g/dL (6.4-8.9)
[2020-10-18 00:44] LABS: Troponin I 0.01 ng/mL (<0.03)
[2020-10-18] MEDS: Propofol 10 MG/ML 20 ML BTL IV PUSH ONE ×3 (01:24→01:28)
[2020-10-18] MEDS ORDERED: Potassium Chlor 20 meq TAB.ER PO ONE (01:45)
[2020-10-18] MEDS ORDERED: Diltiazem (ADVAN VIAL) 100 MG/100 ML ADDV.BAG IV SCH (02:00)
[2020-10-18 03:25] LABS: Magnesium 1.7 mg/dL (1.9-2.7)
[2020-10-18] MEDS ORDERED: Magnesium Sulfate 2 gm BAG 2 GM/50 ML BAG IVPB ONE (04:30)
[2020-10-18 07:47] LABS: BUN/Creatinine Ratio 20.7 (8-20); Calcium 8.2 mg/dL (8.6-10.3); EGFR African American 119.9 (>60); EGFR Non-African American 99.1 (>60); Magnesium 2.3 mg/dL (1.9-2.7); Potassium 3.7 mmol/L (3.5-5.0)
[2020-10-18 07:50] LABS: Troponin I 0.01 ng/mL (<0.03)
[2020-10-18] MEDS ORDERED: Amiodarone 150 mg IVPREMIX 150 MG/100 ML BAG IV ONE (09:20)
[2020-10-18] MEDS ORDERED: Amiodarone 360 MG IVPREMIX 360 MG/200 ML BAG IV ONE ×2 (09:30→09:53)
[2020-10-18 12:10] LABS: INR 1.24 (0.82-1.09)
[2020-10-18] MEDS: Amiodarone 360 MG IVPREMIX 360 MG/200 ML BAG IV SCH (16:55)
[2020-10-19] MEDS: Amiodarone 360 MG IVPREMIX 360 MG/200 ML BAG IV SCH (04:31)
[2020-10-19 12:36] VITALS: BP 113/77
== END 2020-10-19 12:25 | disposition home or self-care (01) | DRG 201 ==
LOC: MED 23:42 → ED 23:42 → ICU 10-18 11:22
PROVIDERS: ADMIT Internal Medicine; ATTEND Internal Medicine

== ENCOUNTER 2020-11-04 18:17 | Inpatient (IN) ==
[2020-11-04] MEDS ORDERED: NS 0.9% 1000 ml BAG 1,000 ML IV ONE (19:30)
[2020-11-04] MEDS ORDERED: Thiamine 100 MG/ML 2 ml VIAL (200 mg) IM ONE (19:56)
[2020-11-04 23:38] LABS: ABS Basophils 0.1 10^3/ul (0-0.2); ABS Eosinophils 0.1 10^3/ul (0-0.6); ABS Monocytes 0.3 10^3/ul (0-0.8); ABS Neutrophils 5.8 10^3/ul (1.5-7.7); Eosinophil % 0.8 %; Hematocrit 44 % (42-52); Hemoglobin 14.9 g/dL (14.0-18.0); Lymphocyte % 13.6 %; Mean Corpuscular HGB Conc 34 g/dL (31-36); Mean Corpuscular Hemoglobin 31 pg (27-31); Mean Corpuscular Volume 90 fL (80-94); Mean Platelet Volume 7.5 fL (7.4-10.4); Nucleated Red Blood Cells % 0.1; Platelet Count 262 10^3/uL (150-450); Red Blood Count 4.85 10^6 /uL (4.18-5.48); Red Cell Distribution Width 15 % (10-15); White Blood Count 7.1 10^3/uL (3.5-10.8)
[2020-11-04 23:53] LABS: ALT 27 U/L (7-52); AST 30 U/L (13-39); Acetaminophen < 15 mcg/mL; Albumin/Globulin Ratio 1.4 (1-3); Alcohol, S 84 mg/dL (<10); Alkaline Phosphatase 82 U/L (34-104); Anion Gap 10 mmol/L (2-11); BUN/Creatinine Ratio 16.8 (8-20); Blood Urea Nitrogen 16 mg/dL (6-24); CO2 Carbon Dioxide 27 mmol/L (22-32); Calcium 8.5 mg/dL (8.6-10.3); Chloride 102 mmol/L (101-111); EGFR African American 101.1 (>60); EGFR Non-African American 83.6 (>60); Globulin 2.8 g/dL (2-4); Glucose 123 mg/dL (70-100); Potassium 3.8 mmol/L (3.5-5.0); Salicylate < 2.50 mg/dL (<30); Sodium 139 mmol/L (135-145); Total Protein 6.8 g/dL (6.4-8.9)
[2020-11-05] MEDS ORDERED: Lorazepam PYXIS KEY PRN ×2 (00:08→07:18)
[2020-11-05] MEDS ORDERED: LORazepam 2 mg VIAL 1 ml IV PUSH ONE (00:08)
[2020-11-05 01:24] LABS: Troponin I 0.02 ng/mL (<0.03)
[2020-11-05] MEDS ORDERED: LORazepam 2 mg VIAL 1 ml IV ONE (07:18)
[2020-11-05] MEDS ORDERED: Amiodarone 150 mg IVPREMIX 150 MG/100 ML BAG IV ONE ×2 (11:20→13:21)
[2020-11-05] MEDS ORDERED: Diltiazem (ADVAN VIAL) 100 MG/100 ML ADDV.BAG IV ONE (15:30)
[2020-11-05] MEDS ORDERED: Diltiazem IV push/loading dose 5 MG/ML 5 ML vial (25 mg) IV SLOW PU ONE (16:14)
[2020-11-05] MEDS ORDERED: Levalbuterol HFA INHALER MDI INH PRN (19:39)
[2020-11-05 22:28] LABS: BUN/Creatinine Ratio 17.6 (8-20); Calcium 8.4 mg/dL (8.6-10.3); EGFR African American 134.9 (>60); EGFR Non-African American 111.5 (>60); Magnesium 1.6 mg/dL (1.9-2.7); Potassium 3.9 mmol/L (3.5-5.0)
[2020-11-05] MEDS ORDERED: Magnesium Sulfate IV 3 GM in NS 0.9% 100 ml BAG 100 ML IVPB ONE (22:29)
[2020-11-05 22:31] LABS: Troponin I 0.01 ng/mL (<0.03)
[2020-11-05] MEDS ORDERED: NS 0.9% 1000 ml BAG 1,000 ML IV ONE (23:03)
[2020-11-06] MEDS: Multivitamins/Minerals TAB PO SCH (08:48)
[2020-11-06] MEDS: NS 0.9% 1000 ml BAG 1,000 ML IV SCH (16:42)
[2020-11-07] MEDS: NS 0.9% 1000 ml BAG 1,000 ML IV SCH (08:24)
[2020-11-07] MEDS: Multivitamins/Minerals TAB PO SCH (08:25)
[2020-11-07 10:43] LABS: BUN/Creatinine Ratio 17.3 (8-20); EGFR African American 132.9 (>60); EGFR Non-African American 109.8 (>60); Potassium 3.8 mmol/L (3.5-5.0)
[2020-11-07 10:59] LABS: T4, Total 8.93 mcg/dL (6.09-12.23)
[2020-11-07 11:02] LABS: TSH Ultra Thyroid Stim Horm 4.27 mcIU/mL (0.34-5.60)
[2020-11-07 11:04] LABS: Free T3 2.8 pg/mL (2.5-3.9)
[2020-11-07 12:25] VITALS: BP 129/74
== END 2020-11-07 14:20 | disposition home or self-care (01) | DRG 775 ==
LOC: MED 18:17 → ED 18:17 → MED 11-05 19:10
PROVIDERS: ADMIT Internal Medicine Interventional Cardiology; ATTEND Internal Medicine